=== PATIENT | female | born 1975 | race Caucasian/White ===

== ENCOUNTER 2020-10-04 15:06 | Emergency (ER) | payer OTHER, SELFPAY ==
[2020-10-04 15:16] VITALS: BP 237/106; PULSE 108; RESP 20; TEMP 37.2; O2SAT 95
--- NOTE | 2020-10-04 15:21 | ECG_ITS ---
Test Reason : HYPERTENSION Blood Pressure : / mmHG Vent. Rate : 089 BPM Atrial Rate : 089 BPM P-R Int : 162 ms QRS Dur : 086 ms QT Int : 354 ms P-R-T Axes : 050 065 137 degrees QTc Int : 430 ms Normal sinus rhythm Possible Left atrial enlargement ST & T wave abnormality, consider lateral ischemia Abnormal ECG No previous ECGs available Referred By: Katelynn Hernandez Electronically Signed By:THOR CHI
[2020-10-04 15:25] VITALS: BP 237/106; PULSE 98; RESP 18; TEMP 36.6; O2SAT 99; BMI 37.1
--- NOTE | 2020-10-04 15:28 | ED_ITS ---
HPI - General Adult General Chief complaint: General Medical Stated complaint: HYPERTENSION Time Seen by Provider: 10/04/20 15:21 Source: patient and EMS Mode of arrival: EMS Limitations: no limitations History of Present Illness HPI narrative: 45 yo female with asthma, HTN had been on 3 medications took herself off in 2017 due to cost - went to the dentist today has mild headache BP 250 MD complaint: HTN Onset (ago): unknown Severity: mild Pain Consistency: constant Relieving factors: none Exacerbating factors: none Associated symptoms: headaches Treatments prior to arrival: none Related Data Home Medications Medication Instructions Recorded Confirmed amoxicillin 500 mg tablet 500 mg PO TID 10/04/20 10/04/20 naproxen 500 mg tablet 500 mg PO BID 10/04/20 10/04/20 Allergies Allergy/AdvReac Type Severity Reaction Status Date / Time egg [EGG] Allergy Intermediate ITCHY AND Unverified 10/04/20 14:19 HIVES. Egg White (Diagnostic) Allergy Unknown hives Uncoded 10/04/20 14:19 Review of Systems Review of Systems: Constitutional : No Weight loss, No Fever, No Chills, No Fatigue, No Malaise ENT/Mouth : No sore throat, No Rhinorrhea Eyes: No Eye Pain, No Swelling, No Redness Cardiovascular : No Chest Pain, No SOB, No Dyspnea on Exertion, No Orthopnea, No Edema, No Palpitations Respiratory : No Cough, No Sputum, No Wheezing Gastrointestinal : No Nausea, No Vomiting, No Diarrhea, No Constipation, No abdominal Pain, No Hematochezia, No Melena Genitourinary : No Dysuria, No Urinary Frequency, No Hematuria, Musculoskeletal : No joint pain, No Myalgias, No Joint Swelling Skin : No Skin Lesions, No rash Neuro : No Weakness, No Numbness, No Dizziness, pos Headache Psych : No Anxiety/Panic, No Depression Heme/Lymph: No Bruising, No Bleeding,No Lymphadenopathy Endocrine : No Polyuria, No Polydipsia All other systems reviewed and are negative [facility] Past Medical History Medical History Asthma HTN (hypertension) Social History Social History (Updated 10/04/20 @ 15:35 by Katelynn Hernandez DO) Smoking Status: Never smoker Use of substances other than those prescribed or required for medical reasons: No Advance Directives: No Advance Directives Information Provided: Yes Patient : No Physical Exam Vital Signs: Vital Signs: Last Vital Signs Temp 98 F 10/04/20 15:25 Pulse 85 10/04/20 15:55 Resp 10 L 10/04/20 15:55 BP 221/94 H 10/04/20 15:55 Pulse Ox 99 10/04/20 15:25 Body Mass Index 37.1 Appearance: Alert. Oriented X3. No acute distress. Eyes: Pupils equal, round and reactive to light. ENT: Pharynx normal. Neck: Normal inspection. Neck supple. CVS: Normal heart rate and rhythm. Pulses normal. Respiratory: No respiratory distress. Breath sounds normal. Abdomen: Soft and nontender. Skin: Skin warm and dry. Normal skin color. Normal skin turgor. Extremities: No lower extremity edema. No calf ttp Neuro: Oriented X 3. No motor deficit. No sensory deficit. Course Course Course Narrative: signed out to Dr. Almeida pending further workup Medical Decision Making MDM Narrative Medical decision making narrative: 45 yo female with hx of HTN on 3 medications in the past has not been on them since 2017 comes in with c/o elevated BPs 250 at dentist sent to ED c/o mild headache at this time but no CP/SOB - labs and IV labetalol ordered at this time. Lab Data Result diagrams: 10/04/20 15:35 10/04/20 15:35 Labs: Lab Results 10/04/20 10/04/20 Range/Units 15:35 15:35 WBC 9.5 (4.8-10.8) X10*3/uL RBC 4.02 L (4.20-5.50) X10*6/uL Hgb 13.2 (12.0-16.0) g/dl Hct 38.7 (37-47) % MCV 96.3 (80-98) fL MCH 32.8 (27.0-33.0) pg MCHC 34.1 (31.0-35.0) g/dl RDW 13.2 (11.0-16.0) % Plt Count 259 (160-400) X10*3/uL MPV 11.0 (9.4-12.3) fL Immature Gran % (Auto) 0.6 H (0.0-0.4) % Neut % (Auto) 66.2 (45-73) % Lymph % (Auto) 23.2 (20-40) % [place] % (Auto) 6.9 (2-11) % Eos % (Auto) 2.7 (0-4) % Baso % (Auto) 0.4 (0-2) % Lymph # (Auto) 2.2 (1.2-4.9) X10*3/uL [place] # (Auto) 0.7 (0.1-1.2) X10*3/uL Eos # (Auto) 0.3 (0.0-0.4) X10*3/uL Baso # (Auto) 0.0 (0.0-0.2) X10*3/uL Abs Immat Gran (auto) 0.06 H (0.00-0.03) X10*3/uL Absolute Neuts (auto) 6.3 (2.0-8.3) X10*3/uL Absolute Nucleated RBC 0.000 (0.0-0.012) X10*3/uL Nucleated RBC % (auto) 0.0 (0.0-0.2) /100WBC Sodium 138 (135-145) mmol/L Potassium 4.1 (3.3-5.1) mmol/L Chloride 105 (96-108) mmol/L Carbon Dioxide 23 (22-29) mmol/L Anion Gap 14 (12-20) BUN 18 H (9-16) mg/dL Creatinine 0.81 (0.5-1.4) mg/dL Estim Creat Clear Calc 104.7 Estimated GFR > 60 Random Glucose 97 (60-115) mg/dL Calcium 9.3 (8.4-10.2) mg/dL Magnesium 1.9 (1.6-2.6) mg/dL Total Bilirubin 0.6 (0.0-1.0) mg/dL Direct Bilirubin 0.2 (0.0-0.5) mg/dL AST 35 H (5-31) U/L ALT 45 H (0-31) U/L Alkaline Phosphatase 135 H (39-117) U/L Total Protein 7.2 (6.5-8.0) g/dL Albumin 4.2 (3.5-5.0) g/dL ECG Data Attestation: I personally reviewed and interpreted this ECG as follows: Interpretation: Rate: 89 Rhythm: NSR [place]: normal, LVH Normal P waves. Normal EARNEST. Normal QRS complex. ST T wave : no ISAI inverted I and aVL, V4-V6 qTC: normal prior studies: no prior The study has been interpreted contemporaneously by me. . Discharge Plan Discharge Clinical Impression: HTN (hypertension) Qualifiers: Hypertension type: unspecified Qualified Code(s): I10 - Essential (primary) hypertension Prescriptions: No Action amoxicillin 500 mg tablet 500 mg PO TID RF: 0 naproxen 500 mg tablet 500 mg PO BID RF: 0
[2020-10-04 15:40] LABS: MANUAL DIFF FLAG NO
[2020-10-04 15:47] LABS: Basophils Percent Auto 0.4 % (0-2); Eosinophils Absolute Auto 0.3 X10*3/uL (0.0-0.4); Eosinophils Percent Auto 2.7 % (0-4); Hematocrit 38.7 % (37-47); Hemoglobin 13.2 g/dl (12.0-16.0); Imm Gran Abs Auto 0.06 X10*3/uL (0.00-0.03); Imm Gran Pct Auto 0.6 % (0.0-0.4); Lymphocytes Absolute Auto 2.2 X10*3/uL (1.2-4.9); Lymphocytes Percent Auto 23.2 % (20-40); Mean Corpuscular HGB Conc 34.1 g/dl (31.0-35.0); Mean Corpuscular Hemoglobin 32.8 pg (27.0-33.0); Mean Corpuscular Volume 96.3 fL (80-98); Monocytes Absolute Auto 0.7 X10*3/uL (0.1-1.2); Monocytes Percent Auto 6.9 % (2-11); Neutrophils Absolute Auto 6.3 X10*3/uL (2.0-8.3); Neutrophils Percent Auto 66.2 % (45-73); Platelet Count 259 X10*3/uL (160-400); Red Blood Count 4.02 X10*6/uL (4.20-5.50); Red Cell Distribution Width 13.2 % (11.0-16.0); White Blood Count 9.5 X10*3/uL (4.8-10.8)
[2020-10-04] MEDS: Labetalol HCL 100 MG/20 ML VIAL 10 MG IVPUSH (15:54)
[2020-10-04 15:55] VITALS: BP 221/94; PULSE 85; RESP 10
[2020-10-04 16:09] LABS: Alanine Aminotransferase 45 U/L (0-31); Albumin Level 4.2 g/dL (3.5-5.0); Alkaline Phosphatase 135 U/L (39-117); Anion Gap 14 (12-20); Aspartate Amino Transferase 35 U/L (5-31); Bilirubin Direct 0.2 mg/dL (0.0-0.5); Bilirubin Total 0.6 mg/dL (0.0-1.0); Blood Urea Nitrogen 18 mg/dL (9-16); Calcium 9.3 mg/dL (8.4-10.2); Carbon Dioxide 23 mmol/L (22-29); Chloride 105 mmol/L (96-108); Creatinine Clr Calc Pharmacy 104.7; Estimated Glomerular Filt Rate > 60; Glucose Random 97 mg/dL (60-115); Magnesium 1.9 mg/dL (1.6-2.6); Potassium 4.1 mmol/L (3.3-5.1); Sodium 138 mmol/L (135-145); Total Protein 7.2 g/dL (6.5-8.0)
[2020-10-04 16:50] VITALS: BP 186/92; PULSE 83
[2020-10-04] MEDS: amLODIPine Besylate 5 MG TABLET PO (16:50)
[2020-10-04 17:53] VITALS: BP 183/82; PULSE 72
[2020-10-04 18:47] VITALS: BP 207/100; PULSE 91
[2020-10-04] MEDS: lisinopriL 20 MG TABLET PO (18:47)
== END 2020-10-04 18:55 | disposition home or self-care (01) ==
PROVIDERS: Emergency Provider Emergency Medicine
DX: I10 Essential (primary) hypertension (principal); J45.909 Unspecified asthma, uncomplicated; R51.9 Headache, unspecified; Z79.899 Other long term (current) drug therapy
CPT/HCPCS: 36415; 80048; 80076; 83735; 85025; 93005; 96374; 99284

== ENCOUNTER 2020-10-15 09:02 | Inpatient (IN) | payer OTHER, SELFPAY ==
[2020-10-15] VITALS (13 sets, daily range): BP systolic 143–232; BP diastolic 60–130; PULSE 75–106; RESP 13–20; TEMP 36.1–37.2; O2SAT 97–100; BMI 43.9
--- NOTE | ~2020-10-15 | CT_ITS ---
EXAMINATION: CT HEAD WITHOUT CONTRAST CLINICAL INFORMATION: Headache. COMPARISON: None TECHNIQUE: Contiguous axial imaging was performed from the skull base to vertex without intravenous administration of contrast. This CT examination was performed using dose optimization techniques as appropriate, variously including the following: *Automated exposure control *Adjustment of mA and/or kV according to patient size (this includes techniques or standardized protocols for targeted exams where dose is matched to indication/reason for exam; i.e. extremities or head) *Use of iterative reconstruction technique DLP: 735 mGy-cm FINDINGS: There is no evidence of acute intracranial hemorrhage or territorial infarction. No abnormal mass effect or midline shift is seen. Gill to white matter differentiation is well preserved. No extra-axial fluid collections are identified. The ventricles are normal in size. There is no abnormal attenuation within the brain parenchyma. The osseous structures and soft tissues are normal. Bone windows reveal diffuse mucoperiosteal thickening in the bilateral ethmoid and maxillary sinuses. Rest of the paranasal sinuses and mastoid air cells are well-aerated. CT/CT head/brain wo con IMPRESSION: No acute intracranial process seen. Diffuse mucoperiosteal thickening bilateral ethmoid and maxillary sinuses.
--- NOTE | ~2020-10-15 | XR_ITS ---
EXAMINATION: XR CHEST CLINICAL INFORMATION: Shortness of breath and wheezing COMPARISON: None TECHNIQUE: Frontal view of the chest was obtained. FINDINGS: The cardiac and mediastinal contours are normal. There is increased attenuation of the right mid and lower lung. It is uncertain whether this is related to overlying soft tissues. The left lung is clear. There is no pleural effusion or pneumothorax. There is mild curvature of the lower thoracic spine to the left. Bony structures are otherwise unremarkable. XR/XR chest 1V IMPRESSION: Increased attenuation of the mid and lower right lung. It is uncertain whether this is related to overlying soft tissues. This could be further evaluated with PA and lateral chest x-ray if indicated.
--- NOTE | ~2020-10-15 | XR_ITS ---
EXAMINATION: XR CHEST CLINICAL INFORMATION: SOB/wheezing COMPARISON: None TECHNIQUE: 2 views of the chest were obtained. FINDINGS: The lungs are well-expanded and clear of acute process. The heart size and pulmonary vascularity is normal. No gross bony pneumonia seen. XR/XR chest 2V IMPRESSION: Unremarkable chest exam.
--- NOTE | 2020-10-15 09:50 | ECG_ITS ---
Test Reason : CHEST PAIN Blood Pressure : / mmHG Vent. Rate : 104 BPM Atrial Rate : 104 BPM P-R Int : 176 ms QRS Dur : 090 ms QT Int : 326 ms P-R-T Axes : 064 064 157 degrees QTc Int : [address] & T wave abnormality, consider inferolateral ischemia Abnormal ECG When compared with ECG of 04-OCT-2020 15:27, Inverted T waves have replaced nonspecific T wave abnormality in Inferior leads Referred By: Alycia Song Electronically Signed By:IGOR LEE MD
--- NOTE | 2020-10-15 09:59 | PC.NURSE ---
YONAS AGUIRRE IN TO ASSESS, PT TO BE TRANSFERED TO MAIN ED FOR FURTHER EVALUATION AND TREATMENT, ASTROBIOLOGIST AGGIE AWARE, PT AMBULATORY W/O APPARENT DISTRESS, REPORT TO ANNIE VILLAGOMEZ
--- NOTE | 2020-10-15 10:08 | ED_ITS ---
HPI - Allergic Reaction General Chief complaint: Allergic Reaction Stated complaint: allergic reaction Time Seen by Provider: 10/15/20 09:48 Source: patient Mode of arrival: ambulatory History of Present Illness HPI narrative: 45-year-old female with a past medical history of asthma, tubal ligation, HTN, presenting to the ED sent from urgent care for HTN and hives x3 days. Patient reports she was recently started on Amoxicillin for a dental infection on 10/03 and HCTZ/Lisinopril on 10/04/20 in our ED for hypertension. Has been taking Benadryl at home with symptomatic relief, stopped all medications on Thursday. Reports hives intermittent, admits to headache, dental pain, cough, wheezing, SOB. Denies other new or recent medications, recent travel, known insect bites, difficulty swallowing/handling secretions, oral swelling, chest pain, vision changes, weakness, fever. Denies taking anticoagulation MD complaint: allergic reaction and hives Related Data Home Medications Medication Instructions Recorded Confirmed amoxicillin 500 mg tablet 500 mg PO TID 10/04/20 10/04/20 naproxen 500 mg tablet 500 mg PO BID 10/04/20 10/04/20 Previous Rx's Medication Instructions Recorded lisinopril-hydrochlorothiazide 1 tab PO DAILY #90 tab 10/04/20 Allergies Allergy/AdvReac Type Severity Reaction Status Date / Time egg [EGG] Allergy Intermediate ITCHY AND Unverified 10/04/20 14:19 HIVES. Egg White (Diagnostic) Allergy Unknown hives Uncoded 10/04/20 14:19 Review of Systems Review of Systems: Constitutional: No Fever, No Chills, No Fatigue, No Malaise ENT/Mouth: No Ear Pain, No Nasal Congestion, No Sinus Pain, No Hoarseness, No sore throat, No Swallowing Difficulty Eyes: No Eye Pain, No Discharge, No Vision Changes Cardiovascular: No Chest Pain, + SOB, No Edema, No Palpitations Respiratory: + Cough, No Sputum, + Wheezing Gastrointestinal: No Nausea, No Vomiting, No Diarrhea, No Constipation, No Abdominal pain Genitourinary: No Dysuria, No Hematuria, No Flank Pain Musculoskeletal: No joint pain, No Myalgias, No Joint Swelling Skin: No Skin Lesions, No rash Neuro: No Weakness, No Numbness, No Dizziness, +Headache Yes all other systems are reviewed and are negative [facility] Past Medical History Attestation statement: The following information was validated with the patient. Medical History (Updated 10/05/20 @ 00:01 by Melina Marrufo) Asthma HTN (hypertension) Surgical History (Updated 10/15/20 @ 09:21 by Antonella Tipton) H/O tubal ligation Social History Social History (Updated 10/04/20 @ 15:35 by Katelynn Hernandez DO) Smoking Status: Never smoker Smoked in Last 30 Days: No Use of substances other than those prescribed or required for medical reasons: Yes Substance Use Type: Marijuana Substance Use Frequency: Occasionally Advance Directives: No Advance Directives Information Provided: No Patient : No Physical Exam Vital Signs: Vital Signs: Last Vital Signs Temp 99.0 F 10/15/20 10:06 Pulse 87 10/15/20 14:15 Resp 16 10/15/20 14:05 BP 215/117 H 10/15/20 14:15 Pulse Ox 100 10/15/20 14:05 Body Mass Index 43.9 Const: General: cooperative and healthy appearing Orientation/consciousnes s: patient oriented x3 Limitations: no limitations HENMT: Other: Left upper 3rd molar with tenderness to palpation. Mild gingival erythema. No fluctuance induration or cellulitis Head: Yes normal to inspection Ears: hearing grossly normal bilaterally General nose exam: Normal external nose present Face and sinus: Yes normal facial exam Mouth: Normal oral and palatal mucosa present Throat: Yes posterior oropharynx normal, Yes tonsils normal, Yes uvula midline, No abnormal tonsil, No peritonsillar mass, No uvula laterally displaced and No uvular edema Eyes: General: appearance normal, both eyes and all related structures EOM: EOMs intact bilaterally Neck: Neck: Yes normal visual inspection, Yes no lymphadenopathy and Yes no meningeal signs Chest: Chest palpation & inspection: normal inspection of the chest Resp: Effort & Inspection: normal respiratory effort Auscultation: wheezes expiratory wheezes Cardio: Rate: regular rate Heart sounds: S1 normal heart sound present and S2 normal heart sound present GI: Inspection: Yes normal to inspection Palpation (GI): Soft to palpation, nontender, no guarding and not rigid Skin: Other: No appreciable hives Rashes: no rashes Wounds: no wounds Neuro: General: patient oriented x3, tone normal, moves all extremities, no meningeal signs and CN's II-XI intact bilaterally Cognition (Neuro): normal cognition Gait exam (Neuro): Normal gait present Extrem: General: Yes normal to inspection Course Course Course Narrative: -CXR unremarkable, head CT unremarkable - initial troponin 6.7 > will obtain 3 hour repeat -1415--patient reported episode of heart fluttering/chest pain, obtained repeat EKG which shows some ischemic changes in leads V4 through V6, BP read elevated, IV Labetalol/Nitro paste ordered. Plan to admit for further management MDM - Allergic Reaction MDM Narrative Medical decision making narrative: 45-year-old female with a past medical history of asthma, tubal ligation, HTN, presenting to the ED sent from urgent care for HTN and hives x3 days. Patient reports she was recently started on Amoxicillin and HCTZ/Lisinopril. Reports hives intermittent, admits to headache, dental pain, cough, wheezing, SOB. On exam hypertensive 211/104, mild end expiratory wheeze, talking in complete sentences no evidence of respiratory distress, no intraoral swelling, uvula midline, no appreciable hives. Dental tenderness noted on exam. Concern for allergic reaction due to unknown medication/multiple recent new medications. Concern for hypertensive urgency vs emergency. No focal neuro deficits. Low concern for ACS. Plan: EKG, labs, head CT, CXR, Norvasc, Benadryl, Pepcid, albuterol, reassess Medical Records Attestation: I reviewed the patient's medical records. Lab Data Attestation: I reviewed the patient's lab results. Result diagrams: 10/15/20 10:20 10/15/20 10:19 Labs: Lab Results 10/15/20 10/15/20 10/15/20 Range/Units 10:19 10:19 10:19 WBC (4.8-10.8) X10*3/uL RBC (4.20-5.50) X10*6/uL Hgb (12.0-16.0) g/dl Hct (37-47) % MCV (80-98) fL MCH (27.0-33.0) pg MCHC (31.0-35.0) g/dl RDW (11.0-16.0) % Plt Count (160-400) X10*3/uL MPV (9.4-12.3) fL Immature Gran % (Auto) (0.0-0.4) % Neut % (Auto) (45-73) % Lymph % (Auto) (20-40) % [place] % (Auto) (2-11) % Eos % (Auto) (0-4) % Baso % (Auto) (0-2) % Lymph # (Auto) (1.2-4.9) X10*3/uL [place] # (Auto) (0.1-1.2) X10*3/uL Eos # (Auto) (0.0-0.4) X10*3/uL Baso # (Auto) (0.0-0.2) X10*3/uL Abs Immat Gran (auto) (0.00-0.03) X10*3/uL Absolute Neuts (auto) (2.0-8.3) X10*3/uL Absolute Nucleated RBC (0.0-0.012) X10*3/uL Nucleated RBC % (auto) (0.0-0.2) /100WBC Hold Blue Top SEE NOTE Sodium 138 (135-145) mmol/L Potassium 4.7 (3.3-5.1) mmol/L Chloride 103 (96-108) mmol/L Carbon Dioxide 25 (22-29) mmol/L Anion Gap 15 (12-20) BUN 16 (9-16) mg/dL Creatinine 0.73 (0.5-1.4) mg/dL Estim Creat Clear Calc 110.7 Estimated GFR > 60 Random Glucose 92 (60-115) mg/dL Calcium 9.2 (8.4-10.2) mg/dL Magnesium 2.1 (1.6-2.6) mg/dL Total Bilirubin 0.3 (0.0-1.0) mg/dL Direct Bilirubin < 0.2 (0.0-0.5) mg/dL AST 30 (5-31) U/L ALT 39 H (0-31) U/L Alkaline Phosphatase 133 H (39-117) U/L Troponin I High Sens 6.7 (<3.5-17.0) ng/L Total Protein 7.6 (6.5-8.0) g/dL Albumin 4.5 (3.5-5.0) g/dL 10/15/20 Range/Units 10:20 WBC 7.3 (4.8-10.8) X10*3/uL RBC 4.05 L (4.20-5.50) X10*6/uL Hgb 13.4 (12.0-16.0) g/dl Hct 38.9 (37-47) % MCV 96.0 (80-98) fL MCH 33.1 H (27.0-33.0) pg MCHC 34.4 (31.0-35.0) g/dl RDW 12.8 (11.0-16.0) % Plt Count 262 (160-400) X10*3/uL MPV 11.6 (9.4-12.3) fL Immature Gran % (Auto) 0.5 H (0.0-0.4) % Neut % (Auto) 63.2 (45-73) % Lymph % (Auto) 26.1 (20-40) % [place] % (Auto) 6.8 (2-11) % Eos % (Auto) 3.0 (0-4) % Baso % (Auto) 0.4 (0-2) % Lymph # (Auto) 1.9 (1.2-4.9) X10*3/uL [place] # (Auto) 0.5 (0.1-1.2) X10*3/uL Eos # (Auto) 0.2 (0.0-0.4) X10*3/uL Baso # (Auto) 0.0 (0.0-0.2) X10*3/uL Abs Immat Gran (auto) 0.04 H (0.00-0.03) X10*3/uL Absolute Neuts (auto) 4.6 (2.0-8.3) X10*3/uL Absolute Nucleated RBC 0.000 (0.0-0.012) X10*3/uL Nucleated RBC % (auto) 0.0 (0.0-0.2) /100WBC Hold Blue Top Sodium (135-145) mmol/L Potassium (3.3-5.1) mmol/L Chloride (96-108) mmol/L Carbon Dioxide (22-29) mmol/L Anion Gap (12-20) BUN (9-16) mg/dL Creatinine (0.5-1.4) mg/dL Estim Creat Clear Calc Estimated GFR Random Glucose (60-115) mg/dL Calcium (8.4-10.2) mg/dL Magnesium (1.6-2.6) mg/dL Total Bilirubin (0.0-1.0) mg/dL Direct Bilirubin (0.0-0.5) mg/dL AST (5-31) U/L ALT (0-31) U/L Alkaline Phosphatase (39-117) U/L Troponin I High Sens (<3.5-17.0) ng/L Total Protein (6.5-8.0) g/dL Albumin (3.5-5.0) g/dL ECG Data Attestation: I personally reviewed and interpreted this ECG as follows: ECG interpretation date: 10/15/20 ECG interpretation time: 13:52 Prior ECG tracings: available for review Interpretation: EKG sinus tachycardia rate of 104. Ischemic changes in V4 through V6 Discharge Plan Discharge Prescriptions: No Action lisinopril-hydrochlorothiazide 20-25 mg tablet 1 tab PO DAILY Qty: 90 RF: 3 amoxicillin 500 mg tablet 500 mg PO TID RF: 0 naproxen 500 mg tablet 500 mg PO BID RF: 0
[2020-10-15] MEDS: Albuterol Sulfate (0.083%) 2.5 MG/3 ML VIAL.NEB 5 MG INHALE (10:10)
[2020-10-15 10:24] LABS: MANUAL DIFF FLAG NO
[2020-10-15] MEDS: diphenhydrAMINE HCL 50 MG/ML VIAL 25 MG IVPUSH (10:25)
[2020-10-15] MEDS: Famotidine/PF 20 MG/2 ML VIAL IVPUSH (10:25)
[2020-10-15 10:28] LABS: Basophils Percent Auto 0.4 % (0-2); Eosinophils Absolute Auto 0.2 X10*3/uL (0.0-0.4); Hematocrit 38.9 % (37-47); Hemoglobin 13.4 g/dl (12.0-16.0); Imm Gran Abs Auto 0.04 X10*3/uL (0.00-0.03); Imm Gran Pct Auto 0.5 % (0.0-0.4); Lymphocytes Absolute Auto 1.9 X10*3/uL (1.2-4.9); Lymphocytes Percent Auto 26.1 % (20-40); Mean Corpuscular HGB Conc 34.4 g/dl (31.0-35.0); Mean Corpuscular Hemoglobin 33.1 pg (27.0-33.0); Mean Platelet Volume 11.6 fL (9.4-12.3); Monocytes Absolute Auto 0.5 X10*3/uL (0.1-1.2); Monocytes Percent Auto 6.8 % (2-11); Neutrophils Absolute Auto 4.6 X10*3/uL (2.0-8.3); Neutrophils Percent Auto 63.2 % (45-73); Platelet Count 262 X10*3/uL (160-400); Red Blood Count 4.05 X10*6/uL (4.20-5.50); Red Cell Distribution Width 12.8 % (11.0-16.0); White Blood Count 7.3 X10*3/uL (4.8-10.8)
[2020-10-15] MEDS: amLODIPine Besylate 5 MG TABLET PO (10:34)
[2020-10-15 11:00] LABS: Alanine Aminotransferase 39 U/L (0-31); Albumin Level 4.5 g/dL (3.5-5.0); Alkaline Phosphatase 133 U/L (39-117); Anion Gap 15 (12-20); Aspartate Amino Transferase 30 U/L (5-31); Bilirubin Direct < 0.2 mg/dL (0.0-0.5); Bilirubin Total 0.3 mg/dL (0.0-1.0); Blood Urea Nitrogen 16 mg/dL (9-16); Calcium 9.2 mg/dL (8.4-10.2); Carbon Dioxide 25 mmol/L (22-29); Chloride 103 mmol/L (96-108); Creatinine Clr Calc Pharmacy 110.7; Estimated Glomerular Filt Rate > 60; Glucose Random 92 mg/dL (60-115); Magnesium 2.1 mg/dL (1.6-2.6); Potassium 4.7 mmol/L (3.3-5.1); Sodium 138 mmol/L (135-145); Total Protein 7.6 g/dL (6.5-8.0); Troponin-I High Sensitivity 6.7 ng/L (<3.5-17.0)
[2020-10-15] MEDS: Nitroglycerin 2 % Oint 1 GM Packet 0.5 INCH TRANSDERMA (14:09)
[2020-10-15] MEDS: Labetalol HCL 100 MG/20 ML VIAL 10 MG IVPUSH (14:15)
[2020-10-15 14:29] LABS: Troponin-I High Sensitivity 7.4 ng/L (<3.5-17.0)
[2020-10-15] MEDS: Acetaminophen 325 MG TABLET 650 MG PO ×2 (15:04→20:33)
[2020-10-15] MEDS: Metoprolol Tartrate 50 MG TABLET PO (15:51)
[2020-10-15] MEDS: hydroCHLOROthiazide 25 MG TABLET PO (17:46)
[2020-10-15] MEDS: Enoxaparin Sodium 40 MG/0.4 ML SYRINGE SUBCUT (17:47)
[2020-10-15] MEDS: 0.9 % Sodium Chloride Flush 3 ML SYRINGE IVFLUSH (17:49)
--- NOTE | 2020-10-15 18:03 | HP_ITS ---
DATE OF SERVICE: 10/15/2020 CHIEF COMPLAINT: Fluttering of chest, associated with intermittent hives. HISTORY OF PRESENTING ILLNESS: This is a 45-year-old female patient, who was evaluated at [facility] on 10/04/2020 since she was sent to [facility] from her dental office due to elevated blood pressure and headache. The patient in the ER was noted to have significantly elevated blood pressure. Therefore, she was placed on lisinopril and hydrochlorothiazide. Her blood pressure improved. Then, the patient was discharged home. At the same time, the patient was also given amoxicillin by her dentist. As per patient, she started taking all the new medications and started noticing intermittent hives in last few days associated with shortness of breath, chest fluttering. She kept taking Benadryl, but since she had persistent hives, facial swelling, fluttering of chest, she decided to come to the emergency room. As per patient, she has taken amoxicillin in the past with no reaction. She has also taken hydrochlorothiazide with no allergic reaction. She does have history of hives in the past and was diagnosed to have allergies to egg. The patient in the emergency room was noted to have a blood pressure of 232/130. Her EKG showed T-wave inversions in leads V3 to V6 that were present on her previous EKG of October 04, but more pronounced. The patient was treated in the ER with nitroglycerin paste, IV Benadryl, Pepcid, IV labetalol, and Norvasc. Current blood pressure is improved to 163/82. The patient denies any recurrent hives, denies lip swelling, difficulty breathing. No further hives. She denies any chest pain. The patient is now being admitted for better blood pressure control and close monitoring and treatment for her acute allergic reaction. PAST MEDICAL HISTORY: Significant for, 1. Asthma. 2. History of hypertension. 3. Status post tubal ligation. 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 No history of smoking. She drinks vodka 2 to 3 times per week with soda. No history of prior alcohol withdrawal. The patient lives at home with boyfriend and her daughter and grandkids. FAMILY HISTORY: There is a history of premature coronary artery disease in her brother, who had an ID and required cardiac surgery. Mother also has heart disease. Father has peripheral vascular disease and diabetes. REVIEW OF SYSTEMS: CONSTITUTIONAL: She denies any headache, dizziness. CVS: Denies any chest pain or palpitation. GI: Denies any nausea, vomiting, diarrhea. : No urinary symptoms of urgency and frequency. SKIN: She denies any new rash since in the emergency room. No itching. Rest of all other system are reviewed and are negative. ALLERGIES: THE PATIENT IS ALLERGIC TO EGGS THAT CAUSING ITCHING AND HIVES. MEDICATIONS: On admission are, 1. Hydrochlorothiazide/lisinopril 1 tablet a day. 2. Naprosyn 500 mg b.i.d. 3. Amoxicillin 500 mg t.i.d. The patient has finished course of amoxicillin only 1 tablet was left. PHYSICAL EXAMINATION: GENERAL: The patient is resting comfortably, does not appear to be in acute distress. VITALS: BP 163/82 with a pulse of 92, respiratory rate 12, O2 saturation 98% on room air. HEENT: Pupils equal, round, and reactive to light and accommodation. Extraocular muscles intact. Anicteric sclerae. NECK: Supple. No JVD. LUNGS: Clear to auscultation. HEART: Regular rate and rhythm. No murmur, regurg, or gallop. ABDOMEN: Obese, soft, nontender. EXTREMITIES: Without clubbing, cyanosis, or edema. SKIN: Without any hives or rashes. FACE: Mild swelling in the periorbital area and cheeks. Lips normal appearing. Tongue not swollen. Oral mucosa moist. No open ulcers or sores. There are multiple cavities. NEURO: Nonfocal. IMAGING STUDIES: Chest x-ray showed no acute infiltrate. Head CT showed no acute abnormality. WBC 7.3, hematocrit of 38.9, and a platelet count of 262. Sodium 138, potassium 4.7, chloride 103, BUN 16, creatinine of 0.73, magnesium 2.1, blood sugar 92. ALT 39, alkaline phosphatase of 133. Troponin 6.7, repeat troponin 7.4. EKG showed ST and T-wave abnormality, mostly inverted T-waves in the lateral leads V3 to V6, and lead 1 and aVL. ASSESSMENT AND PLAN: This is a 45-year-old female patient with past medical history significant for hypertension; asthma; presented to [facility] due to symptoms of intermittent hives since started on lisinopril, hydrochlorothiazide, and amoxicillin. 1. Hypertensive urgency. The patient noted to have significantly elevated blood pressure. The patient stopped using her antihypertensive medications 3 years ago due to lack of insurance. The patient seen at [facility] on October 04 and started on lisinopril and hydrochlorothiazide due to significant hypertension. The patient does not recall the name of her prior medications. Since the patient developed hives, facial swelling, and fluttering; therefore, we will stop the lisinopril. The patient has taken hydrochlorothiazide in the past with no allergy symptoms. We will place the patient on Norvasc 5 mg by mouth daily. We will add metoprolol 50 mg b.i.d. If BP remains elevated, we will place her on hydrochlorothiazide 12.5 mg daily. We will follow blood pressure closely. 2. Abnormal EKG with T-wave inversions in anterior lateral leads, likely due to significant hypertension. We will repeat EKG. Troponins are unremarkable. The patient has no chest pain. We will obtain echocardiogram to check for left ventricular function and hypertrophy. 3. Allergic reaction with hives, itching, and chest fluttering. The patient at the present time has no difficulty swallowing, able to manage her secretions. No further hives. Most likely, symptoms were due to use of lisinopril since the patient has taken amoxicillin and hydrochlorothiazide in the past with no reaction. The patient will be treated with as-needed Benadryl and Pepcid. We will place Lisinopril in allergies. We will give her retrial of hydrochlorothiazide if blood pressure remains elevated. 4. History of asthma with no acute exacerbation. The patient is not on home inhalers and no history of recent asthma exacerbation. 5. Morbid obesity contributing to symptoms of hypertension, we will recommend weight reduction. 6. Deep vein thrombosis prophylaxis, we will place the patient on Lovenox. 7. Code status, the patient is a full code. MD YENI Valdez/SYED / [id number] MTDD
--- NOTE | 2020-10-15 18:40 | PC.NURSE ---
blood pressure 185/80, Dr Song was notified ,HCTZ 25 mg ordered and administered
[2020-10-16] VITALS (11 sets, daily range): BP systolic 142–206; BP diastolic 74–107; PULSE 77–90; RESP 16–20; TEMP 36.2–36.4; O2SAT 96–99
[2020-10-16 05:02] LABS: Cholesterol 192 mg/dL; HDL Cholesterol 54 mg/dL; LDL Cholesterol Calculated 104 mg/dl; Triglycerides 171 mg/dL
[2020-10-16] MEDS: Acetaminophen 325 MG TABLET 650 MG PO ×2 (05:25→19:40)
--- NOTE | 2020-10-16 07:00 | ECG_ITS ---
Test Reason : CP Blood Pressure : / mmHG Vent. Rate : 080 BPM Atrial Rate : 080 BPM P-R Int : 156 ms QRS Dur : 094 ms QT Int : 380 ms P-R-T Axes : 025 055 119 degrees QTc Int : 438 ms Normal sinus rhythm ST & T wave abnormality, consider lateral ischemia Abnormal ECG When compared with ECG of 15-OCT-2020 13:52, T wave inversion no longer evident in Inferior leads Referred By: Alycia Song Electronically Signed By:IGOR LEE MD
[2020-10-16] MEDS: Famotidine 20 MG TABLET PO (08:21)
[2020-10-16] MEDS: hydroCHLOROthiazide 25 MG TABLET PO (08:21)
[2020-10-16] MEDS: amLODIPine Besylate 5 MG TABLET PO (08:21)
[2020-10-16] MEDS: 0.9 % Sodium Chloride Flush 3 ML SYRINGE IVFLUSH ×3 (08:22→20:08)
[2020-10-16] MEDS: diphenhydrAMINE HCL 25 MG TABLET PO ×2 (10:40→19:38)
[2020-10-16] MEDS: carvediloL 6.25 MG TABLET PO (10:41)
--- NOTE | 2020-10-16 12:26 | MHC.AU.PHL ---
Hearing Instrument Fitting- Pediatric- Left Ear Date of Visit: Product Picker Used: Hearing Instrument(s) Dispensed: Left Ear: Metal Rivet Machine Operator: Model: Serial Number: Repair Warranty: Loss and Damage Warranty: Service Plan: Battery Size: Color: Service Consultant: Tubing: Type of Dome: Type of Mold: Type of Wax Guard: Accessories/Assistive Technology: Summary of Fitting: Recommendations: Recommendations: Recommendations: Diagnosis Code(s): Primary Diagnosis: Secondary Diagnosis: Services Performed: Hearing Aid Evaluation Type: Ear Impression (Quantity): Earmold (Quantity): Swim Mold (Quantity): Musician's Plug (Quantity): CARRILLO Dispensing Fees: CARRILLO Product Codes: Fitting Accessories: CARRILLO Accessories (Quantity): Accessory Description: Hearing Aid Fitting Services: Number of Individual Battery Cells: Package of Wax Guards: CARRILLO Purchased through [facility] or Outside Vendor: CARRILLO Maintenance, Minor Repair (Quantity): Service Consultant Replaced, Out of Warranty: Domes/Tubes: Out of Warranty Repair by Metal Rivet Machine Operator: Extended Warranty (1 or 2 Instruments): Cerumen Removal: Loss and Damage Replacement Fee: CARRILLO Non-Quantity Charges: Signature: Student/Clinical Fellow: I have reviewed/agreed with student/fellow documentation: Provider:
--- NOTE | 2020-10-16 12:26 | MHC.CM.PN ---
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 reviewed along with case discussed with staff nurse and on multiple disciplinary rounds.patient informed me that she had lost her job and had no insurance , then just started a job with waiting period for insurances so her medications prescription needed refills and no pcp, informed her that if this should ever happen aging to reach out to any [facility] financial department and apply for [employer] or the [employer] [facility] where you buy into and pay for ins at [facility], , she was seen at the [facility] on [address] and they sent her into the [facility] er her blood pressure on admission to er was 232/130 she was admitted with the diagnosis of hypertension urgency she is active , independent in all adls and mobility , she is employed and will require not to return back to work patients aware of her current plan of monitoring her blood pressure , bp medication changes, continue nitro paste iv benadryl pepcid, iv labetatol d/c lisinopril add norvasc and metoprolol prn., monitoring labs, repeat ekg cardia labs ans echo per documentaiton met with patient she reported she lives at home with her family boyfriend, daughter and two grand children , she admits to drinking socially vodka with soda 2-3x weekly patient has not ama vacinated, and uses the [facility] pharmacy on [address] discharge plan confuirm pcp home with family no services antivcipated, transportation family
--- NOTE | 2020-10-16 14:13 | P.PNIM_ITS ---
Subjective Subjective Date of Service: 10/16/20 Interval History: the patient was seen and evaluated this morning Laying in bed, feels comfortable overall but blood pressure readings still significantly elevated around 190 systolic No reported hives, edema or difficulty swallowing Denies any fever, chills or shortness of breath No reported other overnight events. Systemic review: No fever, chills or weakness No chest pain, palpitation No shortness of breath or coughing No abdominal pain, nausea or vomiting No urinary symptoms No any rash or wounds Physical Exam Vital Signs: Vital Signs: Last Vital Signs Temp 97.2 F 10/16/20 10:43 Pulse 83 10/16/20 10:43 Resp 18 10/16/20 10:43 BP 170/100 H 10/16/20 10:43 Pulse Ox 97 10/16/20 10:43 Body Mass Index 43.9 Const: Other: Constitutional : Alert, oriented, not in distress, morbidly obese Neck : Normal inspection, Supple Cardiovascular : RRR, S1 S2, no lower extremity edema Respiratory : Good bilateral air entry, no crackles, wheezes or rhonchi Gastrointestinal: soft, lax, Normal bowel sounds, Non tender Skin : Warm/Dry, No rash Neurological : Alert & oriented x3, No focal deficit Objective Data Current Medications Generic Name Dose Route Start Last Admin Trade Name Freq PRN Reason Stop Dose Admin Acetaminophen 650 mg 10/15/20 15:35 10/16/20 05:25 Acetaminophen 325 Mg Tablet PO 650 mg Q6H PRN Administration Pain, Mild (Pain Scale 1-3) Albuterol Sulfate 2 puff 10/15/20 17:19 Albuterol Sulfate 90 Mcg 8 Gm Inhaler INHALE Q4H PRN Respiratory Distress Amlodipine Besylate 10 mg 10/17/20 09:00 Amlodipine Besylate 5 Mg Tablet PO DAILY LACY Protocol Carvedilol 12.5 mg 10/16/20 21:00 Carvedilol 12.5 Mg Tablet PO BID LACY Protocol Diphenhydramine HCl 25 mg 10/15/20 15:35 10/16/20 10:40 Diphenhydramine Hcl 25 Mg Tablet PO 25 mg Q6H PRN Administration Allergic Reaction Enoxaparin Sodium 40 mg 10/15/20 18:00 10/15/20 17:47 Enoxaparin Sodium 40 Mg/0.4 Ml Syringe SUBCUT 40 mg Q24H LACY Administration Famotidine 20 mg 10/16/20 09:00 10/16/20 08:21 Famotidine 20 Mg Tablet PO 20 mg DAILY LACY Administration Hydrochlorothiazide 25 mg 10/15/20 18:00 10/16/20 08:21 Hydrochlorothiazide 25 Mg Tablet PO 25 mg DAILY LACY Administration Protocol Ondansetron HCl 4 mg 10/15/20 15:35 Ondansetron Hcl 4 Mg/2 Ml Vial IVPUSH Q8H PRN Nausea and Vomiting Oxycodone HCl 5 mg 10/15/20 15:35 Oxycodone Hcl Immed Release 5 Mg Tablet PO Q6H PRN Pain, Severe (Pain Scale 7-10) Sodium Chloride 3 ml 10/15/20 17:00 10/16/20 08:22 0.9 % Sodium Chloride Flush 3 Ml Syringe IVFLUSH 3 ml QSHIFT LACY Administration Labs CBC & Chem 7: 10/15/20 10:20 10/15/20 10:19 Assessment and Plan (1) Hypertensive urgency: Status: Acute (2) Hives: Status: Acute (3) Allergy to lisinopril: Status: Acute (4) Morbid obesity: Status: Acute Assessment and Plan: This is a 45-year-old female patient with past medical history significant for hypertension; asthma; presented to [facility] due to symptoms of intermittent hives since started on lisinopril, hydrochlorothiazide, and amoxicillin. Hypertensive urgency. Still have significantly elevated blood pressure readings The patient stopped using her antihypertensive medications 3 years ago due to lack of insurance. patient developed hives, facial swelling, and fluttering; therefore, we will stop the lisinopril. Continue hydrochlorothiazide Continue Norvasc 5 mg, consider increase to 10 by tomorrow if maintains high Carvedilol started b.i.d. next [place] continue to monitor blood pressure Abnormal EKG T-wave inversions in anterior lateral leads, likely due to significant hypertension repeat EKG. Troponins are unremarkable. The patient has no chest pain. obtain echocardiogram to check for left ventricular function and hypertrophy Allergic reaction with hives, itching, and chest fluttering symptoms were due to use of lisinopril , discontinued The patient will be treated with as-needed Benadryl and Pepcid. History of asthma no acute exacerbation. Morbid obesity contributing to symptoms of hypertension, discussed weight reduction Deep vein thrombosis prophylaxis on Lovenox.
[2020-10-16] MEDS: oxyCODONE HCl Immed Release 5 MG TABLET PO (14:38)
[2020-10-16] MEDS: Enoxaparin Sodium 40 MG/0.4 ML SYRINGE SUBCUT (17:53)
[2020-10-16] MEDS: carvediloL 12.5 MG TABLET PO (20:08)
[2020-10-16] MEDS: ondansetron HCL 4 MG/2 ML VIAL IVPUSH (23:55)
[2020-10-16] MEDS: hydrOXYzine HCL 25 MG TABLET PO (23:59)
[2020-10-17] MEDS: Morphine Sulfate 2 MG/ML CARTRIDGE IVPUSH
--- NOTE | 2020-10-17 01:15 | PC.NURSE ---
Pt reported 10/10 left lower abd pain at the sire of the lovenox injection. BP 177/100 HR 80. Pt concerned over her family hx of abd aneurysm. PT very restless. notified and ordered Atarax and morphine. An abd u/s was also ordered. Morphine, atarax, and zofran were administered with a therapeutic effect. Pt currently sleeping in bed.
[2020-10-17 03:34] VITALS: BP 184/100; PULSE 73; RESP 18; TEMP 36.9; O2SAT 99
[2020-10-17 06:49] LABS: Hemoglobin 12.9 g/dl (12.0-16.0); Mean Corpuscular HGB Conc 33.9 g/dl (31.0-35.0); Mean Corpuscular Hemoglobin 32.6 pg (27.0-33.0); Mean Platelet Volume 11.5 fL (9.4-12.3); Platelet Count 242 X10*3/uL (160-400); Red Blood Count 3.96 X10*6/uL (4.20-5.50); Red Cell Distribution Width 12.5 % (11.0-16.0); White Blood Count 7.2 X10*3/uL (4.8-10.8)
[2020-10-17 07:06] LABS: Blood Urea Nitrogen 13 mg/dL (9-16); Calcium 9.2 mg/dL (8.4-10.2); Estimated Glomerular Filt Rate > 60; Glucose Random 105 mg/dL (60-115)
[2020-10-17 07:47] LABS: Anion Gap 15 (12-20); Carbon Dioxide 26 mmol/L (22-29); Chloride 99 mmol/L (96-108); Potassium 3.7 mmol/L (3.3-5.1); Sodium 136 mmol/L (135-145)
[2020-10-17 07:59] VITALS: PULSE 91; RESP 20; TEMP 36.5; O2SAT 100
[2020-10-17 08:19] VITALS: BP 198/100; PULSE 91
[2020-10-17] MEDS: 0.9 % Sodium Chloride Flush 3 ML SYRINGE IVFLUSH (08:19)
[2020-10-17] MEDS: amLODIPine Besylate 5 MG TABLET 10 MG PO (08:19)
[2020-10-17] MEDS: carvediloL 12.5 MG TABLET PO (08:19)
[2020-10-17] MEDS: Famotidine 20 MG TABLET PO (08:20)
[2020-10-17] MEDS: hydroCHLOROthiazide 25 MG TABLET PO (08:20)
[2020-10-17 08:38] VITALS: BP 198/100; PULSE 91
[2020-10-17] MEDS: LORazepam 0.5 MG TABLET PO (08:38)
[2020-10-17] MEDS: carvediloL 25 MG TABLET PO (08:38)
[2020-10-17] MEDS: Acetaminophen 325 MG TABLET 650 MG PO (08:40)
[2020-10-17 10:40] VITALS: BP 150/86
--- NOTE | 2020-10-17 11:04 | PM.DS ---
DS: Providers Provider Date of Service: 10/17/20 Date of admission: 10/15/20 15:35 Primary care physician: None Physician DS: Diagnosis Discharge Diagnosis (1) Hypertensive urgency: Status: Acute (2) Hives: Status: Acute (3) Allergy to lisinopril: Status: Acute (4) Morbid obesity: Status: Acute DS: Medications Discharge Medications Home Medications: Home Medications Medication Instructions Recorded Confirmed naproxen 500 mg tablet 500 mg PO BID 10/04/20 10/15/20 albuterol sulfate [ProAir HFA] 2 puff INHALATION Q4H PRN 10/15/20 10/15/20 Previous Rx's Medication Instructions Recorded amlodipine 10 mg PO DAILY #30 tab 10/17/20 carvedilol 25 mg PO BID #60 tab 10/17/20 hydrochlorothiazide 25 mg PO DAILY #30 tab 10/17/20 DS: Summary Hospital Course Hospital Course: Admission note HPI This is a 45-year-old female patient, who was evaluated at [facility] on 10/04/2020 since she was sent to [facility] from her dental office due to elevated blood pressure and headache. The patient in the ER was noted to have significantly elevated blood pressure. Therefore, she was placed on lisinopril and hydrochlorothiazide. Her blood pressure improved. Then, the patient was discharged home. At the same time, the patient was also given amoxicillin by her dentist. As per patient, she started taking all the new medications and started noticing intermittent hives in last few days associated with shortness of breath, chest fluttering. She kept taking Benadryl, but since she had persistent hives, facial swelling, fluttering of chest, she decided to come to the emergency room. As per patient, she has taken amoxicillin in the past with no reaction. She has also taken hydrochlorothiazide with no allergic reaction. She does have history of hives in the past and was diagnosed to have allergies to egg. The patient in the emergency room was noted to have a blood pressure of 232/130. Her EKG showed T-wave inversions in leads V3 to V6 that were present on her previous EKG of October 04, but more pronounced. The patient was treated in the ER with nitroglycerin paste, IV Benadryl, Pepcid, IV labetalol, and Norvasc. Current blood pressure is improved to 163/82. The patient denies any recurrent hives, denies lip swelling, difficulty breathing. No further hives. She denies any chest pain. The patient is now being admitted for better blood pressure control and close monitoring and treatment for her acute allergic reaction. Hospital stay The patient was treated mainly for allergic reaction with discontinuing lisinopril and treatment with Benadryl Pepcid with good response as all the hives resolved. EKG was done at time of presentation repeated the next day with lateral changes of T-wave suggestive of strain as troponin remain negative and the patient denied any chest pain. Blood pressure was monitored and treated with addition of amlodipine, carvedilol and hydrochlorothiazide with good response over the course of hospital stay. Time Spent with Patient Time attestation: Total time spent providing and/or coordinating discharge services: Discharge coordination time: Greater than 30 minutes Quality: Stroke Does the patient have a stroke diagnosis?: No Physical Exam Vital Signs: Vital Signs: Last Vital Signs Temp 97.7 F 10/17/20 07:59 Pulse 91 10/17/20 08:38 Resp 20 10/17/20 07:59 BP 150/86 H 10/17/20 10:40 Pulse Ox 100 10/17/20 07:59 Body Mass Index 43.9 Const: Other: Constitutional : Alert, oriented, not in distress, morbidly obese Neck : Normal inspection, Supple Cardiovascular : RRR, S1 S2, no lower extremity edema Respiratory : Good bilateral air entry, no crackles, wheezes or rhonchi Gastrointestinal: soft, lax, Normal bowel sounds, Non tender Skin : Warm/Dry, No rash Neurological : Alert & oriented x3, No focal deficit DS: Data Data Completed and Pending Labs on day of discharge: Laboratory Results - last 24 hr 10/17/20 10/17/20 05:53 05:53 WBC 7.2 RBC 3.96 L Hgb 12.9 Hct 38.0 MCV 96.0 MCH 32.6 MCHC 33.9 RDW 12.5 Plt Count 242 MPV 11.5 Absolute Nucleated RBC 0.000 Nucleated RBC % (auto) 0.0 Sodium 136 Potassium 3.7 D Chloride 99 Carbon Dioxide 26 Anion Gap 15 BUN 13 Creatinine 0.80 Estim Creat Clear Calc 101.0 Estimated GFR > 60 Random Glucose 105 Calcium 9.2 Discharge Plan Discharge Patient Disposition: Home Health Service Discharge Diagnosis: Hypertension, uncontrolled Hives Medication allergy Referrals: Physician,None [Primary Care Provider] - 1 Week Discharge Medications: New carvedilol 25 mg Tablet 25 mg PO BID Qty: 60 RF: 2 amlodipine 5 mg Tablet 10 mg PO DAILY Qty: 30 RF: 2 hydrochlorothiazide 25 mg Tablet 25 mg PO DAILY Qty: 30 RF: 2 Continued albuterol sulfate [ProAir HFA] 90 mcg/actuation Hfa Aerosol Inhaler 2 puff INHALATION Q4H PRN (Reason: Respiratory Distress) RF: 0 naproxen 500 mg tablet 500 mg PO BID RF: 0 Discontinued lisinopril-hydrochlorothiazide 20-25 mg tablet 1 tab PO DAILY Qty: 90 RF: 3 amoxicillin 500 mg tablet 500 mg PO TID RF: 0 Discharge Orders: Discharge Order (Routine); Ordered 10/17/20 Ordered By: Soledad Phelan Diet: advance to usual diet and low salt diet Activity on Discharge: As tolerated Stand Alone Forms: Patient Portal Discharge page Care Plan Goals: Read below Health Concerns: Read below Plan of Treatment: You were admitted to the hospital for evaluation of hives. Believed to be secondary to lisinopril which you started taking for high blood pressure readings. Treated with good response with antihistamine and allergy medications. Your blood pressure was noticed to be significantly elevated and treated with total of 3 different medications of amlodipine, carvedilol and hydrochlorothiazide. Assessment: We advise you to lose weight To use amlodipine, carvedilol and hydrochlorothiazide as prescribed Monitor your blood pressure for the next week twice daily and report your readings to primary care physician
--- NOTE | 2020-10-17 11:10 | W.MHC.F2F ---
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 Certification: Based on the above findings, I certify that this patient is confined to the home and needs intermittent longterm care, physical therapy and/or speech therapy, or continues to need occupational therapy. The patient is under my care, and I have initiated the establishment of the plan of care. The patient will be followed by a physician who will periodically review the plan of care.
[2020-10-17 11:26] VITALS: BP 135/66; PULSE 74; RESP 17; TEMP 36.5; O2SAT 99
--- NOTE | 2020-10-17 13:55 | MHC.CM.PN ---
Addendum entered by Dolly Pickering 10/17/20 15:09: nurse acute care occupational therapist note, telephone call back to patient explaining that since she has not been seen in while i was trying to get her another doctor or remote inpatient coder,or pa in that practice and was not able to , thus the [facility] could not come out to see here until she has been seen by a pcp, i infomed her to keep tract of her blood pressure at home and she has the reading from the last two bp here in the hospitlal, and if her blood pressure to rise or having symptom of blurred vision or dizziiness she could come to the er ,(and have another person drive her, informed hospitlaist and nurse case managementmanager progressive care manager Original Note: 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 SHE IS HOPING TO GO HOME TODAY DISCHARGE P[HALEY PATIENT WAS ORDERED TO HAVE THE [facility] FOR BP/CARDIAC ASSESSMENT AND MANAGEMENT AND HOME PHYSICAL THEAPRY . I PATIENT HAD ALREADY BEEN DISCHARGED HOME, I SPOKE WITH HER AND REVIEWED NURSING AGENCY WITH THE [facility]. AND SHE CHOSE THE [facility] FOR NURSING, SHE IS WORKING FROM HOME SO SHE WILL BE HOME BOUND. REFERRAL INIATED TO THE [facility] I CALLED AND GAVE HER THE NUMBER OF THE [facility] AND INFORMED HER WE WERE TRYING TO GET A EARLIER APPOINTMENT CASE MANAGEMENT WILL CALL FOR POST HOSPITAL DISCHARGE I ALSO REached out to the community navigators to see if they be able to assist until she is seen by her pcp discharge plan [facility] for nursing/home pt pcp dr roe huang [facility].
== END 2020-10-17 12:54 | disposition home health service (06) | DRG 607 ==
LOC: HO.ED 14:41 → HO.EDOVER 15:47 → HO.S3 15:55
PROVIDERS: Physician Assistant; Admitting Provider Hospitalist; Emergency Provider Emergency Medicine; PCP Internal Medicine; Visit Provider Student in an Organized Health Care Education/Training Program
DX: L50.0 Allergic urticaria (principal); Z68.41 Body mass index [BMI] 40.0-44.9, adult; I16.0 Hypertensive urgency; I10 Essential (primary) hypertension; E66.01 Morbid (severe) obesity due to excess calories; J45.909 Unspecified asthma, uncomplicated; Z79.1 Long term (current) use of non-steroidal anti-inflammatories (NSAID); Z79.899 Other long term (current) drug therapy; T46.4X5A Adverse effect of angiotensin-converting-enzyme inhibitors, initial encounter; Y92.009 Unspecified place in unspecified non-institutional (private) residence as the place of occurrence of the external cause
CPT/HCPCS: 36415; 70450; 71045; 71046; 80048; 80061; 80076; 83735; 84484; 85025; 85027; 93005; 96374; 96375; 99218; 99285; J1200; J1650; J2270; J2405; Q0163

== ENCOUNTER 2020-12-11 10:56 | Outpatient (REF) | payer OTHER, SELFPAY ==
--- NOTE | ~2020-12-11 | MM_ITS ---
EXAMINATION: MM SCREENING DIGITAL BREAST TOMOSYNTHESIS, BILATERAL CLINICAL INFORMATION: Screening. Asymptomatic. No prior breast imaging. Age 45. Family history breast cancer, maternal aunt. The lifetime risk of breast cancer based on the Tyrer-Cuzick Model is 13%. COMPARISON: None (current study represents initial baseline exam). TECHNIQUE: Digital breast tomosynthesis is performed in both the craniocaudal and mediolateral oblique views along with computer-aided detection (CAD). Synthesized 2D images are generated from the tomosynthesis. Additional bilateral CC and additional bilateral MLO views are provided. FINDINGS: There are scattered areas of fibroglandular density (ACR BI-RADS breast composition Category b). Breast tissue composition borders on predominantly fatty. There is no mass or architectural abnormality. No abnormal calcifications. Skin contours are smooth. MM/MM tomosynthesis screening BI IMPRESSION: No mammographic evidence of malignancy. ASSESSMENT: BI-RADS 1: Negative RECOMMENDATION: Routine annual mammography screening. This patient's information was entered into a reminder system with a target due date for their next mammogram.
== END 2020-12-11 10:57 | disposition home or self-care (01) ==
LOC: HO.MAMMO 10:56
PROVIDERS: Visit Provider Internal Medicine
DX: Z12.31 Encounter for screening mammogram for malignant neoplasm of breast (principal)
CPT/HCPCS: 77063; 77067

== ENCOUNTER 2020-12-26 09:04 | Outpatient (REF) | payer OTHER, SELFPAY ==
[2020-12-26 16:09] LABS: CT PCR NOT DETECTED (Not Detect.); NG PCR NOT DETECTED (Not Detect.)
[2020-12-27 10:29] LABS: BV Int Neg Control Negative (Negative); BV Int Pos Control Positive (Positive)
[2020-12-31 16:37] LABS: HPV mRNA E6/E7 rflx Not Detected (Not Detected)
== END 2020-12-26 09:05 | disposition home or self-care (01) ==
LOC: HO.LAB 09:04
PROVIDERS: PCP Internal Medicine; Visit Provider Advanced Practice Midwife
DX: Z01.419 Encounter for gynecological examination (general) (routine) without abnormal findings (principal); N93.9 Abnormal uterine and vaginal bleeding, unspecified; Z20.2 Contact with and (suspected) exposure to infections with a predominantly sexual mode of transmission; Z87.891 Personal history of nicotine dependence
CPT/HCPCS: 87480; 87491; 87510; 87591; 87624; 87660; 88142

== ENCOUNTER 2021-01-16 11:01 | Outpatient (REF) | payer OTHER, SELFPAY ==
--- NOTE | ~2021-01-16 | US_ITS ---
EXAMINATION: US PELVIS CLINICAL INFORMATION: Abnormal uterine and vaginal bleeding. COMPARISON: None. TECHNIQUE: Ultrasound of the pelvis is performed using both transabdominal and transvaginal transducers along with Doppler. Transvaginal imaging is performed due to inadequate visualization transabdominally. FINDINGS: Uterus is 9 x 4.2 x 5 cm. Anteverted. Anteflexed. The endometrial thickness is measured by the parachute crown sewer at 9 mm and mildly heterogeneous in echogenicity. Ovaries are not visualized. No free fluid. The myometrium is mildly heterogeneous. US/US pelvic and transvaginal IMPRESSION: The endometrial thickness is 9 mm and mildly heterogeneous in echogenicity. While this may be normal for mid-to-late phase of the cycle, an element of hyperplasia or polyp formation cannot be excluded. Correlation recommended clinically. The ovaries not visualized. No free fluid or obvious adnexal mass.
[2021-01-16 12:10] LABS: Hematocrit 37.2 % (37-47); Hemoglobin 12.8 g/dl (12.0-16.0); Mean Corpuscular HGB Conc 34.4 g/dl (31.0-35.0); Mean Corpuscular Hemoglobin 32.7 pg (27.0-33.0); Mean Corpuscular Volume 94.9 fL (80-98); Mean Platelet Volume 11.1 fL (9.4-12.3); Platelet Count 311 X10*3/uL (160-400); Red Blood Count 3.92 X10*6/uL (4.20-5.50); Red Cell Distribution Width 12.6 % (11.0-16.0); White Blood Count 9.3 X10*3/uL (4.8-10.8)
[2021-01-16 12:52] LABS: HCG Quantitative 6 mIU/mL; Thyroid Stimulating Hormone 1.27 uIU/mL (0.32-4.0)
== END 2021-01-16 11:02 | disposition home or self-care (01) ==
LOC: HO.US 11:01
PROVIDERS: PCP Internal Medicine; Visit Provider Advanced Practice Midwife
DX: N93.9 Abnormal uterine and vaginal bleeding, unspecified (principal); N92.1 Excessive and frequent menstruation with irregular cycle
CPT/HCPCS: 36415; 76830; 76856; 84443; 84702; 85027

== ENCOUNTER → 2021-02-14 13:59 | Outpatient (BNVA) | payer OTHER, SELFPAY | PROVIDERS: Visit Provider Advanced Practice Midwife ==

== ENCOUNTER 2021-02-16 10:32 | Outpatient (REF) | payer OTHER, SELFPAY ==
[2021-02-16 11:51] LABS: HCG Quantitative 9 mIU/mL
[2021-02-17 10:52] LABS: Follicle Stimulating Hormone 76.2 mIU/mL
== END 2021-02-16 10:33 | disposition home or self-care (01) ==
LOC: HO.LAB 10:32
PROVIDERS: PCP Internal Medicine; Visit Provider Advanced Practice Midwife
DX: N93.9 Abnormal uterine and vaginal bleeding, unspecified (principal)
CPT/HCPCS: 36415; 83001; 84702

== ENCOUNTER → 2021-03-14 13:12 | Outpatient (BNVA) | payer OTHER, SELFPAY | PROVIDERS: PCP Internal Medicine; Visit Provider Obstetrics & Gynecology ==

== ENCOUNTER 2021-03-16 10:10 | Outpatient (REF) | payer OTHER, SELFPAY ==
[2021-03-16 11:00] LABS: HCG Quantitative 7 mIU/mL
[2021-03-18 18:27] LABS: Lutenizing Hormone 59.7 mIU/mL
== END 2021-03-16 10:11 | disposition home or self-care (01) ==
LOC: HO.LAB 10:10
PROVIDERS: Absent Provider Obstetrics & Gynecology; PCP Internal Medicine; Visit Provider Advanced Practice Midwife
DX: N93.9 Abnormal uterine and vaginal bleeding, unspecified (principal); N95.0 Postmenopausal bleeding
CPT/HCPCS: 36415; 83002; 84702

== ENCOUNTER 2021-03-19 13:55 | Outpatient (REF) | payer OTHER, SELFPAY | END 2021-03-19 13:56 | disposition home or self-care (01) | LOC: HO.LAB 13:55 | PROVIDERS: Visit Provider Advanced Practice Midwife | DX: E34.9 Endocrine disorder, unspecified (principal); N95.0 Postmenopausal bleeding; R87.615 Unsatisfactory cytologic smear of cervix | CPT/HCPCS: 88142 ==

== ENCOUNTER 2021-03-29 06:56 | Day surgery (SDC) | payer OTHER, SELFPAY ==
[2021-03-21 15:40] VITALS: BMI 49.0
--- NOTE | 2021-03-28 11:53 | P.CONAN_ITS ---
Documented by User: Lynette Romero NP 03/28/21 11:55 HPI - Anesthesia Eval Consult details Narrative: 45yo F for ?D&C Hysteroscopy possible myomectomy and polypectomy PMFSH Active Problems Active Problems: All Active Problems (Updated 03/21/21 @ 15:39 by Dolly Holt RN) Encounter to discuss test results (Acute) Postmenopausal bleeding (Acute) Unsatisfactory cervical Papanicolaou smear (Acute) Elevated serum hCG (Acute) Abnormal uterine bleeding (Acute) Essential hypertension (Acute) Mild intermittent asthma (Acute) Disturbance, sleep (Acute) Loud snoring (Acute) Past Medical History Medical History Abnormal uterine bleeding Disturbance, sleep Essential hypertension Loud snoring Mild intermittent asthma Morbid obesity Family History Family History Paternal Aunt Ovarian cancer Breast cancer Maternal Aunt Breast cancer Surgical History Surgical History H/O tubal ligation Social History Social History Household Members: Family Housing: House Do you presently have visiting nurse or other home services: No Alcohol intake: current Alcohol intake frequency: a few times a week Alcohol type: hard liquor Patient Tobacco Use Status: Former Tobacco user Quit Date: years ago Tobacco use type: Cigarette Years Smoked: 15 yrs Substance Use Type: Marijuana Have you been hit, kicked, punched, or otherwise hurt by someone within the past year? If so, by whom?: No Are you DNR?: No Advance Directives: No Advance Directives Information Provided: No Advance Directives on File: No Recently lost weight without trying: No Eating poorly because of decreased appetite: No Nutrition Risks: No Nutritional Risk Patient : No FDLMP: 11/2020 service: No Current occupational status: employed Meds Allergies Allergy/AdvReac Type Severity Reaction Status Date / Time egg [EGG] Allergy Intermediate ITCHY AND Verified 03/21/21 15:39 HIVES. amoxicillin AdvReac Diarrhea Verified 03/21/21 15:39 lisinopril AdvReac Hives Verified 03/21/21 15:39 Egg White (Diagnostic) Allergy Unknown hives Uncoded 03/21/21 15:39 Home Medications Medication Instructions Recorded Confirmed Last Taken Type acetaminophen 500 mg tablet 500 mg PO Q6H PRN 11/05/20 03/21/21 Unknown History (Tylenol Extra Strength) Exam Exam Date and Time: March 28, 2021 1153 Height,Weight and Vital Signs: Height 5 ft 2 in Weight 121.563 kg Pertinent Lab Results Pertinent Lab Results: Laboratory Tests 10/17/20 01/16/21 05:53 11:49 WBC 9.3 Hgb 12.8 Hct 37.2 Plt Count 311 D Sodium 136 Potassium 3.7 D Chloride 99 Carbon Dioxide 26 BUN 13 Creatinine 0.80 Narrative Narrative: EKG 09/2020 Vent. Rate : 080 BPM ? ? Atrial Rate : 080 BPM ?? P-R Int : 156 ms? QRS Dur : 094 ms ? ? QT Int : 380 ms ? ? ? P-R-T Axes : 025 055 119 degrees ?? QTc Int : 438 ms ? Normal sinus rhythm ST & T wave abnormality, consider lateral ischemia Abnormal ECG When compared with ECG of 15-OCT-2020 13:52, T wave inversion no longer evident in Inferior leads Assessment and Plan Assessment Anesthesia Assessment: Chart Reviewed Documented by User: Eri Leonard MD 03/29/21 08:50 [facility] Active Problems Active Problems: All Active Problems (Updated 03/21/21 @ 15:39 by Dolly Holt, ANNIE) Encounter to discuss test results (Acute) Postmenopausal bleeding (Acute) Unsatisfactory cervical Papanicolaou smear (Acute) Elevated serum hCG (Acute) Abnormal uterine bleeding (Acute) Essential hypertension (Acute) Mild intermittent asthma (Acute) Disturbance, sleep (Acute) Loud snoring (Acute). Never had sleep test but thinks snoring better since she got a new bed Asthma Morbid obesity. BMI 49 Past Medical History Medical History Abnormal uterine bleeding Disturbance, sleep Essential hypertension Loud snoring Mild intermittent asthma Morbid obesity Family History Family History Paternal Aunt Ovarian cancer Breast cancer Maternal Aunt Breast cancer Family history of problems with anesthesia: No Surgical History Surgical History H/O tubal ligation History of Problems with Anesthesia: No Social History Social History Household Members: Family Housing: House Do you presently have visiting nurse or other home services: No Alcohol intake: current Alcohol intake frequency: a few times a week Alcohol type: hard liquor Patient Tobacco Use Status: Former Tobacco user Quit Date: years ago Tobacco use type: Cigarette Years Smoked: 15 yrs Substance Use Type: Marijuana Have you been hit, kicked, punched, or otherwise hurt by someone within the past year? If so, by whom?: No Are you DNR?: No Advance Directives: No Advance Directives Information Provided: No Advance Directives on File: No Recently lost weight without trying: No Eating poorly because of decreased appetite: No Nutrition Risks: No Nutritional Risk Patient : No FDLMP: 11/2020 service: No Current occupational status: employed Meds Allergies Allergy/AdvReac Type Severity Reaction Status Date / Time egg [EGG] Allergy Intermediate ITCHY AND Verified 03/21/21 15:39 HIVES. amoxicillin AdvReac Diarrhea Verified 03/21/21 15:39 lisinopril AdvReac Hives Verified 03/21/21 15:39 Egg White (Diagnostic) Allergy Unknown hives Uncoded 03/21/21 15:39 Home Medications Medication Instructions Recorded Confirmed Last Taken Type acetaminophen 500 mg tablet 500 mg PO Q6H PRN 11/05/20 03/21/21 Unknown History (Tylenol Extra Strength) Exam Height,Weight and Vital Signs: Height 5 ft 2 in Weight 121.563 kg Vital Signs Temp Pulse Resp BP Pulse Ox 03/29/21 07:17 97.6 F 75 16 129/66 97 Pertinent Lab Results Pertinent Lab Results: Laboratory Tests 10/17/20 01/16/21 05:53 11:49 WBC 9.3 Hgb 12.8 Hct 37.2 Plt Count 311 D Sodium 136 Potassium 3.7 D Chloride 99 Carbon Dioxide 26 BUN 13 Creatinine 0.80 Lab Results 03/29/21 Range/Units 07:07 Urine Test NEGATIVE (NEGATIVE) Airway Mallampati Class: II TM Dist: >3cm Neck ROM: Full Loose/Missing/Broken Teeth: Yes (Broken top) Heart: RRR Lungs: Bilateral wheezes. Still with some wheezing post albuterol treatment. Patient feels her breating is ok. Not labored. Sats 97% room air. Will proceed Assessment and Plan Assessment Anesthesia Assessment: Anesthesia Plan Discussed Final Anesthetic Review Family History of Problems with Anesthesia: No History of Problems with Anesthesia: No NPO: Yes ASA Class: III Final Preanesthetic Review: No Changes in Pt Med Stat, Meds/Allgs Chart Reviewed, Consent Obtained/Reviewed and Anes Risks/Benef Reviewed Patient Risk: Intermediate Procedure Risk: Low Assessment/Block/Sedation in SS: Assess/Block/Sedation-SS Anesthetic Plan Anesthetic Plan: GA Disposition: Standard PACU
[2021-03-29] VITALS (8 sets, daily range): BP systolic 129–155; BP diastolic 58–88; PULSE 65–75; RESP 16–20; TEMP 36.4–36.9; O2SAT 97–100
[2021-03-29 07:22] LABS: UPreg QC Valid YES; Urine Pregnancy NEGATIVE (NEGATIVE)
[2021-03-29] MEDS: Lactated Ringers 1,000 ML 100 ML IVCONT (07:26)
--- NOTE | 2021-03-29 07:40 | MHC.SHP ---
Pre-Procedural Eval Section A Date of Service: 03/29/21 The patient is an INPATIENT: No Changes since office visit: No Cold of Flu in the past 2 weeks, No New Medical Problems, No Changes in Medication and No Patient answered all questions The History & Physical has been completed within 30 days and I have reviewed it.: Yes Section B Chief Complaint: post menopausal bleeding Allergies: Allergies Allergy/AdvReac Type Severity Reaction Status Date / Time egg [EGG] Allergy Intermediate ITCHY AND Verified 03/21/21 15:39 HIVES. amoxicillin AdvReac Diarrhea Verified 03/21/21 15:39 lisinopril AdvReac Hives Verified 03/21/21 15:39 Egg White (Diagnostic) Allergy Unknown hives Uncoded 03/21/21 15:39 Plan Diagnosis/Plan: Unchanged I have reviewed the history and physical and performed a pertinent physical examination on my patient. No changes have occurred unless specified.
[2021-03-29] MEDS: Albuterol Sulfate (0.083%) 2.5 MG/3 ML VIAL.NEB INHALE (08:22)
--- NOTE | 2021-03-29 08:27 | PC.NURSE ---
patient receiving resp treatment per anesthesia. no s/sx of resp distress. hob 90 degrees. anson well.
--- NOTE | 2021-03-29 09:01 | P.BOP_ITS ---
Brief Operative Note Date of Service: 03/29/21 Pre-op diagnosis: Abnormal uterine bleeding Post-op diagnosis: same (With no evidence of endometrial or endocervical pathology) Procedure: Hysteroscopy D&C, Polypectomy Surgeon: Steven Diaz MD Anesthesia: MAC Was an Electric Vehicle Electrician used for this Procedure?: No Estimated blood loss (mL): 0 Pathology: other (Endometrial Scrappings) Condition: stable Disposition: PACU
--- NOTE | 2021-03-29 09:02 | P.OP_ITS ---
Operative Note Operative Note Date of Service: 03/29/21 Narrative: Preop Diagnosis: Abnormal uterine bleeding Operation: Diagnostic Hysteroscopy, Dilataion & Curettage Post Op Diagnosis: normal endometrial and endocervical cavity no evidence of pathology QBL: Minimal Anesthesia: MAC Surgeon: Steven Diaz MD Gear Inspector: None Complication: None Pathology: Endometrial Scrapings Procedure: The patient was put in the dorsal lithotomy position, scrubbed, and draped in the usual manner. A sterile speculum was inserted in the patient's vagina. The anterior lip of the cervix was grasped with a single tooth tenaculum. The cervix was dilated up t o 5 mm, then the scope was inserted in the patient's uterus. Inspection revealed normal endocervical & endometrial cavity with no evidence of pathology. The scope was taken out of the uterine cavity , then sharp curetting was carried on with no complications. At the end of the procedure, all instruments were taken out of the patient uterine and vaginal cavity. The single tooth tenaculum was removed and homeostasis was assured using pressure. The patient tolerated the procedure well and was transferred to the PACU in a stable condition.
[2021-03-29] MEDS: Acetaminophen 325 MG TABLET 650 MG PO (09:15)
[2021-03-29] MEDS: oxyCODONE HCl Immed Release 5 MG TABLET PO (09:15)
[2021-03-29] MEDS: Ketorolac Tromethamine 15 MG/ML VIAL IVPUSH (09:17)
[2021-03-29] MEDS: fentaNYL citrate/PF 100 MCG/2 ML VIAL 25 MCG IVPUSH (09:19)
== END 2021-03-29 10:20 | disposition home or self-care (01) ==
PROVIDERS: Visit Provider Obstetrics & Gynecology
PROC: 0UDB8ZZ Extraction of Endometrium, Via Natural or Artificial Opening Endoscopic (ICD-10-PCS; CPT 58558; principal; 2021-03-29 08:30)
DX: N95.0 Postmenopausal bleeding (principal); R87.615 Unsatisfactory cytologic smear of cervix; I10 Essential (primary) hypertension; J45.20 Mild intermittent asthma, uncomplicated; E34.9 Endocrine disorder, unspecified; R06.83 Snoring; E66.01 Morbid (severe) obesity due to excess calories; Z68.42 Body mass index [BMI] 45.0-49.9, adult; Z88.0 Allergy status to penicillin; Z88.8 Allergy status to other drugs, medicaments and biological substances; Z98.51 Tubal ligation status; Z87.891 Personal history of nicotine dependence; F12.90 Cannabis use, unspecified, uncomplicated
CPT/HCPCS: 58558; 81025; 88305; J1100; J1885; J2250; J2405; J2765; J3010

== ENCOUNTER → 2021-04-11 12:55 | Outpatient (BNVA) | payer OTHER, SELFPAY | PROVIDERS: Visit Provider Obstetrics & Gynecology ==

== ENCOUNTER 2021-12-13 07:40 | Outpatient (REF) | payer OTHER, SELFPAY ==
--- NOTE | ~2021-12-13 | MM_ITS ---
EXAMINATION: MM SCREENING DIGITAL BREAST TOMOSYNTHESIS, BILATERAL CLINICAL INFORMATION: Screening. Asymptomatic. The lifetime risk of breast cancer based on the Tyrer-Cuzick Model is 9%. COMPARISON: Mammography: 12/11/2020 (baseline) TECHNIQUE: Digital breast tomosynthesis is performed in both the craniocaudal and mediolateral oblique views along with computer-aided detection (CAD). Synthesized 2D images are generated from the tomosynthesis. Additional exaggerated right CC and additional left views are provided. FINDINGS: There are scattered areas of fibroglandular density (ACR BI-RADS breast composition Category b). There are no significant masses, abnormal calcifications, or other abnormalities. Breast tissue composition borders on predominantly fatty. Background stromal markings are similar to baseline exam. No developing density or architectural abnormality. No significant change. MM/MM tomosynthesis screening BI IMPRESSION: No mammographic evidence of malignancy. ASSESSMENT: BI-RADS 1: Negative RECOMMENDATION: Routine annual mammography screening. This patient's information was entered into a reminder system with a target due date for their next mammogram.
== END 2021-12-13 07:41 | disposition home or self-care (01) ==
LOC: HO.MAMMO 07:40
PROVIDERS: Visit Provider Internal Medicine
DX: Z12.31 Encounter for screening mammogram for malignant neoplasm of breast (principal)
CPT/HCPCS: 77063; 77067

== ENCOUNTER 2021-12-24 10:48 | Emergency (ER) | payer OTHER, SELFPAY ==
--- NOTE | ~2021-12-24 | XR_ITS ---
EXAMINATION: XR CHEST CLINICAL INFORMATION: Chest pressure COMPARISON: 10/15/2020 TECHNIQUE: Frontal view of the chest was obtained. FINDINGS: No significant abnormality is noted involving the heart, lungs, mediastinum, bony thorax or soft tissues. XR/XR chest 1V IMPRESSION: Unremarkable examination.
[2021-12-24 11:21] VITALS: BP 151/69; PULSE 71; RESP 20; TEMP 36.2; O2SAT 99; BMI 47.8
--- NOTE | 2021-12-24 11:27 | ECG_ITS ---
Test Reason : chest tighness/dizziness Blood Pressure : / mmHG Vent. Rate : 068 BPM Atrial Rate : 068 BPM P-R Int : 166 ms QRS Dur : 098 ms QT Int : 396 ms P-R-T Axes : 016 058 072 degrees QTc Int : 421 ms Normal sinus rhythm Normal ECG When compared with ECG of 16-OCT-2020 14:50, T wave inversion no longer evident in Lateral leads Referred By: Generic ED Physician Electronically Signed By:THOR CHI
[2021-12-24 11:41] LABS: Basophils Percent Auto 0.5 % (0-2); Eosinophils Absolute Auto 0.2 X10*3/uL (0.0-0.4); Eosinophils Percent Auto 2.4 % (0-4); Hematocrit 39.2 % (37.0-47.0); Hemoglobin 13.7 g/dl (12.0-16.0); Imm Gran Abs Auto 0.04 X10*3/uL (0.00-0.03); Imm Gran Pct Auto 0.5 % (0.0-0.4); Lymphocytes Absolute Auto 1.5 X10*3/uL (1.2-4.9); Lymphocytes Percent Auto 17.2 % (20-40); MANUAL DIFF FLAG NO; Mean Corpuscular HGB Conc 34.9 g/dl (31.0-35.0); Mean Corpuscular Hemoglobin 32.9 pg (27.0-33.0); Mean Platelet Volume 11.1 fL (9.4-12.3); Monocytes Absolute Auto 0.7 X10*3/uL (0.1-1.2); Monocytes Percent Auto 8.1 % (2-11); Neutrophils Absolute Auto 6.1 x10*3/uL (2.0-8.3); Neutrophils Percent Auto 71.3 % (45-73); Platelet Count 263 X10*3/uL (160-400); Red Blood Count 4.17 X10*6/uL (4.20-5.50); Red Cell Distribution Width 12.4 % (11.0-16.0); White Blood Count 8.6 X10*3/uL (4.8-10.8)
[2021-12-24 12:01] LABS: Troponin-I High Sensitivity < 3.5 ng/L (<3.5-17.0)
[2021-12-24 12:04] LABS: Anion Gap 12 (12-20); Blood Urea Nitrogen 17 mg/dL (9-16); Calcium 9.7 mg/dL (8.4-10.2); Carbon Dioxide 26 mmol/L (22-29); Chloride 102 mmol/L (96-108); Creatinine Clr Calc Pharmacy 107.8; Estimated Glomerular Filt Rate > 60; Glucose Random 113 mg/dL (60-115); Potassium 4.2 mmol/L (3.3-5.1); Sodium 136 mmol/L (135-145)
--- NOTE | 2021-12-24 18:47 | ED.DIZZY ---
HPI - Dizziness General Chief Complaint: Dizziness Stated Complaint: Low blood pressure/Dizzy Time Seen by Provider: 12/24/21 18:47 Source: patient Mode of arrival: ambulatory Limitations: no limitations History of Present Illness HPI Narrative: one week of intermittent dizziness described as feeling like she is going to pass out. She has checked her blood pressure at home and has seen 100/50 at the time she feels lightheaded. There has been no change in her medication. MD elicited complaint: lightheadedness Onset (ago): week(s) Timing: sudden onset Severity: moderate Description: lightheadedness and off-balance Exacerbating factors: change in body position Associated symptoms: weakness Related Data Home Medications Medication Instructions Recorded Confirmed acetaminophen 500 mg tablet 500 mg PO Q6H PRN Pain 11/05/20 06/07/21 (Tylenol Extra Strength) Previous Rx's Medication Instructions Recorded amlodipine 10 mg tablet 10 mg PO DAILY #90 tabs 07/03/21 carvedilol 25 mg tablet 25 mg PO BID #180 tabs 11/01/21 albuterol sulfate 90 mcg/actuation 2 puff inhalation Q6H PRN 11/06/21 aerosol inhaler (ProAir HFA) shortness of breath or wheezing #8.5 grams losartan 50 mg-hydrochlorothiazide 1 tab PO DAILY #90 tabs 11/06/21 12.5 mg tablet meloxicam 15 mg tablet 15 mg PO DAILY #14 tabs 11/27/21 sulfamethoxazole 800 1 tab PO BID 10 days #20 tabs 11/27/21 mg-trimethoprim 160 mg tablet (Bactrim DS) Allergies Allergy/AdvReac Type Severity Reaction Status Date / Time egg [EGG] Allergy Intermediate ITCHY AND Verified 12/24/21 11:21 HIVES. amoxicillin AdvReac Diarrhea Verified 12/24/21 11:21 lisinopril AdvReac Hives Verified 12/24/21 11:21 Egg White (Diagnostic) Allergy Unknown hives Uncoded 11/27/21 11:16 Review of Systems Constitutional: Constitutional: Reports no additional constitutional complaints Eyes: Eyes: Reports no additional eye complaints ENT: Denies dizziness Cardiovascular: Cardiovascular: Reports no additional cardiovascular complaints Respiratory: Respiratory: Reports as per HPI Gastrointestinal: Gastrointestinal: Reports no additional gastrointestinal complaints Genitourinary: Genitourinary: Reports no additional female genitourinary complaints Musculoskeletal: Musculoskeletal: Reports no additional musculoskeletal complaints Integumentary/Breasts: Skin/Breast: Denies rash Neurologic: Reports system reviewed and no additional complaints, except as documented, Denies dizziness and Denies Sensory deficit (Neuro) Psychiatric: Psychiatric: Denies anxiety [facility] Past Medical History Medical History Abnormal uterine bleeding Disturbance, sleep Essential hypertension Loud snoring Mild intermittent asthma Morbid obesity Surgical History H/O tubal ligation Family History Family History Paternal Aunt Ovarian cancer Breast cancer Maternal Aunt Breast cancer Other Mental health disorder Substance use disorder Social History Social History Household Members: Family Housing: Apartment Do you presently have visiting nurse or other home services: No Alcohol intake: current Alcohol intake frequency: a few times a week Alcohol type: hard liquor Patient Tobacco Use Status: Former Tobacco user Quit Date: years ago Tobacco use type: Cigarette Years Smoked: 15 yrs e-Cigarette/Vaping Use: Never Used Substance Use Type: Marijuana Advance Directives: No Advance Directives Information Provided: No service: No Current occupational status: employed Cognitive needs: No Hearing needs: No Physical Exam Vital Signs: Vital Signs: Last Vital Signs Temp 98.7 F 12/24/21 19:28 Pulse 82 12/24/21 19:28 Resp 18 12/24/21 19:28 BP 156/72 H 12/24/21 19:28 Pulse Ox 99 12/24/21 19:28 O2 Del Method 12/24/21 19:28 BMI result Body Mass Index 47.8 Const: General: healthy appearing Nutritional Appearance: obese Orientation/consciousness: oriented to person and patient oriented x3 Limitations: no limitations HEENT: Head: Yes normal to inspection Ears: external ears normal General nose exam: Normal external nose present Mouth: Normal oral and palatal mucosa present and oropharynx normal Throat: Yes posterior oropharynx normal Eyes: General: appearance normal, both eyes and all related structures Neck: Other: supple Neck: Yes normal visual inspection Chest: Chest palpation & inspection: normal inspection of the chest Resp: Auscultation: clear to auscultation bilaterally Cardio: Jugular venous distension: no JVD Rate: regular rate Rhythm: regular rhythm Heart sounds: S1 normal heart sound present and S2 normal heart sound present GI: Inspection: Yes normal to inspection Palpation (GI): Soft to palpation, nontender and No hepatosplenomegaly present Auscultation: normal bowel sounds : General: Yes no CVA tenderness Back/Spine/Pelvis: Back: no CVA tenderness Skin: General skin exam: no rashes or lesions noted Neuro: General: oriented to person and patient oriented x3 Cranial nerves: Yes CN's II-XII intact bilaterally Motor exam (neuro): 5/5 motor strength present throughout Sensory Exam: No Sensory deficit (Neuro) Extrem: General: Yes normal to inspection Psych: Appearance: grossly normal Course Reevaluation(s) Reevaluation #1: patient not orthostatic, negative [place], urine shows slight dehydration will encourage increased fluid intake Time: 20:33 MDM - Dizziness Lab Data Result diagrams: 12/24/21 11:35 12/24/21 11:35 Labs: Lab Results 12/24/21 12/24/21 12/24/21 Range/Units 11:35 11:35 11:35 WBC 8.6 (4.8-10.8) X10*3/uL RBC 4.17 L (4.20-5.50) X10*6/uL Hgb 13.7 (12.0-16.0) g/dl Hct 39.2 (37.0-47.0) % MCV 94.0 (80.0-98.0) fL MCH 32.9 (27.0-33.0) pg MCHC 34.9 (31.0-35.0) g/dl RDW 12.4 (11.0-16.0) % Plt Count 263 (160-400) X10*3/uL MPV 11.1 (9.4-12.3) fL Immature Gran % (Auto) 0.5 H (0.0-0.4) % Neut % (Auto) 71.3 (45-73) % Lymph % (Auto) 17.2 L (20-40) % [place] % (Auto) 8.1 (2-11) % Eos % (Auto) 2.4 (0-4) % Baso % (Auto) 0.5 (0-2) % Lymph # (Auto) 1.5 (1.2-4.9) X10*3/uL [place] # (Auto) 0.7 (0.1-1.2) X10*3/uL Eos # (Auto) 0.2 (0.0-0.4) X10*3/uL Baso # (Auto) 0.0 (0.0-0.2) X10*3/uL Abs Immat Gran (auto) 0.04 H (0.00-0.03) X10*3/uL Absolute Neuts (auto) 6.1 (2.0-8.3) x10*3/uL Absolute Nucleated RBC 0.000 (0.0-0.012) X10*3/uL Nucleated RBC % (auto) 0.0 (0.0-0.2) /100WBC Sodium 136 (135-145) mmol/L Potassium 4.2 (3.3-5.1) mmol/L Chloride 102 (96-108) mmol/L Carbon Dioxide 26 (22-29) mmol/L Anion Gap 12 (12-20) BUN 17 H (9-16) mg/dL Creatinine 0.81 (0.5-1.4) mg/dL Estim Creat Clear Calc 107.8 Estimated GFR > 60 Random Glucose 113 (60-115) mg/dL Calcium 9.7 (8.4-10.2) mg/dL Troponin I High Sens < 3.5 (<3.5-17.0) ng/L Urine Color Urine Appearance Urine pH (5.0-8.0) Ur Specific [place] (1.005-1.025) Urine Protein (NEG-TRACE) MG/DL Urine Glucose (UA) (NEG) MG/DL Urine Ketones (NEG) MG/DL Urine Blood (NEG) Urine Nitrite (NEG) Ur Leukocyte Esterase (NEG) Urine RBC (0) /HPF Urine WBC (0-4) /HPF Ur Squamous Epith Cells /LPF Urine Bacteria /LPF 12/24/21 Range/Units 19:34 WBC (4.8-10.8) X10*3/uL RBC (4.20-5.50) X10*6/uL Hgb (12.0-16.0) g/dl Hct (37.0-47.0) % MCV (80.0-98.0) fL MCH (27.0-33.0) pg MCHC (31.0-35.0) g/dl RDW (11.0-16.0) % Plt Count (160-400) X10*3/uL MPV (9.4-12.3) fL Immature Gran % (Auto) (0.0-0.4) % Neut % (Auto) (45-73) % Lymph % (Auto) (20-40) % [place] % (Auto) (2-11) % Eos % (Auto) (0-4) % Baso % (Auto) (0-2) % Lymph # (Auto) (1.2-4.9) X10*3/uL [place] # (Auto) (0.1-1.2) X10*3/uL Eos # (Auto) (0.0-0.4) X10*3/uL Baso # (Auto) (0.0-0.2) X10*3/uL Abs Immat Gran (auto) (0.00-0.03) X10*3/uL Absolute Neuts (auto) (2.0-8.3) x10*3/uL Absolute Nucleated RBC (0.0-0.012) X10*3/uL Nucleated RBC % (auto) (0.0-0.2) /100WBC Sodium (135-145) mmol/L Potassium (3.3-5.1) mmol/L Chloride (96-108) mmol/L Carbon Dioxide (22-29) mmol/L Anion Gap (12-20) BUN (9-16) mg/dL Creatinine (0.5-1.4) mg/dL Estim Creat Clear Calc Estimated GFR Random Glucose (60-115) mg/dL Calcium (8.4-10.2) mg/dL Troponin I High Sens (<3.5-17.0) ng/L Urine Color YELLOW Urine Appearance CLEAR Urine pH 5.5 (5.0-8.0) Ur Specific [place] 1.025 (1.005-1.025) Urine Protein NEG (NEG-TRACE) MG/DL Urine Glucose (UA) NEG (NEG) MG/DL Urine Ketones NEG (NEG) MG/DL Urine Blood 1+ H (NEG) Urine Nitrite NEG (NEG) Ur Leukocyte Esterase NEG (NEG) Urine RBC 1-4 (0) /HPF Urine WBC 0 (0-4) /HPF Ur Squamous Epith Cells 1+ /LPF Urine Bacteria TRACE /LPF Imaging Data Chest x-ray: Radiologist's impression: FINDINGS: No significant abnormality is noted involving the heart, lungs, mediastinum, bony thorax or soft tissues. XR/XR chest 1V IMPRESSION: Unremarkable examination. ECG Data Attestation: I personally reviewed and interpreted this ECG as follows: Interpretation: sinus [address] or twave changes Discharge Plan Discharge Clinical Impression: Dizziness, Dehydration Patient Disposition: Home, Self-Care Instructions: Lightheadedness (ED), Dizziness (ED), Dehydration (ED) Prescriptions: No Action amlodipine 10 mg tablet 10 mg PO DAILY Qty: 90 3RF carvedilol 25 mg tablet 25 mg PO BID Qty: 180 1RF acetaminophen [Tylenol Extra Strength] 500 mg tablet 500 mg PO Q6H PRN (Reason: Pain) losartan-hydrochlorothiazide 50-12.5 mg tablet 1 tab PO DAILY Qty: 90 3RF albuterol sulfate [ProAir HFA] 90 mcg/actuation HFA aerosol inhaler 2 puff INHALATION Q6H PRN (Reason: shortness of breath or wheezing) Qty: 8.5 0RF sulfamethoxazole-trimethoprim [Bactrim DS] 800-160 mg tablet 1 tab PO BID 10 Days Qty: 20 0RF meloxicam 15 mg tablet 15 mg PO DAILY Qty: 14 0RF Referrals: Windy Mcelroy MD [Primary Care Provider] - 1 week
[2021-12-24 19:21] VITALS: BP 156/72; PULSE 78
[2021-12-24 19:22] VITALS: BP 166/72; PULSE 91
[2021-12-24 19:24] VITALS: BP 145/83; PULSE 88
[2021-12-24 19:28] VITALS: BP 156/72; PULSE 82; RESP 18; TEMP 37.1; O2SAT 99
[2021-12-24 19:41] LABS: Appearance Urine CLEAR; Color Urine YELLOW; Glucose Urine UA NEG (NEG); Leukocyte Esterase Urine NEG (NEG); Nitrite Urine NEG (NEG); PH 5.5 (5.0-8.0); Specific Gravity - Urine 1.025 (1.005-1.025); UACC Culture Trigger NO; Urine Blood 1+ (NEG); Urine Ketones NEG (NEG); Urine Protein NEG (NEG-TRACE)
[2021-12-24 19:46] LABS: Bacteria Urine TRACE /LPF; Squamous Epithelial Cell Urine 1+ /LPF; WBC Urine 0 /HPF (0-4)
[2021-12-24 21:48] VITALS: BP 139/67; PULSE 89; RESP 20; TEMP 36.6; O2SAT 96
== END 2021-12-24 21:56 | disposition home or self-care (01) ==
PROVIDERS: Emergency Provider Emergency Medicine; PCP Internal Medicine
DX: R42 Dizziness and giddiness (principal); E86.0 Dehydration; I10 Essential (primary) hypertension; E66.01 Morbid (severe) obesity due to excess calories; Z68.42 Body mass index [BMI] 45.0-49.9, adult; F12.90 Cannabis use, unspecified, uncomplicated; Z87.891 Personal history of nicotine dependence
CPT/HCPCS: 36415; 71045; 80048; 81001; 84484; 85025; 93005; 99283; 99284

== ENCOUNTER 2022-06-13 08:06 | Day surgery (SDC) | payer OTHER, SELFPAY ==
[2022-06-10 13:40] VITALS: BMI 51.2
--- NOTE | 2022-06-12 12:45 | HO.ANESPROP2 ---
Documented by User: Lynette Romero NP 06/12/22 12:52 HPI - Anesthesia Eval Consult details Narrative: 47yo F for Colonoscopy PMFSH Active Problems Active Problems: All Active Problems (Updated 12/25/21 @ 00:02 by Melina Marrufo) Postmenopausal bleeding (Acute) Unsatisfactory cervical Papanicolaou smear (Acute) Elevated serum hCG (Acute) Cellulitis of face (Acute) Morbid obesity (Acute) Abnormal uterine bleeding (Acute) Essential hypertension (Acute) Mild intermittent asthma (Acute) Disturbance, sleep (Acute) Loud snoring (Acute) Past Medical History Medical History Abnormal uterine bleeding Disturbance, sleep Essential hypertension Loud snoring Mild intermittent asthma Morbid obesity Family History Family History Paternal Aunt Ovarian cancer Breast cancer Maternal Aunt Breast cancer Other Mental health disorder Substance use disorder Family history of problems with anesthesia: No Surgical History Surgical History (Updated 06/10/22 @ 13:37 by Mindy Friend RN) H/O tubal ligation Hx of dilation and curettage History of Problems with Anesthesia: No Social History Social History Household Members: Family Housing: Apartment Do you presently have visiting nurse or other home services: No Alcohol intake: current Alcohol intake frequency: holidays/special occasions only Alcohol type: hard liquor Patient Tobacco Use Status: Former Tobacco user Quit Date: years ago Tobacco use type: Cigarette Years Smoked: 15 yrs e-Cigarette/Vaping Use: Never Used Use of substances other than those prescribed or required for medical reasons: Yes Substance Use Type: Marijuana Substance Use Type Other:: smoking Are you DNR?: No Advance Directives: No Advance Directives Information Provided: Yes service: No Current occupational status: employed Cognitive needs: No Hearing needs: No Meds Allergies Allergy/AdvReac Type Severity Reaction Status Date / Time egg [EGG] Allergy Intermediate ITCHY AND Verified 01/01/22 16:03 HIVES. lisinopril Allergy Intermediate Hives Verified 06/10/22 13:39 amoxicillin AdvReac Intermediate Diarrhea Verified 06/10/22 13:39 Egg White (Diagnostic) Allergy Intermediate hives Uncoded 06/10/22 13:39 Home Medications Medication Instructions Recorded Confirmed Last Taken Type acetaminophen 500 mg tablet 500 mg PO Q6H PRN Pain 11/05/20 06/07/21 Unknown History (Tylenol Extra Strength) Exam Exam Date and Time: June 12, 2022 1245 Height,Weight and Vital Signs: Height 5 ft 2 in Weight 127.006 kg Pertinent Lab Results Pertinent Lab Results: Laboratory Tests 12/24/21 12/24/21 11:35 11:35 WBC 8.6 Hgb 13.7 Hct 39.2 Plt Count 263 Sodium 136 Potassium 4.2 Chloride 102 Carbon Dioxide 26 BUN 17 H Creatinine 0.81 Assessment and Plan Assessment Anesthesia Assessment: Chart Reviewed Final Anesthetic Review Family History of Problems with Anesthesia: No History of Problems with Anesthesia: No Documented by User: Radhames Hall MD 06/13/22 08:53 [facility] Past Medical History Medical History Abnormal uterine bleeding Disturbance, sleep Essential hypertension Loud snoring Mild intermittent asthma Morbid obesity Family History Family History Paternal Aunt Ovarian cancer Breast cancer Maternal Aunt Breast cancer Other Mental health disorder Substance use disorder Surgical History Surgical History (Updated 06/10/22 @ 13:37 by Mindy Friend RN) H/O tubal ligation Hx of dilation and curettage Social History Social History Household Members: Family Housing: Apartment Do you presently have visiting nurse or other home services: No Alcohol intake: current Alcohol intake frequency: holidays/special occasions only Alcohol type: hard liquor Patient Tobacco Use Status: Former Tobacco user Quit Date: years ago Tobacco use type: Cigarette Years Smoked: 15 yrs e-Cigarette/Vaping Use: Never Used Use of substances other than those prescribed or required for medical reasons: Yes Substance Use Type: Marijuana Substance Use Type Other:: smoking Are you DNR?: No Advance Directives: No Advance Directives Information Provided: Yes service: No Current occupational status: employed Cognitive needs: No Hearing needs: No Meds Allergies Allergy/AdvReac Type Severity Reaction Status Date / Time egg [EGG] Allergy Intermediate ITCHY AND Verified 01/01/22 16:03 HIVES. lisinopril Allergy Intermediate Hives Verified 06/10/22 13:39 amoxicillin AdvReac Intermediate Diarrhea Verified 06/10/22 13:39 Egg White (Diagnostic) Allergy Intermediate hives Uncoded 06/10/22 13:39 Home Medications Medication Instructions Recorded Confirmed Last Taken Type acetaminophen 500 mg tablet 500 mg PO Q6H PRN Pain 11/05/20 06/07/21 Unknown History (Tylenol Extra Strength) Exam Airway Mallampati Class: II Neck ROM: Limited Loose/Missing/Broken Teeth: No Heart: rrr Lungs: cta Assessment and Plan Final Anesthetic Review NPO: Yes ASA Class: II Final Preanesthetic Review: No Changes in Pt Med Stat, Meds/Allgs Chart Reviewed, Consent Obtained/Reviewed and Anes Risks/Benef Reviewed Patient Risk: Intermediate Procedure Risk: Low Anesthetic Plan Anesthetic Plan: MAC: and Agree w/ Assess. and Plan Disposition: Standard PACU
[2022-06-13 08:45] VITALS: BP 152/82; PULSE 88; RESP 20; TEMP 36.7; O2SAT 96
[2022-06-13] MEDS: Lactated Ringers 1,000 ML 100 ML IVCONT (08:45)
--- NOTE | 2022-06-13 08:52 | MHC.SHP ---
Pre-Procedural Eval Section A Date of Service: 06/13/22 The patient is an INPATIENT: No The History & Physical has been completed within 30 days and I have reviewed it.: No Section B Chief Complaint: screening Relevant Family History (Specify if Yes): No Relevant Social History: Tobacco Use (Former smoker) Present Medications: see Short Stay Collaborative assessment Medical History: Significant History (Abnormal uterine bleeding Disturbance, sleep Essential hypertension Loud snoring Mild intermittent asthma Morbid obesity) History of Previous Operations: Relevant previous surgery/procedure and date(s) (H/O tubal ligation) Allergies: Allergies Allergy/AdvReac Type Severity Reaction Status Date / Time egg [EGG] Allergy Intermediate ITCHY AND Verified 01/01/22 16:03 HIVES. lisinopril Allergy Intermediate Hives Verified 06/10/22 13:39 amoxicillin AdvReac Intermediate Diarrhea Verified 06/10/22 13:39 Egg White (Diagnostic) Allergy Intermediate hives Uncoded 06/10/22 13:39 Review of Systems Sugical H&P ROS: Negative: Constitution, Cardiovascular, Respiratory and Gastrointestinal Exam Surgical H&P Exam: Normal: Heart, Normal: Lungs, Normal: Extremities and Normal: Abdomen Plan Diagnosis/Plan: Unchanged I have reviewed the history and physical and performed a pertinent physical examination on my patient. No changes have occurred unless specified. Time Spent With Patient Time: Total time managing care of this patient today ____ minutes.
--- NOTE | 2022-06-13 08:59 | PM.OP ---
Brief Operative Note Date of Service: 06/13/22 Pre-op diagnosis: Colon cancer screening (1st colonoscopy) Post-op diagnosis: other (Colon polyps, diverticulosis, hemorrhoids) Procedure: COLONOSCOPY TO CECUM WITH BIOPSIES AND SNARE POLYPECTOMY Surgeon: Amanda Chen MD Anesthesia: MAC Was an Boom Master used for this Procedure?: Yes Boom Master: Eduard Cano Estimated blood loss (mL): 0 Pathology: other (A) Polyp Cecum B) Polyp Ascending Colon 90cm) Condition: stable Disposition: PACU
--- NOTE | 2022-06-13 09:00 | P.OP_ITS ---
Operative Note Operative Note Date of Service: 06/13/22 Narrative: Pre-op diagnosis: Colon cancer screening (1st colonoscopy) Post-op diagnosis:?other (Colon polyps, diverticulosis, hemorrhoids) Surgeon: Amanda Chen MD Anesthesia:?MAC COLONOSCOPY TILL CECUM WITH BIOPSIES AND SNARE POLYPECTOMY Consent: Indications for the procedure and potential complications of bleeding, perforation, reaction to medications and missed diagnosis were discussed with the patient and informed consent was obtained. Instrument: Olympus CF H 190 L variable stiffness adult colonoscope Monitoring: Vital signs and clinical assessment, intermittent blood pressure monitoring, continuous EKG monitoring, Pulse oximetry and Carbon Dioxide monitoring were done throughout the procedure. Colon withdrawl time was 15 minutes. Procedure: The patient was placed in the left lateral decubitis position and pre-procedure medications were administered. After a digital rectal examination of the ano-rectum, the video colonoscope was inserted into the rectum and advanced through the colon to the cecum. The colonoscope was slowly withdrawn in a retrograde panoramic fashion and the colon mucosa was carefully examined including a retroflexed view of the rectum. Findings and interventions are described below. Procedure Difficulty: Without difficulty Findings: Terminal Ileum: Not evaluated Cecum: A 3-4 mm sessile polyp removed with a cold bx Ascending Colon: A 2 cms sessile polyp in distal AC at 90 cms - removed with a hot snare Transverse Colon: Normal Descending Colon: Moderate diverticulosis Sigmoid Colon: Moderate diverticulosis Rectum: Normal Ano-rectum: Moderate internal hemorrhoids Colon preparation: Good Impression and Post Procedure Diagnosis: Colonoscopy Findings: One small and one medium sized polyps removed Moderate diverticulosis seen in the left colon Moderate hemorrhoids on retroflexed exam. Plan: Await pathology results Patient has an appointment on 06/25/22 in the [facility] with Lor Brothers FNP- [facility]. Repeat Colonoscopy interval based on path results - in 3 years if polyps are adenomatous and 10 years if polyps are hyperplastic. Colon polyps and diverticulosis handouts were given in the discharge area
[2022-06-13 09:35] VITALS: BP 144/94; PULSE 82; RESP 16; TEMP 36.9; O2SAT 94
[2022-06-13] MEDS: ondansetron HCL 4 MG/2 ML VIAL IVPUSH (09:35)
[2022-06-13 09:48] VITALS: BP 135/69; PULSE 70; RESP 16; O2SAT 100
[2022-06-13 10:05] VITALS: BP 160/89; PULSE 68; RESP 16; TEMP 36.1; O2SAT 100
== END 2022-06-13 10:30 | disposition home or self-care (01) ==
PROVIDERS: PCP Internal Medicine; Visit Provider Internal Medicine Gastroenterology
PROC: 0DJD8ZZ Inspection of Lower Intestinal Tract, Via Natural or Artificial Opening Endoscopic (ICD-10-PCS; CPT 45378; principal; 2022-06-13 09:10)
DX: Z12.11 Encounter for screening for malignant neoplasm of colon (principal); D12.0 Benign neoplasm of cecum; D12.2 Benign neoplasm of ascending colon; K57.30 Diverticulosis of large intestine without perforation or abscess without bleeding; K64.8 Other hemorrhoids; J45.20 Mild intermittent asthma, uncomplicated; N93.9 Abnormal uterine and vaginal bleeding, unspecified; G47.9 Sleep disorder, unspecified; I10 Essential (primary) hypertension; E66.01 Morbid (severe) obesity due to excess calories; Z68.43 Body mass index [BMI] 50.0-59.9, adult; R06.83 Snoring; Z79.899 Other long term (current) drug therapy; Z88.0 Allergy status to penicillin; Z88.8 Allergy status to other drugs, medicaments and biological substances; Z87.891 Personal history of nicotine dependence; F12.90 Cannabis use, unspecified, uncomplicated
CPT/HCPCS: 45385; 45380; 88305; J2405

== ENCOUNTER 2022-08-15 13:03 | Outpatient (REF) | payer OTHER, SELFPAY | END 2022-08-15 13:04 | disposition home or self-care (01) | LOC: HO.LNP 13:03 | PROVIDERS: PCP Internal Medicine; Visit Provider Advanced Practice Midwife | DX: N95.0 Postmenopausal bleeding (principal) | CPT/HCPCS: 58100; 81025; 88305 ==

== ENCOUNTER 2022-08-19 13:51 | Outpatient (REF) | payer OTHER, SELFPAY ==
--- NOTE | ~2022-08-19 | US_ITS ---
EXAM: Pelvic Ultrasound CLINICAL INDICATION: Postmenopausal bleeding COMPARISON: Pelvic ultrasound 01/16/2021 TECHNIQUE: The pelvis was evaluated using transabdominal and transvaginal imaging. Today's imaging is limited secondary to patient body habitus. FINDINGS: The uterus measures 7.6 x 4.2 x 4.5 cm in longitudinal by AP by transverse dimension. The endometrial stripe measures 0.6 cm. 7 mm hypoechoic focus within the anterior uterine fundus is nonspecific but suspected to represent a small fibroid. Nabothian cyst identified within the cervix. The left ovary measures approximately 1.9 x 1.6 x 2.6 cm and is normal. The right ovary was not clearly visualized. There are no abnormal adnexal masses. There is no free fluid in the pelvis. US/US pelvic and transvaginal IMPRESSION: 1. Endometrial stripe measures 6 mm in thickness. Correlation with menstrual cycle recommended. 2. Suspected 7 mm anterior fundal fibroid.
== END 2022-08-19 13:52 | disposition home or self-care (01) ==
LOC: HO.HMGCX 13:51
PROVIDERS: PCP Internal Medicine; Visit Provider Advanced Practice Midwife
DX: N95.0 Postmenopausal bleeding (principal)
CPT/HCPCS: 76830; 76856

== ENCOUNTER → 2022-09-10 09:52 | Outpatient (BNVA) | payer OTHER, SELFPAY | PROVIDERS: PCP Internal Medicine; Visit Provider Advanced Practice Midwife | DX: Z13.89 Encounter for screening for other disorder (principal) ==

== ENCOUNTER 2022-12-23 11:37 | Outpatient (AMB) | payer OTHER, SELFPAY ==
--- NOTE | 2022-12-23 12:39 | A.OFFPC_ITS ---
Vital Signs 12/23/22 12:44 Height 5 ft 2 in Weight 282 lb BMI 51.6 BP 118/90 H Blood Pressure Location Rt brachial Position Sitting Pulse 57 Pulse Source Pulse Oximeter Pulse Oximetry (%) 97 Oxygen Delivery Method Room Air Intake Visit Reasons: Med review Intake Note: Pt is here today for HTN and she c/o SOB lately Allergies egg [EGG] Allergy (Intermediate, Verified 12/23/22 13:00) ITCHY AND HIVES. lisinopril Allergy (Intermediate, Verified 12/23/22 13:00) Hives amoxicillin Adverse Reaction (Intermediate, Verified 12/23/22 13:00) Diarrhea Egg White (Diagnostic) Allergy (Intermediate, Uncoded 12/23/22 13:00) hives Medication List - Last Reconciled 12/23/22 by Windy Mcelroy MD acetaminophen (Tylenol Extra Strength) 500 mg PO Q6H PRN albuterol sulfate 90 mcg/actuation (ProAir HFA) 2 puffs inhalation Q6H PRN amlodipine 10 mg PO DAILY carvedilol 25 mg PO BID losartan-hydrochlorothiazide 50-12.5 mg 1 tab PO DAILY Tobacco use date assessed: 12/23/22 Dental Screening Dental Screen Date: 12/23/22 Did you have a dental visit in the last 12 months?: Yes Did you have a dental problem in the last 6 months where you did not have access to dental care?: No Was dental information given to patient?: Patient has dentist HPI Med review HPI Details 47-year-old lady here today for follow-up on her hypertension, currently taking losartan-HCTZ 50-12.5 mg daily, carvedilol 25 mg 1 tablet twice a day and amlodipine 10 mg daily. Blood pressure has been running within normal limits. Has mild intermittent asthma, only using Ventolin inhaler as needed. She however has been helping her daughter move and has been exposed to lot of dust at home. This has been triggering her asthma, and has been getting more frequent episodes of cough and shortness of breath especially worse at night accompanied by wheezing. Has only been using her nebulizer, which affords only temporary relief as her Ventolin inhaler has not been helping relieve her bronchospasm. She states also that she has been using her albuterol nebulrs [facility] Medical History Abnormal uterine bleeding Disturbance, sleep Essential hypertension Loud snoring Mild intermittent asthma Morbid obesity Surgical History H/O tubal ligation Hx of colonoscopy Hx of dilation and curettage Family History Paternal Aunt Ovarian cancer Breast cancer Maternal Aunt Breast cancer Other Mental health disorder Substance use disorder Social History Household Members: Family Housing: Apartment Do you presently have visiting nurse or other home services: No Alcohol intake: current Alcohol intake frequency: holidays/special occasions only Alcohol type: hard liquor Patient Tobacco Use Status: Former Tobacco user Quit Date: years ago Tobacco use type: Cigarette Years Smoked: 15 yrs e-Cigarette/Vaping Use: Never Used Substance Use Type: Marijuana service: No Current occupational status: employed Cognitive needs: No Hearing needs: No Female Reproductive History Menstrual Age of Menarche: 10 Questionnaire PHQ-9 Over the last 2 weeks, how often have you been bothered by any of the following problems? 1. Little interest or pleasure in doing things: several days 2. Feeling down, depressed, or hopeless: not at all 3. Trouble falling or staying asleep, or sleeping too much: more than half the days 4. Feeling tired or having little energy: several days 5. Poor appetite or overeating: not at all 6. Feeling bad about yourself - or that you are a failure or have let yourself or your family down: not at all 7. Trouble concentrating on things, such as reading the newspaper or watching television: not at all 8. Moving or speaking so slowly that other people could have noticed. Or the opposite - being so fidgety or restless that you have been moving around a lot more than usual: not at all 9. Thoughts that you would be better off or of hurting yourself in some way: not at all Total score: 4 Source: Developed by Drs. Rip Lafleur, Frances Nuno, Lopez Mcclure and colleagues, with an educational teresa from [employer]. Thrive Questionnaire Date Thrive assessed: 12/23/22 I am a: Patient What is your living situation today?: I have a steady place to live Within the past 12 months, did the food you bought not last and you didn't have the money to get more?: Never true Within the past 12 months, did you worry whether your food would run out before you got money to buy more?: Never true Do you have trouble paying for medicines?: No Do you have trouble getting transportation to medical appointments?: No Do you have trouble paying your heating and electricity bill?: No Do you have trouble taking care of your child, family member or friend?: Yes Do you have trouble with day-to-day activities such as bathing, preparing meals, shopping, managing finances, etc.?: Yes Are you currently unemployed and looking for a job?: No Are you interested in more education?: No AUDIT C Alcohol Use Questionnaire (AUDIT-C) 1. How often do you have a drink containing alcohol?: Monthly or less 2. How many drinks containing alcohol do you have on a typical day when you are drinking?: 1 or 2 3. How often do you have six or more drinks on one occasion?: Never Total Score: 1 ELLY-7 AMB Questionnaire ELLY-7 Date ELLY - 7 assessed: 12/23/22 Feeling nervous, anxious, or on edge: 1 = Several days Not being able to stop or control worryin = Not at all Worrying too much about different things: 1 = Several days Trouble relaxin = Several days Being so restless that it is hard to sit still: 1 = Several days Becoming easily annoyed or irritable: 1 = Several days Feeling afraid as if something awful might happen: 1 = Several days Total ELLY-7 score (0-4 normal; 5-9 mild; 10-14 moderate; 15-21 severe): 6 Source: Developed by Drs. Rip Lafleur, Frances Nuno, Lopez Mcclure and colleagues, with an educational teresa from [employer]. ACT Questionnaire In the past 4 weeks, how much of the time did your asthma keep you from getting as much done at work, school or at home?: Some of the time During the past 4 weeks, how often have you had shortness of breath?: More than once a day During the past 4 weeks, how often did your asthma symptoms wake you up at night or earlier than usual in the morning?: 4 or more nights a week During the past 4 weeks, how often have you had to use your rescue inhaler or nebulizer medication?: More than 3 times per day How would you rate your asthma control during the past 4 weeks?: Poorly controlled Score: 8 Review of Systems Const All systems reviewed & are unremarkable except as noted in HPI and below Physical exam (Primary Care) Vital Signs: Last Vital Signs Pulse 57 12/23/22 12:44 BP 118/90 H 12/23/22 12:44 Pulse Ox 97 12/23/22 12:44 Oxygen Delivery Method Room Air 12/23/22 12:44 BMI result Body Mass Index 51.6 Tobacco/Smoking Status: Tobacco use Status Tobacco use date assessed 12/23/22 12/23/22 12:45 Patient Tobacco Use Status Former Tobacco user 12/23/22 12:39 Tobacco use type Cigarette 12/23/22 12:39 e-Cigarette/Vaping Use Never Used 12/23/22 12:39 PHQ-9: PHQ-9 Score PHQ-9: Total score 4 12/23/22 13:05 Thrive Assessment: Date of Thrive Assessment Date Thrive assessed 12/23/22 12/23/22 13:05 Const Other: Alert oriented x3, in no acute distress noted, able to talk in complete sentences Orientation/consciousness: patient oriented x3 HENMT Ears: hearing grossly normal bilaterally and external ears normal General nose exam: Normal external nose present and No nasal discharge present Face and sinus: Yes face symmetric Mouth: Normal oral and palatal mucosa present, oropharynx normal and moist mucous membranes Neck Neck: Yes full ROM, Yes no lymphadenopathy and Yes supple Resp Other: Tight breath sounds bilaterally Effort & Inspection: normal respiratory effort and able to speak in complete sentences Auscultation: wheezes Cardio Other: S1-S2 present regular rate and rhythm GI Other: Obese, soft, nontender with Normal bowel sounds Neuro General: patient oriented x3, gait normal, tone normal, moves all extremities and no focal motor deficits Assessment and Plan Assessment & Plan (1) Mild intermittent asthma: Code(s): J45.20 - Mild intermittent asthma, uncomplicated Plan: Prescription sent for albuterol nebulizers, to use as needed for episodes of bronchospasm every 6 hours , prescription also sent for Symbicort 160-4.5, to start the with 1 inhalation twice a day, with wincing mouth after use , and may increase dosing to 2 inhalations twice a day as needed (2) Essential hypertension: Code(s): I10 - Essential (primary) hypertension Plan: Blood pressure at goal of less than 130/80. Continue with current medication. Reinforced importance of following a low sodium diet, getting regular exercise, and lowering stress levels. (3) Morbid obesity: Code(s): E66.01 - Morbid (severe) obesity due to excess calories Plan: Your BMI is above the ideal range. I deal BMI is between 18.5- 24. BMI is calculated from you height and weight. Weight gain happens when you taken more calories than you burn off. Discussed need to increase activity and weight reduction. Recommended focusing on improving health instead of dieting. Mediterranean diet is a healthy diet that helps, limit food high in fat, sugar, and calories. Eat slowly, pay attention to portion sizes, plan your meals ahead of time, start regular physical activity, at least 150 minutes of moderate intensity exercise, or 90 minutes per week of vigorous exercise. Keeping a food diary, tracking what you eat and your physical activity can help assess what improvements you can make. There are many health problems associated with being overweight/obese, so it is important to improve your diet and exercise. There are medications and surgical options available, but Lifestyle changes are the 1st step. Orders: Orders Basic Metabolic Panel Fasting 12/23/22 E66.01 - Morbid (severe) obesity due to excess calories, I10 - Essential (primary) hypertension Complete Blood Count Auto Diff 12/23/22 E66. - Morbid (severe) obesity due to excess calories, I10 - Essential (primary) hypertension Alanine Aminotransferase 12/23/22 E66.01 - Morbid (severe) obesity due to excess calories, I10 - Essential (primary) hypertension Aspartate Amino Transferase 12/23/22 E66. - Morbid (severe) obesity due to excess calories, I10 - Essential (primary) hypertension Lipid Panel 12/23/22 E66. - Morbid (severe) obesity due to excess calories, I10 - Essential (primary) hypertension Medications: New albuterol sulfate 2.5 mg (3 mL) inhalation Q6H PRN 75 mL 1RF shortness of breath or wheezing Symbicort 160-4.5 mcg/actuation (budesonide-formoterol) 2 puffs inhalation Q12H 10.2 grams 1RF NS J45.20 - Mild intermittent asthma, uncomplicated Coding Level of Care Code Est Pt Level 3 (73444) Diagnoses Mild intermittent asthma J45.20 Essential hypertension I10 Morbid obesity E66.01
[2022-12-23 12:44] VITALS: BP 118/90; PULSE 57; O2SAT 97; BMI 51.6
== END 2022-12-23 13:41 | disposition home or self-care (01) ==
PROVIDERS: PCP Internal Medicine; Visit Provider Internal Medicine
DX: J45.20 Mild intermittent asthma, uncomplicated (principal); I10 Essential (primary) hypertension; E66.01 Morbid (severe) obesity due to excess calories; Z68.43 Body mass index [BMI] 50.0-59.9, adult
CPT/HCPCS: 99213

== ENCOUNTER 2023-02-05 09:34 | Emergency (ER) | payer OTHER, SELFPAY ==
--- NOTE | ~2023-02-05 | XR_ITS ---
EXAMINATION: XR KNEE, LEFT CLINICAL INFORMATION: Left posterior knee pain COMPARISON: None available. TECHNIQUE: Four views of the left knee. FINDINGS: There is moderate narrowing in the medial joint space compartment with medial femoral condylar and medial tibial plateau spurring. No osteochondral lesions seen. No acute fracture or dislocation observed. No significant joint effusion seen. XR/XR knee LT 4V IMPRESSION: Degenerative changes as described. No acute fracture or dislocation.
--- NOTE | ~2023-02-05 | XR_ITS ---
EXAMINATION: XR LUMBOSACRAL SPINE CLINICAL INFORMATION: Low back pain COMPARISON: None available. TECHNIQUE: Three views of the lumbosacral spine. FINDINGS: No acute lumbar compression fracture. Slight narrowing of the disc space observed at L5-S1. Small endplate spondylitic changes seen. There is multilevel facet arthrosis. Sacrum grossly intact. There are degenerative changes bilaterally at the SI joints. Gallstones noted in the right upper quadrant. XR/XR lumbar spine 2-3V IMPRESSION: 1. No acute compression fracture. Slight narrowing of the disc space at L5-S1. 2. Facet arthrosis. 3. Other incidental findings as noted above.
--- NOTE | ~2023-02-05 | XR_ITS ---
EXAMINATION: XR KNEE, RIGHT CLINICAL INFORMATION: Right knee pain COMPARISON: None available. TECHNIQUE: Four views of the right knee. FINDINGS: There is mild to moderate narrowing in the medial joint space compartment with evidence of subchondral sclerosis and medial femoral condylar and medial tibial plateau spurring. No osteochondral lesions. Minimal spurring of the lateral femoral condyle. Fibular head is intact. No significant joint effusion. XR/XR knee RT 4V IMPRESSION: Degenerative changes as described. No fracture or dislocation observed.
[2023-02-05 10:15] VITALS: BP 193/116; PULSE 88; RESP 29; TEMP 36.6; O2SAT 99; BMI 51.8
[2023-02-05 10:30] LABS: MANUAL DIFF FLAG NO
[2023-02-05 10:46] LABS: Basophils Absolute Auto 0.1 X10*3/uL (0.0-0.2); Basophils Percent Auto 0.5 % (0-2); Eosinophils Absolute Auto 0.3 X10*3/uL (0.0-0.4); Eosinophils Percent Auto 2.8 % (0-4); Hematocrit 44.1 % (37.0-47.0); Hemoglobin 15.1 g/dl (12.0-16.0); Imm Gran Abs Auto 0.09 X10*3/uL (0.00-0.03); Lymphocytes Absolute Auto 2.4 X10*3/uL (1.2-4.9); Lymphocytes Percent Auto 25.9 % (20-40); Mean Corpuscular HGB Conc 34.2 g/dl (31.0-35.0); Mean Corpuscular Volume 96.3 fL (80.0-98.0); Mean Platelet Volume 11.2 fL (9.4-12.3); Monocytes Absolute Auto 0.6 X10*3/uL (0.1-1.2); Monocytes Percent Auto 6.6 % (2-11); Neutrophils Absolute Auto 5.8 x10*3/uL (2.0-8.3); Neutrophils Percent Auto 63.2 % (45-73); Platelet Count 270 X10*3/uL (160-400); Red Blood Count 4.58 X10*6/uL (4.20-5.50); Red Cell Distribution Width 12.7 % (11.0-16.0); White Blood Count 9.2 X10*3/uL (4.8-10.8)
[2023-02-05 10:59] LABS: Alanine Aminotransferase 48 U/L (0-31); Albumin Level 4.2 g/dL (3.5-5.0); Alkaline Phosphatase 122 U/L (39-117); Anion Gap 13 (12-20); Aspartate Amino Transferase 36 U/L (5-31); Bilirubin Total 0.3 mg/dL (0.0-1.0); Blood Urea Nitrogen 10 mg/dL (9-16); Calcium 9.8 mg/dL (8.4-10.2); Carbon Dioxide 29 mmol/L (22-29); Chloride 103 mmol/L (96-108); Creatinine Clr Calc Pharmacy 121.6; Estimated Glomerular Filt Rate > 60; Glucose Random 112 mg/dL (60-115); Potassium 4.5 mmol/L (3.3-5.1); Sodium 140 mmol/L (135-145); Total Protein 7.9 g/dL (6.5-8.0)
[2023-02-05 14:21] LABS: Appearance Urine Clear; Color Urine Yellow; Glucose Urine UA Negative (Negative); Leukocyte Esterase Urine Negative (Negative); Nitrite Urine Negative (Negative); PH 6.5 (5.0-9.0); Specific Gravity - Urine 1.015 (1.005-1.025); Urine Blood Negative (Negative); Urine Ketones Negative (Negative); Urine Protein Negative (Neg-Trace)
[2023-02-05 14:24] LABS: UPreg QC Valid YES; Urine Pregnancy NEGATIVE (NEGATIVE)
--- NOTE | 2023-02-05 14:39 | ED_ITS ---
HPI - General Adult General Chief complaint: General Medical Stated complaint: r leg pain quest dvt Time Seen by Provider: 02/05/23 14:28 Source: patient Mode of arrival: ambulatory Limitations: no limitations History of Present Illness HPI narrative: Patient comes to the emergency room complaining of 10 days of bilateral knee pain, lower back pain radiating into the thighs. Patient states that sometimes she has bilateral leg cramping, intermittent throbbing and burning sensation with dual relief from [id number] medication. Patient denies any loss of muscle strength, denies urinary/fecal incontinence/retention Related Data Home Medications Medication Instructions Recorded Confirmed acetaminophen 500 mg tablet 500 mg PO Q6H PRN Pain 11/05/20 12/23/22 (Tylenol Extra Strength) Previous Rx's Medication Instructions Recorded amlodipine 10 mg tablet 10 mg PO DAILY #90 tabs 12/04/22 Symbicort 160 mcg-4.5 2 puff inhalation Q12H #10.2 grams 12/23/22 mcg/actuation HFA aerosol inhaler (budesonide-formoterol) albuterol sulfate 2.5 mg/3 mL 2.5 mg (3 mL) inhalation Q6H PRN 12/23/22 (0.083 %) solution for nebulization shortness of breath or wheezing #75 mL albuterol sulfate 90 mcg/actuation 2 puff inhalation Q6H PRN 01/06/23 aerosol inhaler (ProAir HFA) shortness of breath or wheezing #8.5 grams carvedilol 25 mg tablet 25 mg PO BID #180 tabs 02/03/23 losartan 50 mg-hydrochlorothiazide 1 tab PO DAILY #90 tabs 02/03/23 12.5 mg tablet baclofen 10 mg tablet 10 mg PO BID #14 tabs 02/05/23 oxycodone 5 mg tablet 5 mg PO BID PRN pain #7 tabs 02/05/23 Allergies Allergy/AdvReac Type Severity Reaction Status Date / Time egg [EGG] Allergy Intermediate ITCHY AND Verified 02/05/23 10:00 HIVES. lisinopril Allergy Intermediate Hives Verified 02/05/23 10:00 amoxicillin AdvReac Intermediate Diarrhea Verified 02/05/23 10:00 Egg White (Diagnostic) Allergy Intermediate hives Uncoded 02/05/23 10:00 Review of Systems 2 Review of Systems: Constitutional : No Weight loss, No Fever, No Chills, No Night Sweats, No Fatigue, No Malaise ENT/Mouth : No Hearing loss, No Ear Pain, No Nasal Congestion, No Sinus Pain, No Hoarseness, No sore throat, No Rhinorrhea, No Swallowing Difficulty Eyes: No Eye Pain, No Swelling, No Redness, No Foreign Body, No Discharge, No Vision Changes Cardiovascular : No Chest Pain, No SOB, No Dyspnea on Exertion, No Orthopnea, No Edema, No Palpitations Respiratory : No Cough, No Sputum, No Wheezing, No Smoke Exposure, No Dyspnea Gastrointestinal : No Nausea, No Vomiting, No Diarrhea, No Constipation, No abdominal Pain, No Hematochezia, No Melena Genitourinary : no irregular bleeding, No Dysuria, No Urinary Frequency, No Hematuria, No Urinary Incontinence, No Urgency, No Flank Pain, No Urinary Flow Changes, No Hesitancy Musculoskeletal : Complaining of lower back pain, bilateral leg cramping, pain Skin : No Skin Lesions, No rash Neuro : No Weakness, No Numbness, No Paresthesias, No Loss of Consciousness, No Dizziness, No Headache Psych : No Anxiety/Panic, No Depression, No SI/HI/AH/VH, No Social Issues, Heme/Lymph: No Bruising, No Bleeding,No Lymphadenopathy Endocrine : No Polyuria, No Polydipsia, No Temperature Intolerance [facility] Past Medical History Medical History Abnormal uterine bleeding Essential hypertension Mild intermittent asthma Disturbance, sleep Loud snoring Morbid obesity Surgical History Hx of colonoscopy Hx of dilation and curettage H/O tubal ligation Family History Family History Paternal Aunt Ovarian cancer Breast cancer Maternal Aunt Breast cancer Other Mental health disorder Substance use disorder Social History Social History Household Members: Family Housing: Apartment Do you presently have visiting nurse or other home services: No Alcohol intake: current Alcohol intake frequency: holidays/special occasions only Alcohol type: hard liquor Patient Tobacco Use Status: Former Tobacco user Quit Date: years ago Tobacco use type: Cigarette Years Smoked: 15 yrs e-Cigarette/Vaping Use: Never Used Substance Use Type: Marijuana Advance Directives: No service: No Current occupational status: employed Cognitive needs: No Hearing needs: No Physical Exam ED Vital Signs: Vital Signs - 24 hr 02/05/23 10:15 Temperature 97.8 F Pulse Rate 88 Respiratory Rate 29 H Blood Pressure 193/116 H Pulse Oximetry 99 Oxygen Delivery Method Room Air BMI result Body Mass Index 51.8 Const Other: Appearance: Alert. Oriented X3. No acute distress. Eyes: Pupils equal, round and reactive to light. ENT: Pharynx normal. Neck: Normal inspection. Neck supple. No lymph nodes noted. No crepitus CVS: Normal heart rate and rhythm. Pulses normal. Normal S1 and S2 Respiratory: No respiratory distress. Breath sounds normal. No Wheezing. No rales Abdomen: Soft and nontender. No rigidity. No distention. Skin: Skin warm and dry. Normal skin color. Normal skin turgor. Extremities: No lower extremity edema. No Lacerations. No Rash, patient ambulatory, no lower extremity edema, no calf pain Neuro: Oriented X 3. No motor deficit. No sensory deficit. Moving all extremities. No slurred speech. CN 2 through 12 grossly intact Psych: calm, cooperative, normal affect Course Course Course Narrative: -in triage, x-rays were ordered. Medical Decision Making Medical Decision Making [facility] Narrative: -my interpretation of bilateral knees: No fracture, no dislocation -patient ambulatory, I discussed with the patient that it is possible that she may have sciatica versus herniated discs. Patient will be getting pain medication and muscle relaxants., however, I discussed with the patient that the main treatment will be physical therapy and if that fails, the patient's primary care physician may recommend more advanced imaging such as MRI -patient given in the ED pain medication and muscle relaxants -wells score for DVT is 0 -pain has no signs or symptoms of cauda equina -patient instructed to follow-up with her primary care physician Differential Diagnosis Differential Diagnoses: The differential diagnosis associated with the presentation includes (Sciatica, herniated discs, discussed skeletal pain) Lab Data [facility] Lab Attestation statement: I reviewed the patient's lab results. 02/05/23 10:26 02/05/23 10:26 Labs: Lab Results 02/05/23 02/05/23 Range/Units 10:26 13:42 WBC 9.2 (4.8-10.8) X10*3/uL RBC 4.58 (4.20-5.50) X10*6/uL Hgb 15.1 (12.0-16.0) g/dl Hct 44.1 (37.0-47.0) % MCV 96.3 (80.0-98.0) fL MCH 33.0 (27.0-33.0) pg MCHC 34.2 (31.0-35.0) g/dl RDW 12.7 (11.0-16.0) % Plt Count 270 (160-400) X10*3/uL MPV 11.2 (9.4-12.3) fL Immature Gran % (Auto) 1.0 H (0.0-0.4) % Neut % (Auto) 63.2 (45-73) % Lymph % (Auto) 25.9 (20-40) % [place] % (Auto) 6.6 (2-11) % Eos % (Auto) 2.8 (0-4) % Baso % (Auto) 0.5 (0-2) % Lymph # (Auto) 2.4 (1.2-4.9) X10*3/uL [place] # (Auto) 0.6 (0.1-1.2) X10*3/uL Eos # (Auto) 0.3 (0.0-0.4) X10*3/uL Baso # (Auto) 0.1 (0.0-0.2) X10*3/uL Abs Immat Gran (auto) 0.09 H (0.00-0.03) X10*3/uL Absolute Neuts (auto) 5.8 (2.0-8.3) x10*3/uL Absolute Nucleated RBC 0.000 (0.0-0.012) X10*3/uL Nucleated RBC % (auto) 0.0 (0.0-0.2) /100WBC Sodium 140 (135-145) mmol/L Potassium 4.5 (3.3-5.1) mmol/L Chloride 103 (96-108) mmol/L Carbon Dioxide 29 (22-29) mmol/L Anion Gap 13 (12-20) BUN 10 (9-16) mg/dL Creatinine 0.72 (0.5-1.4) mg/dL Estim Creat Clear Calc 121.6 Estimated GFR > 60 Random Glucose 112 (60-115) mg/dL Calcium 9.8 (8.4-10.2) mg/dL Total Bilirubin 0.3 (0.0-1.0) mg/dL AST 36 H (5-31) U/L ALT 48 H (0-31) U/L Alkaline Phosphatase 122 H (39-117) U/L Total Protein 7.9 (6.5-8.0) g/dL Albumin 4.2 (3.5-5.0) g/dL Urine Color Yellow Urine Appearance Clear Urine pH 6.5 (5.0-9.0) Ur Specific [place] 1.015 (1.005-1.025) Urine Protein Negative (Neg-Trace) mg/dL Urine Glucose (UA) Negative (Negative) mg/dL Urine Ketones Negative (Negative) mg/dL Urine Blood Negative (Negative) Urine Nitrite Negative (Negative) Ur Leukocyte Esterase Negative (Negative) Urine Test NEGATIVE (NEGATIVE) Discharge Plan Discharge Clinical Impression: Sciatica Patient Disposition: Home, Self-Care Instructions: Lumbar Radiculopathy (ED) Additional Instructions: Please follow-up with your primary care physician tomorrow. If you have any worsening or new symptoms, please return to the emergency room or call 911 Prescriptions: New oxycodone 5 mg tablet 5 mg PO BID PRN (Reason: pain) Qty: 7 0RF Rx Instructions: Partial Fill upon patient request. baclofen 10 mg tablet 10 mg PO BID Qty: 14 0RF No Action amlodipine 10 mg tablet 10 mg PO DAILY Qty: 90 1RF albuterol sulfate [ProAir HFA] 90 mcg/actuation HFA aerosol inhaler 2 puff INHALATION Q6H PRN (Reason: shortness of breath or wheezing) Qty: 8.5 2RF losartan-hydrochlorothiazide 50-12.5 mg tablet 1 tab PO DAILY Qty: 90 1RF carvedilol 25 mg tablet 25 mg PO BID Qty: 180 1RF acetaminophen [Tylenol Extra Strength] 500 mg tablet 500 mg PO Q6H PRN (Reason: Pain) albuterol sulfate 2.5 mg /3 mL (0.083 %) solution for nebulization 2.5 mg inhalation Q6H PRN (Reason: shortness of breath or wheezing) Qty: 75 1RF budesonide-formoterol [Symbicort] 160-4.5 mcg/actuation HFA aerosol inhaler 2 puff inhalation Q12H Qty: 10.2 1RF
[2023-02-05] MEDS: oxyCODONE HCl Immed Release 5 MG TABLET PO (15:01)
[2023-02-05] MEDS: Baclofen 10 MG TABLET PO (15:01)
== END 2023-02-05 15:04 | disposition home or self-care (01) ==
PROVIDERS: Emergency Provider Emergency Medicine; PCP Internal Medicine
DX: M54.41 Lumbago with sciatica, right side (principal); M54.42 Lumbago with sciatica, left side; M25.562 Pain in left knee; M25.561 Pain in right knee; Z79.899 Other long term (current) drug therapy
CPT/HCPCS: 36415; 72100; 73564; 80053; 81003; 81025; 85025; 99283

== ENCOUNTER 2023-02-18 10:59 | Outpatient (AMB) | payer OTHER, SELFPAY ==
--- NOTE | 2023-02-18 11:11 | A.OFFPC_ITS ---
Vital Signs 02/18/23 11:13 Height 5 ft 2 in Weight 282 lb BMI 51.6 BP 132/80 Blood Pressure Location Rt brachial Position Sitting Pulse 66 Pulse Source Pulse Oximeter Pulse Oximetry (%) 98 Oxygen Delivery Method Room Air Intake Visit Reasons: Back pain and leg and arm pain and numbness Intake Note: Pt is here today c/o back pain, Rt leg and bilateral arm numbness Allergies egg [EGG] Allergy (Intermediate, Verified 06/22/23 18:36) ITCHY AND HIVES. lisinopril Allergy (Intermediate, Verified 06/22/23 18:36) Hives amoxicillin Adverse Reaction (Intermediate, Verified 06/22/23 18:36) Diarrhea Egg White (Diagnostic) Allergy (Intermediate, Uncoded 06/22/23 18:36) hives Medication List - Last Reconciled 02/18/23 by Windy Mcelroy MD acetaminophen (Tylenol Extra Strength) 500 mg PO Q6H PRN albuterol sulfate 90 mcg/actuation (ProAir HFA) 2 puffs inhalation Q6H PRN albuterol sulfate 2.5 mg (3 mL) inhalation Q6H PRN amlodipine 10 mg PO DAILY baclofen 10 mg PO BID carvedilol 25 mg PO BID ibuprofen (Advil) 200 mg PO Q6H PRN losartan-hydrochlorothiazide 50-12.5 mg 1 tab PO DAILY oxycodone mg PO Symbicort 160-4.5 mcg/actuation (budesonide-formoterol) 2 puffs inhalation Q12H NS Tobacco use date assessed: 02/18/23 Dental Screening Dental Screen Date: 02/18/23 Did you have a dental visit in the last 12 months?: Yes Did you have a dental problem in the last 6 months where you did not have access to dental care?: Yes Was dental information given to patient?: Patient has dentist HPI Back pain and leg and arm pain and numbness HPI Details 48-year-old lady here today for follow-u p after recent ER visit complaining of back pain. She initially presented with 10 day history of bilateral knee pain, lower back pain radiating into the thighs, accompanied by occasional bilateral leg cramping, intermittent throbbing and burning sensation with no relief from [id number] medication. Patient denies any loss of muscle strength, denies urinary/fecal incontinence/retention. No history of strenuous exertion or trauma. Patient still complaining lower back pain radiating down legs accompanied by numbness. X-ray of knees did not show any fracture or dislocation. Urinalysis came back unremarkable. She was prescribed oxycodone and a muscle relaxant and advised to follow-up with PCP if no improvement of symptoms noted. [facility] Medical History Right lower lobe pulmonary nodule Heartburn Epigastric pain Right upper quadrant pain Elevated transaminase level Excessive daytime sleepiness Lumbago with sciatica, right side Abnormal uterine bleeding Essential hypertension Mild intermittent asthma Disturbance, sleep Loud snoring Morbid obesity Surgical History Hx of colonoscopy Hx of dilation and curettage H/O tubal ligation Family History Paternal Aunt Ovarian cancer Breast cancer Maternal Aunt Breast cancer Other Mental health disorder Substance use disorder Social History Household Members: Family Housing: Apartment Do you presently have visiting nurse or other home services: No Alcohol intake: current Alcohol intake frequency: holidays/special occasions only Alcohol type: hard liquor Comment: counts correct Patient Tobacco Use Status: Former Tobacco user Quit Date: 11 years Tobacco use type: Cigarette Years Smoked: 15 yrs e-Cigarette/Vaping Use: Never Used Substance Use Type: Marijuana service: No Current occupational status: employed Cognitive needs: No Hearing needs: No Female Reproductive History Menstrual Age of Menarche: 10 Questionnaire Thrive Questionnaire Date Thrive assessed: 12/23/22 ELLY-7 AMB Questionnaire ELLY-7 Date ELLY - 7 assessed: 12/23/22 Source: Developed by Drs. Rip Lafleur, Frances Nuno, Lopez Mcclure and colleagues, with an educational teresa from [employer]. Review of Systems Const Reports as per HPI ENT Reports no additional complaints Card Denies chest pain, Denies rapid heart rate, Denies irregular heart rhythm and Denies lightheadedness Resp Reports no additional complaints GI Reports no additional complaints Reports no additional complaints Musc Reports as per HPI Skin/Breast Denies rash Neuro Reports as per HPI Endo Reports no additional complaints Yemi/Lymph Reports no additional complaints Physical exam (Primary Care) Vital Signs: Last Vital Signs Pulse 66 02/18/23 11:13 BP 132/80 02/18/23 11:13 Pulse Ox 98 02/18/23 11:13 Oxygen Delivery Method Room Air 02/18/23 11:13 BMI result Body Mass Index 51.6 Tobacco/Smoking Status: Tobacco use Status Tobacco use date assessed 02/18/23 02/18/23 11:18 Patient Tobacco Use Status Former Tobacco user 02/18/23 11:18 Tobacco use type Cigarette 02/18/23 11:18 e-Cigarette/Vaping Use Never Used 02/18/23 11:18 Thrive Assessment: Date of Thrive Assessment Date Thrive assessed 12/23/22 02/18/23 11:18 Const General: alert Orientation/consciousness: patient oriented x3 HENMT Mouth: Normal oral and palatal mucosa present, oropharynx normal and moist mucous membranes Eyes General: appearance normal, both eyes and all related structures Neck Neck: Yes full ROM, Yes no lymphadenopathy and Yes supple Resp Effort & Inspection: normal respiratory effort and able to speak in complete sentences Auscultation: clear to auscultation bilaterally Cardio Rate: regular rate Rhythm: regular rhythm Heart sounds: S1 normal heart sound present and S2 normal heart sound present GI Palpation (GI): Soft to palpation, no guarding and no masses Auscultation: normal bowel sounds Back/Spine/Pelvis Other: Equivocal straight leg raising sign on the right Thoracic/Lumbar Spine: paraspinal muscle tenderness on the right in the lower lumbar, thoraco-lumbar ROM limited and thoraco-lumbar spasm on the right in the lower lumbar Skin General skin exam: no rashes or lesions noted Neuro Other: Decreased sensation to touch on lateral aspect of right thigh General: patient oriented x3, gait normal, tone normal and moves all extremities Cognition (Neuro): normal cognition Extrem General: Yes full ROM, Yes no joint enlargement, Yes no clubbing, cyanosis or edema and Yes no calf tenderness Assessment and Plan Assessment & Plan (1) Lumbago with sciatica, right side: Code(s): M54.41 - Lumbago with sciatica, right side (2) Right leg weakness: Code(s): R29.898 - Other symptoms and signs involving the musculoskeletal system Plan Stat MRI of lumbar spine without contrast ordered, referred to pain management for further evaluation . Refill prescription sent for oxycodone 5 mg to take 1 tablet once a day only reserved for severe pain. May take baclofen 10 mg twice a day as needed for painful muscle spasm, take alternating Tylenol 650 mg with [id number] ibuprofen 400 mg every 6-8 hours as needed for pain. Orders: Orders MR lumbar spine wo con 02/18/23 M54.41 - Lumbago with sciatica, right side, R29.898 - Other symptoms and signs involving the musculoskeletal system Referrals Pain Management Referral M54.41 - Lumbago with sciatica, right side Medications: New oxycodone 5 mg PO DAILY PRN 10 tabs 0RF pain, severe baclofen 10 mg PO BID 20 tabs 0RF Painful muscle spasm Coding Level of Care Code Est Pt Level 3 (08634) Diagnoses Lumbago with sciatica, right side M54.41 Right leg weakness R29.898
[2023-02-18 11:13] VITALS: BP 132/80; PULSE 66; O2SAT 98; BMI 51.6
== END 2023-02-18 11:36 | disposition home or self-care (01) ==
PROVIDERS: PCP Internal Medicine; Visit Provider Internal Medicine
DX: M54.41 Lumbago with sciatica, right side (principal); R29.898 Other symptoms and signs involving the musculoskeletal system
CPT/HCPCS: 99213

== ENCOUNTER 2023-02-27 13:04 | Outpatient (AMB) | payer OTHER, SELFPAY ==
--- NOTE | 2023-02-27 13:06 | A.OFFVIS_ITS ---
Intake Vital Signs 02/27/23 13:20 Height 5 ft 2 in Weight 283 lb 2 oz BMI 51.8 BP 152/80 H Blood Pressure Location Lt radial Position Sitting Respiration 18 Pulse 78 Pulse Source Pulse Oximeter Pulse Oximetry (%) 98 Oxygen Delivery Method Room Air Intake Visit Reasons: lumbago w/sciatica Allergies egg [EGG] Allergy (Intermediate, Verified 02/27/23 13:09) ITCHY AND HIVES. lisinopril Allergy (Intermediate, Verified 02/27/23 13:09) Hives amoxicillin Adverse Reaction (Intermediate, Verified 02/27/23 13:09) Diarrhea Egg White (Diagnostic) Allergy (Intermediate, Uncoded 02/18/23 11:14) hives HPI HPI Comments History of Present Illness Details Marianne is a very pleasant 47 year old female who presents to the office today for evaluation and management of her acute lower back pain. Patient reports that she has been suffering with this pain since 02/02/2023. She went to the emergency room and has since followed up with her primary care doctor. Pain across the lower back with into the right thigh and down past the right knee. She endorses right leg weakness and states that she feels like her leg is going to give out. She has fallen twice since her initial ER visit and currently utilizes a Rollator walker for ambulation. She has not been to physical therapy. She is currently taking ibuprofen and Tylenol with minimal relief. She has muscle relaxers and oxycodone that ?take the edge off ?. Her primary care doctor ordered an MRI, she has it to be called to schedule this appointment. She states the pain is constant, currently rated as a 6/10. Pain is worse in the morning and at night and exacerbated with weather changes and movements. Pain improves with heat and with her oral medications. Patient denies red flag symptoms including new loss of bowel, bladder or saddle anesthesia. In terms of muscle damage condition is described as pulsing, throbbing, pounding, pinching, cramping, crushing, sharp, cutting, lacerating, tiring, exhausting, dull, sore, hurting, aching, heavy, tight, squeezing and tearing. Pain is negatively impacting patient's normal sleep, ability to perform activities of daily living, normal functioning and working. [facility] Medical History (Updated 02/27/23 @ 13:41 by Chaya Schwartz APRN, [employer]) Lumbago with sciatica, right side Abnormal uterine bleeding Essential hypertension Mild intermittent asthma Disturbance, sleep Loud snoring Morbid obesity Surgical History Hx of colonoscopy Hx of dilation and curettage H/O tubal ligation Family History Paternal Aunt Ovarian cancer Breast cancer Maternal Aunt Breast cancer Other Mental health disorder Substance use disorder Social History Household Members: Family Housing: Apartment Do you presently have visiting nurse or other home services: No Alcohol intake: current Alcohol intake frequency: holidays/special occasions o nly Alcohol type: hard liquor Patient Tobacco Use Status: Former Tobacco user Quit Date: years ago Tobacco use type: Cigarette Years Smoked: 15 yrs e-Cigarette/Vaping Use: Never Used Substance Use Type: Marijuana service: No Current occupational status: employed Cognitive needs: No Hearing needs: No Female Reproductive History Menstrual Age of Menarche: 10 Review of Systems Const All systems reviewed & are unremarkable except as noted in HPI and below Physical Exam Vital Signs: Last Vital Signs Pulse 78 02/27/23 13:20 Resp 18 02/27/23 13:20 BP 152/80 H 02/27/23 13:20 Pulse Ox 98 02/27/23 13:20 Oxygen Delivery Method Room Air 02/27/23 13:20 BMI result Body Mass Index 51.8 General: awake, alert, oriented. Answers questions appropriately. Fully engaged in examination. Skin: warm, dry, intact HEENT: Normocephalic. Hearing intact. Cardiac: External chest normal in appearance. Respiratory: No cough, audible wheezing or stridor. Abdomen: without gross distension. MS: No obvious swelling or deformities. Unable to stand on bilateral tiptoes and bilateral heels.? Able to transition from sit to stand unassisted. Ambulates with antalgic gait utilizing rollator walker for assistance. Neurological: Oriented to person, place, time and situation. Thought process intact. Psychiatric: Appropriate mood and affect. Good judgment and insight. Results Reviewed Results Reviewed: 02/05/23 Three views of the lumbosacral spine. FINDINGS: No acute lumbar compression fracture. Slight narrowing of the disc space observed at L5-S1. Small endplate spondylitic changes seen. There is multilevel facet arthrosis. Sacrum grossly intact. There are degenerative changes bilaterally at the SI joints. Gallstones noted in the right upper quadrant. IMPRESSION: 1. No acute compression fracture. Slight narrowing of the disc space at L5-S1. 2. Facet arthrosis. 3. Other incidental findings as noted above. Assessment & Plan Assessment & Plan (1) Lumbar spondylosis: Code(s): M47.816 - Spondylosis without myelopathy or radiculopathy, lumbar region (2) Lumbar radiculopathy: Code(s): M54.16 - Radiculopathy, lumbar region Plan Marianne is a very pleasant 47-year-old female who presented to the office today for evaluation and management of her acute lower back pain. Advised patient that we provide interventional pain management for chronic pain that has failed conservative treatment. Order placed for PT eval and treat. Lidocaine patches, apply to most painful area, on for 12 hours off for 12 hours. Prednisone 50 mg 1 tablet daily for 5 days. Patient advised to contact her primary care office to follow-up on the status of the MRI. Patient will contact our office for follow-up if her pain persists despite 8-12 weeks of conservative therapy. Patient educated on red flag symptoms and when to seek treatment in the emergency room. Orders: Orders PT Evaluation and Treatment Today M47.816 - Spondylosis without myelopathy or radiculopathy, lumbar region, M54.16 - Radiculopathy, lumbar region Medications: New lidocaine 5% leave on most painful area for up to 12 hrs 1 patch topical DAILY 30 ea 1RF prednisone 50 mg PO DAILY 5 days 5 tabs 0RF back pain Coding Level of Care Code New Pt Level 4 (39853) Diagnoses Lumbar spondylosis M47.816 Lumbar radiculopathy M54.16
[2023-02-27 13:20] VITALS: BP 152/80; PULSE 78; RESP 18; O2SAT 98; BMI 51.8
== END 2023-02-27 13:55 | disposition home or self-care (01) ==
PROVIDERS: PCP Internal Medicine; Visit Provider Registered Nurse Emergency
DX: M47.816 Spondylosis without myelopathy or radiculopathy, lumbar region (principal); M54.16 Radiculopathy, lumbar region
CPT/HCPCS: 99204

== ENCOUNTER → 2023-02-27 13:04 | Outpatient (BNVA) | payer OTHER, SELFPAY | PROVIDERS: PCP Internal Medicine; Visit Provider Registered Nurse Emergency ==

== ENCOUNTER 2023-04-16 14:59 | Outpatient (AMB) | payer OTHER, SELFPAY ==
--- NOTE | 2023-04-16 15:10 | A.OFFPC_ITS ---
<Statement entered by Windy Mcelroy MD - 10/05/24 15:26> This note has been administratively?closed. Vital Signs 04/16/23 15:11 Height 5 ft 2 in Weight 286 lb 2 oz BMI 52.3 BP 124/76 Blood Pressure Location Rt brachial Position Sitting Pulse 69 Pulse Source Pulse Oximeter Pulse Oximetry (%) 97 Oxygen Delivery Method Room Air Intake Visit Reasons: PE Is last menstrual period known: Yes Last menstrual period: 09/09/22 Patient : No Allergies egg [EGG] Allergy (Intermediate, Verified 11/27/23 13:36) ITCHY AND HIVES. lisinopril Allergy (Intermediate, Verified 11/27/23 13:36) Hives amoxicillin Adverse Reaction (Intermediate, Verified 11/27/23 13:36) Diarrhea Egg White (Diagnostic) Allergy (Intermediate, Uncoded 06/29/23 13:20) hives Medication List - Last Reconciled 04/16/23 by Windy Mcelroy MD acetaminophen (Tylenol Extra Strength) 500 mg PO Q6H PRN albuterol sulfate 90 mcg/actuation (ProAir HFA) 2 puffs inhalation Q6H PRN albuterol sulfate 2.5 mg (3 mL) inhalation Q6H PRN amlodipine 10 mg PO DAILY carvedilol 25 mg PO BID ibuprofen (Advil) 200 mg PO Q6H PRN losartan-hydrochlorothiazide 50-12.5 mg 1 tab PO DAILY Symbicort 160-4.5 mcg/actuation (budesonide-formoterol) 2 puffs inhalation Q12H NS Tobacco use date assessed: 04/16/23 Dental Screening Dental Screen Date: 04/16/23 Did you have a dental visit in the last 12 months?: Yes Did you have a dental problem in the last 6 months where you did not have access to dental care?: No Was dental information given to patient?: Patient has dentist HPI PE HPI Details 48-year-old lady with history of morbid obesity, mild intermittent asthma and hypertension, here today for physical exam. Up-to-date with her screening colonoscopy done earlier this year by Dr. Chen with removal of adenomatous polyps, repeat due again in 2025. Goes to [facility] for her Pap and pelvic exam which is up-to-date. She is due for screening mammogram this. Last done in 2021 with benign findings. Complains of excessive daytime sleepiness, with disturbed sleep, has been told that she snores a lot, HPI Comments History of Present Illness Details 48-year-old lady here today for physical exam. She has hypertension, mild intermittent asthma, morbid obese and has chronic low back pain with lumbar radiculopathy peer [facility] Medical History Heartburn Epigastric pain Right upper quadrant pain Elevated transaminase level Excessive daytime sleepiness Lumbago with sciatica, right side Abnormal uterine bleeding Essential hypertension Mild intermittent asthma Disturbance, sleep Loud snoring Morbid obesity Surgical History (Updated 02/16/24 @ 22:48 by Windy Mcelroy MD) Hx laparoscopic cholecystectomy (06/19/23) Hx of colonoscopy Hx of dilation and curettage H/O tubal ligation Family History Paternal Aunt Ovarian cancer Breast cancer Maternal Aunt Breast cancer Father Heart failure Diabetes Vascular abnormality Mother Memory loss Coronary artery abnormality History of prediabetes Brother No problems noted. Sister Fibromyalgia Daughter Overdose Daughter Borderline high blood pressure Other Mental health disorder Substance use disorder Social History Household Members: Family Housing: Apartment Do you presently have visiting nurse or other home services: No Alcohol intake: former Comment: counts correct Patient Tobacco Use Status: Former Tobacco user Tobacco use type: Cigarette Years Smoked: 15 yrs e-Cigarette/Vaping Use: Never Used Substance Use Type: Marijuana service: No Current occupational status: employed Cognitive needs: No Hearing needs: No Female Reproductive History Menstrual Age of Menarche: 10 Date of last menstrual period: 09/09/22 Questionnaire Thrive Questionnaire Date Thrive assessed: 12/23/22 AUDIT C Alcohol Use Questionnaire (AUDIT-C) 1. How often do you have a drink containing alcohol?: Never Total Score: 0 ELLY-7 AMB Questionnaire ELLY-7 Date ELLY - 7 assessed: 12/23/22 Source: Developed by Drs. Rip Lafleur, Frances Nuno, Lopez Mcclure and colleagues, with an educational teresa from [employer]. Review of Systems Const Reports as per HPI and Denies headache(s) Eyes Denies change in vision ENT Denies dizziness, Denies headache(s), Denies nasal congestion, Denies nasal discharge and Denies sore throat Card Denies chest pain, Denies lightheadedness and Denies dyspnea Resp Denies chest congestion, Denies cough, Denies dyspnea and Denies wheezing GI Reports as per HPI and Denies change in bowel habits Reports no additional complaints Musc Reports no additional complaints Skin/Breast Denies breast pain, Denies breast mass and Denies rash Neuro Denies dizziness and Denies headache(s) Psych Reports no additional complaints Endo Reports no additional complaints Yemi/Lymph Reports no additional complaints Aller/Immun Denies seasonal rhinorrhea and Denies wheezing Physical exam (Primary Care) Vital Signs: Last Vital Signs Pulse 69 04/16/23 15:11 BP 124/76 04/16/23 15:11 Pulse Ox 97 04/16/23 15:11 Oxygen Delivery Method Room Air 04/16/23 15:11 BMI result Body Mass Index 52.3 Tobacco/Smoking Status: Tobacco use Status Tobacco use date assessed 04/16/23 04/16/23 15:20 Patient Tobacco Use Status Former Tobacco user 04/16/23 15:10 Tobacco use type Cigarette 04/16/23 15:10 e-Cigarette/Vaping Use Never Used 04/16/23 15:10 Thrive Assessment: Date of Thrive Assessment Date Thrive assessed 12/23/22 04/16/23 15:10 Const General: no acute distress and alert Nutritional Appearance: obese morbidly obese Orientation/consciousness: patient oriented x3 HENMT Mouth: Normal oral and palatal mucosa present, oropharynx normal and moist mucous membranes Eyes General: appearance normal, both eyes and all related structures Neck Neck: Yes full ROM, Yes no lymphadenopathy and Yes supple Chest Breast/axilla palpation: normal palpation of the breasts Resp Effort & Inspection: normal respiratory effort and able to speak in complete sentences Auscultation: clear to auscultation bilaterally Cardio Rate: regular rate Rhythm: regular rhythm Heart sounds: S1 normal heart sound present and S2 normal heart sound present GI Palpation (GI): Soft to palpation, Tenderness to palpation present (GI) in the epigastrum and in the RUQ, no guarding and no masses Auscultation: normal bowel sounds General: Yes no CVA tenderness Back/Spine/Pelvis Back: no CVA tenderness and No back tenderness Skin General skin exam: no rashes or lesions noted Neuro General: patient oriented x3, gait normal, tone normal, moves all extremities and no focal motor deficits Cognition (Neuro): normal cognition Extrem General: Yes full ROM, Yes no joint enlargement, Yes no clubbing, cyanosis or edema and Yes no calf tenderness Psych Appearance: grossly normal and well kempt Mental Status: mental status grossly normal Speech and movement: Normal speech and movement present Affect: normal affect Attitude: cooperative Thought process: Normal thought process present Thought content: Normal thought content present Assessment and Plan Assessment & Plan (1) Annual visit for general adult medical examination with abnormal findings: Code(s): Z00.01 - Encounter for general adult medical examination with abnormal findings Plan: Will check appropriate labs. Recommended dental visit every 6 months and regular eye exams, at least every 2 years. Take adequate calcium in diet and vitamin-D 3 at 2000 IU per cap once a day, in addition to weight-bearing exercises to help maintain good muscle tone and weight control. Instructed to do self-breast exam, and recommended to get yearly mammogram, patient states will call and schedule. Up-to-date with her cervical cancer screening, goes to [facility], and is up-to-date with her screening colonoscopy done earlier this year by Dr. Chen, to repeat again in 2025. Reminded to get her yearly flu shot and COVID booster (2) Disturbance, sleep: Code(s): G47.9 - Sleep disorder, unspecified Plan: Sleep medicine referral ordered (3) Loud snoring: Code(s): R06.83 - Snoring Plan: Sleep medicine referral ordered (4) Morbid obesity: Code(s): E66.01 - Morbid (severe) obesity due to excess calories Plan: Discussed need to increase activity and weight reduction. Recommended focusing on improving health instead of dieting. Mediterranean diet is a healthy diet that helps, limit food high in fat, sugar, and calories. Eat slowly, pay attention to portion sizes, plan your meals ahead of time, start regular physical activity, at least 150 minutes of moderate intensity exercise, or 90 minutes per week of vigorous exercise. Keeping a food diary, tracking what you eat and your physical activity can help assess what improvements you can make. There are many health problems associated with being overweight/o bese, so it is important to improve your diet and exercise. (5) Excessive daytime sleepiness: Code(s): G47.19 - Other hypersomnia Plan: Referred to sleep medicine (6) Mild intermittent asthma: Code(s): J45.20 - Mild intermittent asthma, uncomplicated Plan: Continue albuterol inhaler as needed for episodes of bronchospasm and wheezing, continue Symbicort Orders: Orders Lipid Panel 04/16/23 E66.01 - Morbid (severe) obesity due to excess calories, Z00.01 - Encounter for general adult medical examination with abnormal findings Vitamin D 25-OH Total 04/16/23 E66.01 - Morbid (severe) obesity due to excess calories, Z00.01 - Encounter for general adult medical examination with abnormal findings Referrals Sleep Medicine Referral G47.9 - Sleep disorder, unspecified, R06.83 - Snoring, E66.01 - Morbid (severe) obesity due to excess calories, G47.19 - Other hypersomnia Coding Level of Care Code Est Pt Prev Care 40-64y(97028) Diagnoses Annual visit for general adult medical examination with abnormal findings Z00.01 Disturbance, sleep G47.9 Loud snoring R06.83 Morbid obesity E66.01 Excessive daytime sleepiness G47.19 Mild intermittent asthma J45.20
[2023-04-16 15:11] VITALS: BP 124/76; PULSE 69; O2SAT 97; BMI 52.3
== END 2023-04-16 16:41 | disposition home or self-care (01) ==
PROVIDERS: PCP Internal Medicine; Visit Provider Internal Medicine
DX: Z00.01 Encounter for general adult medical examination with abnormal findings (principal); G47.9 Sleep disorder, unspecified; R06.83 Snoring; E66.01 Morbid (severe) obesity due to excess calories; G47.19 Other hypersomnia; J45.20 Mild intermittent asthma, uncomplicated
CPT/HCPCS: 99499

== ENCOUNTER 2023-06-05 12:50 | Outpatient (REF) | payer OTHER, SELFPAY ==
--- NOTE | ~2023-06-05 | US_ITS ---
EXAMINATION: US PELVIS CLINICAL INFORMATION: Fibroid six-month recheck, postmenopausal, last menstrual period one year ago. COMPARISON: Pelvic ultrasound of 08/19/2022. TECHNIQUE: Ultrasound of the pelvis is performed using both transabdominal and transvaginal transducers along with Doppler. Transvaginal imaging is performed due to inadequate visualization transabdominally. FINDINGS: The uterus measures 7.8 x 3.9 x 4.8 cm. Endometrial thickness is 0.5 cm. Severely limited visualization due to bowel gas and body habitus. A 0.7 x 0.5 x 0.5 cm anterior uterine hypoechoic lesion, previously 0.7 x 0.6 cm, best appreciated on limited transabdominal ultrasound images, possibly representing a fibroid. Right ovary not visualized. Left ovary seen only on limited transabdominal ultrasound images and measures 1.7 x 1.0 x 1.7 cm, volume 1.5 mL. US/US pelvic and transvaginal IMPRESSION: 1. A 0.7 cm anterior uterine hypoechoic lesion, previously 0.7 cm, best appreciated on limited transabdominal ultrasound images, possibly representing a fibroid. 2. Endometrial thickness is 0.5 cm. 3. Right ovary not visualized. 4. Left ovary seen only on limited transabdominal ultrasound images and is grossly unremarkable. 5. Severely limited visualization due to bowel gas and body habitus. Pelvic MRI should be considered for better visualization if clinically indicated.
== END 2023-06-05 12:51 | disposition home or self-care (01) ==
LOC: HO.HMGCX 12:50
PROVIDERS: PCP Internal Medicine; Visit Provider Advanced Practice Midwife
DX: D21.9 Benign neoplasm of connective and other soft tissue, unspecified (principal)
CPT/HCPCS: 76830; 76856

== ENCOUNTER 2023-06-10 08:58 | Outpatient (AMB) | payer OTHER, SELFPAY ==
--- NOTE | 2023-06-10 09:11 | MHC.PC.OV ---
Vital Signs 06/10/23 09:14 Height 5 ft 2 in Weight 284 lb 2 oz BMI 52.0 BP 120/76 Blood Pressure Location Rt brachial Position Sitting Pulse 81 Pulse Source Pulse Oximeter Pulse Oximetry (%) 97 Oxygen Delivery Method Room Air Intake Visit Reasons: ER [facility] nodule in lung Intake Note: Pt is here to follow up from [facility] ER for a lung nodule Allergies egg [EGG] Allergy (Intermediate, Verified 06/22/23 18:36) ITCHY AND HIVES. lisinopril Allergy (Intermediate, Verified 06/22/23 18:36) Hives amoxicillin Adverse Reaction (Intermediate, Verified 06/22/23 18:36) Diarrhea Egg White (Diagnostic) Allergy (Intermediate, Uncoded 06/22/23 18:36) hives Medication List - Last Reconciled 06/22/23 by Windy Mcelroy MD acetaminophen (Tylenol Extra Strength) 500 mg PO Q6H PRN albuterol sulfate 90 mcg/actuation (ProAir HFA) 2 puffs inhalation Q6H PRN albuterol sulfate 2.5 mg (3 mL) inhalation Q6H PRN amlodipine 10 mg PO DAILY carvedilol 25 mg PO BID famotidine 20 mg PO BID hydrocodone-acetaminophen 5-325 mg 1 tab PO Q4-6H PRN ibuprofen (Advil) 200 mg PO Q6H PRN losartan-hydrochlorothiazide 50-12.5 mg 1 tab PO DAILY omeprazole 20 mg PO DAILY simethicone (Gas Relief (simethicone)) 80 mg PO TID PRN Symbicort 160-4.5 mcg/actuation (budesonide-formoterol) 2 puffs inhalation Q12H NS Tobacco use date assessed: 06/10/23 Dental Screening Dental Screen Date: 06/10/23 Did you have a dental visit in the last 12 months?: Yes Did you have a dental problem in the last 6 months where you did not have access to dental care?: No Was dental information given to patient?: Patient has dentist HPI ER [facility] nodule in lung HPI Details 48-year-old lady here today for follow-up after a recent ER visit [facility] May 25, presenting with 2 day history of abdominal pain radiating to back, accompanied by nausea, and difficulty with urination. Denies any accompanying fever, headache, chest pain, dysuria, weakness. Workup done at the emergency room included labs showing no leukocytosis, negative lipase, mildly elevated liver enzymes with AST of 44 an ALT of 65, urine showed trace protein, moderate bilirubin and too many epithelial cells with 10 urine wbc's, negative for bacteria. CT abdomen pelvis showed severe fatty infiltration the liver with cholelithiasis incidental finding of a 5 mm pulmonary nodule seen in the right lung. Ultrasound of abdomen also showed presence of fatty infiltration liver and cholelithiasis . She was given a GI cocktail at the ER, and prescribed Zofran and Pepcid as well as simethicone, and advised to follow-up with PCP, thus this visit. Urinary symptoms have resolved however she still experiencing in pain and tightness in her right upper quadrant and epigastric area, aggravated after food intake. [facility] Medical History Right lower lobe pulmonary nodule Heartburn Epigastric pain Right upper quadrant pain Elevated transaminase level Excessive daytime sleepiness Lumbago with sciatica, right side Abnormal uterine bleeding Essential hypertension Mild intermittent asthma Disturbance, sleep Loud snoring Morbid obesity Surgical History Hx of colonoscopy Hx of dilation and curettage H/O tubal ligation Family History Paternal Aunt Ovarian cancer Breast cancer Maternal Aunt Breast cancer Other Mental health disorder Substance use disorder Social History Household Members: Family Housing: Apartment Do you presently have visiting nurse or other home services: No Alcohol intake: current Alcohol intake frequency: holidays/special occasions only Alcohol type: hard liquor Comment: counts correct Patient Tobacco Use Status: Former Tobacco user Quit Date: 11 years Tobacco use type: Cigarette Years Smoked: 15 yrs e-Cigarette/Vaping Use: Never Used Substance Use Type: Marijuana service: No Current occupational status: employed Cognitive needs: No Hearing needs: No Female Reproductive History Menstrual Age of Menarche: 10 Questionnaire Thrive Questionnaire Date Thrive assessed: 12/23/22 ELLY-7 AMB Questionnaire ELLY-7 Date ELLY - 7 assessed: 12/23/22 Source: Developed by Drs. Rip Lafleur, Frances Nuno, Lopez Mcclure and colleagues, with an educational teresa from [employer]. Review of Systems Const Denies fever(s), Denies headache(s) and Denies weakness Eyes Denies change in vision ENT Denies dizziness, Denies headache(s), Denies nasal congestion, Denies nasal discharge and Denies sore throat Card Denies chest pain, Denies lightheadedness and Denies dyspnea Resp Denies chest congestion, Denies cough, Denies dyspnea and Denies wheezing GI Reports as per HPI and Denies change in bowel habits Reports no additional complaints Musc Reports no additional complaints Neuro Denies dizziness, Denies headache(s) and Denies weakness Endo Reports no additional complaints Yemi/Lymph Reports no additional complaints Aller/Immun Denies seasonal rhinorrhea and Denies wheezing Physical exam (Primary Care) Vital Signs: Last Vital Signs Pulse 81 06/10/23 09:14 BP 120/76 06/10/23 09:14 Pulse Ox 97 06/10/23 09:14 Oxygen Delivery Method Room Air 06/10/23 09:14 BMI result Body Mass Index 52.0 Tobacco/Smoking Status: Tobacco use Status Tobacco use date assessed 06/10/23 06/10/23 09:21 Patient Tobacco Use Status Former Tobacco user 06/10/23 09:13 Tobacco use type Cigarette 06/10/23 09:13 e-Cigarette/Vaping Use Never Used 06/10/23 09:13 Thrive Assessment: Date of Thrive Assessment Date Thrive assessed 12/23/22 06/10/23 09:13 Const General: no acute distress and alert Orientation/consciousness: patient oriented x3 HENMT Mouth: Normal oral and palatal mucosa present, oropharynx normal and moist mucous membranes Eyes General: appearance normal, both eyes and all related structures Neck Neck: Yes full ROM, Yes no lymphadenopathy and Yes supple Resp Effort & Inspection: normal respiratory effort and able to speak in complete sentences Auscultation: clear to auscultation bilaterally Cardio Rate: regular rate Rhythm: regular rhythm Heart sounds: S1 normal heart sound present and S2 normal heart sound present GI Palpation (GI): Soft to palpation, Tenderness to palpation present (GI) in the epigastrum and in the RUQ, no guarding and no masses Auscultation: normal bowel sounds Back/Spine/Pelvis Back: No back tenderness Skin General skin exam: no rashes or lesions noted Neuro General: patient oriented x3, gait normal, tone normal, moves all extremities and no focal motor deficits Cognition (Neuro): normal cognition Extrem General: Yes full ROM, Yes no joint enlargement, Yes no clubbing, cyanosis or edema and Yes no calf tenderness Assessment and Plan Assessment & Plan (1) Cholelithiasis: Code(s): K80.20 - Calculus of gallbladder without cholecystitis without obstruction Qualifiers: Biliary obstruction: without biliary obstruction Cholecystitis presence: without cholecystitis Cholelithiasis location: gallbladder Qualified Code(s): K80.20 - Calculus of gallbladder without cholecystitis without obstruction Plan: Referred to general surgery for further management. Patient advised to going to low-fat/bland diet (2) Right upper quadrant pain: Code(s): R10.11 - Right upper quadrant pain Plan: Referred back to Dr. Chen for further evaluation, may need an upper endoscopy. Pepcid AC discontinued and switched to omeprazole 20 mg per capsule to take once a day an hour before eating or before bedtime. Avoid lying down immediately after each (3) Elevated transaminase level: Code(s): R74.01 - Elevation of levels of liver transaminase levels Plan: Advised to stop alcohol intake, has already stop smoking. (4) Heartburn: Code(s): R12 - Heartburn Plan: Prescription sent for omeprazole 20 mg per capsule to take once a day 1 hour before eating or at bedtime, and discontinue Pepcid. May still continue taking Gas-X as needed for abdominal gassiness, avoid acidic foods, do not lie down immediately after each (5) Right lower lobe pulmonary nodule: Comment: A 5 mm pulmonary nodule right lung base seen on CT scan done at [facility] 05/28/2023, needs a repeat CT scan for follow-up in 6 months to check for stability Code(s): R91.1 - Solitary pulmonary nodule Plan: Will check another CT scan in 6 months document stability of nodule Orders: Referrals Gastroenterology Referral R74.01 - Elevation of levels of liver transaminase levels, R10.13 - Epigastric pain, R12 - Heartburn General Surgery Referral K80.20 - Calculus of gallbladder without cholecystitis without obstruction, R74.01 - Elevation of levels of liver transaminase levels, R10.11 - Right upper quadrant pain Medications: New omeprazole 20 mg PO DAILY 30 caps 1RF Coding Level of Care Code Est Pt Level 4 (96082) Diagnoses Calculus of gallbladder without cholecystitis without obstruction K80.20 Biliary obstruction: without biliary obstruction Cholecystitis presence: without cholecystitis Cholelithiasis location: gallbladder Right upper quadrant pain R10.11 Elevated transaminase level R74.01 Heartburn R12 Right lower lobe pulmonary nodule R91.1
[2023-06-10 09:14] VITALS: BP 120/76; PULSE 81; O2SAT 97; BMI 52.0
== END 2023-06-10 11:31 | disposition home or self-care (01) ==
PROVIDERS: PCP Internal Medicine; Visit Provider Internal Medicine
DX: K80.20 Calculus of gallbladder without cholecystitis without obstruction (principal); R10.11 Right upper quadrant pain; R74.01 Elevation of levels of liver transaminase levels; R12 Heartburn; R91.1 Solitary pulmonary nodule
CPT/HCPCS: 99214

== ENCOUNTER 2023-06-15 09:16 | Outpatient (AMB) | payer OTHER, SELFPAY ==
--- NOTE | 2023-06-15 09:25 | MHC.OFFVIS ---
Intake Vital Signs 06/15/23 09:36 Height 5 ft 2 in Weight 284 lb BMI 51.9 BP 123/60 Blood Pressure Location Rt radial Position Sitting Pulse 70 Intake Visit Reasons: Calculus of gallbladder Intake Note: Patient referred by pcp Dr. Mcelroy for calculus of gallbladder. [facility] of gallbladder dated 05-28-23. Patient c/o: abd pain, feels bloated. Denies nausea, diarrhea. 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 lisinopril Allergy (Intermediate, Verified 06/15/23 09:26) Hives amoxicillin Adverse Reaction (Intermediate, Verified 06/15/23 09:26) Diarrhea Egg White (Diagnostic) Allergy (Intermediate, Uncoded 06/15/23 09:26) hives HPI HPI Comments History of Present Illness Details Patient presents with recurrent bouts of biliary colic. She had a recent episode several weeks ago where she was seen emergency department. Workup at that time demonstrated cholelithiasis. Patient has fatty food intolerance. She has never been jaundiced before. She otherwise has regular bowel habits. No other GI issues or complaints. Chart was reviewed patient evaluated [facility] Medical History Right lower lobe pulmonary nodule Heartburn Epigastric pain Right upper quadrant pain Elevated transaminase level Cholelithiasis Excessive daytime sleepiness Lumbago with sciatica, right side Abnormal uterine bleeding Essential hypertension Mild intermittent asthma Disturbance, sleep Loud snoring Morbid obesity Surgical History Hx of colonoscopy Hx of dilation and curettage H/O tubal ligation Family History Paternal Aunt Ovarian cancer Breast cancer Maternal Aunt Breast cancer Other Mental health disorder Substance use disorder Social History Household Members: Family Housing: Apartment Do you presently have visiting nurse or other home services: No Alcohol intake: current Alcohol intake frequency: holidays/special occasions only Alcohol type: hard liquor Patient Tobacco Use Status: Former Tobacco user Quit Date: years ago Tobacco use type: Cigarette Years Smoked: 15 yrs e-Cigarette/Vaping Use: Never Used Substance Use Type: Marijuana service: No Current occupational status: employed Cognitive needs: No Hearing needs: No Female Reproductive History Menstrual Age of Menarche: 10 Physical Exam Vital Signs: Last Vital Signs Pulse 70 06/15/23 09:36 BP 123/60 06/15/23 09:36 BMI result Body Mass Index 51.9 Eyes Other: Anicteric Chest Other: Chest breath sounds bilaterally, HS 1 in 2 GI Other: Corpulent abdomen. Soft, benign. Assessment & Plan Assessment & Plan (1) Cholelithiasis: Code(s): K80.20 - Calculus of gallbladder without cholecystitis without obstruction Qualifiers: Cholelithiasis location: gallbladder Cholecystitis presence: without cholecystitis Biliary obstruction: without biliary obstruction Qualified Code(s): K80.20 - Calculus of gallbladder without cholecystitis without obstruction (2) Biliary colic: Code(s): K80.50 - Calculus of bile duct without cholangitis or cholecystitis without obstruction Plan Risks, benefits, alternatives of laparoscopic possible open cholecystectomy reviewed the patient and included but not limited to bleeding, infection, recurrence of symptoms, numbness, pain, scarring, bowel or bile duct injury or leak and the patient wished to proceed. All questions answered. Arrangements will be made for this. Coding Level of Care Code New Pt Level 5 (82021) Diagnoses Calculus of gallbladder without cholecystitis without obstruction K80.20 Cholelithiasis location: gallbladder Cholecystitis presence: without cholecystitis Biliary obstruction: without biliary obstruction Biliary colic K80.50
[2023-06-15 09:36] VITALS: BP 123/60; PULSE 70; BMI 51.9
== END 2023-06-15 09:50 | disposition home or self-care (01) ==
PROVIDERS: PCP Internal Medicine; Referring Provider Internal Medicine; Visit Provider Surgery
DX: K80.20 Calculus of gallbladder without cholecystitis without obstruction (principal); K80.50 Calculus of bile duct without cholangitis or cholecystitis without obstruction
CPT/HCPCS: 99204

== ENCOUNTER → 2023-06-15 09:16 | Outpatient (BNVA) | payer OTHER, SELFPAY | PROVIDERS: PCP Internal Medicine; Referring Provider Internal Medicine; Visit Provider Surgery ==

== ENCOUNTER 2023-06-19 10:02 | Day surgery (SDC) | payer OTHER, SELFPAY ==
--- NOTE | 2023-06-17 13:22 | HO.ANESPROP2 ---
Documented by User: Lynette Romero NP 06/17/23 13:24 HPI - Anesthesia Eval Consult details Narrative: 48yo F for Cholecystectomy Laparoscopic, possible open Recent incidental finding of 5mm RLL nodule. Plan for f/u image in 6 months. [facility] Active Problems Active Problems: All Active Problems (Updated 06/15/23 @ 09:59 by Bill Kendall MD) Biliary colic (Acute) Right lower lobe pulmonary nodule (Acute) Heartburn (Acute) Epigastric pain (Acute) Right upper quadrant pain (Acute) Elevated transaminase level (Acute) Cholelithiasis (Acute) Excessive daytime sleepiness (Acute) Postmenopausal bleeding (Acute) Morbid obesity (Acute) Abnormal uterine bleeding (Acute) Essential hypertension (Acute) Mild intermittent asthma (Acute) Disturbance, sleep (Acute) Loud snoring (Acute) Past Medical History Medical History Right lower lobe pulmonary nodule Heartburn Epigastric pain Right upper quadrant pain Elevated transaminase level Excessive daytime sleepiness Lumbago with sciatica, right side Abnormal uterine bleeding Essential hypertension Mild intermittent asthma Disturbance, sleep Loud snoring Morbid obesity Family History Family History Paternal Aunt Ovarian cancer Breast cancer Maternal Aunt Breast cancer Other Mental health disorder Substance use disorder Family history of problems with anesthesia: No Surgical History Surgical History Hx of colonoscopy Hx of dilation and curettage H/O tubal ligation History of Problems with Anesthesia: No Social History Social History Household Members: Family Housing: Apartment Do you presently have visiting nurse or other home services: No Alcohol intake: current Alcohol intake frequency: holidays/special occasions only Alcohol type: hard liquor Patient Tobacco Use Status: Former Tobacco user Quit Date: 11 years Tobacco use type: Cigarette Years Smoked: 15 yrs e-Cigarette/Vaping Use: Never Used Use of substances other than those prescribed or required for medical reasons: Yes Substance Use Type: Marijuana Substance Use Frequency: Occasionally Are you DNR?: No Advance Directives: No Advance Directives Information Provided: Yes service: No Current occupational status: employed Cognitive needs: No Hearing needs: No Meds Allergies Allergy/AdvReac Type Severity Reaction Status Date / Time egg [EGG] Allergy Intermediate ITCHY AND Verified 06/19/23 10:32 HIVES. lisinopril Allergy Intermediate Hives Verified 06/19/23 10:32 amoxicillin AdvReac Intermediate Diarrhea Verified 06/19/23 10:32 Egg White (Diagnostic) Allergy Intermediate hives Uncoded 06/19/23 10:32 Home Medications Medication Instructions Recorded Confirmed Last Taken Type acetaminophen 500 mg tablet 500 mg PO Q6H PRN Pain 11/05/20 06/17/23 Unknown History (Tylenol Extra Strength) famotidine 20 mg tablet 20 mg PO BID 06/10/23 06/17/23 Unknown History simethicone 80 mg chewable tablet 80 mg PO TID PRN Gastrointestinal 06/10/23 06/17/23 Unknown History (Gas Relief (simethicone)) Spasms Or Cramping ibuprofen 200 mg tablet (Advil) 200 mg PO Q6H PRN Pain 06/15/23 06/17/23 Unknown History Exam Pertinent Lab Results Pertinent Lab Results: Laboratory Tests 02/05/23 10:26 WBC 9.2 Hgb 15.1 Hct 44.1 Plt Count 270 Sodium 140 Potassium 4.5 Chloride 103 Carbon Dioxide 29 BUN 10 Creatinine 0.72 Assessment and Plan Assessment Anesthesia Assessment: Chart Reviewed Final Anesthetic Review Family History of Problems with Anesthesia: No History of Problems with Anesthesia: No Documented by User: Lisa Haney MD 06/19/23 10:39 PMFSH Past Medical History Medical History Right lower lobe pulmonary nodule Heartburn Epigastric pain Right upper quadrant pain Elevated transaminase level Excessive daytime sleepiness Lumbago with sciatica, right side Abnormal uterine bleeding Essential hypertension Mild intermittent asthma Disturbance, sleep Loud snoring Morbid obesity Family History Family History Paternal Aunt Ovarian cancer Breast cancer Maternal Aunt Breast cancer Other Mental health disorder Substance use disorder Surgical History Surgical History Hx of colonoscopy Hx of dilation and curettage H/O tubal ligation Social History Social History Household Members: Family Housing: Apartment Do you presently have visiting nurse or other home services: No Alcohol intake: current Alcohol intake frequency: holidays/special occasions only Alcohol type: hard liquor Patient Tobacco Use Status: Former Tobacco user Quit Date: 11 years Tobacco use type: Cigarette Years Smoked: 15 yrs e-Cigarette/Vaping Use: Never Used Use of substances other than those prescribed or required for medical reasons: Yes Substance Use Type: Marijuana Substance Use Frequency: Occasionally Are you DNR?: No Advance Directives: No Advance Directives Information Provided: Yes service: No Current occupational status: employed Cognitive needs: No Hearing needs: No Meds Allergies Allergy/AdvReac Type Severity Reaction Status Date / Time egg [EGG] Allergy Intermediate ITCHY AND Verified 06/19/23 10:32 HIVES. lisinopril Allergy Intermediate Hives Verified 06/19/23 10:32 amoxicillin AdvReac Intermediate Diarrhea Verified 06/19/23 10:32 Egg White (Diagnostic) Allergy Intermediate hives Uncoded 06/19/23 10:32 Home Medications Medication Instructions Recorded Confirmed Last Taken Type acetaminophen 500 mg tablet 500 mg PO Q6H PRN Pain 11/05/20 06/17/23 Unknown History (Tylenol Extra Strength) famotidine 20 mg tablet 20 mg PO BID 06/10/23 06/17/23 Unknown History simethicone 80 mg chewable tablet 80 mg PO TID PRN Gastrointestinal 06/10/23 06/17/23 Unknown History (Gas Relief (simethicone)) Spasms Or Cramping ibuprofen 200 mg tablet (Advil) 200 mg PO Q6H PRN Pain 06/15/23 06/17/23 Unknown History Exam Airway Mallampati Class: III TM Dist: >3cm Neck ROM: Full (but lot of redundant neck tissue ) Heart: rrr Lungs: cta Assessment and Plan Assessment Anesthesia Assessment: Anesthesia Plan Discussed Final Anesthetic Review NPO: Yes ASA Class: III Final Preanesthetic Review: No Changes in Pt Med Stat, Meds/Allgs Chart Reviewed, Consent Obtained/Reviewed and Anes Risks/Benef Reviewed Patient Risk: Intermediate Procedure Risk: Intermediate Anesthetic Plan Anesthetic Plan: GA Disposition: Standard PACU
[2023-06-17 13:56] VITALS: BMI 51.9
--- NOTE | 2023-06-18 13:01 | MHC.SHP ---
Pre-Procedural Eval Section A Date of Service: 06/18/23 The patient is an INPATIENT: No Changes since office visit: No Cold of Flu in the past 2 weeks, No New Medical Problems, No Changes in Medication and No Patient answered all questions The History & Physical has been completed within 30 days and I have reviewed it.: Yes Section B Chief Complaint: Calculus of bile duct without cholangitis or xavier Allergies: Allergies Allergy/AdvReac Type Severity Reaction Status Date / Time egg [EGG] Allergy Intermediate ITCHY AND Verified 06/15/23 09:26 HIVES. lisinopril Allergy Intermediate Hives Verified 06/15/23 09:26 amoxicillin AdvReac Intermediate Diarrhea Verified 06/15/23 09:26 Egg White (Diagnostic) Allergy Intermediate hives Uncoded 06/15/23 09:26 Plan I have reviewed the history and physical and performed a pertinent physical examination on my patient. No changes have occurred unless specified. Time Spent With Patient Time: Total time managing care of this patient today ____ minutes.
[2023-06-19] VITALS (13 sets, daily range): BP systolic 124–152; BP diastolic 56–87; PULSE 56–73; RESP 14–17; TEMP 35.7–36.8; O2SAT 95–99; BMI 51.2
[2023-06-19] MEDS: Lactated Ringers 1,000 ML 100 ML IVCONT (10:56)
[2023-06-19] MEDS: Albuterol Sulfate (0.083%) 2.5 MG/3 ML VIAL.NEB INHALE (10:57)
--- NOTE | 2023-06-19 14:07 | P.OP_ITS ---
Operative Note Operative Note Date of Service: 06/19/23 Narrative: Preoperative diagnosis: [] Recurrent biliary colic Postop diagnosis: [] The same Procedure [] laparoscopic cholecystectomy Surgeon: [] Enoch Product Applications Scientist: [] Martin Type of Anesthesia: [] General Indication for surgery: [] Very very corpulent abdomen. Gallbladder with gallstones. Intrahepatic gallbladder. Marked omental adhesions to the gallbladder. Findings: [] Patient brought to the operating room, placed on operative table supine position, after adequate level of general anesthesia was induced, the extremely corpulent abdomen was prepped and draped in usual sterile fashion. Using a supraumbilical curvilinear incision, Gamboa technique was used to insufflate the abdominal cavity to 15 mm of CO2. Upper midline and right subcostal ports were placed under direct laparoscopic view, and the patient placed in reverse Trendelenburg position, and tilted to the left. Findings were as noted above. Gallbladder was grasped using laparoscopic graspers, and retracted superiorly and laterally. Dense omental adhesions were swept off the gallbladder. Hilum was approached where the common bile duct, cystic artery and cystic duct were all identified. Latter 2 were skeletonized, traced directly into the gallbladder, and critical view obtained. Each was clipped proximally x2, distally x1, and transected. Gallbladder which was markedly intrahepatic was cauterized from the gallbladder fossa using Bovie. Specimen was placed in an Endo-Catch bag, a retrieved through the umbilical port. The abdominal cavity was copiously irrigated, and secured hemostasis. All ports were removed under direct laparoscopic view. Wounds were closed in the following manner; umbilical wound had its fascia reapproximated using interrupted 0 Vicryl sutures. Skin wounds were closed using subcuticular 4-0 Vicryl sutures followed by Steri- Strips and sterile dressings. Wounds were infiltrated 0.5% Marcaine at completion. Sponge, needle, and instrument counts reported correct. Patient tolerated the procedure well and emerged from anesthesia in stable condition. EBL minimal Breast [place] Node Biopsy Substrate(s) used for sentinel node biopsy in the non-neoadjuvant setting: Dye, Radiotracer, Clips, Dye and Radiotracer, Dye and Clips, Radiotracer and Clips, Dye, Radiotracer, & Clips, None and N/A General Surg. - Synoptic Notes Breast [place] Node Biopsy Substrate(s) used for sentinel node biopsy in the non-neoadjuvant setting: Dye, Radiotracer, Clips, Dye and Radiotracer, Dye and Clips, Radiotracer and Clips, Dye, Radiotracer, & Clips, None and N/A
[2023-06-19] MEDS: fentaNYL citrate/PF 100 MCG/2 ML VIAL 25 MCG IVPUSH ×4 (14:35→14:50)
[2023-06-19] MEDS: oxyCODONE HCl Immed Release 5 MG TABLET PO (14:36)
[2023-06-19] MEDS: Ketorolac Tromethamine 30 MG/ML VIAL IVPUSH (15:00)
--- NOTE | 2023-06-19 17:00 | PC.NURSE ---
[place] cheetah print cloth mask found in patient's bed linens p discharge. Mask put into outgoing mail.
== END 2023-06-19 16:06 | disposition home or self-care (01) ==
PROVIDERS: PCP Internal Medicine; Visit Provider Surgery
PROC: 0FT44ZZ Resection of Gallbladder, Percutaneous Endoscopic Approach (ICD-10-PCS; CPT 47562; principal; 2023-06-19 11:40)
DX: K80.10 Calculus of gallbladder with chronic cholecystitis without obstruction (principal); K66.0 Peritoneal adhesions (postprocedural) (postinfection); K82.8 Other specified diseases of gallbladder; E65 Localized adiposity; Z88.1 Allergy status to other antibiotic agents; I10 Essential (primary) hypertension; J45.20 Mild intermittent asthma, uncomplicated; E66.01 Morbid (severe) obesity due to excess calories; Z68.43 Body mass index [BMI] 50.0-59.9, adult; Z88.8 Allergy status to other drugs, medicaments and biological substances; Z91.012 Allergy to eggs; Z87.891 Personal history of nicotine dependence
CPT/HCPCS: 47562; 88304; 94640; J0131; J0330; J0736; J1885; J2405; J2704; J2795; J3010

== ENCOUNTER → 2023-06-19 10:02 | Outpatient (BNV) | payer OTHER, SELFPAY | PROVIDERS: PCP Internal Medicine; Visit Provider Surgery | DX: K80.20 Calculus of gallbladder without cholecystitis without obstruction (principal) | CPT/HCPCS: 47562 ==

== ENCOUNTER 2023-06-29 13:08 | Outpatient (AMB) | payer OTHER, SELFPAY ==
--- NOTE | 2023-06-29 13:12 | A.OFFVIS_ITS ---
Intake Intake Visit Reasons: S/P lap xavier Intake Note: Patient here for s/p lap xavier on 06-19-23. Patient c/o: sore along incisions at times. Reports incisions healing well. Denies oozing, itch. Still taking rx pain meds as needed. Admission Liaison Required: No Accompanied by: Self / Same As Patient Allergies egg [EGG] Allergy (Intermediate, Verified 06/29/23 13:20) ITCHY AND HIVES. lisinopril Allergy (Intermediate, Verified 06/29/23 13:20) Hives amoxicillin Adverse Reaction (Intermediate, Verified 06/29/23 13:20) Diarrhea Egg White (Diagnostic) Allergy (Intermediate, Uncoded 06/29/23 13:20) hives HPI HPI Comments History of Present Illness Details Patient is status post laparoscopic cholecystectomy. She is mild incisional discomfort but is otherwise doing well. She has tolerating a diet. Having regular bowel habits. She has no other issues or complaints. Minimal incisional discomfort. PENDING SALE TO [facility] Medical History Right lower lobe pulmonary nodule Heartburn Epigastric pain Right upper quadrant pain Elevated transaminase level Excessive daytime sleepiness Lumbago with sciatica, right side Abnormal uterine bleeding Essential hypertension Mild intermittent asthma Disturbance, sleep Loud snoring Morbid obesity Surgical History Hx laparoscopic cholecystectomy (06/19/23) Hx of colonoscopy Hx of dilation and curettage H/O tubal ligation Family History Paternal Aunt Ovarian cancer Breast cancer Maternal Aunt Breast cancer Other Mental health disorder Substance use disorder Social History Household Members: Family Housing: Apartment Do you presently have visiting nurse or other home services: No Alcohol intake: current Alcohol intake frequency: holidays/special occasions only Alcohol type: hard liquor Comment: counts correct Patient Tobacco Use Status: Former Tobacco user Quit Date: 11 years Tobacco use type: Cigarette Years Smoked: 15 yrs e-Cigarette/Vaping Use: Never Used Substance Use Type: Marijuana service: No Current occupational status: employed Cognitive needs: No Hearing needs: No Female Reproductive History Menstrual Age of Menarche: 10 Physical Exam Eyes Other: Anicteric GI Other: Abdomen soft. All wounds clean dry and intact. Assessment & Plan Assessment & Plan (1) Status post laparoscopic cholecystectomy: Code(s): Z90.49 - Acquired absence of other specified parts of digestive tract Plan Patient has been given local instructions, and will follow-up p.r.n.. All questions answered. Coding Level of Care Code Global (32759) Diagnoses Status post laparoscopic cholecystectomy Z90.49
== END 2023-06-29 13:27 | disposition home or self-care (01) ==
PROVIDERS: PCP Internal Medicine; Visit Provider Surgery
DX: Z90.49 Acquired absence of other specified parts of digestive tract (principal)
CPT/HCPCS: 99024

== ENCOUNTER → 2023-06-29 13:08 | Outpatient (BNVA) | payer OTHER, SELFPAY | PROVIDERS: PCP Internal Medicine; Visit Provider Surgery ==

== ENCOUNTER 2023-08-03 15:26 | Outpatient (AMB) | payer OTHER, SELFPAY ==
--- NOTE | 2023-08-03 15:35 | A.OFFVIS_ITS ---
Intake Vital Signs 08/03/23 15:58 Height 5 ft 2 in Weight 287 lb 2 oz BMI 52.5 BP 140/80 H Blood Pressure Location Lt brachial Position Sitting Pulse 75 Pulse Source Pulse Oximeter Pulse Oximetry (%) 96 Oxygen Delivery Method Room Air Intake Visit Reasons: [employer]/hypersomnia,snoring - CONF w/address Intake Note: Patient presents for [employer]/hypersomnia, snoring. Having trouble sleeping at nigh and wakes up a lot. Short of breath at night. Allergies egg [EGG] Allergy (Intermediate, Verified 08/03/23 15:43) ITCHY AND HIVES. lisinopril Allergy (Intermediate, Verified 08/03/23 15:43) Hives amoxicillin Adverse Reaction (Intermediate, Verified 08/03/23 15:43) Diarrhea Egg White (Diagnostic) Allergy (Intermediate, Uncoded 06/29/23 13:20) hives HPI HPI Comments History of Present Illness Details 48 y/o female patient presents for new i n-person visit for sleep consultation. Pt reports difficulty staying sleep, wakes up multiple times at night. She wakes up gasping, feels difficulty breathing. She has non refreshing sleep and daytime sleepiness. Around 1-2 pm, she gets really tired and can fall asleep. Sleep questionnaire: Have you ever been diagnosed with a sleep disorder? No. Have you ever had a sleep study in the past? No. Have you ever been treated for a sleep disorder? No. Do you take medications for a sleep disorder? No. Do you snore? Yes. Do you wake up gasping at night? Yes. Do you have episodes of apneas? Yes. If yes, are they witnessed? Yes. Do you have episodes of nocturnal chest pain or dyspnea? Yes. Do you have difficulty initiating sleep? Yes. Do you have difficulty maintaining sleep? Yes. Do you wake up tired? Yes. Do you have headaches upon awakening? Yes. Do you wake up with dry mouth or throat? Yes. Do you have GERD? Yes. Do you have nocturia? Yes. Do you have nocturnal leg cramps? No. Do you have symptoms of restless legs? Not every night. Do you act out your dreams? No. Sleep hygiene questionnaire: What is your usual sleep routine? Usual bedtime is at 9:30- 10 am; Usual wake up time is at 8 am. Do you take naps? No. Is your sleep environment cool, dark, and quiet? Yes. Do you exercise? Walking daily. Do you take caffeine or other stimulants? Coffee in the morning. Do you use electronics in bed? Yes, occasionally. What is your work schedule? 8 am-5 pm. Hypersomnolence questionnaire: Do you have daytime tiredness or fatigue? Yes. Do you easily fall asleep when inactive? Yes. Have you ever had episodes of sudden weakness? No. Have you ever had episodes of sudden weakness associated with strong emotions? No. PFSH Medical History Right lower lobe pulmonary nodule Heartburn Epigastric pain Right upper quadrant pain Elevated transaminase level Excessive daytime sleepiness Lumbago with sciatica, right side Abnormal uterine bleeding Essential hypertension Mild intermittent asthma Disturbance, sleep Loud snoring Morbid obesity Surgical History Hx laparoscopic cholecystectomy (06/19/23) Hx of colonoscopy Hx of dilation and curettage H/O tubal ligation Family History Paternal Aunt Ovarian cancer Breast cancer Maternal Aunt Breast cancer Father Heart failure Diabetes Vascular abnormality Mother Memory loss Coronary artery abnormality History of prediabetes Brother No problems noted. Sister Fibromyalgia Daughter Overdose Daughter Borderline high blood pressure Other Mental health disorder Substance use disorder Social History Household Members: Family Housing: Apartment Do you presently have visiting nurse or other home services: No Alcohol intake: former Comment: counts correct Patient Tobacco Use Status: Former Tobacco user Quit Date: 11 years Tobacco use type: Cigarette Years Smoked: 15 yrs e-Cigarette/Vaping Use: Never Used Substance Use Type: Marijuana service: No Current occupational status: employed Cognitive needs: No Hearing needs: No Female Reproductive History Menstrual Age of Menarche: 10 Review of Systems Const All systems reviewed & are unremarkable except as noted in HPI and below Physical Exam Vital Signs: Last Vital Signs Pulse 75 08/03/23 15:58 BP 140/80 H 08/03/23 15:58 Pulse Ox 96 08/03/23 15:58 Oxygen Delivery Method Room Air 03/04/24 15:58 BMI result Body Mass Index 52.5 Const General: cooperative Nutritional Appearance: obese Orientation/consciousness: patient oriented x3 Neck Neck: Yes full ROM and Yes supple Resp Effort & Inspection: normal respiratory effort and able to speak in complete sentences Neuro General: patient oriented x3, gait normal and moves all extremities Cranial nerves: Yes CN's II-XII intact bilaterally Cognition (Neuro): normal cognition Gait exam (Neuro): Normal gait present Motor exam (neuro): 5/5 motor strength present throughout Psych Appearance: grossly normal Mental Status: mental status grossly normal Speech and movement: Normal speech and movement present Affect: normal affect Attitude: cooperative Assessment & Plan Assessment & Plan (1) Snoring: Code(s): R06.83 - Snoring (2) Excessive daytime sleepiness: Code(s): G47.19 - Other hypersomnia (3) Morbid obesity with BMI of 50.0-59.9, adult: Code(s): E66.01 - Morbid (severe) obesity due to excess calories; Z68.43 - Body mass index [BMI] 50.0-59.9, adult Plan Pt is advised to undergo in lab sleep study to assess for sleep apnea. Will f/u with pt after study to discuss results and appropriate treatment options. Sleep hygiene education provided. Wt reduction advised. Pt to call with any worsening concerns or questions. Orders: Orders RT PSG in-lab sleep study Today E66.01 - Morbid (severe) obesity due to excess calories, G47.19 - Other hypersomnia, R06.83 - Snoring, Z68.43 - Body mass index [BMI] 50.0-59.9, adult Coding Level of Care Code New Pt Level 3 (56020) Diagnoses Snoring R06.83 Excessive daytime sleepiness G47.19 Morbid obesity with BMI of 50.0-59.9, adult E66.01; Z68.43
[2023-08-03 15:58] VITALS: BP 140/80; PULSE 75; O2SAT 96; BMI 52.5
== END 2023-08-03 16:17 | disposition home or self-care (01) ==
PROVIDERS: PCP Internal Medicine; Visit Provider Nurse Practitioner Family
DX: R06.83 Snoring (principal); G47.19 Other hypersomnia; E66.01 Morbid (severe) obesity due to excess calories; Z68.43 Body mass index [BMI] 50.0-59.9, adult
CPT/HCPCS: 99203

== ENCOUNTER → 2023-08-03 15:26 | Outpatient (BNVA) | payer OTHER, SELFPAY | PROVIDERS: PCP Internal Medicine; Visit Provider Nurse Practitioner Family ==

== ENCOUNTER 2023-08-20 16:21 | Outpatient (REF) | payer OTHER, SELFPAY | END 2023-08-20 16:22 | disposition home or self-care (01) | LOC: HO.MAMMO 16:21 | PROVIDERS: PCP Internal Medicine; Visit Provider Internal Medicine | DX: Z12.31 Encounter for screening mammogram for malignant neoplasm of breast (principal) | CPT/HCPCS: 77063; 77067 ==

== ENCOUNTER → 2023-08-20 16:30 | Outpatient (BNV) | payer OTHER, SELFPAY | PROVIDERS: PCP Internal Medicine; Visit Provider Radiology Diagnostic Radiology | DX: Z12.31 Encounter for screening mammogram for malignant neoplasm of breast (principal) | CPT/HCPCS: 77063; 77067 ==

== ENCOUNTER → 2023-08-21 19:30 | Outpatient (REF) | payer OTHER, SELFPAY | LOC: HO.SL 19:30 | PROVIDERS: PCP Internal Medicine; Visit Provider Nurse Practitioner Family | DX: G47.33 Obstructive sleep apnea (adult) (pediatric) (principal); G47.61 Periodic limb movement disorder; R06.83 Snoring; E66.01 Morbid (severe) obesity due to excess calories; Z68.43 Body mass index [BMI] 50.0-59.9, adult | CPT/HCPCS: 95810 ==

== ENCOUNTER → 2023-08-22 04:51 | Outpatient (BNV) | payer OTHER, SELFPAY | PROVIDERS: PCP Internal Medicine; Visit Provider Psychiatry & Neurology Neurology | DX: G47.33 Obstructive sleep apnea (adult) (pediatric) (principal); G47.61 Periodic limb movement disorder | CPT/HCPCS: 95810 ==

== ENCOUNTER 2023-11-03 12:49 | Outpatient (REF) | payer OTHER, SELFPAY ==
--- NOTE | ~2023-11-03 | US_ITS ---
EXAMINATION: US PELVIS CLINICAL INFORMATION: Fibroid, recheck, last menstrual period last year, question perimenopausal. COMPARISON: 06/05/2023, 08/19/2022. TECHNIQUE: Ultrasound of the pelvis is performed using both transabdominal and transvaginal transducers along with Doppler. Transvaginal imaging is performed due to inadequate visualization transabdominally. Limited visualization due to bowel gas and body habitus. FINDINGS: Uterus: The uterus is anteverted and measures 9.1 x 3.5 x 3.1 cm. No significant free fluid. Double wall endometrial thickness is 5 mm. Previously identified 0.7 x 0.5 x 0.5 cm uterine mass characteristic of a fibroid is not clearly visualized today; however, visualization is substantially limited. Bilateral ovaries not visualized. Limited visualization due to bowel gas and body habitus. US/US pelvic and transvaginal IMPRESSION: 1. Previously identified 0.7 cm uterine mass characteristic of a fibroid is not clearly visualized today; however, visualization is substantially limited. 2. Bilateral ovaries not visualized. 3. Limited visualization due to bowel gas and body habitus. MRI could be considered for better visualization.
== END 2023-11-03 12:50 | disposition home or self-care (01) ==
LOC: HO.US 12:49
PROVIDERS: PCP Internal Medicine; Visit Provider Advanced Practice Midwife
DX: D21.9 Benign neoplasm of connective and other soft tissue, unspecified (principal)
CPT/HCPCS: 76830; 76856

== ENCOUNTER 2023-11-27 13:27 | Outpatient (AMB) | payer OTHER, SELFPAY ==
--- NOTE | 2023-11-27 13:32 | A.OFFVIS_ITS ---
Vital Signs 11/27/23 13:36 Height 5 ft 2 in Weight 286 lb 8 oz BMI 52.4 BP 140/72 H Blood Pressure Location Rt brachial Position Sitting Pulse 59 Pulse Source Pulse Oximeter Pulse Oximetry (%) 97 Oxygen Delivery Method Room Air Intake Visit Reasons: 4 mo f/u-CONF Intake Note: Patient presents for 4 months f/u. Would like sleep study results. Allergies egg [EGG] Allergy (Intermediate, Verified 11/27/23 13:36) ITCHY AND HIVES. lisinopril Allergy (Intermediate, Verified 11/27/23 13:36) Hives amoxicillin Adverse Reaction (Intermediate, Verified 11/27/23 13:36) Diarrhea Egg White (Diagnostic) Allergy (Intermediate, Uncoded 06/29/23 13:20) hives Medication List - Last Reconciled 11/27/23 by HANDY Fitch acetaminophen (Tylenol Extra Strength) 500 mg PO Q6H PRN albuterol sulfate 90 mcg/actuation (ProAir HFA) 2 puffs inhalation Q6H PRN albuterol sulfate 2.5 mg (3 mL) inhalation Q6H PRN amlodipine 10 mg PO DAILY carvedilol 25 mg PO BID famotidine 20 mg PO BID hydrocodone-acetaminophen 5-325 mg 1 tab PO Q4-6H PRN ibuprofen (Advil) 200 mg PO Q6H PRN losartan-hydrochlorothiazide 50-12.5 mg 1 tab PO DAILY omeprazole 20 mg PO DAILY simethicone (Gas Relief (simethicone)) 80 mg PO TID PRN Symbicort 160-4.5 mcg/actuation (budesonide-formoterol) 2 puffs inhalation Q12H NS HPI Comments Details: 48-yr-old female presents for follow-up visit for sleep d/o. Pt was last seen by Tati Chandler NP. Since the last visit, pt underwent in-lab PSG, which showed severe obstructive sleep apnea and frequent limb movements a/w arousals. In-lab PSG, 08/21/23, revealed: AHI: 43/hr; REM AHI: n/ar; O2 pat 86%; Periodic limb movement of sleep (PLMS) index: 113/hr; PLMS arousal index: 20/hr. Pt endorses fatigue, sleep difficulties, fragmented sleep, restless sleep, some restless leg symptoms, and h/o anemia. [facility] Medical History Right lower lobe pulmonary nodule Heartburn Epigastric pain Right upper quadrant pain Elevated transaminase level Excessive daytime sleepiness Lumbago with sciatica, right side Abnormal uterine bleeding Essential hypertension Mild intermittent asthma Disturbance, sleep Loud snoring Morbid obesity Surgical History Hx laparoscopic cholecystectomy (06/19/23) Hx of colonoscopy Hx of dilation and curettage H/O tubal ligation Family History Paternal Aunt Ovarian cancer Breast cancer Maternal Aunt Breast cancer Father Heart failure Diabetes Vascular abnormality Mother Memory loss Coronary artery abnormality History of prediabetes Brother No problems noted. Sister Fibromyalgia Daughter Overdose Daughter Borderline high blood pressure Other Mental health disorder Substance use disorder Social History Household Members: Family Housing: Apartment Do you presently have visiting nurse or other home services: No Alcohol intake: former Comment: counts correct Patient Tobacco Use Status: Former Tobacco user Tobacco use type: Cigarette Years Smoked: 15 yrs e-Cigarette/Vaping Use: Never Used Substance Use Type: Marijuana service: No Current occupational status: employed Cognitive needs: No Hearing needs: No Female Reproductive History Menstrual Age of Menarche: 10 Review of Systems Const All systems reviewed & are unremarkable except as noted in HPI and below Physical Exam Vital Signs: Last Vital Signs Pulse 59 11/27/23 13:36 BP 140/72 H 11/27/23 13:36 Pulse Ox 97 11/27/23 13:36 Oxygen Delivery Method Room Air 11/27/23 13:36 BMI result Body Mass Index 52.4 Const General: no acute distress Orientation/consciousness: patient oriented x3 Resp Effort & Inspection: able to speak in complete sentences Neuro General: patient oriented x3 Psych Mental Status: mental status grossly normal Speech and movement: Clear speech present Attitude: cooperative Results Reviewed Results Reviewed: In-lab PSG report- see HPI. Assessment & Plan Assessment & Plan (1) Severe obstructive sleep apnea: Code(s): G47.33 - Obstructive sleep apnea (adult) (pediatric) Category: Medical (2) Periodic limb movements of sleep: Code(s): G47.61 - Periodic limb movement disorder Category: Medical (3) Fatigue: Code(s): R53.83 - Other fatigue Category: Medical Plan Reviewed in-lab sleep study results- severe VENTURA w/ PLMS. Pt advised to undergo in-lab PAP titration study to identify optimal PAP tx setting- on sleep apnea, hypoxemia, and limb movmenets. Will check labs for common etiologies of fatigue and PLMS. Orders: Orders Vitamin D 25-OH (D2 and D3) 11/27/23 D64.9 - Anemia, unspecified, I10 - Essential (primary) hypertension, R53.83 - Other fatigue, G47.61 - Periodic limb movement disorder Vitamin B12 and Folate 11/27/23 D64.9 - Anemia, unspecified, I10 - Essential (primary) hypertension, R53.83 - Other fatigue, G47.61 - Periodic limb movement disorder IRON PROFILE 11/27/23 D64.9 - Anemia, unspecified, I10 - Essential (primary) hypertension, R53.83 - Other fatigue, G47.61 - Periodic limb movement disorder Ferritin 11/27/23 D64.9 - Anemia, unspecified, I10 - Essential (primary) hypertension, R53.83 - Other fatigue, G47.61 - Periodic limb movement disorder Comprehensive Met. Panel 11/27/23 D64.9 - Anemia, unspecified, I10 - Essential (primary) hypertension, R53.83 - Other fatigue, G47.61 - Periodic limb movement disorder Complete Blood Count Auto Diff 11/27/23 D64.9 - Anemia, unspecified, I10 - Essential (primary) hypertension, R53.83 - Other fatigue, G47.61 - Periodic limb movement disorder TSH reflex Free T4 11/27/23 D64.9 - Anemia, unspecified, I10 - Essential (primary) hypertension, R53.83 - Other fatigue, G47.61 - Periodic limb movement disorder RT PSG in-lab sleep titration 11/27/23 G47.61 - Periodic limb movement disorder, G47.33 - Obstructive sleep apnea (adult) (pediatric), E66.01 - Morbid (severe) obesity due to excess calories, Z68.43 - Body mass index [BMI] 50.0- 59.9, adult Hemoglobin A1c 11/27/23 R53.83 - Other fatigue, E66.01 - Morbid (severe) obesity due to excess calories, Z68.43 - Body mass index [BMI] 50.0-59.9, adult, G47.61 - Periodic limb movement disorder Coding Level of Care Code Est Pt Level 4 (29758) Diagnoses Severe obstructive sleep apnea G47.33 Periodic limb movements of sleep G47.61 Fatigue R53.83
[2023-11-27 13:36] VITALS: BP 140/72; PULSE 59; O2SAT 97; BMI 52.4
== END 2023-11-27 14:14 | disposition home or self-care (01) ==
PROVIDERS: PCP Internal Medicine; Visit Provider Nurse Practitioner Family
DX: G47.33 Obstructive sleep apnea (adult) (pediatric) (principal); G47.61 Periodic limb movement disorder; R53.83 Other fatigue
CPT/HCPCS: 99214

== ENCOUNTER → 2023-11-27 13:27 | Outpatient (BNVA) | payer OTHER, SELFPAY | PROVIDERS: PCP Internal Medicine; Visit Provider Nurse Practitioner Family ==

== ENCOUNTER 2024-02-24 09:14 | Outpatient (AMB) | payer OTHER, SELFPAY ==
--- NOTE | 2024-02-24 09:31 | A.OFFPC_ITS ---
Vital Signs 02/24/24 09:32 Height 5 ft 2 in Weight 278 lb BMI 50.8 BP 112/76 Blood Pressure Location Rt brachial Position Sitting Pulse 69 Pulse Source Pulse Oximeter Pulse Oximetry (%) 100 Oxygen Delivery Method Room Air Intake Visit Reasons: Pain left elbow Intake Note: Pt is here today c/o Lt elbow pain, it generates up into her Lt shoulder x5days No injury noted Allergies egg [EGG] Allergy (Intermediate, Verified 02/24/24 10:09) ITCHY AND HIVES. lisinopril Allergy (Intermediate, Verified 02/24/24 10:09) Hives amoxicillin Adverse Reaction (Intermediate, Verified 02/24/24 10:09) Diarrhea Egg White (Diagnostic) Allergy (Intermediate, Uncoded 02/24/24 10:09) hives Medication List - Last Reconciled 02/24/24 by Windy Mcelroy MD acetaminophen (Tylenol Extra Strength) 500 mg PO Q6H PRN albuterol sulfate 90 mcg/actuation 2 puffs inhalation Q6H PRN albuterol sulfate 2.5 mg (3 mL) inhalation Q6H PRN amlodipine 10 mg PO DAILY carvedilol 25 mg PO BID ibuprofen (Advil) 200 mg PO Q6H PRN losartan-hydrochlorothiazide 50-12.5 mg 1 tab PO DAILY nabumetone 500 mg PO BID Tobacco use date assessed: 02/24/24 Dental Screening Dental Screen Date: 02/24/24 Did you have a dental visit in the last 12 months?: Yes Did you have a dental problem in the last 6 months where you did not have access to dental care?: No Was dental information given to patient?: Patient has dentist HPI Pain left elbow HPI Details 48-year-old lady here today complaining of sudden onset of pain in lateral aspect of left elbow, present now for the last 5 days. Denies any history of repetitive movements of her left arm. Has been taking ibuprofen alternating with Tylenol, applying ice packs and moist heat to affected area which affords only temporary relief. Patient states that the pain is now radiating up to her left shoulder and upper chest. Denies any accompanying shortness of breath, no lightheadedness. Blood pressure today is will normal limits. [facility] Medical History (Updated 02/24/24 @ 10:11 by Windy Mcelroy MD) History of cholelithiasis Heartburn Excessive daytime sleepiness Lumbago with sciatica, right side Abnormal uterine bleeding Essential hypertension Mild intermittent asthma Disturbance, sleep Loud snoring Morbid obesity Surgical History (Updated 02/24/24 @ 10:11 by Windy Mcelroy MD) Hx laparoscopic cholecystectomy (06/19/23) Hx of colonoscopy Hx of dilation and curettage H/O tubal ligation Family History Paternal Aunt Ovarian cancer Breast cancer Maternal Aunt Breast cancer Father Heart failure Diabetes Vascular abnormality Mother Memory loss Coronary artery abnormality History of prediabetes Brother No problems noted. Sister Fibromyalgia Daughter Overdose Daughter Borderline high blood pressure Other Mental health disorder Substance use disorder Social History Household Members: Family Housing: Apartment Do you presently have visiting nurse or other home services: No Alcohol intake: former Comment: counts correct Patient Tobacco Use Status: Former Tobacco user Tobacco use type: Cigarette Years Smoked: 15 yrs e-Cigarette/Vaping Use: Never Used Substance Use Type: Marijuana service: No Current occupational status: employed Cognitive needs: No Hearing needs: No Vision needs: Yes Female Reproductive History Menstrual Age of Menarche: 10 Questionnaire PHQ-9 Over the last 2 weeks, how often have you been bothered by any of the following problems? 1. Little interest or pleasure in doing things: not at all 2. Feeling down, depressed, or hopeless: not at all 4. Feeling tired or having little energy: more than half the days 5. Poor appetite or overeating: not at all 6. Feeling bad about yourself - or that you are a failure or have let yourself or your family down: not at all 7. Trouble concentrating on things, such as reading the newspaper or watching television: not at all 8. Moving or speaking so slowly that other people could have noticed. Or the opposite - being so fidgety or restless that you have been moving around a lot more than usual: not at all 9. Thoughts that you would be better off or of hurting yourself in some way: not at all Depression Screening Interpretation: Negative Depression Screening Done: Yes 27473 - PHQ-9 Billing: Yes Source: Developed by Drs. Rip Lafleur, Lopez Rocha and colleagues, with an educational teresa from [employer]. Thrive Questionnaire Date Thrive assessed: 02/24/24 I am a: Patient What is your living situation today?: I have a steady place to live Within the past 12 months, did the food you bought not last and you didn't have the money to get more?: Never true Within the past 12 months, did you worry whether your food would run out before you got money to buy more?: Never true Do you have trouble paying for medicines?: No Do you have trouble getting transportation to medical appointments?: No Do you have trouble paying your heating and electricity bill?: No Do you have trouble taking care of your child, family member or friend?: No Do you have trouble with day-to-day activities such as bathing, preparing meals, shopping, managing finances, etc.?: No Are you interested in more education?: No Please select the resources that you would like help with: None Currently or been in a relationship where the following occur: No concerns reported THRIVE Score: 0 AUDIT C Alcohol Use Questionnaire (AUDIT-C) 1. How often do you have a drink containing alcohol?: Never Total Score: 0 ELLY-7 AMB Questionnaire ELLY-7 Date ELLY - 7 assessed: 02/24/24 Feeling nervous, anxious, or on edge: 0 = Not at all Not being able to stop or control worryin = Not at all Worrying too much about different things: 0 = Not at all Trouble relaxin = Not at all Being so restless that it is hard to sit still: 0 = Not at all Becoming easily annoyed or irritable: 1 = Several days Feeling afraid as if something awful might happen: 0 = Not at all Total ELLY-7 score (0-4 normal; 5-9 mild; 10-14 moderate; 15-21 severe): 1 Source: Developed by Drs. Rip Lafleur, Lopez Rocha and colleagues, with an educational teresa from [employer]. ELLY-7 Assessment Billing ELLY-7 Assessment Tool: ELLY-7 Assessment 53218 Review of Systems Const All systems reviewed & are unremarkable except as noted in HPI and below Physical exam (Primary Care) Vital Signs: Last Vital Signs Pulse 69 02/24/24 09:32 BP 112/76 02/24/24 09:32 Pulse Ox 100 02/24/24 09:32 Oxygen Delivery Method Room Air 02/24/24 09:32 BMI result Body Mass Index 50.8 Tobacco/Smoking Status: Tobacco use Status Tobacco use date assessed 02/24/24 02/24/24 09:39 Patient Tobacco Use Status Former Tobacco user 02/24/24 09:39 Tobacco use type Cigarette 02/24/24 09:39 e-Cigarette/Vaping Use Never Used 02/24/24 09:39 Depression Screening Interpretation: Negative Thrive Assessment: Date of Thrive Assessment Date Thrive assessed 02/24/24 02/24/24 09:39 Currently or been in a relationship where the following occur: No concerns re ported Const Other: Alert oriented x3, no acute distress noted ambulatory normal gait, morbidly obese Neck Neck: Yes full ROM, Yes no lymphadenopathy and Yes supple Chest Chest palpation & inspection: normal inspection of the chest Resp Auscultation: clear to auscultation bilaterally Cardio Other: S1-S2 present regular rate and rhythm Skin General skin exam: no rashes or lesions noted Extrem Other: Tenderness on palpation over lateral epicondylar area, with slight swelling, but no increased warmth noted. Full range of motion of left elbow and left shoulder Assessment and Plan Assessment & Plan (1) Left lateral epicondylitis: Code(s): M77.12 - Lateral epicondylitis, left elbow Plan: Prescription sent for nabumetone 500 mg to take 1 tablet twice a day with food, discontinue ibuprofen, try applying Salonpas patch with lidocaine to affected area every 8 hours as needed, referred for physical therapy Orders: Orders PT Evaluation and Treatment Today M77.12 - Lateral epicondylitis, left elbow Medications: New nabumetone 500 mg PO BID 30 tabs 0RF M77.12 - Lateral epicondylitis, left elbow Coding Level of Care Code Est Pt Level 3 (62639) Diagnoses Left lateral epicondylitis M77.12 Additional Codes ELLY-7 Assessment Billing - ELLY-7 Assessment Tool: ELLY-7 Assessment 57031 ([id number])
[2024-02-24 09:32] VITALS: BP 112/76; PULSE 69; O2SAT 100; BMI 50.8
== END 2024-02-24 10:09 | disposition home or self-care (01) ==
PROVIDERS: PCP Internal Medicine; Visit Provider Internal Medicine
DX: M77.12 Lateral epicondylitis, left elbow (principal)

== ENCOUNTER → 2024-02-24 09:14 | Outpatient (BNVA) | payer OTHER, SELFPAY | PROVIDERS: PCP Internal Medicine; Visit Provider Internal Medicine | DX: M77.12 Lateral epicondylitis, left elbow (principal) | CPT/HCPCS: 96127 ==

== ENCOUNTER 2024-04-18 10:50 | Outpatient (AMB) | payer OTHER, SELFPAY ==
--- NOTE | 2024-04-18 12:04 | MHC.PC.OV ---
Vital Signs 04/18/24 12:07 Height 5 ft 2 in Weight 284 lb 8 oz BMI 52.0 BP 124/78 Blood Pressure Location Lt brachial Position Sitting Pulse 76 Pulse Source Pulse Oximeter Pulse Oximetry (%) 99 Oxygen Delivery Method Room Air Intake Visit Reasons: Annual PE Intake Note: Pt is here today for her Annual Physical. Last mammogram 08/20/23 Last pap smear 03/20/21 Last colon 06/13/22 Allergies egg [EGG] Allergy (Intermediate, Verified 04/25/24 00:20) ITCHY AND HIVES. lisinopril Allergy (Intermediate, Verified 04/25/24 00:20) Hives amoxicillin Adverse Reaction (Intermediate, Verified 04/25/24 00:20) Diarrhea Egg White (Diagnostic) Allergy (Intermediate, Uncoded 04/25/24 00:20) hives Medication List - Last Reconciled 04/25/24 by Windy Mcelroy MD acetaminophen (Tylenol Extra Strength) 500 mg PO Q6H PRN albuterol sulfate 90 mcg/actuation 2 puffs inhalation Q6H PRN albuterol sulfate 2.5 mg (3 mL) inhalation Q6H PRN amlodipine 10 mg PO DAILY azithromycin For 250 mg dose pack: take 500 mg today (day 1), then 250 mg for 4 days (days 2-5) PO carvedilol 25 mg PO BID ibuprofen (Advil) 200 mg PO Q6H PRN levocetirizine 5 mg PO QPM PRN losartan-hydrochlorothiazide 50-12.5 mg 1 tab PO DAILY prednisone 20 mg PO DAILY Tobacco use date assessed: 04/18/24 Dental Screening Dental Screen Date: 04/18/24 Did you have a dental visit in the last 12 months?: No Did you have a dental problem in the last 6 months where you did not have access to dental care?: No Was dental information given to patient?: Patient has dentist HPI Annual PE HPI Details 49-year-old lady here today for physical exam. She is up-to-date with her breast cancer screening, with last mammogram done 08/20/23 showing benign findings. She had her last cervical cancer screening done 03/20/[address] Diaz which came back with negative findings. She is also up-to-date with her colon cancer screening, which was last done last year with removal of serrated and tubular adenoma polyp by Dr. Chen, repeat due again in 2025. She is here als complaining of a persistent cough present now for the last several days accompanied by intermittent episodes of wheezing and chest congestion. Patient has mild intermittent asthma and is currently on albuterol inhaler and an albuterol that she administers via nebulizer, which has not been helping much in relieving her symptoms. She has been a febrile with no shortness of breath reported. [facility] Medical History (Updated 04/25/24 @ 00:35 by Windy Mcelroy MD) History of cholelithiasis Heartburn Excessive daytime sleepiness Lumbago with sciatica, right side Abnormal uterine bleeding Essential hypertension Mild intermittent asthma Disturbance, sleep Loud snoring Morbid obesity Surgical History Hx laparoscopic cholecystectomy (06/19/23) Hx of colonoscopy Hx of dilation and curettage H/O tubal ligation Family History Paternal Aunt Ovarian cancer Breast cancer Maternal Aunt Breast cancer Father Heart failure Diabetes Vascular abnormality Mother Memory loss Coronary artery abnormality History of prediabetes Brother No problems noted. Sister Fibromyalgia Daughter Overdose Daughter Borderline high blood pressure Other Mental health disorder Substance use disorder Social History Household Members: Family Housing: Apartment Do you presently have visiting nurse or other home services: No Alcohol intake: former Comment: counts correct Patient Tobacco Use Status: Former Tobacco user Tobacco use type: Cigarette Years Smoked: 15 yrs e-Cigarette/Vaping Use: Never Used Substance Use Type: Marijuana service: No Current occupational status: employed Cognitive needs: No Hearing needs: No Vision needs: Yes Female Reproductive History Menstrual Age of Menarche: 10 Questionnaire PHQ-9 Over the last 2 weeks, how often have you been bothered by any of the following problems? 3. Trouble falling or staying asleep, or sleeping too much: several days Source: Developed by Drs. Rip Lafleur, Frances Nuno, Lopez Mcclure and colleagues, with an educational teresa from [employer]. Thrive Questionnaire Date Thrive assessed: 09/25/24 I am a: Patient What is your living situation today?: I have a steady place to live Within the past 12 months, did the food you bought not last and you didn't have the money to get more?: Never true Within the past 12 months, did you worry whether your food would run out before you got money to buy more?: Never true Do you have trouble paying for medicines?: No Do you have trouble getting transportation to medical appointments?: No Do you have trouble paying your heating and electricity bill?: No Do you have trouble taking care of your child, family member or friend?: No Do you have trouble with day-to-day activities such as bathing, preparing meals, shopping, managing finances, etc.?: No Are you currently unemployed and looking for a job?: No Are you interested in more education?: No Please select the resources that you would like help with: None Currently or been in a relationship where the following occur: No concerns reported THRIVE Score: 0 ELLY-7 AMB Questionnaire ELLY-7 Date ELLY - 7 assessed: 02/24/24 Source: Developed by Drs. Rip Lafleur, Frances Nuno, Lopez Mcclure and colleagues, with an educational teresa from [employer]. ACT Questionnaire In the past 4 weeks, how much of the time did your asthma keep you from getting as much done at work, school or at home?: Some of the time During the past 4 weeks, how often have you had shortness of breath?: 1-2 times a week During the past 4 weeks, how often did your asthma symptoms wake you up at night or earlier than usual in the morning?: Not at all During the past 4 weeks, how often have you had to use your rescue inhaler or nebulizer medication?: 2-3 times a week How would you rate your asthma control during the past 4 weeks?: Somewhat controlled ACT Interpretation: Positive Score: 18 Review of Systems Const Denies fever(s), Denies headache(s) and Denies weakness Eyes Denies change in vision ENT Denies dizziness, Denies headache(s), Denies nasal congestion, Denies nasal discharge and Denies sore throat Card Denies chest pain and Denies lightheadedness Resp Reports as per HPI GI Reports no additional complaints Reports no additional complaints and Denies nipple discharge Musc Reports no additional complaints Skin/Breast Denies breast pain, Denies breast mass, Denies change in breast shape, Denies lesions and Denies nipple discharge Neuro Denies dizziness, Denies headache(s) and Denies weakness Psych Reports no additional complaints Endo Reports no additional complaints Yemi/Lymph Reports no additional complaints Aller/Immun Denies seasonal rhinorrhea Physical exam (Primary Care) Vital Signs: Last Vital Signs Pulse 76 04/18/24 12:07 BP 124/78 04/18/24 12:07 Pulse Ox 99 04/18/24 12:07 Oxygen Delivery Method Room Air 04/18/24 12:07 BMI result Body Mass Index 52.0 Tobacco/Smoking Status: Tobacco use Status Tobacco use date assessed 04/18/24 04/18/24 12:10 Patient Tobacco Use Status Former Tobacco user 04/18/24 12:10 Tobacco use type Cigarette 04/18/24 12:10 e-Cigarette/Vaping Use Never Used 04/18/24 12:10 Thrive Assessment: Date of Thrive Assessment Date Thrive assessed 02/24/24 04/18/24 12:10 Currently or been in a relationship where the following occur: No concerns reported Const Other: Alert oriented x3, no acute distress noted ambulatory normal gait, morbidly obese Orientation/consciousness: patient oriented x3 HENMT Head: Yes normocephalic Ears: external ears normal, TM's normal bilaterally and EAC's normal General nose exam: Normal external nose present Face and sinus: Yes sinuses nontender and Yes face symmetric Mouth: Normal oral and palatal mucosa present, oropharynx normal and moist mucous membranes Eyes General: appearance normal, both eyes and all related structures Neck Neck: Yes full ROM, Yes no lymphadenopathy and Yes supple Resp Other: Tight breath sounds with occasional and expiratory wheezing noted in both lung bryant Cardio Other: S1-S2 present regular rate and rhythm GI Palpation (GI): Soft to palpation, nontender, no guarding and no masses General: Yes no CVA tenderness and Yes deferred Back/Spine/Pelvis Back: no CVA tenderness and No back tenderness Skin General skin exam: no rashes or lesions noted Neuro General: patient oriented x3, gait normal, tone normal, moves all extremities, Normal light touch and pain sensation and no focal motor deficits Extrem General: Yes full ROM, Yes no joint enlargement, Yes no clubbing, cyanosis or edema and Yes normal gait Psych Appearance: grossly normal and well kempt Mental Status: mental status grossly normal Speech and movement: Normal speech and movement present Affect: normal affect Coding Level of Care Code Est Pt Prev Care 40-64y(75283) Diagnoses Annual visit for general adult medical examination with abnormal findings Z00.01 Acute bronchitis, unspecified organism J20.9 Bronchitis organism: unspecified organism Mild intermittent asthma without complication J45.20 Asthma complication type: uncomplicated Essential hypertension I10 Morbid obesity with BMI of 50.0-59.9, adult E66.01; Z68.43 Additional Codes Asthma Control Questionnaire - ACT Interpretation: Positive ([id number]) Assessment & Plan Assessment & Plan (1) Annual visit for general adult medical examination with abnormal findings: Code(s): Z00.01 - Encounter for general adult medical examination with abnormal findings Plan: Will check appropriate labs. Recommended dental visit every 6 months and regular eye exams, at least every 2 years. Take adequate calcium in diet and vitamin-D 3 at 2000 IU per cap once a day, in addition to weight-bearing exercises to help maintain good muscle tone and weight control. Instructed to do self-breast exam, and r continue with yearly mammogram, . Up-to-date with her cervical cancer screening and pelvic exam, goes to [facility]. Up-to-date with her screening colonoscopy due again in [address] Chen. Declined getting vaccinated against the flu or COVID, she however has had a pneumonia vaccine in the past and a TD booster (2) Acute bronchitis: Code(s): J20.9 - Acute bronchitis, unspecified Qualifiers: Bronchitis organism: unspecified organism Qualified Code(s): J20.9 - Acute bronchitis, unspecified Plan: Prescription sent for azithromycin Dosepak and prednisone to take as directed. Return to clinic if no improvement of symptoms after 3 days. (3) Mild intermittent asthma: Code(s): J45.20 - Mild intermittent asthma, uncomplicated Category: Medical Qualifiers: Asthma complication type: uncomplicated Qualified Code(s): J45.20 - Mild intermittent asthma, uncomplicated Plan: Continue with albuterol inhaler to take 2 inhalations every 6 hours as needed for episodes of wheezing and bronchospasm. (4) Essential hypertension: Code(s): I10 - Essential (primary) hypertension Category: Medical Plan: Blood pressure at goal of less than 130/80. Continue with current medication. Reinforced importance of following a low sodium diet, getting regular exercise, and lowering stress levels. (5) Morbid obesity with BMI of 50.0-59.9, adult: Code(s): E66.01 - Morbid (severe) obesity due to excess calories; Z68.43 - Body mass index [BMI] 50.0-59.9, adult Category: Medical Plan: Discussed need to increase activity and weight reduction. Recommended focusing on improving health instead of dieting. Mediterranean diet is a healthy diet that helps, limit food high in fat, sugar, and calories. Eat slowly, pay attention to portion sizes, plan your meals ahead of time, start regular physical activity, at least 150 minutes of moderate intensity exercise, or 90 minutes per week of vigorous exercise. Keeping a food diary, tracking what you eat and your physical activity can help assess what improvements you can make. There are many health problems associated with being overweight/obese, so it is important to improve your diet and exercise. There are medications and surgical options available, but Lifestyle changes are the 1st step. Orders: Orders Lipid Panel 04/18/24 E66.01 - Morbid (severe) obesity due to excess calories, I10 - Essential (primary) hypertension, Z13.1 - Encounter for screening for diabetes mellitus, Z68.43 - Body mass index [BMI] 50.0-59.9, adult Basic Metabolic Panel Fasting 04/18/24 E66.01 - Morbid (severe) obesity due to excess calories, I10 - Essential (primary) hypertension, Z13.1 - Encounter for screening for diabetes mellitus, Z68.43 - Body mass index [BMI] 50.0-59.9, adult Aspartate Amino Transferase 04/18/24 E66.01 - Morbid (severe) obesity due to excess calories, I10 - Essential (primary) hypertension, Z13.1 - Encounter for screening for diabetes mellitus, Z68.43 - Body mass index [BMI] 50.0-59.9, adult Alanine Aminotransferase 04/18/24 E66.01 - Morbid (severe) obesity due to excess calories, I10 - Essential (primary) hypertension, Z13.1 - Encounter for screening for diabetes mellitus, Z68.43 - Body mass index [BMI] 50.0-59.9, adult Medications: New prednisone 20 mg PO DAILY 5 tabs 0RF J20.9 - Acute bronchitis, unspecified azithromycin For 250 mg dose pack: take 500 mg today (day 1), then 250 mg for 4 days (days 2-5) PO 6 tabs 0RF levocetirizine 5 mg PO QPM PRN 30 tabs 0RF allergy symptoms
[2024-04-18 12:07] VITALS: BP 124/78; PULSE 76; O2SAT 99; BMI 52.0
== END 2024-04-18 13:42 | disposition home or self-care (01) ==
PROVIDERS: PCP Internal Medicine; Visit Provider Internal Medicine
DX: Z00.00 Encounter for general adult medical examination without abnormal findings (principal); J20.9 Acute bronchitis, unspecified; J45.20 Mild intermittent asthma, uncomplicated; E66.01 Morbid (severe) obesity due to excess calories; Z68.43 Body mass index [BMI] 50.0-59.9, adult; I10 Essential (primary) hypertension

== ENCOUNTER → 2024-04-18 10:50 | Outpatient (BNVA) | payer OTHER, SELFPAY | PROVIDERS: PCP Internal Medicine; Visit Provider Internal Medicine | DX: Z00.01 Encounter for general adult medical examination with abnormal findings (principal); J20.9 Acute bronchitis, unspecified; J45.20 Mild intermittent asthma, uncomplicated; I10 Essential (primary) hypertension; E66.01 Morbid (severe) obesity due to excess calories; Z68.43 Body mass index [BMI] 50.0-59.9, adult | CPT/HCPCS: 96160 ==

== ENCOUNTER 2024-07-05 15:15 | Outpatient (AMB) | payer OTHER, SELFPAY ==
--- OUTSIDE RECORDS SUMMARY | 2024-07-05 15:17 | XMS_ITS | Continuity of Care Document ---
Author Organization [facility] Address [address] [place] [address] Insurance Providers Payer Plan Claims Address Claims Phone Policy Number Group Number Relation Employer Guarantor Name Guarantor Guarantor Address Guarantor Phone [employer] [id number] 20 [id number] Self Marianne Quaker 1975 [address] [place] [id number] [facility] [facility] [place] [id number] [address] Marianne Quaker [address] [id number] [facility] [facility] [id number] Self Marianne Quaker 1975 [address] [place] [id number] Problems Unknown Problems Results No Results Allergies, adverse reactions, alerts No known allergies and adverse reactions Medications No administered medications reported Vital Signs Date Vital Result Comment 01/24/2023 Body Height [id number] m Body Weight 127.02524561010 kg Body Mass Index 51.21 kg/m2 Social History No smoking Hx information available
--- OUTSIDE RECORDS SUMMARY | 2024-07-05 15:17 | XMS_ITS | Clinical Summary ---
Author Organization [facility] ity Address [address] [place] [address] Care Team Providers Care Hand Blocker Name Role Phone Julia Castro MD Primary Care Provider Unavaila ble Social History Tobacco Use Types Packs/Day Years Used Date Smoking Tobacco: Never Assessed Sex and Gender Information Value Date Recorded Sex Assigned at Not on file Gender Identity Not on file Sexual Orientation Not on file Plan of Treatment Health Maintenance Due Date Last Done Comments Breast Cancer Screening 1973 DTaP,Tdap,and Td Vaccines (1 - Tdap) 1992 Hepatitis B Vaccines (1 of 3 - 19+ 3-dose series) 1992 Cervical Cancer Screening: P ap Smear 1994 Zoster Vaccines (1 of 2) 2023 Colorectal Cancer Screening: Colonoscopy 06/30/2023 Depression Screening 06/30/2023 HIV Screening 06/30/2023 Hepatitis C Screening 06/30/2023 Social Influencers of Health Screening 06/30/2023 COVID-19 Vaccine (1 - 2023-2 5 season) 2024 Influenza Vaccine (#1) 2024 HIB Vaccines Aged Out No longer eligi ble based on patient's age to complete this topic HPV Vaccines Aged Out No longer eligi ble based on patient's age to complete this topic Hepatitis A Vaccines Aged Out No long er eligible based on patient's age to complete this topic IPV Vaccines Aged Out No longer eligi ble based on patient's age to complete this topic MMR Vaccines Aged Out No longer eligi ble based on patient's age to complete this topic Meningococcal ACWY Vaccine Aged Out N o longer eligible based on patient's age to complete this topic Pneumococcal Vaccine: Pediat rics (0 to 5 Years) and At-Risk Patients (6 to 64 Years) Aged Out No longer eligible b ased on patient's age to complete this topic RSV Immunization Patients Un rita 20 months Aged Out No longer eligible b ased on patient's age to complete this topic Varicella Vaccines Aged Out No longer eligible based on patient's age to complete this topic Care Teams Hand Blocker Relationship Specialty Start Date End Date Julia Castro MD PCP - General 08/11/13
--- NOTE | 2024-07-05 15:19 | MHC.OFFVIS ---
Intake Visit Reasons: Ultrasound results Coordinating Producer: Coordinating Producer Present Allergies egg [EGG] Allergy (Intermediate, Verified 07/05/24 15:20) ITCHY AND HIVES. lisinopril Allergy (Intermediate, Verified 07/05/24 15:20) Hives amoxicillin Adverse Reaction (Intermediate, Verified 07/05/24 15:20) Diarrhea Egg White (Diagnostic) Allergy (Intermediate, Uncoded 04/25/24 00:20) hives Is last menstrual period known: Yes HPI Comments Details: Patient is here today for a follow up on a pelvic ultrasound obtained 11/19/2023. 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 She denies any pelvic pain no postmenopausal bleeding, last time she bled was in 2022. Admits to abdominal cramping since her gallbladder was removed with frequent diarrhea. [facility] Medical History (Updated 07/05/24 @ 15:39 by Ny Reddy CNM) Fibroid History of cholelithiasis Heartburn Excessive daytime sleepiness Lumbago with sciatica, right side Abnormal uterine bleeding Essential hypertension Mild intermittent asthma Disturbance, sleep Loud snoring Morbid obesity Surgical History Hx laparoscopic cholecystectomy (06/19/23) Hx of colonoscopy Hx of dilation and curettage H/O tubal ligation Family History Paternal Aunt Ovarian cancer Breast cancer Maternal Aunt Breast cancer Father Heart failure Diabetes Vascular abnormality Mother Memory loss Coronary artery abnormality History of prediabetes Brother No problems noted. Sister Fibromyalgia Daughter Overdose Daughter Borderline high blood pressure Other Mental health disorder Substance use disorder Social History Household Members: Family Housing: Apartment Do you presently have visiting nurse or other home services: No Alcohol intake: former Comment: counts correct Patient Tobacco Use Status: Former Tobacco user Tobacco use type: Cigarette Years Smoked: 15 yrs e-Cigarette/Vaping Use: Never Used Substance Use Type: Marijuana service: No Current occupational status: employed Cognitive needs: No Hearing needs: No Vision needs: Yes Female Reproductive History Menstrual Age of Menarche: 10 Review of Systems Const All systems reviewed & are unremarkable except as noted in HPI and below Endo Reports no additional complaints Physical Exam Const General: cooperative, healthy appearing and no acute distress Psych Appearance: well kempt Attitude: cooperative Thought process: Normal thought process present Results Reviewed Results Reviewed: [address] [address] Ultrasound Report Signed Patient: Marianne Romero MR#: [id number] : 1975 Acct:[id number] Age/Sex: 48 / F ADM Date: 11/03/23 Loc: HO.US Attending Dr: Ny Reddy CNM Ordering Physician: Ny Reddy CNM Date of Service: 11/03/23 Procedure(s): US pelvic and transvaginal Accession Number(s): [id number] cc: Windy Mcelroy MD; Ny Reddy CNM~ EXAMINATION: US PELVIS CLINICAL INFORMATION: Fibroid, recheck, last menstrual period last year, question perimenopausal. COMPARISON: 06/05/2023, 08/19/2022. TECHNIQUE: Ultrasound of the pelvis is performed using both transabdominal and transvaginal transducers along with Doppler. Transvaginal imaging is performed due to inadequate visualization transabdominally. Limited visualization due to bowel gas and body habitus. FINDINGS: Uterus: The uterus is anteverted and measures 9.1 x 3.5 x 3.1 cm. No significant free fluid. Double wall endometrial thickness is 5 mm. Previously identified 0.7 x 0.5 x 0.5 cm uterine mass characteristic of a fibroid is not clearly visualized today; however, visualization is substantially limited. Bilateral ovaries not visualized. Limited visualization due to bowel gas and body habitus. US/US pelvic and transvaginal IMPRESSION: 1. Previously identified 0.7 cm uterine mass characteristic of a fibroid is not clearly visualized today; however, visualization is substantially limited. 2. Bilateral ovaries not visualized. 3. Limited visualization due to bowel gas and body habitus. MRI could be considered for better visualization. Dictated By: Yessy Jones MD Signed By: <Electronically signed by Yessy Jones MD in OV> 11/25/23 0956 DD/ 1313 TD/TT: Strategic Accounts Manager: Assessment & Plan Assessment & Plan (1) Fibroid: Code(s): D21.9 - Benign neoplasm of connective and other soft tissue, unspecified Category: Medical Plan Discussed: Ultrasound findings, IMPRESSION: 1. Previously identified 0.7 cm uterine mass characteristic of a fibroid is not clearly visualized today; however, visualization is substantially limited. 2. Bilateral ovaries not visualized. 3. Limited visualization due to bowel gas and body habitus. MRI could be considered for better visualization. Recommended repeating the pelvic ultrasound due the limitations of exam. Advised to call if there is any postmenopausal bleeding, pelvic pain, or other concerns. Schedule annual exam. The patient expressed understanding and agreement with the plan of care. All of her questions and concerns were addressed to the best of my ability. This note is constructed using voice recognition software. While every effort has been made to ensure accuracy, hop farmer errors may have been included. Orders: Orders US pelvic and transvaginal Today D21.9 - Benign neoplasm of connective and other soft tissue, unspecified Coding Level of Care Code Est Pt Level 3 (95538) Diagnoses Fibroid D21.9
== END 2024-07-05 15:44 | disposition home or self-care (01) ==
LOC: HO.HWS 15:15
PROVIDERS: PCP Internal Medicine; Visit Provider Advanced Practice Midwife
DX: D21.9 Benign neoplasm of connective and other soft tissue, unspecified (principal)
CPT/HCPCS: 99213

== ENCOUNTER 2024-07-29 15:21 | Outpatient (REF) | payer OTHER, SELFPAY ==
--- NOTE | ~2024-07-29 | US_ITS ---
EXAMINATION: US PELVIS CLINICAL INFORMATION: Benign neoplasm of connective and other soft tissues. COMPARISON: Ultrasound pelvis 11/03/2023 and 06/05/2023 TECHNIQUE: Ultrasound of the pelvis is performed using both transabdominal and transvaginal transducers along with Doppler. Transvaginal imaging is performed due to inadequate visualization transabdominally. FINDINGS: Uterus: The uterus is anteverted and measures 7.4 x 3.6 x 4.0 cm. The double wall endometrial thickness is 0.39 cm. The uterus is smooth in contour and has normal myometrial echogenicity. Previously question small fibroids on ultrasound pelvis 06/05/2023 is not seen. Adnexa: Both ovaries are visualized. There is normal color flow to the adnexa. There is no ovarian torsion. There is no pelvic ascites or fluid collection. Right ovary is not visualized. Left ovary is not visualized. There is no free fluid in the cul-de-sac US/US pelvic and transvaginal IMPRESSION: Unremarkable uterus. Small nabothian cysts in the cervix. Both ovaries are not visualized. Electronically signed by: Aneudy Pena MD 08/01/2024 07:50 AM EST
--- OUTSIDE RECORDS SUMMARY | 2024-07-29 17:26 | XMS_ITS | Clinical Summary ---
Author Organization [facility] ity Address [address] [place] [address] Care Team Providers Care Hr Recruiter Name Role Phone Julia Castro MD Primary Care Provider Unavaila ble Social History Tobacco Use Types Packs/Day Years Used Date Smoking Tobacco: Never Assessed Comments Unknown Sex and Gender Information Value Date Recorded Sex Assigned at Not on file Legal Sex Female 1:30 PM EST Gender Identity Not on file Sexual Orientation Not on file Plan of Treatment Health Maintenance Due Date Last Done Comments Breast Cancer Screening 1973 DTaP,Tdap,and Td Vaccines (1 - Tdap) 1992 Hepatitis B Vaccines (1 of 3 - 19+ 3-dose series) 1992 Cervical Cancer Screening: P ap Smear 1994 Pneumococcal Vaccine: 50+ Ye ars (1 of 1 - PCV) 2023 Zoster Vaccines (1 of 2) 2023 Colorectal Cancer Screening: Colonoscopy 06/30/2023 Depression Screening 06/30/2023 HIV Screening 06/30/2023 Hepatitis C Screening 06/30/2023 Social Influencers of Health Screening 06/30/2023 COVID-19 Vaccine ( - 2023-2 5 season) 2024 Influenza Vaccine [...] patient's age to complete this topic Meningococcal B Vacine Aged Out No lo nger eligible based on patient's age to complete [...] age to complete this topic Care Teams Hr Recruiter Relationship Specialty Start Date End Date Julia aCstro MD PCP - General 08/11/13
== END 2024-07-29 15:22 | disposition home or self-care (01) ==
LOC: HO.HMGCX 15:21
PROVIDERS: PCP Internal Medicine; Visit Provider Advanced Practice Midwife
DX: D21.9 Benign neoplasm of connective and other soft tissue, unspecified (principal)
CPT/HCPCS: 76830; 76856

== ENCOUNTER → 2024-07-29 15:23 | Outpatient (BNV) | payer OTHER, SELFPAY | PROVIDERS: PCP Internal Medicine; Visit Provider Radiology Diagnostic Radiology | DX: D21.9 Benign neoplasm of connective and other soft tissue, unspecified (principal) | CPT/HCPCS: 76830; 76856 ==

== ENCOUNTER 2024-08-09 12:39 | Outpatient (AMB) | payer OTHER, SELFPAY ==
--- NOTE | 2024-08-09 12:39 | A.OFFVIS_ITS ---
Intake Visit Reasons: TV Ultrasound results Intake Note: cell #[phone] Technical Sales Associate: Technical Sales Associate Present Allergies egg [EGG] Allergy (Intermediate, Verified 08/09/24 12:39) ITCHY AND HIVES. lisinopril Allergy (Intermediate, Verified 08/09/24 12:39) Hives amoxicillin Adverse Reaction (Intermediate, Verified 08/09/24 12:39) Diarrhea Egg White (Diagnostic) Allergy (Intermediate, Uncoded 04/25/24 00:20) hives Is last menstrual period known: Yes HPI Comments Details: Tele Health Visit Total time I personally spent on visit and management today: 13 minutes. Time spent included review of pertinent office notes in the electronic health record; review of laboratory and imaging results; review of personal family medical history; performing physical exam; discussing diagnosis and plan of care with the patient; documenting the encounter in the EMR. Patient presents to discuss: Ultrasound findings, history of fibroids, last scan was limited visualization. She denies any pelvic pain or unusual bleeding patterns. [facility] Medical History (Updated 07/05/24 @ 15:39 by Ny Reddy CNM) Fibroid History of cholelithiasis Heartburn Excessive daytime sleepiness Lumbago with sciatica, right side Abnormal uterine bleeding Essential hypertension Mild intermittent asthma Disturbance, sleep Loud snoring Morbid obesity Surgical History Hx laparoscopic cholecystectomy (06/19/23) Hx of colonoscopy Hx of dilation and curettage H/O tubal ligation Family History Paternal Aunt Ovarian cancer Breast cancer Maternal Aunt Breast cancer Father Heart failure Diabetes Vascular abnormality Mother Memory loss Coronary artery abnormality History of prediabetes Brother No problems noted. Sister Fibromyalgia Daughter Overdose Daughter Borderline high blood pressure Other Mental health disorder Substance use disorder Social History Household Members: Family Housing: Apartment Do you presently have visiting nurse or other home services: No Alcohol intake: former Comment: counts correct Patient Tobacco Use Status: Former Tobacco user Tobacco use type: Cigarette Years Smoked: 15 yrs e-Cigarette/Vaping Use: Never Used Substance Use Type: Marijuana service: No Current occupational status: employed Cognitive needs: No Hearing needs: No Vision needs: Yes Female Reproductive History Menstrual Age of Menarche: 10 Review of Systems Const All systems reviewed & are unremarkable except as noted in HPI and below Endo Reports no additional complaints Physical Exam Const General: cooperative, healthy appearing and no acute distress Psych Appearance: well kempt Attitude: cooperative Thought process: Normal thought process present Telehealth Telehealth Telehealth Platform: [employer] Location of provider rendering services: practice address Location of patient: address on file Patient Identification confirmed using: Name, : Yes Telehealth method: video Patient verbally consented to treatment: Yes Patient verbally consented to billing insurance company: Yes Patient informed of any privacy concerns related to visit: Yes Results Reviewed Results Reviewed: [facility] [address] 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 COMPARISON: Ultrasound pelvis 11/03/2023 and 06/05/2023 TECHNIQUE: Ultrasound of the pelvis is performed using both transabdominal and transvaginal transducers along with Doppler. Transvaginal imaging is performed due to inadequate visualization transabdominally. FINDINGS: Uterus: The uterus is anteverted and measures 7.4 x 3.6 x 4.0 cm. The double wall endometrial thickness is 0.39 cm. The uterus is smooth in contour and has normal myometrial echogenicity. Previously question small fibroids on ultrasound pelvis 06/05/2023 is not seen. Adnexa: Both ovaries are visualized. There is normal color flow to the adnexa. There is no ovarian torsion. There is no pelvic ascites or fluid collection. Right ovary is not visualized. Left ovary is not visualized. There is no free fluid in the cul-de-sac US/US pelvic and transvaginal IMPRESSION: Unremarkable uterus. Small nabothian cysts in the cervix. Both ovaries are not visualized. Electronically signed by: Aneudy Pena MD 08/01/2024 07:50 AM EST RP Dictated By: Aneudy Pena MD Signed By: <Electronically signed by Aneudy Pena MD in OV> 08/01/24 0750 DD/ 1534 TD/TT: 07/29/24 1545 Rake Operator: JASMINE Assessment & Plan Assessment & Plan (1) Encounter to discuss test results: Code(s): Z71.2 - Person consulting for explanation of examination or test findings Plan Discussed: Ultrasound findings fibroid is no longer seen. Limited visualization-ovary is not viewed. Advised to call if there is any follow up concerns, pelvic pain, bleeding. Keep appointment for November of 2024 for annual exam. The patient expressed understanding and agreement with the plan of care. All of her questions and concerns were addressed to the best of my ability. This note is constructed using voice recognition software. While every effort has been made to ensure accuracy, nurse errors may have been included. Coding Level of Care Code Tele Est Pt Level 2 (45417) Diagnoses Encounter to discuss test results Z71.2
--- OUTSIDE RECORDS SUMMARY | 2024-08-09 15:11 | XMS_ITS | Clinical Summary ---
Author Organization [facility] ity Address [address] [place] [address] Care Team Providers Care Research Development Director Name Role Phone Julia Castro MD Primary [...] age to complete this topic Care Teams Research Development Director Relationship Specialty Start Date End Date Julia Castro MD PCP - General 08/11/13
== END 2024-08-09 13:14 | disposition home or self-care (01) ==
LOC: HO.HWS 12:39
PROVIDERS: PCP Internal Medicine; Visit Provider Advanced Practice Midwife
DX: Z71.2 Person consulting for explanation of examination or test findings (principal)
CPT/HCPCS: 99212

== ENCOUNTER → 2024-08-09 12:39 | Outpatient (BNVA) | payer OTHER, SELFPAY | PROVIDERS: PCP Internal Medicine; Visit Provider Advanced Practice Midwife ==

== ENCOUNTER 2025-04-10 07:03 | Emergency (ER) | payer OTHER, SELFPAY ==
--- NOTE | ~2025-04-10 | XR_ITS ---
Examination: Left humerus, left knee and left shoulder. CLINICAL INDICATION: Pain. COMPARISON: Left knee 02/05/2023. TECHNIQUE: Left humerus 2 views. Left shoulder 3 views and left knee 2 views. FINDINGS: LEFT KNEE: There is mild loss of medial and patellofemoral compartment joint space with periarticular spurring. No loose bodies, joint effusion or soft tissue swelling seen. LEFT HUMERUS: There is a impacted fracture left proximal humerus/neck with mild inferior subluxation. Rest the visualized left humerus is unremarkable. LEFT SHOULDER: There is a impacted left surgical neck humeral comminuted fracture. There is inferior shoulder subluxation. The AC joint is normal. The soft tissues are normal. 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 No acute fracture or dislocation Comminuted impacted fracture left proximal humerus/neck with mild inferior subluxation of the glenohumeral joint. The AC joint and rest of the shoulder is unremarkable This is a left proximal humeral neck fracture. Rest of the left humerus is normal. Electronically signed by: Aneudy Pena MD 04/10/2025 08:36 AM EST
--- NOTE | ~2025-04-10 | XR_ITS ---
Examination: Left humerus, left knee and left shoulder. CLINICAL INDICATION: Pain. COMPARISON: Left knee 02/05/2023. TECHNIQUE: Left humerus 2 views. Left shoulder 3 views and left knee 2 views. FINDINGS: LEFT KNEE: There is mild loss of medial and patellofemoral compartment joint space with periarticular spurring. No loose bodies, joint effusion or soft tissue swelling seen. LEFT HUMERUS: There is a impacted fracture left proximal humerus/neck with mild inferior subluxation. Rest the visualized left humerus is unremarkable. LEFT SHOULDER: There is a impacted left surgical neck humeral comminuted fracture. There is inferior shoulder subluxation. The AC joint is normal. The soft tissues are normal. 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 No acute fracture or dislocation Comminuted impacted fracture left proximal humerus/neck with mild inferior subluxation of the glenohumeral joint. The AC joint and rest of the shoulder is unremarkable This is a left proximal humeral neck fracture. Rest of the left humerus is normal. Electronically signed by: Aneudy Pena MD 04/10/2025 08:36 AM [facility]
--- NOTE | ~2025-04-10 | XR_ITS ---
Examination: Left humerus, left knee and left shoulder. CLINICAL INDICATION: Pain. COMPARISON: Left knee 02/05/2023. TECHNIQUE: Left humerus 2 views. Left shoulder 3 views and left knee 2 views. FINDINGS: LEFT KNEE: There is mild loss of medial and patellofemoral compartment joint space with periarticular spurring. No loose bodies, joint effusion or soft tissue swelling seen. LEFT HUMERUS: There is a impacted fracture left proximal humerus/neck with mild inferior subluxation. Rest the visualized left humerus is unremarkable. LEFT SHOULDER: There is a impacted left surgical neck humeral comminuted fracture. There is inferior shoulder subluxation. The AC joint is normal. The soft tissues are normal. 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 No acute fracture or dislocation Comminuted impacted fracture left proximal humerus/neck with mild inferior subluxation of the glenohumeral joint. The AC joint and rest of the shoulder is unremarkable This is a left proximal humeral neck fracture. Rest of the left humerus is normal. Electronically signed by: Aneudy Pena MD 04/10/2025 08:36 AM EST
[2025-04-10 07:12] VITALS: BP 150/100; PULSE 78; RESP 16; TEMP 37.1; O2SAT 98; BMI 46.6
--- OUTSIDE RECORDS SUMMARY | 2025-04-10 07:46 | XMS_ITS | Clinical Summary ---
Author Organization [facility] ity Address [address] [place] [address] Care Team Providers Care Ice Cream Chef Name Role Phone Julia Castro MD Primary [...] Last Done Comments Breast Cancer Screening 1975 Colorectal Cancer Screening: Colonoscopy 1973 DTaP,Tdap,and Td Vaccines (1 - Tdap) 1992 Hepatitis B Vaccines (1 of 3 - 19+ 3-dose series) 1992 Cervical Cancer Screening: P ap Smear 1994 Pneumococcal Vaccine: 50+ Ye ars (1 of 1 - PCV) 2023 Zoster Vaccines (1 of 2) 2023 HIV Screening 06/30/2023 Hepatitis C Screening 06/30/2023 Social Influencers of Health Screening 06/30/2023 Depression Screening 06/01/2024 COVID-19 Vaccine (1 - 2023-2 5 season) 2025 Influenza Vaccine (#1) 2025 RSV Immunization Adult Patie nts (1 - 1-dose 75+ series) 2048 HIB Vaccines Aged Out No longer eligi [...] age to complete this topic Meningococcal B Vaccine Aged Out No l onger eligible based on patient's age to complete this topic RSV Immunization Patients Un rita 20 months Aged Out No longer eligible b ased on patient's age to complete this topic Varicella Vaccines Aged Out No longer eligible based on patient's age to complete this topic Care Teams Ice Cream Chef Relationship Specialty Start Date End Date Julia Castro MD PCP - General 08/11/13
--- NOTE | 2025-04-10 08:04 | ED_ITS ---
HPI - Extremity Problem General Chief complaint: Extremity Injury, Upper Stated complaint: FAL, L SHOULDER/KNEE PAIN PER EMS Time Seen by Provider: 04/10/25 07:16 Source: patient and EMS Mode of arrival: EMS Limitations: no limitations History of Present Illness ED Provider: CARO SAXENA PA-C HPI Narrative: 50 year old female with pmhx of obesity, HTN presents to the ED for evaluation via EMS following a mechanical fall that occurred around 0600 this morning. Patient states that she tripped over a [place] litter box in the dark and proceeded to land on her L shoulder and L knee. Reports immediate pain to the left shoulder with small abrasion to left knee. Unable to move her left shoulder. Denies pain to left forearm, hand, wrist. Denies head strike or LOC. Not on AC. No preceding symptoms. She has not taken anything for the pain, rates pain 02/08. Denies numbness/tingling/weakness of the left upper extremity. Denies headache, dizziness, vision changes, neck pain, back pain. Related Data Home Medications ?Medication ?Instructions ?Recorded ?Confirmed acetaminophen 500 mg tablet 500 mg PO Q6H PRN Pain 12/1911/27/23 (Tylenol Extra Strength) ibuprofen 200 mg tablet (Advil) 200 mg PO Q6H PRN Pain 06/15/23 11/27/23 Previous Rx's ?Medication ?Instructions ?Recorded albuterol sulfate 2.5 mg/3 mL 2.5 mg (3 mL) inhalation Q6H PRN 02/16/24 (0.083 %) solution for nebulization shortness of breat h or wheezing #75 mL albuterol sulfate 90 mcg/actuation 2 puff inhalation Q 6H PRN 02/16/24 aerosol inhaler shortness of breath or wheez ing #8.5 grams losartan 50 mg-hydrochlorothiazide 1 tab PO DAILY #90 tabs 08/05/24 12.5 mg tablet amlodipine 10 mg tablet 10 mg PO DAILY #90 tabs 09/29 08/23 levocetirizine 5 mg tablet 5 mg PO QPM PRN allergy sym ptoms 02/07/25 #30 tabs carvedilol 25 mg tablet 25 mg PO BID #180 tabs 03/16 oxycodone 5 mg tablet 5 mg PO Q8H PRN pain (scale score 04/10/25 7-10) 3 days #9 tabs Allergies Allergy/AdvReac Type Severity Reaction Status Date / Time egg (EGG) Allergy Intermediate ITCHY AND Verified 04/10/25 07:15 HIVES. lisinopril Allergy Intermediate Hives Verified 04/10/25 07:15 amoxicillin AdvReac Intermediate Diarrhea Verified 04/10/25 07:15 Egg White (Diagnostic) Allergy Intermediate hives Uncoded 04/10/25 07:15 Review of Systems Review of Systems: Yes all other systems are reviewed and are negative [facility] Past Medical History Attestation statement: The following information was validated with the patient. Source: old records reviewed and nursing notes reviewed Medical History Fibroid History of cholelithiasis Heartburn Excessive daytime sleepiness Lumbago with sciatica, right side Abnormal uterine bleeding Essential hypertension Mild intermittent asthma Disturbance, sleep Loud snoring Morbid obesity Surgical History Hx laparoscopic cholecystectomy (06/19/23) Hx of colonoscopy Hx of dilation and curettage H/O tubal ligation Family History Family History Paternal Aunt Ovarian cancer Breast cancer Maternal Aunt Breast cancer Father Heart failure Diabetes Vascular abnormality Mother Memory loss Coronary artery abnormality History of prediabetes Brother No problems noted. Sister Fibromyalgia Daughter Overdose Daughter Borderline high blood pressure Other Mental health disorder Substance use disorder Social History Social History Household Members: Family Housing: Apartment Do you presently have visiting nurse or other home services: No Alcohol intake: former Comment: counts correct Patient Tobacco Use Status: Former Tobacco user Tobacco use type: Cigarette Years Smoked: 15 yrs e-Cigarette/Vaping Use: Never Used Substance Use Type: Marijuana service: No Current occupational status: employed Cognitive needs: No Hearing needs: No Vision needs: Yes Physical Exam Vital Signs: Vital Signs: Last Vital Signs Temp 98.2 F 04/10/25 10:37 Pulse 52 04/10/25 10:37 Resp 13 04/10/25 10:37 BP 115/49 L 04/10/25 10:37 Pulse Ox 100 04/10/25 10:37 O2 Del Method Room Air 04/10/25 10:37 BMI result Body Mass Index 46.6 hypertensive, vitals are otherwise wnl General: Well appearing, in no acute distress. Skin: Warm, dry, intact. No rashes or lesions. Head: Normocephalic, atraumatic. EENT: Hearing is intact b/l. Conjunctiva clear. PERRLA. EOM intact. Moist mucous membranes.? Neck: no midline c spine tenderness, no step off. FROM intact. Cardiac: Chest wall symmetric. RRR Lungs: Normal respiratory effort without accessory muscle use. CTA bilaterally Abdomen: Soft, non-tender, non-distended. No rebound tenderness or guarding Back: No midline spinous or paraspinal tenderness. No step off deformity. Ext: +no noted deformity or swelling to L shoulder however exam is limited due to patient's body habitus. unable to perform ROM of L shoulder d/t pain. no pain w/ palpation over L elbow, forearm, wrist, digits. holding LUE in adduction/internal rotation. able to move all digits/ wrist. strong radial pulse intact. +small abrasion over L knee w/o active b leeding, FROM intact, no swelling/deformity, 2+dp pulse. Neuro: AOx3. Normal speech. Ambulating with steady gait. Course Course Course Narrative: XRs reveal a left humeral head/neck fracture. I reached out to ortho - YONAS guaman recommending sling + outpatient follow up. Discussed w/ patient. CMS intact. placed in sling. medicated w/ IV morphine and po oxycodone. Will send po oxycodone rx for break through pain. ortho referral provided. Patient has remained stable throughout ED visit today. Discussed worrisome signs and symptoms and when to return to the ED. All questions answered at this time. Patient is agreeable with disposition and stable for discharge. will be driving patient home. Medications Administered Discontinued Medications Generic Name Dose Route Start Last Admin Trade Name Freq PRN Reason Stop Dose Admin Morphine Sulfate 4 mg 04/10/25 08:15 04/10/25 08:47 Morphine Sulfate 4 Mg/Ml Cartridge IVPUSH 04/10/25 08:16 4 mg ONCE ONE Administration Protocol Oxycodone HCl 5 mg 04/10/25 09:18 04/10/25 09:48 Oxycodone Hcl Immed Release 5 Mg Tablet PO 04/10/25 09:19 5 mg ONCE ONE Administration Medical Decision Making Medical Decision Making MDM Narrative: 50 year old female with pmhx of obesity, HTN presents to the ED for evaluation via EMS following a mechanical fall that occurred around 0600 this morning. hypertensive - did not take her morning BP meds. asymptomatic. on exam, no noted deformity or swelling to L shoulder however exam is limited due to patient's body habitus. unable to perform ROM of L shoulder d/t pain. no pain w/ palp ation. small abrasion over L knee w/o active bleeding, FROM intact, no swelling/deformity, 2+dp pulse. Differential diagnosis includes msk sprain/strain, contusion, fracture, dislocation Plan for imaging, pain control, re-eval. Differential Diagnosis Differential Diagnoses: The differential diagnosis associated with the presentation includes As above Admission/Observation Consideration of admission/observation: Escalation of care including admission/observation considered I considered admission to ortho - recommending discharge home with outpatient f/u Consult Healthcare Provider Management of the patient was discussed with: Engine Head Repairer (uzair guaman) Independent Interpretation I performed an independent interpretation of an: Plain X-Ray Interpretation: xr left shoulder showing humeral head fx xr left humerous without fracture xr left knee without fracture Radiology Impression Discussion of test interpretation with radiology: I have reviewed the radiologist's reading. Radiologist Impression: Procedure(s): XR shoulder LT min 2V Accession Number(s): [id number] cc: Amanda Hernandez DO; Windy Mcelroy MD~ Reason for Exam: pain Examination: Left humerus, left knee and left shoulder. CLINICAL INDICATION: Pain. COMPARISON: Left knee 02/05/2023. TECHNIQUE: Left humerus 2 views. Left shoulder 3 views and left knee 2 views. FINDINGS: LEFT KNEE: There is mild loss of medial and patellofemoral compartment joint space with periarticular spurring. No loose bodies, joint effusion or soft tissue swelling seen. LEFT HUMERUS: There is a impacted fracture left proximal humerus/neck with mild inferior subluxation. Rest the visualized left humerus is unremarkable. LEFT SHOULDER: There is a impacted left surgical neck humeral comminuted fracture. There is inferior shoulder subluxation. The AC joint is normal. The soft tissues are normal. 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 No acute fracture or dislocation Comminuted impacted fracture left proximal humerus/neck with mild inferior subluxation of the glenohumeral joint. The AC joint and rest of the shoulder is unremarkable This is a left proximal humeral neck fracture. Rest of the left humerus is normal. Electronically signed by: Aneudy Pena MD 04/10/2025 08:36 AM [facility] [place] Independent Historian Clinical information obtained from an independent historian. History obtained from or confirmed by: EMS External Record Review External record reviewed: Inpatient record Prescription Management I considered prescription management with: Pain Medication Social Determinants Patient?s care significantly limited by Social Determinants of Health including: Other Social Determinant of Health Procedures Orthopedic Splinting/Casting Injury #1: Side: left Upper Extremity Injury Location: shoulder Upper Extremity Immobilizer: sling/shoulder immobilizer Critical Care Time Critical Care Time Critical Care Time: Yes Total Critical Care Time: 35 Attestation: Critical care time in the amount of 35 minutes has been provided to the patient in terms of direct patient care, frequent reevaluation on IV morphine, consultation with ortho, review and interpretation of medical data and results, and management of potentially life-threatening conditions. This is all outside of any medical procedures. Discharge Plan Discharge Clinical Impression: Closed fracture of neck of left humerus, Fall, Abrasion of knee, left Patient Disposition: Home, Self-Care Instructions: Arm Fracture in Adults (ED) Additional Instructions: You were evaluated in the ED today following a fall this morning. You have a fracture of your left shoulder. The orthopedic doctor recommending a sling with outpatient follow up. Please keep sling on until you are able to follow up. I have provided you with a referral. Call them to establish care. They will not call you. I recommend Tylenol and Motrin at home as needed. I am sending oxycodone, a controlled pain medication, to your pharmacy for you to take for breakthrough pain control. Please use this with caution as opioid pain medications have addictive properties. I have also provided you with Narcan as accidental overdoses on oxycodone can occur. Opioid pain medications can often cause constipation. I recommend taking this with an over the counter laxative and/or stool softener to help move your bowels. Return with any new or worsening symptoms. In the case of an emergency call 911. Prescriptions: New oxycodone 5 mg tablet 5 mg PO Q8H PRN (Reason: pain (scale score 7-10)) 3 Days Qty: 9 0RF Rx Instructions: Partial Fill upon patient request. No Action albuterol sulfate 90 mcg/actuation HFA aerosol inhaler 2 puff INHALATION Q6H PRN (Reason: shortness of breath or wheezing) Qty: 8.5 2RF albuterol sulfate 2.5 mg /3 mL (0.083 %) solution for nebulization 2.5 mg inhalation Q6H PRN (Reason: shortness of breath or wheezing) Qty: 75 1RF losartan-hydrochlorothiazide 50-12.5 mg tablet 1 tab PO DAILY Qty: 90 5RF amlodipine 10 mg tablet 10 mg PO DAILY Qty: 90 2RF levocetirizine 5 mg tablet 5 mg PO QPM PRN (Reason: allergy symptoms) Qty: 30 3RF carvedilol 25 mg tablet 25 mg PO BID Qty: 180 5RF acetaminophen [Tylenol Extra Strength] 500 mg tablet 500 mg PO Q6H PRN (Reason: Pain) ibuprofen [Advil] 200 mg tablet 200 mg PO Q6H PRN (Reason: Pain) Referrals: [facility] [place] [facility] [Provider Group] Referral Note: Comminuted impacted fracture left proximal humerus/neck with mild inferior subluxation of the glenohumeral joint Windy Mcelroy MD [Primary Care Provider, Internal Medicine] Interventions: ED Discharge Assessment Last Done: 04/10/25 10:37 Discharge Date/Time: 04/10/25 10:38 Print Language: Serbian
--- NOTE | 2025-04-10 08:54 | PC.NURSE ---
call out to ortho. pt has arm supinated at side which is position of comfort. medicated for pain. call bellin reach fall precautions initiated.
[2025-04-10] MEDS: oxyCODONE HCl Immed Release 5 MG TABLET PO (09:48)
[2025-04-10 10:34] VITALS: BP 115/49; PULSE 52; RESP 13; TEMP 36.8; O2SAT 100
[2025-04-10 10:37] VITALS: BP 115/49; PULSE 52; RESP 13; TEMP 36.8; O2SAT 100
== END 2025-04-10 10:38 | disposition home or self-care (01) ==
PROVIDERS: Emergency Provider Emergency Medicine; PCP Internal Medicine
DX: S80.212A Abrasion, left knee, initial encounter (principal); S49.92XA Unspecified injury of left shoulder and upper arm, initial encounter; M25.512 Pain in left shoulder; M25.562 Pain in left knee; X58.XXXA Exposure to other specified factors, initial encounter; W01.0XXA Fall on same level from slipping, tripping and stumbling without subsequent striking against object, initial encounter; Y93.9 Activity, unspecified; Y92.009 Unspecified place in unspecified non-institutional (private) residence as the place of occurrence of the external cause; Y99.8 Other external cause status; Z79.899 Other long term (current) drug therapy; Z87.891 Personal history of nicotine dependence
CPT/HCPCS: 29105; 73030; 73060; 73560; 96374; 99284; J2270

== ENCOUNTER → 2025-04-10 08:16 | Outpatient (BNV) | payer OTHER, SELFPAY | PROVIDERS: Emergency Provider Emergency Medicine; PCP Internal Medicine; Visit Provider Radiology Diagnostic Radiology | DX: S42.352A Displaced comminuted fracture of shaft of humerus, left arm, initial encounter for closed fracture (principal); S43.032A Inferior subluxation of left humerus, initial encounter; M17.12 Unilateral primary osteoarthritis, left knee; Z04.3 Encounter for examination and observation following other accident | CPT/HCPCS: 73030; 73060; 73560 ==

== ENCOUNTER → 2025-04-14 09:55 | Outpatient (REF) | payer OTHER, SELFPAY ==
--- NOTE | 2025-04-14 10:04 | ECG_ITS ---
Test Reason : PREOP Blood Pressure : */* mmHG Vent. Rate : 162 BPM Atrial Rate : * BPM P-R Int : * ms QRS Dur : 84 ms QT Int : 240 ms P-R-T Axes : * 71 236 degrees QTcB Int : 394 ms Atrial fibrillation with rapid ventricular response ST & T wave abnormality, consider inferolateral ischemia Abnormal ECG When compared with ECG of 24-Dec-2021 11:30, Atrial fibrillation has replaced Sinus rhythm Vent. rate has increased by 94 bpm Non-specific change in ST segment in Inferior leads ST now depressed in Anterolateral leads T wave inversion now evident in Inferior leads T wave inversion now evident in Anterolateral leads Referred By: Windy Mcelroy Electronically Signed By: IGOR LEE MD
[2025-04-14 10:12] LABS: MANUAL DIFF FLAG NO
[2025-04-14 11:01] LABS: Hematocrit 36.8 % (37.0-47.0); Hemoglobin 13.0 g/dl (12.0-16.0); Imm Gran Abs Auto 0.17 X10*3/uL (0.00-0.03); Imm Gran Pct Auto 1.0 % (0.0-0.4); Lymphocytes Absolute Auto 4.2 X10*3/uL (1.2-4.9); Mean Corpuscular HGB Conc 35.3 g/dl (31.0-35.0); Mean Corpuscular Hemoglobin 31.7 pg (27.0-33.0); Mean Corpuscular Volume 89.8 fL (80.0-98.0); NRBC Abs Auto 0.020 X10*3/uL (0.0-0.012); NRBC Pct Auto 0.1 /100WBC (0.0-0.2); Platelet Count 426 X10*3/uL (160-400); Red Blood Count 4.10 X10*6/uL (4.20-5.50); White Blood Count 17.1 X10*3/uL (4.8-10.8)
[2025-04-14 11:13] LABS: Alanine Aminotransferase 63 U/L (0-31); Albumin Level 4.0 g/dL (3.5-5.0); Alkaline Phosphatase 118 U/L (39-117); Aspartate Amino Transferase 29 U/L (5-31); Blood Urea Nitrogen 20 mg/dL (9-16); Calcium 9.7 mg/dL (8.4-10.2); Cholesterol 168 mg/dL (<200); Estimated Glomerular Filt Rate > 60; HDL Cholesterol 36 mg/dL (>40); Total Protein 7.2 g/dL (6.5-8.0); Triglycerides 144 mg/dL (<150)
--- OUTSIDE RECORDS SUMMARY | 2025-04-14 11:28 | XMS_ITS | Clinical Summary ---
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 Applicator Name Role Phone Unavailable Primary Care Provider Unavailabl e Social History Tobacco Use Types Packs/Day Years Used Date Smoking Tobacco: Never Assessed Comments Unknown Sex and Gender Information Value Date Recorded Sex Assigned at Not on file Legal Sex Female 1:30 PM EST Gender Identity Not on file Sexual Orientation Not on file Plan of Treatment Upcoming Encounters Date Type Department Care Team (Late st Contact Info) Description 04/20/2025 11:15 AM EST Hospital Encounter [facility] [place] [address] [place] [phone] Dav Rutherford MD [address] [place] [address] 04/20/2025 11:15 AM EST - 04/20/2025 1:15 PM EST Surgery [facility] [place] [address] [place] [phone] Dav Rutherford MD [address] [place] [address] ARTHROPLASTY SHOULDER TOTAL REVERSE APPROACH [68349 (CPT )] Scheduled Procedures Name Priority Associated Diagnoses Date/Ti me ARTHROPLASTY SHOULDER TOTAL REVERSE APPROACH Other displaced fracture of upper end of left humerus, initial encounter for closed fracture 04/20/2025 11:15 AM EST ORIF HUMERUS PROXIMAL Other displaced fracture of upper end of left humerus, initial encounter for closed fracture 04/20/2025 11:15 AM EST REPAIR TENDON SHOULDER Other displaced fracture of upper end of left humerus, initial encounter for closed fracture 04/20/2025 11:15 AM EST Health Maintenance Due Date Last Done Comments [...] Depression Screening 06/01/2024 COVID-19 Vaccine (1 - 2024-2 6 season) 2025 Influenza Vaccine (#1) 2025 RSV [...] on patient's age to complete this topic Goals Goal Patient Goal Type Associated Problems Recent Progress Patient-Stated? Author Autogenerat ed Goal Care Plan Autogenerated Problem No Annette Tracy Additional Health Concerns Active Problems Noted Date Diagnosed Date Autogenerated Problem 04/13/2025 Insurance MEDICAID - [place]
--- OUTSIDE RECORDS SUMMARY | 2025-04-14 11:28 | XMS_ITS | Data Portability ---
Author Organization [facility] [place] Address [address] [place] [phone] Care Team Providers Care Spot Welder Line Name Role Phone PORFIRIO VELAZCO Primary Care Provider PORFIRIO VELAZCO Referring Provider Assessment Encounter Date Assessment Date Assessment LastModified by Organization Details LastModified Time 04/13/2025 04/13/2025 IMPRESSION: 50-year-old woman with a left proximal humerus fracture three-part, date of injury 04/10/25 PLAN: I had a long discussion with the patient about the impression/diagnos is, imaging findings, natural history of the condition, and treatment options in detail today. The patient's clinical presentation is consistent with left proximal humerus fracture. I discussed the treatment options with the patient includin. Living with the symptoms. 2. Continued non-operative management in the form of sling treatment followed by physiotherapy. 3. Surgical intervention in the form of open reduction internal fixation versus reverse total shoulder arthroplasty. Operative intervention would be in the form left shoulder open reduction internal fixation versus reverse shoulder arthroplasty fracture with tuberosity repair and bicep tenodesis. Reviewed the risks of surgery which include but not limited to the following: risk of anesthesia, including ; infection; nerve/tendon/vesse l injury; deep venous thrombosis (DVT), pulmonary embolism (PE); shoulder stiffness, allograft-related complications including but not limited to failure, disease transmission; hardware-related problems; failure of the graft to heal; failure of the partial rotator cuff repair to heal if performed; hardware-related problems, potential of the procedure to not alleviate the condition, pain, stiffness, scarring, arthritis, reaction, unexpected findings, naren biceps muscle appearance, and the potential need for further surgery in the future. In addition, we discussed the possible need to perform a reverse total shoulder replacement (ball on the socket side and socket on ball side) if there is a concern about rotator cuff tears/integrity or function of the subscapularis or posterosuperior cuff or if there is any concern about glenoid bone integrity and that this decision would be made intra operatively. If a reverse total shoulder replacement is performed, we also discussed that physical therapy will not begin for 4 weeks and that there will be life-long weight lifting limitations overhead. After going over these risks, benefits, and alternatives the patient would like to proceed with surgery. All of their questions were answered satisfactorily and the patient gave me verbal surgical consent to proceed and signed the consent form. All appropriate paperwork was completed and the patient will work with our surgical scheduling department to coordinate the surgery. We will provide the post-operative pain management prescription and I discussed with limiting opioid use if possible. I discussed with the patient that the expected recovery time may be 3 to 9 months at minimum. I discussed with the patient that I preferred they limit post-operative opioid use and use the multimodal pain medicine strategy if possible. I had a clear conversation with the patient about post-op pain management and use of opioids specifically. We will be providing a multi-modal combination of medications designed to limit the use of opioids. The opioid will be used for short term post-op pain management only and should be used cautiously. I discussed the risks associated with the highly addictive nature of opioids (physical or psychological dependence), even when taken as prescribed, as well as over dosage. I also reviewed the dangers of opioids when taken alone or in combination with alcohol, benzodiazepines, sleep medications (prescription or over the counter), or other central nervous system depressants. Risks including but not limited to fatal respiratory depression and impaired judgement were discussed. I gave specific instructions not to drive while taking narcotic pain medication. At the conclusion of the visit, the patient verbally acknowledged that all questions were answered satisfactorily. Thank you for this consultation Not available 04/13/2025 09:01:28 Plan of Treatment Reminders Order Date Submit Date Provider Last Modified By Organization Details Last Modified Time Details Appointments [id number] TIMETBD by Facility 2024 10:00A Araceli Rutherford MD Not available Not available Not available POST-OP 2024 09:45A M Tray Rutherford MD Not available Not available Not available Lab None recorded. Referral None recorded. Procedures None recorded. Surgeries reverse total shoulder arthropla sty (SURG) 2024 025 [email or web address] Not available 04/13/2025 11:05:[address], shoulder, w/o contrast - Left proximal humerus fracture preoperat familia planning blueprint protocol* *Please call patient to schedule and hand carry CD 2024 025 [facility] Radiology (Centralized) , [address], [address], [place], [address], 04/13/2025 11:40:28 Medication Orders None recorded. Patient TargetsNo targets recorded. Patient Instructions Encounter Date Encounter Id Patient Instructions Last Modified By Organization Details Last Modified Time 04/13/2025 [id number] views of the left shoulder were reviewed these demonstrate a proximal humerus fracture involving the surgical neck reverse obliquity fashion greater tuberosity with proximal migration 2 views of the left humerus were reviewed again demonstrating a proximal humerus fracture involving the surgical neck and greater tuberosity Not available 04/13/2025 09:11:06 Reason for Referral None Reported. Problems Name Problem SNOMED Code Status Onset Date Resolution Date Notes Provider Name and Address Organization Details Recorded Time Pain of left shoulder joint 07087393801264 109 Active 2024 Jose Morris MD [address], [place], [address] , [facility] [place] 06:41:19 Closed fracture of upper end of humerus 01571552 Active [address], [place], [address] , [place] [facility] [place] 08:56:58 Problem Notes None recorded. Medical Equipment None Reported. Medications Name Sig Start Date Stop Date Status Note LastModified by Organization Details LastModified Time carvedilol 25 mg tablet TAKE 1 TABLET (25 MG) ORALLY 2 TIMES A DAY active Not Available Not Available No t Available azithromyci n 250 mg tablet TAKE 2 TABLETS BY MOUTH TODAY, THEN TAKE 1 TABLET DAILY FOR 4 DAYS DIRECTED 04/11 completed Not Available Not Available Not Available benzonatate 200 mg capsule TAKE 1 CAPSULE BY MOUTH THREE TIMES A DAY NEEDED FOR COUGH FOR 10 DAYS active Not Available Not Available No t Available prednisone 20 mg tablet TAKE 1 TABLET BY MOUTH EVERY DAY active Not Available Not Available No t Available amlodipine 10 mg tablet TAKE 1 TABLET BY MOUTH EVERY DAY active Not Available Not Available No t Available losartan 50 mg-hydrochl orothiazide 12.5 mg tablet TAKE 1 TABLET BY MOUTH EVERY DAY active Not Available Not Available No t Available cefdinir 300 mg capsule TAKE 1 CAPSULE BY MOUTH EVERY 12 HOURS FOR 7 DAYS 04/11 completed Not Available Not Available Not Available levocetiriz ine 5 mg tablet TAKE 1 TABLET BY MOUTH EVERY EVENING NEEDED FOR ALLERGY SYMPTOMS active Not Available Not Available No t Available Vitals Date Recorded Body height Body mass index (BMI) Body weight Provider Name and Address Organization Details Last Updated DateTime 04/11/2025 160.02 cm 49.6 kg/m2 585654.86 g Jose Morris MD [address], [place], [address], [place] [facility] [place], 04/11/2025 13:56:09 Social History None recorded. Functional Status None recorded. Mental Status None recorded. Family History Nothing Reported. Medical History No medical history recorded. Gynecological HistoryNo gynecological history recorded. Obstetrics History GPAL:G 0 P 0 0 0 0 Past Encounters Encounter ID Performer Location Encounter Start Date Encounter Closed Date Diagnosis/Indication Diagnosis SNOMED-CT Code Diagnosis ICD10 Code Diagnosis IMO Codes Diagnosis Note [id number] Jose Morris MD [address] [address] 04/11/2025 13:05:10 04/11/2025 13:40:17 Pain of left shoulder joint 8000802886 [id number] M25.512 [id number] Dav Rutherford MD [address] [address] 04/13/2025 08:52:45 04/13/2025 09:44:52 Closed fracture of upper end of humerus 97395188 S42.292A [id number] Health Concerns Section Related Observation LastModified by Organization Detai ls LastModified Time None Recorded Concern Status LastModified by Organization Details LastModified Time None Recorded Advance Directives Directive None Recorded Payers Insurance Date Sequence Insurance Name Policy Number Policy Iglesias Covered Member ID Iglesias Member ID Guarantor Name 04/11/[address] [place] [address] [id number] Marianne Romero [id number] Marianne Romero Notes Date Note Type Note Provider Name and Address Organization Details Recorded Time 04/13/2025 text/html ROS as noted in the HPI 50-year-old hyzvo-xthn-xesavbj t woman presenting with left shoulder injury sustained on 04/10/2025. She fell a few days ago initially went to [facility] where she was given a sling ibuprofen and Tylenol. She was referred to see Dr. Morris who then subsequently referred her to me she rates her pain 8 out of 10 she endorses night symptoms. 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 She was diagnosed with a left proximal humerus fracture. She presents today with her . Past medical history consistent with hypertension asthma Past surgical history consistent with colonoscopy tubal ligation D&CDenies smoking Dav Rutherford MD [address], [place], [address], [place] [facility] 04/13/2025 09:54:34 OBGyn Episode No OBEpisode recorded.
--- OUTSIDE RECORDS SUMMARY | 2025-04-14 11:28 | XMS_ITS | Continuity of Care Document ---
Author Organization [facility] [place] Address [address] [facility] [address] [place] [phone] Care Team Providers Care Director Of Cloud Services Name Role Phone PORFIRIO VELAZCO Primary Care [...] answered satisfactorily. Thank you for this consultation [email or web address] Not available 04/13/2025 09:01:28 Plan of Treatment Reminders Order Date Submit Date Provider Last Modified By Organization Details Last Modified Time Details Appointments [id number] TIMETBD by Facility 2024 10:00A Araceli [...] schedule and hand carry CD 2024 025 [facility] Radiology (Centralized) , [address], [place], [address], 04/13/2025 11:40:28 Medication Orders None recorded. Patient TargetsNo targets recorded. Patient Instructions Encounter Date Encounter Id Patient Instructions Last Modified By Organization Details Last Modified Time 04/13/2025 [id number] views of the left shoulder were [...] Recorded Time Pain of left shoulder joint [id number] 109 Active 2024 Jose Morris MD [address], [place], [address] , [place] [facility] [place], 5 06:41:19 Closed fracture of upper end of humerus 98821298 Active [address], [place], [address] , [facility] [place] 5 08:56:58 Problem Notes None recorded. Medical Equipment [...] Available Not Available No t Available Vitals None Recorded Social History None recorded. Functional Status None recorded. Mental Status None recorded. Family History Nothing Reported. Medical History No medical history recorded. Gynecological HistoryNo gynecological history recorded. Obstetrics History GPAL:G 0 P 0 0 0 0 Past Encounters Encounter ID Performer Location Encounter Start Date Encounter Closed Date Diagnosis/Indication Diagnosis SNOMED-CT Code Diagnosis ICD10 Code Diagnosis IMO Codes Diagnosis Note [id number] Jose Morris MD [address] [address] 04/11/2025 13:05:10 04/11/2025 13:40:17 Pain of left shoulder joint [id number] M25.512 [id number] Dav Rutherford MD [address] [address] 04/13/2025 08:52:45 04/13/2025 09:44:52 Closed fracture of upper end of humerus 65011071 S42.292A [id number] Health Concerns Section Related Observation LastModified by Organization Detai ls LastModified Time None Recorded Concern Status LastModified by Organization Details LastModified Time None Recorded Payers Encounter Date Sequence Insurance Name Policy Number Policy Iglesias Covered Member ID Iglesias Member ID Guarantor Name 04/13/[address] [place] [address] [id number] Marianne Romero [id number] Marianne Romero Notes Date Note Type Note Provider Name and Address Organization Details Recorded Time 04/13/2025 text/html ROS as noted in the HPI 50-year-old yesny-orul-eresxcv t woman presenting with left shoulder injury sustained on 04/10/2025. She fell a few days ago initially went to [facility] where she was given a sling ibuprofen [...] Dav Rutherford MD [address], [place], [address], [place] [facility] [place] 04/13/2025 09:54:34 OBGyn Episode No OBEpisode recorded.
[2025-04-14 11:29] LABS: Anion Gap 18 (12-20); Carbon Dioxide 23 mmol/L (22-29); Chloride 100 mmol/L (96-108); Potassium 2.9 mmol/L (3.3-5.1); Sodium 138 mmol/L (135-145)
== END ==
LOC: HO.CARD 09:55
PROVIDERS: PCP Internal Medicine; Visit Provider Internal Medicine
DX: Z01.810 Encounter for preprocedural cardiovascular examination (principal); Z01.818 Encounter for other preprocedural examination; Z13.1 Encounter for screening for diabetes mellitus; N95.0 Postmenopausal bleeding; D21.9 Benign neoplasm of connective and other soft tissue, unspecified; R12 Heartburn; R73.01 Impaired fasting glucose; E66.01 Morbid (severe) obesity due to excess calories; Z68.43 Body mass index [BMI] 50.0-59.9, adult; I10 Essential (primary) hypertension
CPT/HCPCS: 36415; 80053; 80061; 83036; 85025; 93005

== ENCOUNTER → 2025-04-14 10:04 | Outpatient (BNV) | payer OTHER, SELFPAY | PROVIDERS: PCP Internal Medicine; Visit Provider Internal Medicine Cardiovascular Disease | DX: I48.91 Unspecified atrial fibrillation (principal) | CPT/HCPCS: 93010 ==

== ENCOUNTER 2025-04-14 10:29 | Inpatient (IN) | payer OTHER, SELFPAY ==
[2025-04-14] VITALS (25 sets, daily range): BP systolic 93–150; BP diastolic 38–89; PULSE 70–176; RESP 14–24; TEMP 36.7–37.3; O2SAT 96–98; BMI 46.6
--- NOTE | 2025-04-14 | ECG_ITS ---
Test Reason : AFIB Blood Pressure : */* mmHG Vent. Rate : 168 BPM Atrial Rate : * BPM P-R Int : * ms QRS Dur : 88 ms QT Int : 270 ms P-R-T Axes : * 78 251 degrees QTcB Int : 451 ms Atrial fibrillation with rapid ventricular response ST & T wave abnormality, consider inferolateral ischemia Abnormal ECG When compared with ECG of 14-Apr-2025 10:14, No significant change was found Referred By: Slick Hull Electronically Signed By: IGOR LEE MD
--- NOTE | ~2025-04-14 | XR_ITS ---
CLINICAL HISTORY: sob chf 1 view chest x-ray. Comparison: None provided Findings: Heart size is normal. No consolidation or effusion. No acute fracture. The visualized upper abdomen is unremarkable. Impression: No acute cardiopulmonary process. This document has been electronically signed by: Sunitha Loaiza MD on 04/14/2025 21:01:59
[2025-04-14 10:42] LABS: MANUAL DIFF FLAG NO
--- NOTE | 2025-04-14 10:44 | ED.ARRPALP ---
HPI - Arrhythmia/Palpitations General Chief Complaint: Arrhythmia/Palpitations Stated Complaint: New Onset AFib Time Seen by Provider: 04/14/25 10:31 Source: patient Mode of arrival: ambulatory Limitations: no limitations History of Present Illness HPI narrative: This is a 50 years old the patient presented to the emergency department from EKG department because in rapid AFib, the patient came for routine preop eval she got an EKG she was found to be in rapid AFib. She stated that she has no history of AFib MD complaint: rapid heart beat Onset (ago): hour(s) (3) Duration: constant Severity: moderate Context: occurred during rest Associated symptoms: denies other symptoms Related Data Home Medications ?Medication ?Instructions ?Recorded ?Confirmed acetaminophen 500 mg tablet 500 mg PO Q6H PRN Pain 11/05/20 04/14/25 (Tylenol Extra Strength) ibuprofen 200 mg tablet (Advil) 200 mg PO Q6H PRN Pain 06/15/23 04/14/25 Previous Rx's ?Medication ?Instructions ?Recorded albuterol sulfate 2.5 mg/3 mL 2.5 mg (3 mL) inhalation Q6H PRN 02/16/24 (0.083 %) solution for nebulization shortness of breath or wheezing #75 mL albuterol sulfate 90 mcg/actuation 2 puff inhalation Q6H PRN 02/16/24 aerosol inhaler shortness of breath or wheezing #8.5 grams losartan 50 mg-hydrochlorothiazide 1 tab PO DAILY #90 tabs 08/05/24 12.5 mg tablet amlodipine 10 mg tablet 10 mg PO DAILY #90 tabs 10/11/24 levocetirizine 5 mg tablet 5 mg PO QPM PRN allergy symptoms 02/07/25 #30 tabs carvedilol 25 mg tablet 25 mg PO BID #180 tabs 03/16/25 Allergies Allergy/AdvReac Type Severity Reaction Status Date / Time egg (EGG) Allergy Intermediate ITCHY AND Verified 04/14/25 10:33 HIVES. lisinopril Allergy Intermediate Hives Verified 04/14/25 10:33 amoxicillin AdvReac Intermediate Diarrhea Verified 04/14/25 10:33 Egg White (Diagnostic) Allergy Intermediate hives Uncoded 04/14/25 10:33 [facility] Past Medical History Attestation statement: The following information was validated with the patient. Medical History Fibroid History of cholelithiasis Heartburn Excessive daytime sleepiness Lumbago with sciatica, right side Abnormal uterine bleeding Essential hypertension Mild intermittent asthma Disturbance, sleep Loud snoring Morbid obesity Surgical History Hx laparoscopic cholecystectomy (06/19/23) Hx of colonoscopy Hx of dilation and curettage H/O tubal ligation Family History Family History Paternal Aunt Ovarian cancer Breast cancer Maternal Aunt Breast cancer Father Heart failure Diabetes Vascular abnormality Mother Memory loss Coronary artery abnormality History of prediabetes Brother No problems noted. Sister Fibromyalgia Daughter Overdose Daughter Borderline high blood pressure Other Mental health disorder Substance use disorder Social History Social History Household Members: Family Housing: Apartment Do you presently have visiting nurse or other home services: No Alcohol intake: former Comment: counts correct Patient Tobacco Use Status: Former Tobacco user Tobacco use type: Cigarette Years Smoked: 15 yrs Smoked in Last 30 Days: No e-Cigarette/Vaping Use: Never Used Use of substances other than those prescribed or required for medical reasons: Yes Substance Use Type: Marijuana Substance Use Frequency: Monthly Advance Directives: No Advance Directives Information Provided: No Do you have a plan to hurt others: No Plan Patient : No service: No Current occupational status: employed Cognitive needs: No Hearing needs: No Vision needs: Yes Physical Exam Exam: Exam: Mild distress Vital Signs: Vital Signs: Last Vital Signs Temp 98.2 F 04/14/25 15:52 Pulse 130 H 04/14/25 15:52 Resp 20 04/14/25 15:52 BP 110/62 04/14/25 15:52 Pulse Ox 98 04/14/25 15:52 O2 Del Method Room Air 04/14/25 15:52 BMI result Body Mass Index 46.6 Const: General: cooperative Nutritional Appearance: well nourished HEENT: Head: Yes normal to inspection General nose exam: Normal external nose present Mouth: Normal oral and palatal mucosa present Neck: Neck: Yes normal visual inspection Chest: Chest palpation & inspection: normal inspection of the chest Resp: Effort & Inspection: normal respiratory effort Auscultation: clear to auscultation bilaterally Cardio: Rate: tachycardic Rhythm: abnormal rhythm GI: Inspection: Yes normal to inspection Palpation (GI): Soft to palpation and not firm Auscultation: normal bowel sounds Skin: General skin exam: no rashes or lesions noted, elasticity normal and turgor normal Lesions: no lesions Rashes: no rashes Medications Administered Generic Name Dose Route Start Last Admin Trade Name Freq PRN Reason Stop Dose Admin Diltiazem HCl 125 mg/ Sodium 125 mls @ 0 mls/hr 04/14/25 10:45 04/14/25 11:13 Chloride IVCONT 15 mg/hr .Q0M LACY 15 mls/hr Protocol Titration Per Protocol Sodium Chloride 3 ml 04/14/25 16:00 04/14/25 15:53 0.9 % Sodium Chloride Flush 3 Ml Syringe IVFLUSH Not Given QSHIFT LACY Discontinued Medications Generic Name Dose Route Start Last Admin Trade Name Freq PRN Reason Stop Dose Admin Acetaminophen 975 mg 04/14/25 12:05 04/14/25 12:08 Acetaminophen 325 Mg Tablet PO 04/14/25 12:06 975 mg ONCE ONE Administration Digoxin 0.25 mg 04/14/25 12:43 04/14/25 12:55 Digoxin 0.5 Mg/2 Ml Ampul IVPUSH 04/14/25 12:44 0.25 mg ONCE ONE Administration Protocol Digoxin 0.25 mg 04/14/25 13:06 04/14/25 13:12 Digoxin 0.5 Mg/2 Ml Ampul IVPUSH 04/14/25 13:07 0.25 mg ONCE ONE Administration Protocol Diltiazem HCl 20 mg 04/14/25 10:35 04/14/25 10:41 Diltiazem Hcl 50 Mg/10 Ml Vial IVPUSH 04/14/25 10:36 20 mg ONCE ONE Administration Sodium Chloride 1,000 mls @ 999 mls/hr 04/14/25 12:30 04/14/25 13:51 Ns IVCONT 04/14/25 13:30 Infused .Q1H1M LACY Infusion Sodium Chloride 1,000 mls @ 999 mls/hr 04/14/25 14:30 04/14/25 15:53 Ns IVCONT 04/14/25 15:30 Infused .Q1H1M LACY Infusion Loperamide HCl 2 mg 04/14/25 14:29 04/14/25 14:36 Loperamide Hcl 2 Mg Capsule PO 04/14/25 14:30 2 mg ONCE ONE Administration Metoprolol Succinate 50 mg 04/14/25 13:22 04/14/25 13:31 Metoprolol Succinate Er 50 Mg Tab.Er.24h PO 04/14/25 13:23 50 mg ONCE ONE Administration Protocol Metoprolol Tartrate 5 mg 04/14/25 11:44 04/14/25 11:59 Metoprolol Tartrate 5 Mg/5 Ml Vial IVPUSH 04/14/25 11:45 5 mg ONCE ONE Administration Protocol Potassium Chloride 40 meq 04/14/25 11:11 04/14/25 11:44 Potassium Chloride Packet 20 Meq Packet PO 04/14/25 11:12 40 meq ONCE ONE Administration Medical Decision Making Medical Decision Making MDM Narrative: Patient is here with a rapid atrial fibrillation we will administer diltiazem anticipate admission Differential Diagnosis Differential Diagnoses: The differential diagnosis associated with the presentation includes Rapid AFib/SVT/rapid flutter Lab Data 04/14/25 10:38 04/14/25 10:38 Labs: Lab Results 04/14/25 Range/Units 10:38 WBC 16.6 H (4.8-10.8) X10*3/uL RBC 4.16 L (4.20-5.50) X10*6/uL Hgb 13.4 (12.0-16.0) g/dl Hct 37.0 (37.0-47.0) % MCV 88.9 (80.0-98.0) fL MCH 32.2 (27.0-33.0) pg MCHC 36.2 H (31.0-35.0) g/dl RDW 13.0 (11.0-16.0) % Plt Count 400 (160-400) X10*3/uL MPV 11.5 (9.4-12.3) fL Immature Gran % (Auto) 1.3 H (0.0-0.4) % Neut % (Auto) 71.5 (45-73) % Lymph % (Auto) 22.0 (20-40) % Eddy % (Auto) 4.6 (2-11) % Eos % (Auto) 0.2 (0-4) % Baso % (Auto) 0.4 (0-2) % Lymph # (Auto) 3.7 (1.2-4.9) X10*3/uL Eddy # (Auto) 0.8 (0.1-1.2) X10*3/uL Eos # (Auto) 0.0 (0.0-0.4) X10*3/uL Baso # (Auto) 0.1 (0.0-0.2) X10*3/uL Abs Immat Gran (auto) 0.22 H (0.00-0.03) X10*3/uL Absolute Neuts (auto) 11.8 H (2.0-8.3) x10*3/uL Absolute Nucleated RBC 0.030 H (0.0-0.012) X10*3/uL Nucleated RBC % (auto) 0.2 (0.0-0.2) /100WBC Sodium 137 (135-145) mmol/L Potassium 3.0 L (3.3-5.1) mmol/L Chloride 100 (96-108) mmol/L Carbon Dioxide 23 (22-29) mmol/L Anion Gap 17 (12-20) BUN 20 H (9-16) mg/dL Creatinine 0.94 (0.5-1.4) mg/dL Estim Creat Clear Calc 97.2 Estimated GFR > 60 Random Glucose 156 H (60-115) mg/dL Calcium 9.3 (8.4-10.2) mg/dL Magnesium 1.8 (1.6-2.6) mg/dL Total Bilirubin 0.7 (0.0-1.0) mg/dL AST 29 (5-31) U/L ALT 62 H (0-31) U/L Alkaline Phosphatase 123 H (39-117) U/L Troponin I High Sens 8.9 (<3.5-17.0) ng/L Total Protein 7.3 (6.5-8.0) g/dL Albumin 4.0 (3.5-5.0) g/dL TSH 1.84 (0.32-4.0) uIU/mL Critical Care Time Critical Care Time Critical Care Time: Yes Total Critical Care Time: 60 Attestation: IV Cardizem and titration Discharge Plan Discharge Clinical Impression: Atrial fibrillation with RVR, Hypokalemia Patient Disposition: Admitted As Inpatient Interventions: Admission Worksheet (ED) Last Done: 04/14/25 14:26
[2025-04-14 10:51] LABS: Hematocrit 37.0 % (37.0-47.0); Hemoglobin 13.4 g/dl (12.0-16.0); Imm Gran Abs Auto 0.22 X10*3/uL (0.00-0.03); Imm Gran Pct Auto 1.3 % (0.0-0.4); Lymphocytes Absolute Auto 3.7 X10*3/uL (1.2-4.9); Mean Corpuscular HGB Conc 36.2 g/dl (31.0-35.0); Mean Corpuscular Hemoglobin 32.2 pg (27.0-33.0); Mean Corpuscular Volume 88.9 fL (80.0-98.0); NRBC Abs Auto 0.030 X10*3/uL (0.0-0.012); NRBC Pct Auto 0.2 /100WBC (0.0-0.2); Platelet Count 400 X10*3/uL (160-400); Red Blood Count 4.16 X10*6/uL (4.20-5.50); White Blood Count 16.6 X10*3/uL (4.8-10.8)
[2025-04-14 10:57] LABS: Alanine Aminotransferase 62 U/L (0-31); Albumin Level 4.0 g/dL (3.5-5.0); Alkaline Phosphatase 123 U/L (39-117); Anion Gap 17 (12-20); Aspartate Amino Transferase 29 U/L (5-31); Blood Urea Nitrogen 20 mg/dL (9-16); Calcium 9.3 mg/dL (8.4-10.2); Carbon Dioxide 23 mmol/L (22-29); Chloride 100 mmol/L (96-108); Creatinine Clr Calc Pharmacy 97.2; Estimated Glomerular Filt Rate > 60; Potassium 3.0 mmol/L (3.3-5.1); Sodium 137 mmol/L (135-145); Total Protein 7.3 g/dL (6.5-8.0)
[2025-04-14 11:04] LABS: Troponin-I High Sensitivity 8.9 ng/L (<3.5-17.0)
[2025-04-14] MEDS: Potassium Chloride Packet 20 MEQ PACKET 40 MEQ PO (11:44)
--- NOTE | 2025-04-14 12:32 | PC.NURSE ---
A&O x 3 patient was going for surgery workup for left shoulder when found to be in afib RVR Patient presented to ED HR 167, pain only in left shoulder IV 20G in right AC Cardizam bolus given no effect, pt started on cardizam drip HR still 147. titrated to max of 15Mg Provider notified order for metoprolol given Hr still 140s Patient asymptomatic at this time BPs became soft, provider notified. Order for 1L NS given BP 116/76 IV 22G placed in right forearm Patient to be admitted
[2025-04-14 13:03] LABS: Magnesium 1.8 mg/dL (1.6-2.6)
--- NOTE | 2025-04-14 13:09 | PHA.MEDREC ---
Addendum entered by Sherri Charles RPh 04/14/25 14:05: MED REC REVIEWED BY Arash Original Note: Pharmacy Consult ? Medication Reconciliation Pharmacy has completed the medication reconciliation. Patient was able to confirm all of her medications. patient states she is not take Oxycodone 5 mg and doesn't want to take because it makes her sick. Patient had all her morning medications today.
[2025-04-14] MEDS: Metoprolol Succinate ER 50 MG TAB.ER.24H PO (13:31)
--- NOTE | 2025-04-14 15:37 | P.HPHOSP_ITS ---
History of Present Illness Date of Service: 04/14/25 Attending physician on admission: Branden [facility] Chief Complaint: abnormal HR This is a 50-year-old female who presented for postop evaluation for planned surgical procedure for recent humerus fracture . When she had preoperative EKG she was noted to be in new onset atrial fibrillation with rapid ventricular response and she was sent to the emergency department for evaluation. In the emergency department her heart rate was elevated in the 160s. She received a dose of IV Cardizem with no improvement and was started on Cardizem drip. She quickly maxed out on Cardizem drip and received IV Lopressor followed by 2 doses of IV digoxin as well as a dose of po metoprolol. She initially reported some dizziness and some dyspnea on exertion. But at rest she is not dizzy. She denies SOB at this time. She does report left shoulder pain as she recently fell and has a left side humerus fracture. lab work significant for leukocytosis of 16.6, k of 3.0. She did received potassium replacement in the ED. She is persistently tachycardic and will be admitted for further management. Review of Systems 2 Review of Systems: Yes all other systems are reviewed and are negative Constitutional: Constitutional: Denies chills and Denies fever(s) Cardiovascular: Cardiovascular: Denies chest pain, Denies palpitations and Denies dyspnea Respiratory: Respiratory: Denies cough and Denies dyspnea Gastrointestinal: Gastrointestinal: Denies abdominal pain and Denies vomiting Endocrine: Endocrine: Denies palpitations [facility] Medical History Fibroid History of cholelithiasis Heartburn Excessive daytime sleepiness Lumbago with sciatica, right side Abnormal uterine bleeding Essential hypertension Mild intermittent asthma Disturbance, sleep Loud snoring Morbid obesity Family History Paternal Aunt Ovarian cancer Breast cancer Maternal Aunt Breast cancer Father Heart failure Diabetes Vascular abnormality Mother Memory loss Coronary artery abnormality History of prediabetes Brother No problems noted. Sister Fibromyalgia Daughter Overdose Daughter Borderline high blood pressure Other Mental health disorder Substance use disorder Surgical History Hx laparoscopic cholecystectomy (06/19/23) Hx of colonoscopy Hx of dilation and curettage H/O tubal ligation Social History Household Members: Spouse and Family Housing: House Do you presently have visiting nurse or other home services: No Alcohol intake: former Comment: counts correct Patient Tobacco Use Status: Former Tobacco user Tobacco use type: Cigarette Years Smoked: 15 yrs e-Cigarette/Vaping Use: Never Used Substance Use Type: Marijuana service: No Current occupational status: employed Cognitive needs: No Hearing needs: No Vision needs: Yes Meds Allergies Allergy/AdvReac Type Severity Reaction Status Date / Time egg (EGG) Allergy Intermediate ITCHY AND Verified 04/14/25 10:33 HIVES. lisinopril Allergy Intermediate Hives Verified 04/14/25 10:33 amoxicillin AdvReac Intermediate Diarrhea Verified 04/14/25 10:33 Egg White (Diagnostic) Allergy Intermediate hives Uncoded 04/14/25 10:33 Active Medications: Current Medications Acetaminophen (Acetaminophen 325 Mg Tablet) 650 mg PO Q6H PRN PRN Reason: Pain, Mild 1-3,fever,headache Calcium Carbonate (Calcium Carbonate 750 Mg Tab.Chew) 750 mg PO Q4H PRN PRN Reason: Heartburn Diltiazem HCl 125 mg/ Sodium (Chloride) 125 mls @ 0 mls/hr IVCONT .Q0M LACY; Protocol Last Titration: 04/14/25 11:13 Dose: 15 mg/hr, 15 mls/hr Lactated Ringer's (Lr) 1,000 mls @ 100 mls/hr IVCONT .Q10H LACY Acetaminophen (Ofirmev) 1,000 mg in 100 mls @ 400 mls/hr IV ONCE ONE Stop: 04/14/25 15:44 Magnesium Hydroxide (Milk Of Magnesia 30 Ml Oral.Susp) 30 ml PO DAILY PRN PRN Reason: Constipation Melatonin (Melatonin 3 Mg Tablet) 6 mg PO BEDTIME PRN PRN Reason: Insomnia Ondansetron HCl (Ondansetron Hcl 4 Mg/2 Ml Vial) 4 mg IVPUSH Q8H PRN PRN Reason: Nausea and Vomiting Sodium Chloride (0.9 % Sodium Chloride Flush 3 Ml Syringe) 3 ml IVFLUSH QSHIFT [facility] Home Medications ?Medication ?Instructions ?Recorded ?Confirmed ?Last Taken ?Type acetaminophen 500 mg tablet 500 mg PO Q6H PRN Pain 12/1904/14/25 06/19/23 History (Tylenol Extra Strength) ibuprofen 200 mg tablet (Advil) 200 mg PO Q6H PRN Pain 06/15/23 04/14/25 06/18/23 History Physical Exam 2 Vital Signs and Narrative: Vital Signs: Last Vital Signs Temp 98.2 F 04/14/25 10:45 Pulse 139 H 04/14/25 13:31 Resp 20 04/14/25 12:57 BP 110/41 L 04/14/25 13:31 Pulse Ox 96 04/14/25 12:14 O2 Del Method Room Air 04/14/25 12:14 BMI result Body Mass Index 46.6 Const: General: cooperative, alert and awake Nutritional Appearance: obese Orientation/consciousness: patient oriented x3 Resp: Other: no wheezes rhonchi or rales Effort & Inspection: no cough, no respiratory distress and no use of accessory muscles Auscultation: clear to auscultation bilaterally Cardio: Other: irregular, tachycardic GI: Inspection: No distended and Yes obesity Palpation (GI): Soft to palpation and nontender Neuro: General: patient oriented x3, moves all extremities and CN's II-XI intact bilaterally Extrem: General: No pedal edema Results Labs 04/15/25 06:45 04/15/25 06:45 Labs: Laboratory Results - last 24 hr 04/14/25 10:38 MCV 88.9 MCH 32.2 MCHC 36.2 H RDW 13.0 Plt Count 400 MPV 11.5 Immature Gran % (Auto) 1.3 H Neut % (Auto) 71.5 Lymph % (Auto) 22.0 [place] % (Auto) 4.6 Eos % (Auto) 0.2 Baso % (Auto) 0.4 Lymph # (Auto) 3.7 [place] # (Auto) 0.8 Eos # (Auto) 0.0 Baso # (Auto) 0.1 Abs Immat Gran (auto) 0.22 H Absolute Neuts (auto) 11.8 H Absolute Nucleated RBC 0.030 H Nucleated RBC % (auto) 0.2 Anion Gap 17 Estim Creat Clear Calc 97.2 Estimated GFR > 60 Random Glucose 156 H Calcium 9.3 Magnesium 1.8 Total Bilirubin 0.7 AST 29 ALT 62 H Alkaline Phosphatase 123 H Troponin I High Sens 8.9 Total Protein 7.3 Albumin 4.0 TSH 1.84 Assessment and Plan (1) Atrial fibrillation with RVR: Status: Acute (2) Hypokalemia: Status: Acute Plan This is a 50-year-old female with a history of morbid obesity, VENTURA on CPAP, HTN,, recent mechanical fall with left humeral fracture who presented for preop appointment was found to be in new onset atrial fibrillation New onset atrial fibrillation with RVR resistant to multiple medications continue cardizem drip d/w cardiology, avoid po meds and use prn IV lopressor if needed; may need to tolerate higher HR if BP stable and pt asymptomatic tentative plan for CV in am, NPO at midnight start AC with Eliquis echo ordered formal cardiology consultation IVF hypokalemia given 40 po replacement, will give additional 20 mEq follow BMP in am recent left humerus fx pain control with IV tylenol HTN hold carvedilol, losartan/HCTZ, norvasc to avoid hypotension VENTURA CPAP asthma no acute exacerbation avoid albuterol for now due to tachycardia morbid obesity BMI 46.6 weight loss encouraged DVT ppx - Eliquis Patient will likely require 2 midnight stay in the hospital for management of atrial fibrillation with rapid ventricular response with difficult to control heart rate requiring multiple doses of IV rate control medications, specialist evaluation close cardiac monitoring and possible cardioversion Quality Stroke Does the patient have a stroke diagnosis?: No VTE Prior VTE?: No VTE Risk Level:: Medical - moderate - high VTE Device Contraindication: Treatment Not Indicated VTE Drug Contraindication: N/A - Med Ordered
[2025-04-14] MEDS: Lactated Ringers 1,000 ML 100 ML IVCONT (16:34)
[2025-04-14] MEDS: Potassium Chloride ER 20 MEQ TAB.ER.PRT PO (16:36)
--- NOTE | 2025-04-14 17:38 | P.CONCA_ITS ---
History of Present Illness History of Present Illness Date of Service: 04/14/25 Requesting physician: Jillian Barajas Consult reason: atrial fibrillation Chief complaint: New Onset AFib Narrative: I was consulted to see debbie in cardiology consultation today for atrial fibrillation. He is a 50-year-old female with prior history of obesity, hypertension, obstructive sleep apnea, hyperlipidemia, asthma. Patient says about 3 days ago she was at home and she fell down in his dog and hurt her left arm. She has diagnose with a complex fracture of her left humerus. She came in today for preop evaluation as she had seen orthopedic surgery in [facility] and plan for surgery next week in [place]. However when she came in she was noted to have rapid heart rate and was referred to the emergency room where she is noted to be in rapid atrial fibrillation. Patient denies any symptoms of palpitations. However she says she usually short of breath and uses asthma with last night while she was sleeping she felt short of breath and had to use her inhalers multiple times. She is in pain related to a fracture in his also little anxious. She has been emergency room and heart rate has been difficult to control despite high dose Cardizem drip and multiple boluses. Unknown duration of atrial fibrillation although she says she has never been told that she is in atrial fibrillation but she is completely asymptomatic. She did get lightheaded when she got a bed today and a blood pressure is on the lower side limiting overall rate control medications with Lopressor. She is received couple of doses of IV digoxin. She has received not received any oral anticoagulation as yet. Patient denies any prior cardiac history. Denies any exertional cardiac symptoms. She says she tries to wear CPAP as much as possible but she gets claustrophobic can sometimes removes it. Review of Systems 2 Constitutional: Constitutional: Reports no additional constitutional complaints Eyes: Eyes: Reports no additional eye complaints ENT: Reports system reviewed and no additional complaints, except as documented Cardiovascular: Cardiovascular: Denies chest pain, Denies rapid heart rate, Reports lightheadedness, Denies Loss of Consciousness, Denies palpitations, Reports dyspnea on exertion and Reports orthopnea Respiratory: Respiratory: Reports no additional respiratory complaints and Reports dyspnea on exertion Gastrointestinal: Gastrointestinal: Reports no additional gastrointestinal complaints Genitourinary: Genitourinary: Reports no additional female genitourinary complaints Musculoskeletal: Musculoskeletal: Reports no additional musculoskeletal complaints Integumentary/Breasts: Skin/Breast: Reports system reviewed and no additional complaints, except as docu Neurologic: Reports system reviewed and no additional complaints, except as documented Psychiatric: Psychiatric: Reports no additional psychiatric complaints Endocrine: Endocrine: Denies palpitations PMFSH Past Medical History Medical History Fibroid History of cholelithiasis Heartburn Excessive daytime sleepiness Lumbago with sciatica, right side Abnormal uterine bleeding Essential hypertension Mild intermittent asthma Disturbance, sleep Loud snoring Morbid obesity Family History Family History Paternal Aunt Ovarian cancer Breast cancer Maternal Aunt Breast cancer Father Heart failure Diabetes Vascular abnormality Mother Memory loss Coronary artery abnormality History of prediabetes Brother No problems noted. Sister Fibromyalgia Daughter Overdose Daughter Borderline high blood pressure Other Mental health disorder Substance use disorder Surgical History Surgical History Hx laparoscopic cholecystectomy (06/19/23) Hx of colonoscopy Hx of dilation and curettage H/O tubal ligation Social History Social History Household Members: Family Housing: Apartment Do you presently have visiting nurse or other home services: No Alcohol intake: former Comment: counts correct Patient Tobacco Use Status: Former Tobacco user Tobacco use type: Cigarette Years Smoked: 15 yrs Smoked in Last 30 Days: No e-Cigarette/Vaping Use: Never Used Use of substances other than those prescribed or required for medical reasons: Yes Substance Use Type: Marijuana Substance Use Frequency: Monthly Advance Directives: No Advance Directives Information Provided: No Do you have a plan to hurt others: No Plan Patient : No service: No Current occupational status: employed Cognitive needs: No Hearing needs: No Vision needs: Yes Meds Allergies Allergy/AdvReac Type Severity Reaction Status Date / Time egg (EGG) Allergy Intermediate ITCHY AND Verified 04/14/25 10:33 HIVES. lisinopril Allergy Intermediate Hives Verified 04/14/25 10:33 amoxicillin AdvReac Intermediate Diarrhea Verified 04/14/25 10:33 Egg White (Diagnostic) Allergy Intermediate hives Uncoded 04/14/25 10:33 Active Medications: Current Medications Apixaban (Apixaban 5 Mg Tablet) 5 mg PO BID REPLACED BY [facility] Calcium Carbonate (Calcium Carbonate 750 Mg Tab.Chew) 750 mg PO Q4H PRN PRN Reason: Heartburn Digoxin (Digoxin 0.5 Mg/2 Ml Ampul) 0.25 mg IVPUSH Q6H REPLACED BY [facility]; Protocol Stop: 04/15/25 01:01 Diltiazem HCl 125 mg/ Sodium (Chloride) 125 mls @ 0 mls/hr IVCONT .Q0M REPLACED BY [facility]; Protocol Last Titration: 04/14/25 11:13 Dose: 15 mg/hr, 15 mls/hr Lactated Ringer's (Lr) 1,000 mls @ 100 mls/hr IVCONT .Q10H REPLACED BY [facility] Last Admin: 04/14/25 16:34 Dose: 100 mls/hr Acetaminophen (Ofirmev) 1,000 mg in 100 mls @ 400 mls/hr IV Q6H PRN PRN Reason: Pain, Severe (Pain Scale 7-10) Stop: 04/15/25 10:29 Magnesium Hydroxide (Milk Of Magnesia 30 Ml Oral.Susp) 30 ml PO DAILY PRN PRN Reason: Constipation Melatonin (Melatonin 3 Mg Tablet) 6 mg PO BEDTIME PRN PRN Reason: Insomnia Ondansetron HCl (Ondansetron Hcl 4 Mg/2 Ml Vial) 4 mg IVPUSH Q8H PRN PRN Reason: Nausea and Vomiting Oxycodone HCl (Oxycodone Hcl Immed Release 5 Mg Tablet) 5 mg PO Q6H PRN PRN Reason: Pain, Moderate(Pain Scale 4-6) Sodium Chloride (0.9 % Sodium Chloride Flush 3 Ml Syringe) 3 ml IVFLUSH QSHIFT REPLACED BY [facility] Last Admin: 04/14/25 15:53 Dose: Not Given Home Medications ?Medication ?Instructions ?Recorded ?Confirmed ?Last Taken ?Type acetaminophen 500 mg tablet 500 mg PO Q6H PRN Pain 12/1904/14/25 06/19/23 History (Tylenol Extra Strength) ibuprofen 200 mg tablet (Advil) 200 mg PO Q6H PRN Pain 06/15/23 04/14/25 06/18/23 History Physical Exam 2 Vital Signs: Vital Signs: Last Vital Signs Temp 98.3 F 04/14/25 17:33 Pulse 86 04/14/25 17:33 Resp 19 04/14/25 17:33 BP 143/79 H 04/14/25 17:33 Pulse Ox 94 04/14/25 17:33 O2 Del Method Room Air 04/14/25 17:33 BMI result Body Mass Index 46.6 Const: General: cooperative, alert, awake, acute distress mild and respiratory and anxious Nutritional Appearance: obese morbidly obese O rientation/consciousness: patient oriented x3 HEENT: Head: Yes normocephalic and Yes atraumatic Neck: Neck: Yes trachea midline, Yes supple and Yes no JVD Resp: Effort & Inspection: normal respiratory effort Auscultation: clear to auscultation bilaterally and diminished lung sounds Cardio: Jugular venous distension: no JVD Rate: tachycardic Rhythm: a bnormal rhythm irregularly irregular Heart sounds: S1 normal heart sound present, S2 normal heart sound present, no click, no gallops, no murmurs and no rubs GI: Auscultation: normal bowel sounds Skin: General skin exam: no rashes or lesions noted Neuro: General: patient oriented x3 and no focal motor deficits Extrem: General: Yes no clubbing, cyanosis or edema Objective Labs and Meds 04/14/25 10:38 04/14/25 10:38 Lab results: Laboratory Results - last 24 hr 04/14/25 10:38 WBC 16.6 H RBC 4.16 L Hgb 13.4 Hct 37.0 MCV 88.9 MCH 32.2 MCHC 36.2 H RDW 13.0 Plt Count 400 MPV 11.5 Immature Gran % (Auto) 1.3 H Neut % (Auto) 71.5 Lymph % (Auto) 22.0 [place] % (Auto) 4.6 Eos % (Auto) 0.2 Baso % (Auto) 0.4 Lymph # (Auto) 3.7 [place] # (Auto) 0.8 Eos # (Auto) 0.0 Baso # (Auto) 0.1 Abs Immat Gran (auto) 0.22 H Absolute Neuts (auto) 11.8 H Absolute Nucleated RBC 0.030 H Nucleated RBC % (auto) 0.2 Sodium 137 Potassium 3.0 L Chloride 100 Carbon Dioxide 23 Anion Gap 17 BUN 20 H Creatinine 0.94 Estim Creat Clear Calc 97.2 Estimated GFR > 60 Random Glucose 156 H Calcium 9.3 Magnesium 1.8 Total Bilirubin 0.7 AST 29 ALT 62 H Alkaline Phosphatase 123 H Troponin I High Sens 8.9 Total Protein 7.3 Albumin 4.0 TSH 1.84 Assessment and Plan (1) Atrial fibrillation with RVR: Status: Acute Atrial fibrillation with rapid ventricular response, patient unaware of her rapid heart rate unsure as to how long this has been going on. Said prior to her on fraction Patsy's find and she had did not have any symptoms and possible that this is been present in the last 3-4 days. She does complain of some shortness of breath at nighttime yesterday when she is laying down. Question this is contributing to the same including possible early heart failure. Will check NT pro BNP. Heart rate has been very difficult control and she has lightheadedness as well as difficulty to give her rate controlling medication because of the low blood pressure. However this is complicated by a recent fall and arm fracture which may require surgery in the near future. If however her rate remains difficult control and she remains symptomatic, will need to pursue MARK ANTHONY guided cardioversion which is scheduled tentatively for tomorrow. I am hoping that with additional 2 doses of digoxin she would either self convert and/or be rate controlled that we can potentially get her through her noncardiac surgery without pursuing cardioversion as that will require uninterrupted oral anticoagulation for at least 4 weeks. This was discussed with her. She was disappointed but she understands. Will follow with you Procedures Date of Service Date of Service: 04/14/25
--- NOTE | 2025-04-14 20:27 | P.CONCC_ITS ---
History of Present Illness Data of Consult Service Date: 04/14/25 Requesting physician: Masoud Marquez Primary Care Provider: Windy Mcelroy MD [facility] Reason for consult: AFIB RVR The patient is 50-year-old female with underlying history of morbid obesity, obstructive sleep apnea on BiPAP who is not compliant with the treatment, asthma, GERD, hypertension, hyperlipidemia, leg edema.? The patient experienced a mechanical fall this past Thursday after tripping on a box and landing on her left shoulder, sustaining a left proximal humeral neck fracture, placed on a sling and discharged home. The patient states that she started feeling palpitations yesterday night but they really became worse this morning, the patient had gone to the preop area and during a routine EKG she was noted to be on rapid AFib, sent to the emergency room.? The patient admits having some shortness of breath but this is not unusual for her because she has asthma.? Denies any chest pain, arm or jaw pain, nausea or vomiting. Admits cough, sputum production, pneumonia, bronchitis history as she is an asthmatic. ?In addition admits to bilateral leg edema intermittently for which she takes a diuretic, no history of CHF. In the emergency room her workup reveal white count 16.6, H and H of 13 and 37 respectively, platelets 400, sodium 137, potassium 3.0, chloride 100, carbon dioxide 23, BUN 20, creatinine 0.94, random glucose 156. ?Her EKG shows atrial fibrillation with RVR and some ST and T-wave abnormalities in the inferior lateral leads (age indeterminate) rate is 160 beats per minute.? QTC 240 MS.? No comparison. ?The patient had been treated with Cardizem drip, digoxin and Lopressor, potassium was replaced and she was placed on a continuous Cardizem drip. ?The patient's heart rate Ringer's between 120-140, she is hemodynamically stable, reportedly a consultation was made with Cardiology who requested to place the patient on full-dose anticoagulation therefore Eliquis was started and the patient will eventually be cardioverted. During my evaluation, the patient does not have any further complaints as above noted, she remains hemodynamically stable and her heart rate is 120 irregularly. Review of Systems 2 Review of Systems: As above, otherwise the patient denies any prior history of strokes, cold intolerance, migraine headaches, head trauma, no eyes, ears or nose problems, no problems swallowing or with phonation, no thyroid disease, denies any history of coronary disease, abdominal pain, nausea, vomiting, diarrhea, abdominal surgeries, melena, hematochezia, hematemesis, hematuria, kidney stones, liver problems, immunocompromise state of any kind, no history of DVT or PE, fractures or extremity surgeries all other review of systems were reviewed and they were all negative. Yes all other systems are reviewed and are negative [facility], [facility] Past Medical History Medical History Fibroid History of cholelithiasis Heartburn Excessive daytime sleepiness Lumbago with sciatica, right side Abnormal uterine bleeding Essential hypertension Mild intermittent asthma Disturbance, sleep Loud snoring Morbid obesity Family History Family History Paternal Aunt Ovarian cancer Breast cancer Maternal Aunt Breast cancer Father Heart failure Diabetes Vascular abnormality Mother Memory loss Coronary artery abnormality History of prediabetes Brother No problems noted. Sister Fibromyalgia Daughter Overdose Daughter Borderline high blood pressure Other Mental health disorder Substance use disorder Surgical History Surgical History Hx laparoscopic cholecystectomy (06/19/23) Hx of colonoscopy Hx of dilation and curettage H/O tubal ligation Social History Social History Household Members: Spouse and Family Housing: House Do you presently have visiting nurse or other home services: No Alcohol intake: former Comment: counts correct Patient Tobacco Use Status: Former Tobacco user Tobacco use type: Cigarette Years Smoked: 15 yrs e-Cigarette/Vaping Use: Never Used Substance Use Type: Marijuana service: No Current occupational status: employed Cognitive needs: No Hearing needs: No Vision needs: Yes Meds Allergies Allergy/AdvReac Type Severity Reaction Status Date / Time egg (EGG) Allergy Intermediate ITCHY AND Verified 04/14/25 10:33 HIVES. lisinopril Allergy Intermediate Hives Verified 04/14/25 10:33 amoxicillin AdvReac Intermediate Diarrhea Verified 04/14/25 10:33 Egg White (Diagnostic) Allergy Intermediate hives Uncoded 04/14/25 10:33 Active Medications: Current Medications Apixaban (Apixaban 5 Mg Tablet) 5 mg PO BID [facility] Calcium Carbonate (Calcium Carbonate 750 Mg Tab.Chew) 750 mg PO Q4H PRN PRN Reason: Heartburn Last Admin: 04/14/25 19:54 Dose: 750 mg Digoxin (Digoxin 0.5 Mg/2 Ml Ampul) 0.25 mg IVPUSH Q6H [facility]; Protocol Stop: 04/15/25 01:01 Last Admin: 04/14/25 18:52 Dose: 0.25 mg Diltiazem HCl 125 mg/ Sodium (Chloride) 125 mls @ 0 mls/hr IVCONT .Q0M [facility]; Protocol Last Admin: 04/14/25 19:44 Dose: 15 mg/hr, 15 mls/hr Acetaminophen (Ofirmev) 1,000 mg in 100 mls @ 400 mls/hr IV Q6H PRN PRN Reason: Pain, Severe (Pain Scale 7-10) Stop: 04/15/25 10:29 Magnesium Hydroxide (Milk Of Magnesia 30 Ml Oral.Susp) 30 ml PO DAILY PRN PRN Reason: Constipation Melatonin (Melatonin 3 Mg Tablet) 6 mg PO BEDTIME PRN PRN Reason: Insomnia Metoprolol Tartrate (Metoprolol Tartrate 5 Mg/5 Ml Vial) 5 mg IVPUSH Q6H PRN; Protocol PRN Reason: HR > 140 Ondansetron HCl (Ondansetron Hcl 4 Mg/2 Ml Vial) 4 mg IVPUSH Q8H PRN PRN Reason: Nausea and Vomiting Oxycodone HCl (Oxycodone Hcl Immed Release 5 Mg Tablet) 5 mg PO Q6H PRN PRN Reason: Pain, Moderate(Pain Scale 4-6) Sodium Chloride (0.9 % Sodium Chloride Flush 3 Ml Syringe) [facility] Last Admin: 04/14/25 15:53 Dose: Not Given Home Medications ?Medication ?Instructions ?Recorded ?Confirmed ?Last Taken ?Type acetaminophen 500 mg tablet 500 mg PO Q6H PRN Pain 12/1904/14/25 06/19/23 History (Tylenol Extra Strength) ibuprofen 200 mg tablet (Advil) 200 mg PO Q6H PRN Pain 06/15/23 04/14/25 06/18/23 History Physical Exam 2 Vital Signs: Vital Signs: Last Vital Signs Temp 98.3 F 04/14/25 18:12 Pulse 140 H 04/14/25 19:44 Resp 19 04/14/25 18:12 BP 117/69 04/14/25 19:44 Pulse Ox 97 04/14/25 18:12 O2 Del Method Room Air 04/14/25 18:12 BMI result Body Mass Index 46.6 General:? Alert oriented x3 no acute distress. No accessory muscle usage.? Following all commands. Skin:? Thin, Intact, no lesions, edema, erythema, clubbing or cyanosis.? No ulcers. HEENT:? Head is normocephalic, atraumatic, pupils equal. Buccal mucosa is dry.? No cervical lymphadenopathy, bruits or masses. Cardiac:? Irregularly irregular 120 beats per minute, no murmurs, rubs, gallops. no JVD Pulmonary:? Diminished lung sounds bilaterally fine expiratory wheezing bilaterally .? No crackles, rales or rhonchi. Abdomen:? Protuberant, positive bowel sounds in all 4 quadrants.? Soft, nontender, no rebound or guarding.? Musculoskeletal:? The patient is able to move the right upper extremity in the bilateral lower extremities at the major joints upon request without crepitus or pain.? Left upper extremity is on a shoulder sling.? Full range of motion of the left hand fingers.? 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 Neurologic:? As above.? No focal deficits noted. Vascular:? 2+ pulses upper and lower extremities distally.? Less than 2nd capillary refill of fingers and toes bilaterally upper and lower extremities Results Labs 04/14/25 10:38 04/14/25 20:46 Labs: Short CBC 04/14/25 Range/Units 10:38 WBC 16.6 H (4.8-10.8) X10*3/uL Hgb 13.4 (12.0-16.0) g/dl Hct 37.0 (37.0-47.0) % Plt Count 400 (160-400) X10*3/uL BMP 04/14/25 10:38 Sodium 137 Potassium 3.0 L Chloride 100 Carbon Dioxide 23 BUN 20 H Creatinine 0.94 Calcium 9.3 Liver Function 04/14/25 Range/Units 10:38 Total Bilirubin 0.7 (0.0-1.0) mg/dL AST 29 (5-31) U/L ALT 62 H (0-31) U/L Alkaline Phosphatase 123 H (39-117) U/L Albumin 4.0 (3.5-5.0) g/dL Assessment and Plan (1) Atrial fibrillation with RVR: Status: Acute Plan ASSESSMENT : 1. New onset atrial fibrillation with rapid ventricular response 2. Elevated BNP without current clinical evidence of CHF 3. Morbid obesity 4. History of essential hypertension 5. Asthma with mild intermittent wheezing but no acute exacerbation. 6. Reactive leukocytosis without evidence of infection 7. Acute hypokalemia post replacement 8. Clinical dehydration with early acute kidney injury due to BUN to creatinine ratio of 22 9. Obstructive sleep apnea we will need CPAP PLAN OF CARE: The patient has been admitted to the medical floor, at this point the patient remains hemodynamically stable with systolic blood pressure between 120-150, her heart rate is between 120 and 140.? She is on a Cardizem drip at 15 mg per hour, given that Cardiology did not agree with administration of amiodarone.? We suggest Lopressor IV push q.6 hours p.r.n. heart rate greater than 140. I will repeat laboratories now, obtain a chest x-ray.? The patient will have a transesophageal echo for possible cardioversion tomorrow, she has been started on anticoagulation. ?Replace electrolytes accordingly. If the patient becomes hemodynamically stable or heart rate is not well controlled with the above-mentioned medications, please do not hesitate to contact us again. The patient is in full-dose Eliquis therefore even if her BNP is elevated due to heart strain in the setting of PE, unless she becomes hypoxic I do not think it is necessary to do a CT angiogram at this point, however adding a troponin would be of value to rule out the possibility of a saddle embolism; if trop is elevated will do a bedside echo otherwise will continue to monitor. Case discussed with Dr Nixon. We thank you for involving us in the care of this patient. This patient counter and care had a high probability of a clinically significant, sudden, or life threatening deterioration of this patient's condition which required my full and direct attention, intervention and personal management. Critical care time used for critical evaluation of this patient, diagnosis, treatment and coordination of care, review her records and documentation TOTAL CRITICAL CARE TIME 60?MIN. discussion and coordination with consultants, completely separate from any procedures performed. Patient's care was discussed in detail with Dr. Dudley who is aware of all the above as well as the plan of care for this patient. Total time managing care of this patient today: 60 minutes.
[2025-04-14 21:10] LABS: Alanine Aminotransferase 51 U/L (0-31); Albumin Level 3.8 g/dL (3.5-5.0); Alkaline Phosphatase 105 U/L (39-117); Anion Gap 13 (12-20); Aspartate Amino Transferase 25 U/L (5-31); Blood Urea Nitrogen 22 mg/dL (9-16); Calcium 9.0 mg/dL (8.4-10.2); Carbon Dioxide 22 mmol/L (22-29); Chloride 106 mmol/L (96-108); Creatinine Clr Calc Pharmacy 76.8; Estimated Glomerular Filt Rate 48; Potassium 3.1 mmol/L (3.3-5.1); Sodium 138 mmol/L (135-145); Total Protein 6.9 g/dL (6.5-8.0)
[2025-04-14 21:24] LABS: Troponin-I High Sensitivity 7.1 ng/L (<3.5-17.0)
[2025-04-14] MEDS: 0.9 % Sodium Chloride Flush 3 ML SYRINGE IVFLUSH (23:01)
[2025-04-15] VITALS (10 sets, daily range): BP systolic 123–144; BP diastolic 60–70; PULSE 76–83; RESP 15–18; TEMP 36.6–36.9; O2SAT 96–99
--- NOTE | 2025-04-15 07:00 | CA_ITS ---
Transthoracic Echocardiogram Patient (Last, First, Middle): Marianne Romero, Gender: F Date of : 1975 Age: 50 Procedure Date: 04/15/2025 Procedure Type: Transthoracic [place] [facility] [place]: 160.02 cm Weight: 130.64 kg BSA: 2.26 m2 Heart Rate: bpm BP: 93 / 58 mmHg Dump Grounds Checker: MARY Referring MD: Jillian BRANHAM Photographer Aerial: Ric Ahumada MD Symptoms: new afib Study Quality: Fair ECG Rhythm: Sinus Conclusions: - 1. Normal LV ejection fraction of 65-70% with impaired relaxation filling pattern 2. Cardiac valvular Dopplers within normal limits 3. Normal measured RV systolic pressure 4. No gross pericardial effusion Findings Left Ventricle Normal left ventricular size and systolic function. There is mildly increased left ventricular wall thickness. The visually estimated ejection fraction is between 65-70%. Spectral Doppler is indicative of an impaired relaxation filling pattern. E/E prime ratio is between 8 and 15 consistent with indeterminate filling pressures. Right Ventricle Normal right ventricular cavity size and systolic function. Atria The left atrium is normal in size. There is lipomatous hypertrophy of the interatrial septum. Interatrial shunt cannot be excluded. The right atrium was not well visualized. Aortic Valve The aortic valve was not well visualized. There is no aortic valve stenosis. There is no aortic valve regurgitation. Mitral Valve Normal mitral valve structure and function. There is trace mitral valve regurgitation. There is no mitral valve stenosis. Pulmonic Valve The pulmonic valve was not well visualized. Tricuspid Valve Likely normal tricuspid valve structure and function. There is trace tricuspid valve regurgitation. The right ventricular systolic pressure is normal. The right ventricular systolic pressure is 14 mmHg. Normal right atrial pressure. There is no evidence of pulmonary hypertension. Great Vessels The aorta was not well visualized. The pulmonary artery was not well visualized. Venous The inferior vena cava is normal in size and collapses greater than 50% with inspiration. Pericardium/Pleural There is no evidence of pericardial effusion. Prior Study Comparison No prior study available for comparison. Measurements 2D Linear Measurements IVSd: 1.30 0.6-0.9/0.6-1.0 cm LVIDd: 3.89 3.9-5.3/4.2-5.9 cm LVIDd Index: 1.72 2.4-3.2/2.2-3.1 cm/m2 LVIDs: 2.67 2.0-3.6 cm LVPWd: 1.26 0.7-1.1 cm Ao Root: 3.40 2.1-3.5 cm LA Diam: 3.50 2.7-3.8/3.0-4.0 cm LAIDs Index: 1.55 1.5-2.3 cm/m2 LV Mass: 217.85 67-162/88-224 g LV Mass Index: 96.39 43-95/49-115 g/m2 LVOT Diam: 2.30 3.0+(-)1.3 cm 2D Systolic Function EF 4C: 69.90 >55% EF 2C: 61.80 >55% EF BiP: 66.50 >55% Mitral Valve MV Pk E: 0.82 MV PK A: 0.93 MV Decel Time: 160.00 E/A: 0.90 E'Lateral: 9.03 E'Medial: 8.27 E/E' Med: 9.90 E/E' Lat: 9.10 PHT: 47.00 MVA PHT: 4.68 Decel Boyle: 5.14 Aortic Valve AoV Pk Zhang: 2.13 AoV Mn Zhang: 1.36 AoV VTI: 0.40 AoV Pk Grad: 18.00 Aov Mn Grad: 9.00 DESI Cont.VTI: 3.21 LVOT LVOT Pk Zhang: 1.59 LVOT Mn Zhang: 1.01 LVOT VTI: 0.31 LVOT Pk Grad: 10.00 LVOT Mn Grad: 5.00 LVOT Diam: 2.30 LVOT Area: 4.15 Diastolic Function MV Pk E: 0.82 MV Pk A: 0.93 E/A: 0.90 E'Medial: 8.27 E/E' Med: 9.90 E' Laterial: 9.03 E/E' Lat: 9.10 Tricuspid Valve TR Pk Zhang: 1.67 TR Pk Grad: 11.00 RA Press: 3.00 RVSP: 14.00 Great Vessels Aorta Ao Root-2D: 3.40 2.0-3.7 cm Pulmonary Valve PV Pk Zhang: 1.29 Peak PV Grad: 7.00 Updated in Other Vendor System with Status of Final Ric Ahumada MD electronically signed on 04/15/2025 12:39:14 PM with status of Final
[2025-04-15 07:42] LABS: Hematocrit 31.6 % (37.0-47.0); Hemoglobin 11.3 g/dl (12.0-16.0); Mean Corpuscular HGB Conc 35.8 g/dl (31.0-35.0); Mean Corpuscular Hemoglobin 32.2 pg (27.0-33.0); Mean Corpuscular Volume 90.0 fL (80.0-98.0); NRBC Abs Auto 0.020 X10*3/uL (0.0-0.012); NRBC Pct Auto 0.1 /100WBC (0.0-0.2); Platelet Count 296 X10*3/uL (160-400); Red Blood Count 3.51 X10*6/uL (4.20-5.50); White Blood Count 13.4 X10*3/uL (4.8-10.8)
[2025-04-15 08:19] LABS: Anion Gap 14 (12-20); Blood Urea Nitrogen 14 mg/dL (9-16); Calcium 8.9 mg/dL (8.4-10.2); Carbon Dioxide 21 mmol/L (22-29); Chloride 105 mmol/L (96-108); Creatinine Clr Calc Pharmacy 125.2; Estimated Glomerular Filt Rate > 60; Magnesium 1.8 mg/dL (1.6-2.6); Potassium 2.9 mmol/L (3.3-5.1); Sodium 137 mmol/L (135-145)
[2025-04-15] MEDS: Potassium Chloride ER 20 MEQ TAB.ER.PRT 40 MEQ PO (09:01)
[2025-04-15] MEDS: 0.9 % Sodium Chloride Flush 3 ML SYRINGE IVFLUSH (09:01)
--- NOTE | 2025-04-15 10:22 | HO.PM.IMPN ---
Subjective Subjective Date of Service: 04/15/25 Interval History: Overnight converted to sinus rythm and has maintained, a bit sob likely from chf Physical Exam Vital Signs: Vital Signs: Last Vital Signs Temp 98.5 F 04/15/25 07:28 Pulse 81 04/15/25 07:28 Resp 16 04/15/25 07:28 BP 131/61 04/15/25 07:28 Pulse Ox 99 04/15/25 07:28 O2 Del Method Room Air 04/15/25 07:28 BMI result Body Mass Index 46.6 Const: Other: General: AO X 3, no acute distress Resp: CTA bilateral CVS: S1,S2,RRR GI: +BS, NT, no distention Skin: No rash Neuro: motor grossly intact Psych: appropriate affect Objective Data Active Medications Apixaban (Apixaban 5 Mg Tablet) 5 mg PO BID [facility] Last Admin: 04/15/25 08:57 Dose: 5 mg Documented By: HARRY Calcium Carbonate (Calcium Carbonate 750 Mg Tab.Chew) 750 mg PO Q4H PRN PRN Reason: Heartburn Last Admin: 04/14/25 19:54 Dose: 750 mg Documented By: MACO Carvedilol (Carvedilol 25 Mg Tablet) 25 mg PO BID [facility]; Protocol Last Admin: 04/15/25 08:56 Dose: 25 mg Documented By: HARRY Digoxin (Digoxin 0.125 Mg Tablet) 0.125 mg PO DAILY [facility]; Protocol Last Admin: 04/15/25 08:57 Dose: 0.125 mg Documented By: HARRY Diltiazem HCl (Diltiazem Hcl 30 Mg Tablet) 30 mg PO Q6H [facility]; Protocol Last Admin: 04/15/25 08:56 Dose: 30 mg Documented By: HARRY Furosemide (Furosemide 40 Mg/4 Ml Vial) 40 mg IVPUSH DAILY [facility]; Protocol Diltiazem HCl 125 mg/ Sodium (Chloride) 125 mls @ 0 mls/hr IVCONT .Q0M [facility]; Protocol On Hold: 04/14/25 22:27 Last Titration: 04/14/25 22:29 Dose: 0 mg/hr, 0 mls/hr Documented By: MAURICIO Acetaminophen (Ofirmev) 1,000 mg in 100 mls @ 400 mls/hr IV Q6H PRN PRN Reason: Pain, Severe (Pain Scale 7-10) Stop: 04/15/25 10:29 Last Infusion: 04/15/25 06:15 Dose: Infused Documented By: MAURICIO Amiodarone HCl (Nexterone) 150 mg in 100 mls @ 600 mls/hr IV ONCE ONE Stop: 04/15/25 10:27 Amiodarone HCl 900 mg/ Sodium (Chloride) 518 mls @ 0 mls/hr IVCONT .Q0M [facility]; Protocol Magnesium Hydroxide (Milk Of Magnesia 30 Ml Oral.Susp) 30 ml PO DAILY PRN PRN Reason: Constipation Melatonin (Melatonin 3 Mg Tablet) 6 mg PO BEDTIME PRN PRN Reason: Insomnia Metoprolol Tartrate (Metoprolol Tartrate 5 Mg/5 Ml Vial) 5 mg IVPUSH Q6H PRN; Protocol PRN Reason: HR > 140 Ondansetron HCl (Ondansetron Hcl 4 Mg/2 Ml Vial) 4 mg IVPUSH Q8H PRN PRN Reason: Nausea and Vomiting Oxycodone HCl (Oxycodone Hcl Immed Release 5 Mg Tablet) 5 mg PO Q6H PRN PRN Reason: Pain, Moderate(Pain Scale 4-6) Sodium Chloride (0.9 % Sodium Chloride Flush 3 Ml Syringe) [facility] Last Admin: 04/15/25 09:01 Dose: 3 ml Documented By: HARRY Labs 04/15/25 06:45 04/15/25 06:45 Labs: Laboratory Results - last 24 hr 04/14/25 04/14/25 04/14/25 10:38 18:15 20:46 MCV 88.9 MCH 32.2 MCHC 36.2 H RDW 13.0 Plt Count 400 MPV 11.5 Immature Gran % (Auto) 1.3 H Neut % (Auto) 71.5 Lymph % (Auto) 22.0 Bartholomew % (Auto) 4.6 Eos % (Auto) 0.2 Baso % (Auto) 0.4 Lymph # (Auto) 3.7 Bartholomew # (Auto) 0.8 Eos # (Auto) 0.0 Baso # (Auto) 0.1 Abs Immat Gran (auto) 0.22 H Absolute Neuts (auto) 11.8 H Absolute Nucleated RBC 0.030 H Nucleated RBC % (auto) 0.2 Anion Gap 17 13 Estim Creat Clear Calc 97.2 76.8 Estimated GFR > 60 48 Random Glucose 156 H 114 Calcium 9.3 9.0 Magnesium 1.8 Total Bilirubin 0.7 0.6 AST 29 25 ALT 62 H 51 H Alkaline Phosphatase 123 H 105 Troponin I High Sens 8.9 NT-Pro-B Natriuret Pep 4277.8 H Total Protein 7.3 6.9 Albumin 4.0 3.8 TSH 1.84 04/14/25 04/15/25 20:59 06:45 MCV 90.0 MCH 32.2 MCHC 35.8 H RDW 13.1 Plt Count 296 D MPV 11.8 Immature Gran % (Auto) Neut % (Auto) Lymph % (Auto) Bartholomew % (Auto) Eos % (Auto) Baso % (Auto) Lymph # (Auto) Bartholomew # (Auto) Eos # (Auto) Baso # (Auto) Abs Immat Gran (auto) Absolute Neuts (auto) Absolute Nucleated RBC 0.020 H Nucleated RBC % (auto) 0.1 Anion Gap 14 Estim Creat Clear Calc 125.2 Estimated GFR > 60 Random Glucose 115 Calcium 8.9 Magnesium 1.8 Total Bilirubin AST ALT Alkaline Phosphatase Troponin I High Sens 7.1 NT-Pro-B Natriuret Pep Total Protein Albumin TSH Assessment and Plan (1) Atrial fibrillation with RVR: Status: Acute (2) Hypokalemia: Status: Acute Plan This is a 50-year-old female with a history of morbid obesity, VENTURA on CPAP, HTN,, recent mechanical fall with left humeral fracture who presented for preop appointment was found to be in new onset atrial fibrillation New onset atrial fibrillation with RVR resistant to multiple medications was on cardizem drip, lopressor, dig and finally converted to sinus rythm starting amio drip today, started eliquis now on coreg, cardizem, stop dig Fluid overload d/t IVF, IV Lasix hypOkalemia d/t diarrhea replace with PO K recent left humerus fx pain control with IV tylenol Outpatient surgery diarrhea, no pain, stool stuy pending but it doesn't seem she is having it anymore HTN coreg, diltiazem and VENTURA CPAP asthma no acute exacerbation avoid albuterol PRN morbid obesity BMI 46.6 weight loss encouraged DVT ppx - Eliquis Quality Stroke Does the patient have a stroke diagnosis?: No VTE Prior VTE?: No VTE Risk Level:: Medical - moderate - high VTE Device Contraindication: Treatment Not Indicated VTE Drug Contraindication: N/A - Med Ordered
--- NOTE | 2025-04-15 10:28 | P.PNCA_ITS ---
Subjective Subjective Date of Service: 04/15/25 Principal diagnosis: New onset atrial fibrillation, elevated BNP. Interval history: Patient converted to sinus rhythm overnight at midnight. Has remained in sinus rhythm. Feeling better although complains of shortness of breath. BNP in the 4700 range. Overall feeling better. Kwesi cardioversion was therefore counseled. Review of Systems Constitutional: Reports no additional constitutional complaints Cardiovascular: Denies chest pain, Denies rapid heart rate, Denies leg edema, Denies lightheadedness and Reports dyspnea Respiratory: Reports no additional respiratory complaints and Reports dyspnea Gastrointestinal: Reports no additional gastrointestinal complaints Musculoskeletal: Reports no additional musculoskeletal complaints Skin/Breast: Reports system reviewed and no additional complaints, except as docu Psychiatric: Reports no additional psychiatric complaints Endocrine: Reports no additional endocrine complaints Physical Exam Vital Signs: Last Vital Signs Temp 98.5 F 04/15/25 07:28 Pulse 81 04/15/25 07:28 Resp 16 04/15/25 07:28 BP 131/61 04/15/25 07:28 Pulse Ox 99 04/15/25 07:28 O2 Del Method Room Air 04/15/25 07:28 BMI result Body Mass Index 46.6 Const General: cooperative, alert, awake, acute distress mild and respiratory and anxious Nutritional Appearance: obese morbidly obese Orientation/consciousness: patient oriented x3 HEENT Head: Yes normocephalic and Yes atraumatic Neck Neck: Yes trachea midline, Yes supple and Yes no JVD Resp Effort & Inspection: normal respiratory effort Auscultation: clear to auscultation bilaterally and diminished lung sounds Cardio Jugular venous distension: no JVD Rate: regular rate Rhythm: regular rhythm Heart sounds: S1 normal heart sound present, S2 normal heart sound present, no click, no gallops, no murmurs and no rubs GI Auscultation: normal bowel sounds Skin General skin exam: no rashes or lesions noted Neuro General: patient oriented x3 and no focal motor deficits Extrem General: Yes no clubbing, cyanosis or edema Objective Labs and Meds 04/15/25 06:45 04/15/25 06:45 Lab results: Laboratory Results - last 24 hr 04/14/25 04/14/25 04/14/25 10:38 18:15 20:46 WBC 16.6 H RBC 4.16 L Hgb 13.4 Hct 37.0 MCV 88.9 MCH 32.2 MCHC 36.2 H RDW 13.0 Plt Count 400 MPV 11.5 Immature Gran % (Auto) 1.3 H Neut % (Auto) 71.5 Lymph % (Auto) 22.0 [place] % (Auto) 4.6 Eos % (Auto) 0.2 Baso % (Auto) 0.4 Lymph # (Auto) 3.7 [place] # (Auto) 0.8 Eos # (Auto) 0.0 Baso # (Auto) 0.1 Abs Immat Gran (auto) 0.22 H Absolute Neuts (auto) 11.8 H Absolute Nucleated RBC 0.030 H Nucleated RBC % (auto) 0.2 Sodium 137 138 Potassium 3.0 L 3.1 L Chloride 100 106 Carbon Dioxide 23 22 Anion Gap 17 13 BUN 20 H 22 H Creatinine 0.94 1.19 Estim Creat Clear Calc 97.2 76.8 Estimated GFR > 60 48 Random Glucose 156 H 114 Calcium 9.3 9.0 Magnesium 1.8 Total Bilirubin 0.7 0.6 AST 29 25 ALT 62 H 51 H Alkaline Phosphatase 123 H 105 Troponin I High Sens 8.9 NT-Pro-B Natriuret Pep 4277.8 H Total Protein 7.3 6.9 Albumin 4.0 3.8 TSH 1.84 04/14/25 04/15/25 20:59 06:45 WBC 13.4 H RBC 3.51 L Hgb 11.3 L Hct 31.6 L MCV 90.0 MCH 32.2 MCHC 35.8 H RDW 13.1 Plt Count 296 D MPV 11.8 Immature Gran % (Auto) Neut % (Auto) Lymph % (Auto) [place] % (Auto) Eos % (Auto) Baso % (Auto) Lymph # (Auto) [place] # (Auto) Eos # (Auto) Baso # (Auto) Abs Immat Gran (auto) Absolute Neuts (auto) Absolute Nucleated RBC 0.020 H Nucleated RBC % (auto) 0.1 Sodium 137 Potassium 2.9 L* Chloride 105 Carbon Dioxide 21 L Anion Gap 14 BUN 14 Creatinine 0.73 Estim Creat Clear Calc 125.2 Estimated GFR > 60 Random Glucose 115 Calcium 8.9 Magnesium 1.8 Total Bilirubin AST ALT Alkaline Phosphatase Troponin I High Sens 7.1 NT-Pro-B Natriuret Pep Total Protein Albumin TSH Progress Note: A&P Assessment and plan (1) Paroxysmal atrial fibrillation: Status: Acute Assessment and Plan: Paroxysmal atrial fibrillation this middle-aged woman most likely triggered by her underlying structural heart disease and risk factors including obesity, partially treated sleep apnea as well as hypertension. She will need an echocardiogram. She has converted to sinus rhythm on her own and therefore does not require longterm anticoagulation for 4-6 weeks. She can be anticoagulated for up to 3 days prior to her noncardiac surgery and then resume it after the surgery is completed. I would treat her with amiodarone loading 400 mg b.i.d. for 2 weeks to prevent recurrent atrial fibrillation for now and in the long run will need further management decisions. Once his surgical therapies completed will follow up in the clinic and will need further workup as outpatient. This was discussed with her. She understands and agrees. (2) Congestive heart failure: Status: Acute Assessment and Plan: Congestive heart failure exacerbation related to atrial fibrillation. She is still short of breath. Will give him Lasix 40 mg IV x1. Check antiplatelet BNP tomorrow. Replace electrolytes and potassium. Manage rhythm. Most likely atrial fibrillation related to underlying risk factors with new onset atrial fibrillation. Echocardiogram as above. Strict intake and output chart needs to maintain for 1 day. Importance of CPAP therapy was discussed with her. Continue management of hypertension aggressively and can resume her carvedilol but add spironolactone instead of amlodipine for her blood pressure control. Hold off on adding Jardiance as she is planned to undergo surgery in near future. Will follow up with you tomorrow. Time Spent With Patient Time: Total time managing care of this patient today ____ minutes. Progress Note: Quality Stroke Does the patient have a stroke diagnosis?: No Procedures Date of Service Date of Service: 04/15/25
[2025-04-15] MEDS: Amiodarone/Dextrose 150 MG/100 ML PLAST..BAG 600 MG IV (12:00)
[2025-04-15] MEDS: Furosemide 40 MG/4 ML VIAL IVPUSH (12:09)
[2025-04-15 12:28] LABS: CDiff Gene PCR NEGATIVE (Negative)
[2025-04-15 12:57] LABS: E. coli EAEC Not Detected (Not Detect.); E. coli EPEC Not Detected (Not Detect.); E. coli ETEC Not Detected (Not Detect.); E. coli STEC Not Detected (Not Detect.); Shigella sp./EIEC Not Detected (Not Detect.)
[2025-04-16 03:46] VITALS: RESP 18
[2025-04-16 04:50] VITALS: BP 137/65; PULSE 72; RESP 16; TEMP 36.6; O2SAT 96
[2025-04-16 08:00] VITALS: BP 149/70; PULSE 73; RESP 20; TEMP 36.2; O2SAT 98
[2025-04-16 08:02] LABS: Anion Gap 12 (12-20); Blood Urea Nitrogen 12 mg/dL (9-16); Calcium 8.7 mg/dL (8.4-10.2); Carbon Dioxide 24 mmol/L (22-29); Chloride 104 mmol/L (96-108); Creatinine Clr Calc Pharmacy 145.0; Estimated Glomerular Filt Rate > 60; Potassium 3.0 mmol/L (3.3-5.1); Sodium 137 mmol/L (135-145)
[2025-04-16] MEDS: Furosemide 40 MG/4 ML VIAL IVPUSH (08:49)
[2025-04-16] MEDS: Potassium Chloride ER 20 MEQ TAB.ER.PRT 40 MEQ PO (08:50)
[2025-04-16 08:54] LABS: Alanine Aminotransferase 42 U/L (0-31); Albumin Level 3.7 g/dL (3.5-5.0); Alkaline Phosphatase 101 U/L (39-117); Aspartate Amino Transferase 30 U/L (5-31); Total Protein 6.6 g/dL (6.5-8.0)
[2025-04-16 09:08] LABS: Thyroid Stimulating Hormone 1.44 uIU/mL (0.32-4.0)
[2025-04-16 10:40] VITALS: BP 140/70; PULSE 71
--- NOTE | 2025-04-16 10:57 | PM.PNCARD ---
Subjective Subjective Date of Service: 04/16/25 Principal diagnosis: New onset atrial fibrillation, elevated BNP. Interval history: Patient maintaining sinus rhythm. Had brief episodes of atrial fibrillation last night. Continue amiodarone loading and switch to p.o. amiodarone 400 mg b.i.d.. Eliquis last dose should be tomorrow morning as she is planned for surgery on 04/20. Resume Eliquis after that. Patient is complaining still of some shortness of breath. Has received Lasix although intake and output chart poorly chart it. She has developed diuretic related to norovirus. Review of Systems Constitutional: Reports no additional constitutional complaints Cardiovascular: Denies chest pain, Denies rapid heart rate, Denies leg edema, Denies lightheadedness and Reports dyspnea Respiratory: Reports no additional respiratory complaints and Reports dyspnea Gastrointestinal: Reports no additional gastrointestinal complaints Musculoskeletal: Reports no additional musculoskeletal complaints Skin/Breast: Reports system reviewed and no additional complaints, except as docu Psychiatric: Reports no additional psychiatric complaints Endocrine: Reports no additional endocrine complaints Physical Exam Vital Signs: Last Vital Signs Temp 97.2 F 04/16/25 08:00 Pulse 71 04/16/25 10:40 Resp 20 04/16/25 08:00 BP 140/70 H 04/16/25 10:40 Pulse Ox 98 04/16/25 08:00 O2 Del Method Room Air 04/16/25 08:00 O2 Flow Rate 2 04/16/25 04:50 BMI result Body Mass Index 46.6 Const General: cooperative, alert, awake, acute distress mild and respiratory and anxious Nutritional Appearance: obese morbidly obese Orientation/consciousness: patient oriented x3 HEENT Head: Yes normocephalic and Yes atraumatic Neck Neck: Yes trachea midline, Yes supple and Yes no JVD Resp Effort & Inspection: normal respiratory effort Auscultation: clear to auscultation bilaterally and diminished lung sounds Cardio Jugular venous distension: no JVD Rate: regular rate Rhythm: regular rhythm Heart sounds: S1 normal heart sound present, S2 normal heart sound present, no click, no gallops, no murmurs and no rubs GI Auscultation: normal bowel sounds Skin General skin exam: no rashes or lesions noted Neuro General: patient oriented x3 and no focal motor deficits Extrem General: Yes no clubbing, cyanosis or edema Objective Labs and Meds 04/15/25 06:45 04/16/25 07:13 Lab results: Laboratory Results - last 24 hr 04/15/25 04/16/25 10:24 07:13 Sodium 137 Potassium 3.0 L Chloride 104 Carbon Dioxide 24 Anion Gap 12 BUN 12 Creatinine 0.63 Estim Creat Clear Calc 145.0 Estimated GFR > 60 Random Glucose 109 Calcium 8.7 Total Bilirubin 0.6 Direct Bilirubin 0.2 AST 30 ALT 42 H Alkaline Phosphatase 101 Total Protein 6.6 Albumin 3.7 TSH 1.44 Stl C. cayetanensis PCR Not Detected Stool Rotavirus A PCR Not Detected Stl Adenov F 40/41 PCR Not Detected Stool Astrovirus (PCR) Not Detected Stool Campylobacter PCR Not Detected Stool Cryptosporidium PCR Not Detected Stl Sh Tox Pr E STEC PCR Not Detected Stool E coli O157 PCR Not applicable Stl Enterotoxigenic E PCR Not Detected Stool EPEC (PCR) Not Detected Stool EAEC (PCR) Not Detected Stl E. histolytica PCR Not Detected Stool Giardia Lamblia PCR Not Detected Stl P. shigelloides PCR Not Detected Stool Salmonella PCR Not Detected Stool Sapovirus (PCR) Not Detected Stl Shigella/EIEC PCR Not Detected St Y.enterocolitica PCR Not Detected Stool Vibrio (PCR) Not Detected Stl Vibrio cholerae PCR Not Detected Stl Norovirus GI/GII PCR Detected A C. difficile Tox B Gene NEGATIVE Progress Note: A&P Assessment and plan (1) Paroxysmal atrial fibrillation: Status: Acute Assessment and Plan: Paroxysmal atrial fibrillation most likely related to the trauma of recent origin with left humerus fracture. Difficult control rate. I would continue with amiodarone loading for 2 weeks followed by 200 mg daily and follow up as outpatient. 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 Will need workup for atrial fibrillation including stress test as well as sleep apnea workup given her body habitus and history of hypertension. Importance of compliance with medication was discussed. She understands. Eliquis was started in patient and the last dose should be tomorrow morning and this needs to be withheld through the surgery but resumed as soon as possible after the surgery. (2) Decompensated heart failure: Status: Acute Assessment and Plan: Decompensated congestive heart failure related to atrial fibrillation rapid ventricular response with underlying hypertensive heart disease. LV ejection fraction is preserved. Will need ischemic workup as an outpatient. Continue pursue rhythm control approach as above. Will start her on Lasix 40 mg daily. In the long run will need workup for sleep apnea as well. Will follow up in the clinic after surgery and some testing as outpatient. Thank you for allowing me to partake in her care Time Spent With Patient Time: Total time managing care of this patient today ____ minutes. Progress Note: Quality Stroke Does the patient have a stroke diagnosis?: No Procedures Date of Service Date of Service: 04/16/25
--- NOTE | 2025-04-16 11:32 | P.DS_ITS ---
DS: Providers Provider Date of Service: 04/16/25 Date of admission: 04/14/25 15:36 Date of discharge: 04/16/25 Primary care physician: Windy Mcelroy MD Consults: 04/14/25 13:21 Consult to Cardiology Routine Consulting Provider: [facility] [place] [facility] Reason for consultation: new afib RVR DS: Diagnosis Discharge Diagnosis (1) Paroxysmal atrial fibrillation: Status: Acute (2) Decompensated heart failure: Status: Acute DS: Summary Hospital Course Hospital Course: 50-year-old female presented for preoperative evaluation prior to planned surgical repair of a left humerus fracture. During pre-op workup, she was found to be in new onset atrial fibrillation with RVR (HR 160s) and was referred to the ED. She reported dizziness and exertional dyspnea, but was asymptomatic at rest. She also complained of left shoulder pain from her recent fall. Hospital Course: * In the ED, she received IV diltiazem without significant response, followed by IV metoprolol, two doses of IV digoxin, and IV Lopressor * Initial labs showed leukocytosis (WBC 16.6) and hypokalemia (K 3.0), which was corrected with potassium supplementation and K remains 3.0 and will be discharged with supplement * Admitted for persistent tachycardia and further management. * Continued on IV diltiazem and digoxin loading. Home carvedilol was continued. * Echocardiogram revealed preserved ejection fraction (65?70%). * She converted to sinus rhythm during hospitalization on the night of admission * Cardiology recommended amiodarone loading, which was initiated with IV loading, will be discharge with amio 400 mg twice a day for 2 weeks, followed by 200 mg daily * Treated with IV Lasix for diastolic heart failure and will be discharged with Lasix 40 mg daily * Started on Eliquis 5 mg BID for atrial fibrillation; to be held after tomorrow in preparation for orthopedic surgery on 04/20, but to be restared after surgery when appropriate * Probable VENTURA; outpatient sleep study recommended. * Leukocytosis was likely reactive and has come down from 17 to 13 * She was having diarrhea, and testing positive for noroviurs, diarrhea has improved and to take precaution, hand washing to prevent spreading in community, diarrhea was likely driving low potassium Discharge Medications: * Furosemide (Lasix) 40 mg PO daily * Apixaban (Eliquis) 5 mg PO BID (to be held after tomorrow for surgery) * Amiodarone 400 mg PO BID for 2 weeks, then 200 mg PO daily for rhythm maintenance * Continue other home medications including Coreg * KCL 40 mg daily for few days Follow-Up and Recommendations: * Proceed with planned orthopedic surgery on 04/20 * Arrange outpatient sleep study for VENTURA evaluation, by PCP * Cardiology follow-up for rhythm and anticoagulation management * Monitor for recurrence of atrial fibrillation and heart failure symptoms Condition at Discharge: Hemodynamically stable, in sinus rhythm, symptoms improved. Time Attestation Discharge Coordination Time (in mins): 45 Quality: Safe Use of Opioids Does Pt have an Active Cancer Diagnosis on the Problem List?: No Quality: Stroke Does the patient have a stroke diagnosis?: No Physical Exam Vital Signs: Vital Signs: Last Vital Signs Temp 97.2 F 04/16/25 08:00 Pulse 71 04/16/25 10:40 Resp 20 04/16/25 08:00 BP 140/70 H 04/16/25 10:40 Pulse Ox 98 04/16/25 08:00 O2 Del Method Room Air 04/16/25 08:00 O2 Flow Rate 2 04/16/25 04:50 BMI result Body Mass Index 46.6 Const: Other: General: AO X 3, no acute distress Resp: CTA bilateral CVS: S1,S2,RRR GI: +BS, NT, no distention Skin: No rash ortho: Left arm sling Neuro: motor grossly intact Psych: appropriate affect DS: Data Data Completed and Pending Labs on day of discharge: Laboratory Results - last 24 hr 04/15/25 04/16/25 10:24 07:13 Sodium 137 Potassium 3.0 L Chloride 104 Carbon Dioxide 24 Anion Gap 12 BUN 12 Creatinine 0.63 Estim Creat Clear Calc 145.0 Estimated GFR > 60 Random Glucose 109 Calcium 8.7 Total Bilirubin 0.6 Direct Bilirubin 0.2 AST 30 ALT 42 H Alkaline Phosphatase 101 Total Protein 6.6 Albumin 3.7 TSH 1.44 Stl C. cayetanensis PCR Not Detected Stool Rotavirus A PCR Not Detected Stl Adenov F 40/41 PCR Not Detected Stool Astrovirus (PCR) Not Detected Stool Campylobacter PCR Not Detected Stool Cryptosporidium PCR Not Detected Stl Sh Tox Pr E STEC PCR Not Detected Stool E coli O157 PCR Not applicable Stl Enterotoxigenic E PCR Not Detected Stool EPEC (PCR) Not Detected Stool EAEC (PCR) Not Detected Stl E. histolytica PCR Not Detected Stool Giardia Lamblia PCR Not Detected Stl P. shigelloides PCR Not Detected Stool Salmonella PCR Not Detected Stool Sapovirus (PCR) Not Detected Stl Shigella/EIEC PCR Not Detected St Y.enterocolitica PCR Not Detected Stool Vibrio (PCR) Not Detected Stl Vibrio cholerae PCR Not Detected Stl Norovirus GI/GII PCR Detected A C. difficile Tox B Gene NEGATIVE Discharge Plan Discharge Anticipated Discharge Date/Time: 04/16/25 11:54 Patient Disposition: Home, Self-Care Discharge Diagnosis: Atrial fibrilation with RVR, hypokalemia, Diarrhea due to Norovirus Referrals: Windy Mcelroy MD [Primary Care Provider, Internal Medicine] - 1 Week Discharge Medications: New amiodarone 400 mg tablet 400 mg PO BID Qty: 28 0RF Eliquis 5 mg Tablet 5 mg PO BID Qty: 180 0RF amiodarone 200 mg tablet 200 mg PO DAILY Qty: 90 0RF Rx Instructions: To start taking on April 302024 furosemide [Lasix] 40 mg tablet 40 mg PO QAM Qty: 90 0RF potassium chloride [K-Tab] 20 mEq tablet extended release 20 meq PO DAILY Qty: 5 0RF losartan 50 mg tablet 50 mg PO DAILY Qty: 90 0RF Continued albuterol sulfate 90 mcg/actuation HFA aerosol inhaler 2 puff INHALATION Q6H PRN (Reason: shortness of breath or wheezing) Qty: 8.5 2RF albuterol sulfate 2.5 mg /3 mL (0.083 %) solution for nebulization 2.5 mg inhalation Q6H PRN (Reason: shortness of breath or wheezing) Qty: 75 1RF amlodipine 10 mg tablet 10 mg PO DAILY Qty: 90 2RF levocetirizine 5 mg tablet 5 mg PO QPM PRN (Reason: allergy symptoms) Qty: 30 3RF carvedilol 25 mg tablet 25 mg PO BID Qty: 180 5RF acetaminophen [Tylenol Extra Strength] 500 mg tablet 500 mg PO Q6H PRN (Reason: Pain) ibuprofen [Advil] 200 mg tablet 200 mg PO Q6H PRN (Reason: Pain) Discontinued losartan-hydrochlorothiazide 50-12.5 mg tablet 1 tab PO DAILY Qty: 90 5RF Discharge Orders: Discharge Order (Routine); Ordered 04/16/25 Ordered By: Branden River Diet: Advance to usual diet Activity on Discharge: As tolerated Stand Alone Forms: Patient Portal Discharge page Print Language: Arabic Other Ambulatory Orders: Basic Metabolic Panel (Routine) Timeframe: [id number] Facility: [facility] - Location: Laboratory Ordered By: Branden River Care Plan Goals: recovery from AFIB with RVR, and low potassium Health Concerns: AFIB with RVR, hypokalemia Plan of Treatment: Take Furosemide (Lasix) 40 mg by mouth daily Stop keLosartan-Hydrochlorothiazide Take Losartan 50 mg daily by mouth daily Take Apixaban (Eliquis) 5 mg by mouth BID (to be held after tomorrow for surgery), and to be restarted when appropriate after surgery Amiodarone 400 mg by mouth BID for 2 weeks, then 200 mg by mouth daily for rhythm maintenance Take Potassium supplement as recommended Continue other home medications directed Ask your PCP to arrange for sleep study to rule sleep Apnea Follow up with Cardiology office for follow up and more testing, office will reach out to you Assessment: see above
[2025-04-16 12:00] VITALS: BP 142/67; PULSE 69; RESP 20; TEMP 36.2; O2SAT 99
[2025-04-16] MEDS: Potassium Chloride/H20 10 MEQ/100 ML PIGGYBACK 100 MEQ IV (12:37)
--- NOTE | 2025-04-16 14:01 | MHC.CM.PN ---
PT REPORTS SHE LIVES WITH HER MOTHER AND S/O SHE IS INDEPENDENT WITH CARE AND USES A CPAP FOR DME SHE DECLINES A HCP PCP: PORFIRIO VELAZCO PT CLEARED TO DC HOME TODAY WITH NO SERVICES S/O TO TRANSPORT
== END 2025-04-16 14:24 | disposition home or self-care (01) | DRG 201 ==
LOC: HO.ED 14:44 → HO.EDOVER 15:40 → HO.IMC 19:01
PROVIDERS: Physician Assistant Medical; Admitting Provider Physician Assistant Medical; Emergency Provider Emergency Medicine; PCP Internal Medicine; Visit Provider Internal Medicine
DX: I48.0 Paroxysmal atrial fibrillation (principal); I50.33 Acute on chronic diastolic (congestive) heart failure; I11.0 Hypertensive heart disease with heart failure; N17.9 Acute kidney failure, unspecified; A08.11 Acute gastroenteropathy due to Norwalk agent; E66.01 Morbid (severe) obesity due to excess calories; E87.6 Hypokalemia; E86.0 Dehydration; J45.20 Mild intermittent asthma, uncomplicated; G47.33 Obstructive sleep apnea (adult) (pediatric); Z68.42 Body mass index [BMI] 45.0-49.9, adult; Z71.3 Dietary counseling and surveillance; Z87.891 Personal history of nicotine dependence; Z79.899 Other long term (current) drug therapy
CPT/HCPCS: 36415; 71045; 80048; 80053; 80076; 83735; 83880; 84443; 84484; 85025; 85027; 87493; 87507; 93005; 93306; 94660; 99285; J0131; J0282; J0283; J0616; J1160; J1163; J1938; J3480; J7120; Q9957

== ENCOUNTER 2025-04-14 15:36 | Outpatient (BNV) | payer OTHER, SELFPAY | END 2025-04-15 07:00 | PROVIDERS: Admitting Provider Physician Assistant Medical; Emergency Provider Emergency Medicine; PCP Internal Medicine; Visit Provider Internal Medicine Cardiovascular Disease | DX: I48.91 Unspecified atrial fibrillation (principal); I51.89 Other ill-defined heart diseases | CPT/HCPCS: 93306 ==

== ENCOUNTER 2025-04-14 15:36 | Outpatient (BNV) | payer OTHER, SELFPAY | END 2025-04-14 20:40 | PROVIDERS: Admitting Provider Physician Assistant Medical; Emergency Provider Emergency Medicine; PCP Internal Medicine; Visit Provider Student in an Organized Health Care Education/Training Program | DX: I50.20 Unspecified systolic (congestive) heart failure (principal) | CPT/HCPCS: 71045 ==

== ENCOUNTER → 2025-04-14 15:36 | Outpatient (BNV) | payer OTHER, SELFPAY | PROVIDERS: Admitting Provider Physician Assistant Medical; Emergency Provider Emergency Medicine; PCP Internal Medicine; Visit Provider Physician Assistant Medical | DX: I48.91 Unspecified atrial fibrillation (principal) | CPT/HCPCS: 99358 ==

== ENCOUNTER → 2025-04-14 15:36 | Outpatient (BNV) | payer OTHER, SELFPAY | PROVIDERS: Admitting Provider Physician Assistant Medical; Emergency Provider Emergency Medicine; PCP Internal Medicine; Visit Provider Physician Assistant Medical | DX: I48.91 Unspecified atrial fibrillation (principal); E87.6 Hypokalemia | CPT/HCPCS: 99223; 99232 ==

== ENCOUNTER → 2025-04-14 15:36 | Outpatient (BNV) | payer OTHER, SELFPAY | PROVIDERS: Admitting Provider Physician Assistant Medical; Emergency Provider Emergency Medicine; PCP Internal Medicine; Visit Provider Internal Medicine Cardiovascular Disease | DX: I48.0 Paroxysmal atrial fibrillation (principal); I50.9 Heart failure, unspecified | CPT/HCPCS: 99233 ==

== ENCOUNTER 2025-04-17 15:08 | Outpatient (AMB) | payer OTHER, SELFPAY ==
--- NOTE | 2025-04-17 15:25 | MHC.PC.OV ---
Vital Signs 04/17/25 15:26 Height 5 ft 3 in Weight 285 lb BMI 50.5 BP 110/60 Blood Pressure Location Rt brachial Position Sitting Respiration 16 Pulse 78 Pulse Source Pulse Oximeter Temp 98.1 F Temp Source Oral Pulse Oximetry (%) 98 Oxygen Delivery Method Room Air Intake Visit Reasons: Lt shoulder arthroplasty Dr. Rutherford 04/20 Intake Note: Pt is here today for her Lt shoulder arthoplasty Dr. Rutherford 04/20/25 Ticket Attendant Required: No Allergies egg (EGG) Allergy (Intermediate, Verified 04/17/25 16:31) ITCHY AND HIVES. lisinopril Allergy (Intermediate, Verified 04/17/25 16:31) Hives amoxicillin Adverse Reaction (Intermediate, Verified 04/17/25 16:31) Diarrhea Egg White (Diagnostic) Allergy (Intermediate, Uncoded 04/17/25 16:31) hives Medication List - Last Reconciled 04/17/25 by Windy Mcelroy MD acetaminophen (Tylenol Extra Strength) 500 mg PO Q6H PRN albuterol sulfate 90 mcg/actuation 2 puffs inhalation Q6H PRN albuterol sulfate 2.5 mg (3 mL) inhalation Q6H PRN amiodarone 400 mg PO BID amiodarone 200 mg PO DAILY amlodipine 10 mg PO DAILY carvedilol 25 mg PO BID furosemide (Lasix) 40 mg PO QAM levocetirizine 5 mg PO QPM PRN losartan 50 mg PO DAILY potassium chloride ER (K-Tab) 20 mEq PO DAILY Tobacco use date assessed: 04/17/25 Dental Screening Dental Screen Date: 04/17/25 Did you have a dental visit in the last 12 months?: No Did you have a dental problem in the last 6 months where you did not have access to dental care?: No Was dental information given to patient?: Patient declined HPI Lt shoulder arthroplasty Dr. Rutherford 04/20 HPI Details 50-year-old lady with past medical history significant for hypertension, obstructive sleep apnea on CPAP, mild intermittent asthma, morbid obesity, recently diagnosed with paroxysmal atrial fibrillation and started on Eliquis 04/15/2025, congestive heart failure, here today for preoperative exam for left shoulder arthroplasty requested by Dr. Rutherford , scheduled for 04/20/2025. She was recently admitted at [facility] for paroxysmal atrial fibrillation, difficult to control and was started on amiodarone loading 400 mg twice a day for 2 weeks followed by 200 mg daily, and started on Eliquis . She was also found to have decompensated congestive heart failure related to atrial fibrillation with underlying hypertensive heart disease and was started on Lasix 40 mg daily. Blood pressure currently is stable and controlled on carvedilol 25 mg 1 tablet twice a day , losartan 50 mg once a day and amlodipine 10 mg daily. At present patient is feeling better, denies any shortness of breath, no chest pain or lightheadedness, and no palpitations. She was having diarrhea over the last 3 days, now resolved. Found to be hypokalemic on labs drawn at the ER, with potassium 2.9 on admission and was started on potassium chloride 20 mEq daily She was seen by Cardiology and cleared to undergo left shoulder arthroplasty as scheduled on 04/20/2025. She has been advised to stop her Eliquis starting today 04/17/25, to be resumed after surgery upon surgeon's discretion. [facility] Medical History Decompensated heart failure Paroxysmal atrial fibrillation Fracture of humerus, proximal, left, closed Obstructive sleep apnea on CPAP Fibroid History of cholelithiasis Heartburn Lumbago with sciatica, right side Abnormal uterine bleeding Essential hypertension Mild intermittent asthma Surgical History Hx laparoscopic cholecystectomy (06/19/23) Hx of colonoscopy Hx of dilation and curettage H/O tubal ligation Family History Paternal Aunt Ovarian cancer Breast cancer Maternal Aunt Breast cancer Father Heart failure Diabetes Vascular abnormality Mother Memory loss Coronary artery abnormality History of prediabetes Brother No problems noted. Sister Fibromyalgia Daughter Overdose Daughter Borderline high blood pressure Other Mental health disorder Substance use disorder Social History Household Members: Spouse and Family Housing: House Do you presently have visiting nurse or other home services: No Alcohol intake: former Comment: counts correct Patient Tobacco Use Status: Former Tobacco user Tobacco use type: Cigarette Years Smoked: 15 yrs e-Cigarette/Vaping Use: Never Used Substance Use Type: Marijuana service: No Current occupational status: employed Cognitive needs: No Hearing needs: No Vision needs: Yes Female Reproductive History Menstrual Age of Menarche: 10 Questionnaire PHQ-9 Over the last 2 weeks, how often have you been bothered by any of the following problems? 1. Little interest or pleasure in doing things: not at all 2. Feeling down, depressed, or hopeless: not at all 3. Trouble falling or staying asleep, or sleeping too much: not at all 4. Feeling tired or having little energy: not at all 5. Poor appetite or overeating: not at all 6. Feeling bad about yourself - or that you are a failure or have let yourself or your family down: not at all 7. Trouble concentrating on things, such as reading the newspaper or watching television: not at all 8. Moving or speaking so slowly that other people could have noticed. Or the opposite - being so fidgety or restless that you have been moving around a lot more than usual: not at all 9. Thoughts that you would be better off or of hurting yourself in some way: not at all Total score: 0 Depression Screening Interpretation: Negative Depression Screening Done: Yes 48731 - PHQ-9 Billing: Yes Source: Developed by Drs. Rip Lafleur, Frances Nuno, Lopez Mcclure and colleagues, with an educational teresa from [employer]. Thrive Questionnaire Date Thrive assessed: 04/16/25 I am a: Patient What is your living situation today?: I have a steady place to live Within the past 12 months, did the food you bought not last and you didn't have the money to get more?: Never true Within the past 12 months, did you worry whether your food would run out before you got money to buy more?: Never true Do you have trouble paying for medicines?: No Do you have trouble getting transportation to medical appointments?: No Do you have trouble paying your heating and electricity bill?: No Do you have trouble taking care of your child, family member or friend?: No Do you have trouble with day-to-day activities such as bathing, preparing meals, shopping, managing finances, etc.?: Yes Are you currently unemployed and looking for a job?: No Are you interested in more education?: No Please select the resources that you would like help with: None Currently or been in a relationship where the following occur: No concerns reported THRIVE Score: 0 AUDIT C Alcohol Use Questionnaire (AUDIT-C) 1. How often do you have a drink containing alcohol?: Never Total Score: 0 ELLY-7 AMB Questionnaire ELLY-7 Date ELLY - 7 assessed: 02/24/24 Feeling nervous, anxious, or on edge: 0 = Not at all Not being able to stop or control worryin = Not at all Worrying too much about different things: 0 = Not at all Trouble relaxin = Not at all Being so restless that it is hard to sit still: 0 = Not at all Becoming easily annoyed or irritable: 0 = Not at all Feeling afraid as if something awful might happen: 0 = Not at all Total ELLY-7 score (0-4 normal; 5-9 mild; 10-14 moderate; 15-21 severe): 0 Source: Developed by Drs. Rip Lafleur, Frances Nuno, Lopez Mcclure and colleagues, with an educational teresa from [employer]. ELLY-7 Assessment Billing ELLY-7 Assessment Tool: ELLY-7 Assessment 50114 Review of Systems Const Denies fever(s), Denies headache(s), Reports stops breathing during sleep and Denies weakness Eyes Denies change in vision ENT Denies dizziness, Denies headache(s) and Denies nasal congestion Card Denies chest pain, Denies edema, Denies lightheadedness, Denies radiating jaw, neck or arm pain and Denies dyspnea Resp Denies cough, Denies dyspnea and Denies wheezing GI Reports no additional complaints Reports no additional complaints Musc Reports no additional complaints and Denies abnormal gait Skin/Breast Denies rash and Denies unusual bruising Neuro Denies abnormal gait, Denies dizziness, Denies headache(s) and Denies weakness Psych Reports no additional complaints Endo Reports no additional complaints Yemi/Lymph Reports no additional complaints Aller/Immun Denies seasonal rhinorrhea and Denies wheezing Physical exam (Primary Care) Vital Signs: Last Vital Signs Temp 98.1 F 04/17/25 15:26 Pulse 78 04/17/25 15:26 Resp 16 04/17/25 15:26 BP 110/60 04/17/25 15:26 Pulse Ox 98 04/17/25 15:26 Oxygen Delivery Method Room Air 04/17/25 15:26 BMI result Body Mass Index 50.5 Tobacco/Smoking Status: Tobacco use Status Tobacco use date assessed 04/17/25 04/17/25 15:34 Patient Tobacco Use Status Former Tobacco user 04/17/25 15:34 Tobacco use type Cigarette 04/17/25 15:34 e-Cigarette/Vaping Use Never Used 04/17/25 15:34 PHQ-9: PHQ-9 Score PHQ-9: Total score 0 04/17/25 15:43 Depression Screening Interpretation: Negative Thrive Assessment: Date of Thrive Assessment Date Thrive assessed 04/16/25 04/17/25 15:34 Currently or been in a relationship where the following occur: No concerns reported Const Other: Alert oriented x3, no acute distress noted ambulatory normal gait, morbidly obese, accompanied by daughter ROSA Head: Yes normocephalic Ears: external ears normal General nose exam: Normal external nose present Face and sinus: Yes face symmetric Mouth: Normal oral and palatal mucosa present and moist mucous membranes Eyes General: appearance normal, both eyes and all related structures Neck Neck: Yes full ROM, Yes no lymphadenopathy and Yes supple Resp Auscultation: clear to auscultation bilaterally Cardio Other: S1-S2 present regular rate and rhythm GI Palpation (GI): Soft to palpation, nontender, no guarding and no masses General: Yes no CVA tenderness and Yes deferred Back/Spine/Pelvis Back: no CVA tenderness and No back tenderness Skin General skin exam: no rashes or lesions noted Neuro General: gait normal and no focal motor deficits Extrem Other: Left upper extremity in a sling General: Yes no joint enlargement, Yes no clubbing, cyanosis or edema, Yes no pedal edema, Yes normal gait and No calf tenderness Psych Appearance: grossly normal and well kempt Mental Status: mental status grossly normal Speech and movement: Normal speech and movement present Affect: normal affect Results Reviewed Results Reviewed: Name: Marianne Romero Age/Sex: 50/F : 1975 Unit#: [id number] Attend Dr: Branden River MD Re04/14/25 Status: DIS IN Location: [facility] [id number] Disch: 04/16/25 SPEC : [id number] ILSA: 04/15/25 STATUS: COMP REQ : [id number] RECD: 04/15/[address]: Jillian Barajas COMP: 04/15/25 ENTERED: 04/15/[address]: Windy Mcelroy MD, Theodore MD ORDERED: CBC No Diff Test Result Flag Reference WBC 13.4 H 4.8-10.8 X10*3/uL RBC 3.51 L 4.20-5.50 X10*6/uL HGB 11.3 L 12.0-16.0 g/dl HCT 31.6 L 37.0-47.0 % MCV 90.0 80.0-98.0 fL MCH 32.2 27.0-33.0 pg MCHC 35.8 H 31.0-35.0 g/dl RDW 13.1 11.0-16.0 % PLT 296 # 160-400 X10*3/uL MPV 11.8 9.4-12.3 fL NRBC Pct Auto 0.1 0.0-0.2 /100WBC NRBC Abs Auto 0.020 H 0.0-0.012 X10*3/uL Name: Marianne Romero Age/Sex: 50/F : 1975 Unit#: [id number] Attend Dr: Branden River MD Re04/14/25 Status: DIS IN Location: [place] [address] Disch: 04/16/25 SPEC : [id number] ILSA: 04/16/25 STATUS: COMP REQ : [id number] RECD: 04/16/[address]: Branden River MD COMP: 04/16/25 ENTERED: 04/16/[address]: Windy Mcelroy MD ORDERED: Liver Panel, BMP, TSH Test Result Flag Reference Sodium 137 135-145 mmol/L Potassium 3.0 L 3.3-5.1 mmol/L CL 104 96-108 mmol/L CO2 24 22-29 mmol/L Gap 12 12-20 BUN 12 9-16 mg/dL Creat 0.63 0.5-1.4 mg/dL Estimated CrCl 145.0 Provided height and weight: 167.64 cm, 131 kg. eGFR (calculated from the MDRD study equation) and eCrCl (calculated from the Cockcroft-Gault equation) are based on different parameters and may not yield comparable results. If eCrCl result is absurd, please check patient's height/weight. eGFR > 60 Chronic Kidney Disease: Estimated GFR < 60 mL/min/1.73m2 Severe Kidney Disease: Estimated GFR < 15 mL/min/1.73m2 Glucose, Random 109 60-115 mg/dL CA 8.7 8.4-10.2 mg/dL Total Bili 0.6 0.0-1.0 mg/dL Direct Bili 0.2 0.0-0.5 mg/dL AST (GOT) 30 5-31 U/L ALT (GPT) 42 H 0-31 U/L Protein, Total 6.6 6.5-8.0 g/dL Alb 3.7 3.5-5.0 g/dL Alk Phos 101 39-117 U/L TSH 3rd Gen. 1.44 0.32-4.0 uIU/mL Coding Level of Care Code Est Pt Level 4 (72502) Complex EM visit Add On G2211 Diagnoses Preoperative examination Z01.818 Fracture of humerus, proximal, left, closed S42.A Paroxysmal atrial fibrillation I48.0 Decompensated heart failure I50.9 Obstructive sleep apnea on CPAP G47.33; Z99.89 Essential hypertension I10 Hypokalemia E87.6 Mild intermittent asthma without complication J45.20 Asthma complication type: uncomplicated Additional Codes PHQ-9 - 72560 - PHQ-9 Billing: Yes ([id number]) ELLY-7 Assessment Billing - ELLY-7 Assessment Tool: ELLY-7 Assessment 45176 ([id number]) Assessment & Plan Assessment & Plan (1) Preoperative examination: Code(s): Z01.818 - Encounter for other preprocedural examination Plan: Patient has been seen and cleared by surgery to undergo left shoulder arthroplasty, as scheduled by Dr. Rutherford on 04/20/2025. Patient has been advised to stop her Eliquis today 04/17/2025, and to resume it after surgery upon surgeon's discretion. Hold off all medicines denied before surgery (2) Fracture of humerus, proximal, left, closed: Code(s): S42.A - Unspecified fracture of upper end of left humerus, initial encounter for closed fracture Category: Medical Plan: Scheduled for left shoulder arthroplasty 04/20/2025 (3) Paroxysmal atrial fibrillation: Code(s): I48.0 - Paroxysmal atrial fibrillation Category: Medical Plan: Was started on amiodarone loading dose of 400 mg twice a day for 2 weeks and then switched to amiodarone 200 mg daily afterwards. Was started on Eliquis. Has an appointment for follow-up with Cardiology on 05/05/2025, for workup for atrial fibrillation including stress test as well as re-evaluation of obstructive sleep apnea on CPAP (4) Decompensated heart failure: Code(s): I50.9 - Heart failure, unspecified Category: Medical Plan: decompensated congestive heart failure related to atrial fibrillation rapid ventricular response with underlying hypertensive heart disease. Echocardiogram done showed LV ejection fraction is preserved. To be seen by Cardiology outpatient after her surgery for ischemic workup. Continued on Lasix 40 mg in the morning, carvedilol 25 mg 1 tab twice a day. And need a referral for re-evaluation of her obstructive sleep apnea. Repeat BNP level ordered (5) Obstructive sleep apnea on CPAP: Code(s): G47.33 - Obstructive sleep apnea (adult) (pediatric); Z99.89 - Dependence on other enabling machines and devices Category: Medical Plan: Will refer to sleep clinic for re-evaluation on her sleep apnea. Patient does admit to being noncompliant with using her CPAP machine, stressed importance of using it regularly (6) Essential hypertension: Code(s): I10 - Essential (primary) hypertension Category: Medical Plan: Blood pressure at goal of less than 130/80. Continue with amlodipine and losartan at the same dose. Reinforced importance of following a low sodium diet, getting regular exercise, and lowering stress levels. (7) Hypokalemia: Code(s): E87.6 - Hypokalemia Category: Medical Plan: Continue with potassium chloride 20 mEq daily, order repeat serum potassium (8) Mild intermittent asthma: Code(s): J45.20 - Mild intermittent asthma, uncomplicated Category: Medical Qualifiers: Asthma complication type: uncomplicated Qualified Code(s): J45.20 - Mild intermittent asthma, uncomplicated Plan: Using albuterol inhaler as needed Orders: Orders NT Pro B Type Natriuretic Pept Today I50.9 - Heart failure, unspecified Complete Blood Count Auto Diff Today D64.9 - Anemia, unspecified, D72.829 - Elevated white blood cell count, unspecified Potassium, Serum Today E87.6 - Hypokalemia
[2025-04-17 15:26] VITALS: BP 110/60; PULSE 78; RESP 16; TEMP 36.7; O2SAT 98; BMI 50.5
== END 2025-04-17 15:56 | disposition home or self-care (01) ==
PROVIDERS: PCP Internal Medicine; Visit Provider Internal Medicine
DX: Z01.818 Encounter for other preprocedural examination (principal); S42.202A Unspecified fracture of upper end of left humerus, initial encounter for closed fracture; I48.0 Paroxysmal atrial fibrillation; I50.9 Heart failure, unspecified; G47.33 Obstructive sleep apnea (adult) (pediatric); Z99.89 Dependence on other enabling machines and devices; I10 Essential (primary) hypertension; E87.6 Hypokalemia; J45.20 Mild intermittent asthma, uncomplicated

== ENCOUNTER → 2025-04-17 15:08 | Outpatient (BNVA) | payer OTHER, SELFPAY | PROVIDERS: PCP Internal Medicine; Visit Provider Internal Medicine | DX: Z01.818 Encounter for other preprocedural examination (principal); I48.0 Paroxysmal atrial fibrillation; I11.0 Hypertensive heart disease with heart failure; I50.9 Heart failure, unspecified; G47.33 Obstructive sleep apnea (adult) (pediatric); E87.6 Hypokalemia; J45.20 Mild intermittent asthma, uncomplicated; S42.202A Unspecified fracture of upper end of left humerus, initial encounter for closed fracture; X58.XXXA Exposure to other specified factors, initial encounter; Y93.9 Activity, unspecified; Y92.9 Unspecified place or not applicable; Y99.9 Unspecified external cause status; Z99.89 Dependence on other enabling machines and devices; Z79.899 Other long term (current) drug therapy | CPT/HCPCS: 96127 ==

== ENCOUNTER 2025-04-18 15:13 | Outpatient (REF) | payer OTHER, SELFPAY ==
[2025-04-18 15:29] LABS: MANUAL DIFF FLAG NO
[2025-04-18 16:16] LABS: Hematocrit 35.4 % (37.0-47.0); Hemoglobin 12.4 g/dl (12.0-16.0); Imm Gran Abs Auto 0.29 X10*3/uL (0.00-0.03); Imm Gran Pct Auto 1.9 % (0.0-0.4); Lymphocytes Absolute Auto 3.0 X10*3/uL (1.2-4.9); Mean Corpuscular HGB Conc 35.0 g/dl (31.0-35.0); Mean Corpuscular Hemoglobin 32.0 pg (27.0-33.0); Mean Corpuscular Volume 91.5 fL (80.0-98.0); NRBC Abs Auto 0.020 X10*3/uL (0.0-0.012); NRBC Pct Auto 0.1 /100WBC (0.0-0.2); Platelet Count 405 X10*3/uL (160-400); Red Blood Count 3.87 X10*6/uL (4.20-5.50); White Blood Count 15.3 X10*3/uL (4.8-10.8)
[2025-04-18 16:47] LABS: Alanine Aminotransferase 41 U/L (0-31); Anion Gap 15 (12-20); Aspartate Amino Transferase 31 U/L (5-31); Blood Urea Nitrogen 11 mg/dL (9-16); Calcium 9.3 mg/dL (8.4-10.2); Carbon Dioxide 21 mmol/L (22-29); Chloride 104 mmol/L (96-108); Estimated Glomerular Filt Rate > 60; Potassium 3.5 mmol/L (3.3-5.1); Sodium 136 mmol/L (135-145)
[2025-04-18 16:50] LABS: NT Pro B Type Natriuretic Pept 146.6 pg/mL (<300)
== END 2025-04-18 15:14 | disposition home or self-care (01) ==
LOC: HO.LAB 15:13
PROVIDERS: PCP Internal Medicine; Visit Provider Internal Medicine
DX: Z13.1 Encounter for screening for diabetes mellitus (principal); I11.0 Hypertensive heart disease with heart failure; I50.9 Heart failure, unspecified; D64.9 Anemia, unspecified; D72.829 Elevated white blood cell count, unspecified; E87.6 Hypokalemia; E66.01 Morbid (severe) obesity due to excess calories; Z68.43 Body mass index [BMI] 50.0-59.9, adult
CPT/HCPCS: 36415; 80048; 83880; 84132; 84450; 84460; 85025

== ENCOUNTER 2025-04-25 20:36 | Emergency (ER) | payer OTHER, SELFPAY ==
--- OUTSIDE RECORDS SUMMARY | 2025-04-20 08:36 | XMS_ITS | Encounter Summary ---
Author Organization [facility] Address [id number] [place] [id number] Care Team Providers Care Well Digger Name Role Phone Windy Mcelroy MD Primary Care Provider Reason for Referral * Home Health (Routine) - Pending Review Specialty Diagnoses / Procedures Referred By Jacinto wilcox Referred To Contact Home Health Services Diagnoses Primary osteoarthritis of left shoulder Janusz Hahn PA [address] [place] [address] Phone: tel: Referral ID Status Reason Start Date Expiration Date Visits Requested Visits Authorized [id number] Pending Review Consult and Treat 5 04/21/2026 1 1 Reason for Visit * Auth/Cert (Routine) Specialty Diagnoses / Procedures Referred By Jacinto wilcox Referred To Contact Diagnoses Other displaced fracture of upper end of left humerus, initial encounter for closed fracture Procedures NC ARTHROPLASTY GLENOHUMERAL JOINT TOTAL SHOULDER NC TX FRACTURE PROXIMAL HUMERAL OPEN INCL INT FIXN INCL REPR TUBEROSITY NC TENODESIS LONG TENDON OF BICEPS ARTHROPLASTY SHOULDER TOTAL REVERSE APPROACH ORIF HUMERUS PROXIMAL REPAIR TENDON SHOULDER Dav [place]uther[place] [address] Phone: tel: fax: [facility] [place] [address] [place] [phone] Phone: tel: Referral ID Status Reason Start Date Expiration Date Visits Re quested Visits Authorized [id number] 1 1 Encounter Details Date Type Department Care Team (Late st Contact Info) Description 04/20/2025 8:36 AM EST - 04/21/2025 12:46 PM EST [facility] [id number] [place] [id number] Dav Rutherford MD [address] [place] [address] Primary osteoarthritis of left shoulder (Primary Dx); Pain Discharge Disposition: Home or Self Care Social History Tobacco Use Types Packs/Day Years Used Date Smoking Tobacco: Former Cigarettes 0 2 1990 Smokeless Tobacco: Never Tobacco Cessation:Counseling Given: Not Answered Alcohol Use Standard Drinks/Week Comments Not Currently 0 (1 standard drink = 0.6 oz pur e alcohol) Food Risk Answer Date Recorded Within the past 12 months we worried whether our food would run out before we got money to buy more. Not asked 04/21/2025 Within the past 12 months th e food we bought just didn't last and we didn't have money to get more. Not asked 04/21/2025 Interpersonal Safety Answer Date Record ed Physical Abuse Unrecognized value 04/20/2025 Verbal Abuse Unrecognized value 04/20/2025 Comments No Sex and Gender Information Value Date Recorded Sex Assigned at Female 04/20/2025 8:35 AM EST Legal Sex Female 1:30 PM EST Gender Identity Female 04/20/2025 8:35 AM EST Sexual Orientation Choose not to disclose 2024 8:35 AM EST documented as of this encounter Last Filed Vital Signs Vital Sign Reading Time Taken Comments Blood Pressure 120/69 04/21/2025 8:31 AM EST Pulse 72 04/21/2025 8:31 AM EST Temperature 37.1 C (98.8 F) 04/21/2025 8:31 AM EST Respiratory Rate 15 04/21/2025 8:31 AM EST Oxygen Saturation 99% 04/21/2025 8:31 AM EST Inhaled Oxygen Concentration - - Weight 127 kg (280 lb) 04/20/2025 10:07 AM EST Height 160 cm (5' 3 ) 04/20/2025 10:07 AM EST Body Mass Index 49.6 04/20/2025 10:07 AM EST documented in this encounter Functional Status * Calculated C-SSRS Risk Score (Lifetime/Recent) Answer Date of Assessment Author No Risk Indicated 04/20/2025 5:45 PM Celia Novak RN * [place] Suicide Severity Rating Scale (Screener/Recent Self-Report) Question Answer Date of Assessment Author 1. Wish to be (Past 1 Month) No 025 5:45 PM Celia Novak RN 2. Non-Specific Active Suici rosana Thoughts (Past 1 Month) No 04/20/2025 5:45 PM Rolando Novak RN 6. Suicidal Behavior (Lifetime) No 5:45 PM Celia Novak RN documented as of this encounter Discharge Summaries * Bárbara Stone RN - 04/21/2025 10:42 AM EST Weight bearing status/Activity: Non-weight bearing left upper extremity * Bárbara Stone RN - 04/21/2025 10:41 AM EST Resumed regular diet * Mariaa Boston RN - 04/18/2025 1:39 PM EST Pre-Surgery Instructions: Medication Instructions acetaminophen (TYLENOL) 500 mg tablet Do not use DOS albuterol HFA (PROAIR HFA ; PROVENTIL HFA ; VENTOLIN HFA) 90 mcg/actuation inhaler Can use DOS amiodarone (PACERONE) 400 mg tablet Take morning of surgery with sip of water, no other fluids amLODIPine (NORVASC) 10 mg tablet Take morning of surgery with sip of water, no other fluids apixaban (ELIQUIS) 5 mg tablet Last dose 04/17 am carvediloL (COREG) 25 mg tablet Take morning of surgery with sip of water, no other fluids furosemide (LASIX) 40 mg tablet Do not use DOS levocetirizine (XYZAL) 5 mg tablet Do not use DOS losartan (COZAAR) 50 mg tablet Do not use DOS potassium chloride (KLOR-CON M10) 10 mEq CR tablet Take morning of surgery with sip of water, no other fluids albuterol 2.5 mg /3 mL (0.083 %) nebulizer solution Can use DOS Pt diagnosed and admitted in [facility] over the weekend with new onset afib-now discharged-started on new meds including Eliquis- LENA Steven notified of this and Surgeon's office notified. NPO protocol explained to the patient: NIGHT BEFORE SURGERY - may eat a regular diet and stay hydrated AFTER MIDNIGHT - No solid foods, dairy products or pulp based juices. No tea. No alcohol. May have 10 ounces of APPROVED FLUIDS prior to leaving home consumed no later than three hours before your surgery. Water, Gatorade or other clear electrolyte drinks, apple or cranberry juice. ONE cup of black coffee is acceptable WITHOUT milk, cream or dairy substitute. No tea. No gum or hard candy on the morning of surgery. Alcohol is not considered an approved fluid. Fluids other than those noted above are not acceptable and will result in the surgery being CANCELED. documented in this encounter Discharge Instructions * Discharge Instructions* Bárbara Stone RN - 04/21/2025 10:42 AM EST DISCHARGE INSTRUCTIONS: 1. Weight bearing status/Activity: Non-weight bearing left upper extremity 2. VTE prophylaxis: Starting POD#1, Eliquis 2.5 mg BID x 5 days, then resume home dose Eliquis 3. Follow-up with Dav Rutherford MD in 2-3 weeks as directed on the After Visit Summary. 4. Surgical dressing should be removed as per surgeon's instructions 5. Other instructions: per Dav Rutherford MD request 6. Contact Dav Rutherford MD office if the patient has any questions or concerns prior to their initial post operative scheduled office appointment. Preventing Deep Vein Thrombosis After Surgery In the days and weeks after surgery you have the highest chance of developing deep vein thrombosis (DVT). This condition occurs when a blood clot forms in a deep vein, often in the leg. If the clot breaks loose and travels to a lung, severe health problems and even can result. This sheet describes ways that DVT can be prevented after surgery. Follow your surgeon???s instructions so that youwill have a safe recovery. To continue preventing DVT, follow any specific instructions your health care provider gave you andthe guidelines below. Anticoagulant. Take this medication as directed. Be sure you know what foods and other medications can interact with your anticoagulant. Follow any measures to avoid dangerous interactions. Also, askyour health care provider what to do if you forget to take a dose. Returning to activity. The charles to preventing DVT after surgery is to be active as much as you can. This improves circulation so that blood flow doesn???t slow down enough to form a clot. Day by day, increase the amount of activity you do around your home. Simple exercises while in bed or sitting amor chair can help prevent DVT. Move your feet in a [place] or up and down 10 times an hour to improvecirculation. Constipation a common side effect while taking pain medications. Please be sure to: Take your stool softener/laxative as prescribed Drink plenty of water Eat foods high in fiber Increase your physical activity within the parameters set by your surgeon When to Seek Medical Attention Call 911 right away if you have any of the following: Sudden chest pain Shortness of breath Otherwise, call your doctor right away if you have any of the following: Pain, swelling, redness, or warmth in the calf or thigh Fever of 101.5??F higher, or shaking chills. Increased swelling in your leg. Increased redness, tenderness, or swelling in or around the incision. Drainage from the incision. Increased pain. Signs of problems with your anticoagulant, such as: Cough with blood or bloody sputum Bruises Heavy or uncontrolled bleeding Bleeding in the urine, stool, or vomit Black or tarry stools documented in this encounter Medications at Time of Discharge acetaminophen (TYLENOL) 500 mg tablet Take 2 tablets (1,000 mg total) by mouth every 6 (six) hours if needed for mild pain. albuterol 2.5 mg /3 mL (0.083 %) nebulizer solution Take 3 mL (2.5 mg total) by nebulization every 6 (six) hours if needed for wheezing. albuterol HFA (PROAIR HFA ; PROVENTIL HFA ; VENTOLIN HFA) 90 mcg/actuation inhaler Inhale 2 puffs by mouth every 6 (six) hours if needed for wheezing. amiodarone (PACERONE) 400 mg tablet Take 1 tablet (400 mg total) by mouth 2 (two) times a day. amLODIPine (NORVASC) 10 mg tablet Take by mouth 1 (one) time each day. apixaban (ELIQUIS) 2.5 mg tablet Take 1 tablet (2.5 mg total) by mouth 2 (two) times a day for 5 days. 10 each 04/21/2025 12:06 PM EST 04/21/2025 carvediloL (COREG) 25 mg tablet Take by mouth 2 (two) times a day with meals. furosemide (LASIX) 40 mg tablet Take 1 tablet (40 mg total) by mouth 1 (one) time each day. levocetirizine (XYZAL) 5 mg tablet Take 1 tablet (5 mg total) by mouth at bedtime. losartan (COZAAR) 50 mg tablet Take 1 tablet (50 mg total) by mouth 1 (one) time each day. potassium chloride (KLOR-CON M10) 10 mEq CR tablet Take 2 tablets (20 mEq total) by mouth 1 (one) time each day. For 5 days documented as of this encounter Ordered Prescriptions Prescription Sig Dispense Quantity Refills Last Filled Start Date End Date apixaban (ELIQUIS) 2.5 mg tablet Take 1 tablet (2.5 mg total) by mouth 2 (two) times a day for 5 days. 10 each 04/21/2025 12:06 PM EST 04/21/2025 04/26/2025 documented in this encounter Discharge Disposition Disposition Code Departure Means Destination Comment s Home or Self Care documented in this encounter Progress Notes * Bárbara Stone RN - 04/21/2025 12:22 PM EST Patient is alert/oriented X 4. AVS Scripts and discharge instruction reviewed with patient and all question answered. IV removed and all belongings gathered and given to patient at bedside. Patient was also medicated for pain prior to discharge and tolerated well; he was instructed to lease picker medication at pharmacy. Patient was escorted off unit via w/c transport. * Bárbara Stone RN - 04/21/2025 12:21 PM EST Problem: Self-Care: IPR IPOC Goal: Patient/caregiver collaborates in the IPR process in person or with bakery team member Outcome: Adequate for Discharge Problem: Cognitive: Purvi Mason Fall Risk Goal: Last Known Fall Outcome: Adequate for Discharge Problem: Cognitive: Acute Pain Goal: Expressions of feelings of enhanced comfort will increase Outcome: Adequate for Discharge Problem: Patient Specific Problem: Acute Pain Goal: Patient Specific Outcome Outcome: Adequate for Discharge Problem: Respiratory: Breathing Pattern Impairment Goal: Ability to maintain normal pulse oximetry readings will improve Outcome: Adequate for Discharge Problem: Patient Specific Problem: Breathing Pattern Impairment Goal: Patient Specific Outcome Outcome: Adequate for Discharge Problem: Skin Integrity:Infection Risk Of Goal: Demonstrates signs of wound healing without infection Outcome: Adequate for Discharge Problem: Patient Specific Problem:Infection Risk of Goal: Patient Specific Outcome Outcome: Adequate for Discharge Problem: Physical Regulation:Physical Mobility Impairment Goal: Ability to avoid complications of mobility impairment will improve Outcome: Adequate for Discharge Problem: Patient Specific Problem: Physical Mobility Impairment Goal: Patient Specific Outcome Outcome: Adequate for Discharge Problem: Cognitive:Transitional Care Goal: Barriers related to transition Outcome: Adequate for Discharge Problem: Patient Specific Problem:Transitional Care Goal: Patient Specific Outcome Outcome: Adequate for Discharge Goals: Identify possible barriers to meeting goals/advancing plan of care: Stability of the patient: Moderately Stable - Low risk of patient condition declining or worsening End of Shift Summary: * VALERIANO Fermin/Adeola - 04/21/2025 10:14 AM EST Images from the original note were not included. OCCUPATIONAL THERAPY TREATMENT NOTE [address] [id number] Occupational Therapy Summary and Impressions OT Treatment completed on 04/21/2025.: POD#1 L reverse TSA. Reinforced LUE NWB, wearing sling at all times except hygiene, and HEP. Teach back techniques used throughout, handouts modified for improved carryover as needed. Following training, Pt participated in doffing and donning of sling with [place]. Following training, alpesh/one hand dressing techniques used for UB/LB ADLs, mod I. Pt completed RUE HEP with mod I. Pt encouraged to refer to handouts as a reference for proper techniques while athome. Pt is now functioning at an adequate level for discharge. Education provided on shower chair for increased home safety, Pt verbalized understanding but does not plan on obtaining at this time. Encouraged pacing throughout all tasks, moving slowly and taking rest breaks as needed throughout all tasks. Pt verbalized understanding. Reports no further concerns. Boyfriend should be able to provide assistance as needed for first several days at home. No further skilled OT services are recommended at this time. Discharge Recommendation: As per interdisciplinary team. - Ashli Lincoln OTR/Adeola OT Discharge Recommendation: As per disciplinary team [facility]: Daily Activity: 21BC 04/21/25 1014 OT Last Visit OT Received On 04/21/25 Precautions Medical Precautions Fall Risk Safety Interventions Call simons within reach RUE Weight Bearing Status Full LUE Weight Bearing Status Non Weight Bearing RLE Weight Bearing Status Full LLE Weight Bearing Status Full Orthoses Applied Sling (L UE) Pain Assessment Pain Assessment 0-10 Pain Score 7 Pain Type Surgical pain Pain Location Shoulder Pain Orientation Left Pain Descriptors Aching;Discomfort Pain Frequency Constant/continuous Pain Onset Ongoing Patient's Pain Goal No pain Pain Interventions Repositioned;Ambulation/increased activity;Rest Static Sitting Balance Static Sitting-Level of Assistance Independent Dynamic Sitting Balance Dynamic Sitting-Level of Assistance Independent Static Standing Balance Static Standing-Level of Assistance Independent Dynamic Standing Balance Dynamic Standing-Level of Assistance Supervision Cognition Overall Cognitive Status WFL Arousal/Alertness Appropriate responses to stimuli Orientation Level Oriented X4 Following Commands Follows all commands and directions without difficulty Insight Good insight into deficits Perception Inattention/Neglect Appears intact Initiation Appears intact Motor Planning Appears intact OT Assessment Prognosis Good Evaluation/Treatment Tolerance Patient tolerated treatment well Plan OT Plan No skilled OT No Skilled OT Safe to return home Therapy interventions in this session Self Care: Pt educated and participated in donning/doffing of sling and UB/LB dressing using hemidressing tech and while maintaining restrictions set by . There-ex: Pt participated in L UE therex addressing elbow flex/ext, forearm sup/pron, wrist flex/ext, radial and ulnar deviations and digit flex/ext completing 10 reps of each exercise. Also engaged in pendulums. Pt encouraged to complete therex 3 times daily and 10 reps of each exercise. Education Pt is now at safe level for DC. Reviewed all precautions and modified ADL approaches with improved carryover. In no acute distress. Reports understanding and agreeable to recs. VALERIANO Fermin/Adeola 04/21/2025 * Ashli Lincoln OTR/Adeola - 04/21/2025 9:44 AM EST Images from the original note were not included. OCCUPATIONAL THERAPY EVALUATION [address] [id number] Payor: Payor: [employer] [facility] [email or web address] / Plan: [employer] / Product Type: *No Product type* / Admitting Diagnosis: Other displaced fracture of upper end of left humerus, initial encounter for closed fracture [S42.292A] DJD of shoulder [M19.019] Past Medical History Past Surgical History Medical History[1] Surgical History[2] Social History Family History Social History Socioeconomic History Marital status: Single Spouse name: Not on file Number of children: Not on file Years of education: Not on file Highest education level: Not on file Occupational History Not on file Tobacco Use Smoking status: Former Types: Cigarettes Start date: 2011 Quit date: 1990 Years since quittin.9 Smokeless tobacco: Never Substance and Sexual Activity Alcohol use: Not Currently Drug use: Never Sexual activity: Defer Other Topics Concern Not on file Social History Narrative Not on file Family History[3] History of Present Illness Pt is a female admitted to [facility] 04/20/25 for L reverse TSA 2/2 left proximal humerus fracture. Post op NWB, sling at all times, Dr. Rutherford shoulder protocol. Cleared for OT eval. Occupational Therapy Summary and Impressions OT Evaluation completed on 04/21/2025. Pt is POD#1 L reverse TSA. LUE NWB, LUE sling at all times except hygiene, no proximal ROM. Pt educated on all R UE precautions, reports understanding, continueto reinforce functionally. Pt met in bed, A&Ox4, reports 7/10 pain. On RA with O2 100% at rest.Supine to sit EOB, min A. Sit<>Stand no AD, CGA. Functional ambulation 450ft no AD, CGA initially, progressing to supervision. O2 noted to decrease to 91% on RA during ambulation with increasedWOB. Pt educated on PLB strategy for energy conservation, verbalized and demonstrated good understanding throughout session. Stair management in order to engage in all ADLs, supervision with L ascending and descending rail. Trained on alpesh dressing techniques, donning/doffing of sling, and L UE HEP(no shoulder AROM, pendulums, and AROM elbow to hand only). Performed UB dressing with min A using alpesh dressing techniques and LB dressing with CGA using one handed techniques. Completed sling management with mod A. Completed HEP, min A. Pt given handouts to use as a resource regarding HEP, sling management, and alpesh-dressing techniques. Pt is currently not functioning at baseline level and would benefit from a follow-up session to address sling management and HEP prior to discharge. DischargeRecommendation: As per interdisciplinary team. - Ashli Lincoln OTR/Adeola OT Discharge Recommendation: As per disciplinary team [facility]: Daily Activity: 16BC 04/21/25 0944 OT Last Visit OT Received On 04/21/25 Precautions Medical Precautions Fall Risk Safety Interventions Call simons within reach RUE Weight Bearing Status Full LUE Weight Bearing Status Non Weight Bearing RLE Weight Bearing Status Full LLE Weight Bearing Status Full Orthoses Applied Sling (L UE) Pain Assessment Pain Assessment 0-10 Pain Score 7 Pain Type Surgical pain Pain Location Shoulder Pain Orientation Left Pain Descriptors Aching;Discomfort Pain Frequency Constant/continuous Pain Onset Ongoing Patient's Pain Goal No pain Pain Interventions Repositioned;Ambulation/increased activity;Rest Home Living Home Living Comments Pt lives with her boyfriend and her mom in a 2 level home, 3 [place] with bilateral wide rails. Pt has tub/shower with grab bar. Has grab bar near toilet. Prior Function Which is your dominant hand? Right Prior Function Comments Pt previously independent in ADLs and functional mobility, no AD. CompletesIADLs including cooking, cleaning, laundry, driving, and working from home. Boyfriend is able to assist as needed. ADL UE Dressing Assistance Minimum assistance LE Dressing Assistance Supervision Toileting Assistance Other (Comment) (not performed, has used bathroom with nursing staff. reports ability to complete toilet transfer and hygiene with supervision) Bed Mobility Lying to Sitting Assistance Minimum assistance Functional Transfers Sit to Stand Assistance Contact guard Functional Mobility Walking Assistance Contact guard;Supervision (progressing to supervision) Device No device Distance Ambulated (ft) 450 Static Sitting Balance Static Sitting-Level of Assistance Supervision Dynamic Sitting Balance Dynamic Sitting-Level of Assistance Supervision Static Standing Balance Static Standing-Level of Assistance Supervision;Contact guard Dynamic Standing Balance Dynamic Standing-Level of Assistance Contact guard Cognition Overall Cognitive Status WFL Arousal/Alertness Appropriate responses to stimuli Orientation Level Oriented X4 Following Commands Follows all commands and directions without difficulty Insight Good insight into deficits Vision - Basic Assessment Current Vision Wears glasses only for reading Vision - Complex Assessment Ocular Range of Motion WFL Head Position Upright, centered, looking straight ahead, not leaning any direction Functional Acuity Able to read clock/calendar on wall without difficulty;Able to read employee namebadge without difficulty Perception Inattention/Neglect Appears intact Initiation Appears intact Motor Planning Appears intact Sensation Light Touch Partial deficits in the LUE (reports slight numbness at digits only, localization intact.) Hand Function Gross Grasp Functional Coordination Coordination Impaired (GMC L UE impaired, FMC LUE intact.) RUE Assessment RUE Assessment Within Functional Limits RUE Assessment Comments strength grossly 5/5 throughout LUE Assessment LUE Assessment Impaired LUE Assessment Comments shoulder NT 2/2 precaution. strength grossly 3/5 throughout elbow-wrist. 3+/5 grasp. OT Assessment OT Assessment Results Decreased ADL status;Decreased upper extremity strength;Decreased endurance;Decreased sensation;Decreased fine motor control;Decreased functional mobility;Decreased gross motor control;Decreased IADLs;Decreased trunk control for functional activities Prognosis Good (for stated goals) Evaluation/Treatment Tolerance Patient tolerated treatment well Comments Denied dizziness with mobility. Demonstrated slight SOB with activity, O2 91%+ throughout.Benefitted from cues for PLB. Plan Treatment Interventions ADL retraining;Functional transfer training;UE strengthening/ROM;Endurance training;Patient/family training;Equipment evaluation/education;Neuromuscular reeducation;Compensatory technique education OT Plan Skilled OT OT Frequency Follow-up visit only OT - Evaluation Status Complete OT Evaluation Time Entry OT Evaluation (Moderate) Time Entry 60 Education Pt educated on role of OT, OT plan of care, restriction of NWB L UE, L UE HEP (no shoulder AROM, pendulums, and AROM elbow to hand only), donning/doffing of sling, hemidressing techniques, transfer techniques, discharge recommendations, and call simons system. Patient demonstrated good understanding of education learned. Will continue to educate and reinforce. Goals: 1. Pt will don/doff sling at MOD I level while maintaining restrictions. - 04/21/2025, VALERIANO Fermin/Adeola 2. Pt will be independent with UE HEP as prescribed by MD to maximize function with ADLS. - 04/21/2025, VALERIANO Fermin/Adeola 3. Pt will complete UB/LB dressing with mod I using alpesh dressing techniques. - 04/21/2025, VALERIANO Fermin/JENNIFER Blake, 04/21/2025 [1] Past Medical History: Diagnosis Date A-fib ([facility] V24, [facility] V28) new onset Afib-04/14/2025 Asthma CHF (congestive heart failure) ([facility] V24, [facility] V28) 04/2025 r/t afib per pcp note Fibroids Fractures 04/2025 LUE after fall Heartburn Hypertension Hypokalemia 04/2025 Obesity PONV (postoperative nausea and vomiting) Sleep apnea compliant with CPAP SOB (shortness of breath) on exertion Vertigo 1 episode [2] Past Surgical History: Procedure Laterality Date CHOLECYSTECTOMY COLONOSCOPY DILATION AND CURETTAGE OF UTERUS TUBAL LIGATION [3] Family History Problem Relation Name Age of Onset Heart disease Mother Other (thyroid problems) Mother Other (pre diabetes) Father Fibromyalgia Sister Heart attack Brother at 54 yrs old of [place] Hearing loss Paternal Grandmother * Danielle Jacobs, RD - 04/21/2025 8:09 AM EST Initial Nutrition Assessment and Recommendations Patient: Marianne Romero Sex: female : 1975 50 year old female presents on 04/20 for elective left shoulder arthroplasty due to fracture. Past medical history includes HTN, recently diagnosed Afib, and CHF. Patient triggered on nutrition screening for malnutrition score of 2. She reports decreased appetite since fracturing her shoulder ~1 week ago. She was eating breakfast at time of visit. No PO intake documented in flowsheets at this time. She reports weight as ~280 lb, does not believe she has lost weight recently. Encouraged intake of protein-rich foods to help meet nutrition needs and promote healing from surgery. ASSESSMENT: Medical History[1] Surgical History[2] Labs: Lab Results Component Value Date BUN 9 04/20/2025 CREATININE 0.60 04/20/2025 NA 138 04/20/2025 K 3.7 04/20/2025 CL 102 04/20/2025 CO2 26 04/20/2025 CALCIUM 9.4 04/20/2025 ALKPHOS 99 04/20/2025 EGFR 108 04/20/2025 GLUCOSE 99 04/20/2025 Lab Results Component Value Date AST 21 04/20/2025 ALT 30 04/20/2025 No results found for: AMYLASE , LIPASE No results found for: CHOL , HDL , LDLCALC , VLDL , TRIG No results found for: HGBA1C Medications: MEDSSCHEDULED[3]MEDSCONTINUOUS[4] Anthropometrics: Height: 1.6 m (63 ) Admit Weight: 127 kg (280 lb) Most Recent Weight:127 kg (280 lb) Current Calculated Body mass index is 49.6 kg/m??. Weight History: Wt Readings from Last 10 Encounters: 04/20/25 127 kg (280 lb) 04/11/25 127.90304 kg (279.4 lb) Recent Weight Change Recent Weight Change: No (Patient reports weight as 280 lb. She does not believe she has lost weight recently.) Current Diet Order: Dietary Orders (From admission, onward) Start Ordered 04/20/25 1606 Adult diet [facility]; General; Regular (Order Panel) Diet effective now Question Answer Comment Location [facility] Diet Type (req) General General Diet Regular 04/20/25 1608 Social Influencers of Health & Nutrition - Hunger Vital Signs: Within the past 12 months we worried whether our food would run out before we got money to buy more: Not asked Within the past 12 months the food we bought just didn't last and we didn't have money to get more: Not asked Who obtained answers? Unable to complete at this time. Assistance: Unable to determine at this time Allergies: Amoxicillin, Bactrim [sulfamethoxazole-trimethoprim], Egg, and Lisinopril Patient confirms egg allergy. Nutrition Focused Physical Exam: Nutrition-Focused Physical Findings Overall Appearance: No muscle/fat loss noted Per Nursing Assessment: Edema: non-pitting to RUE and LUE Skin: bruising to left arm; incision to left shoulder GI: last BM 04/20 DIAGNOSIS: Malnutrition Coding Code Type: None Identified Predicted Sub-Optimal Intake related to Physiologic causes as evidenced by patient reporting poor appetite since fracturing shoulder. Status: New Nutrition Goal: PO intake 50% or more at all meals Goal Status: Initial assessment - unable to assess INTERVENTION/RECOMMENDATIONS: Continue regular diet Consider adding Ensure Max BID ( High Protein, Low Carbohydrate ) if PO intake is consistently <50% Encouraged intake of protein-rich foods MONITORING/EVALUATION: Monitor intake, Monitor appetite, Monitor weight changes, Monitor pertinent lab values, and Monitorstool output Danielle Jacobs, MS, RD, CDN [1] Past Medical History: Diagnosis Date A-fib ([facility] V24, [facility] V28) new onset Afib-04/14/2025 Asthma CHF (congestive heart failure) ([facility] V24, [facility] V28) 04/2025 r/t afib per pcp note Fibroids Fractures 04/2025 LUE after fall Heartburn Hypertension Hypokalemia 04/2025 Obesity PONV (postoperative nausea and vomiting) Sleep apnea compliant with CPAP SOB (shortness of breath) on exertion Vertigo 1 episode [2] Past Surgical History: Procedure Laterality Date CHOLECYSTECTOMY COLONOSCOPY DILATION AND CURETTAGE OF UTERUS TUBAL LIGATION [3] acetaminophen, 1,000 mg, oral, q8h LACY amiodarone, 400 mg, oral, BID amLODIPine, 10 mg, oral, Daily apixaban, 2.5 mg, oral, BID carvediloL, 25 mg, oral, BID with meals furosemide, 40 mg, oral, Daily losartan, 50 mg, oral, Daily meloxicam, 15 mg, oral, Daily senna-docusate, 1 tablet, oral, BID [4] lactated Ringer's, 100 mL/hr, Last Rate: 100 mL/hr (04/20/25 1137) lactated Ringer's, 100 mL/hr, Last Rate: 100 mL/hr (04/20/25 1749) * YONAS Hernandez - 04/21/2025 6:40 AM EST [facility] Progress Note SUBJECTIVE: No complaints. Denies chest pain, shortness of breath, abdominal pain. Pain controlled.Resting comfortably. Vitals: Intake / Output: Vitals: 04/21/25 0353 BP: 137/73 Pulse: 75 Resp: 16 Temp: 36.8 ??C (98.2 ??F) SpO2: 95% Intake/Output Summary (Last 24 hours) at 04/21/2025 0640 Last data filed at 04/21/2025 0403 Gross per 24 hour Intake 1050 ml Output 1500 ml Net -450 ml Physical Exam: No chest pain or shortness of breath, Dressing dry and intact, Radial, median, and ulnar nerves intact, Hand is warm, cap refill <3 seconds, and 2+ radial pulse Intact EPL/FPL/FDS/FDP/IO/wrist flexion/wrist extension Imaging: none Assesment: The Patient is post op day 1 from left reverse total shoulder arthroplasty for fracture by Dr. Dav Rutherford MD Plan: 1. Weight bearing status: NWB LUJailyn 2. DVT risk protocol: Starting POD#1, Eliquis 2.5 mg BID x 5 days, then resume home dose Eliquis 3. Consultants following: None 4. Pulse ox 5. Pending PT/OT eval 6. Rx done per Dr. Rutherford. Patient will need Eliquis 2.5 mg BID x 5 days on discharge (Sent to [facility]) Janusz Hahn PA-C [facility] : [place] patients : [facility] Orth[facility] patients Cosigned by Dav Rutherford MD at 04/21/2025 8:05 AM EST Associated attestation - Dav Rutherford MD - 04/21/2025 8:05 AM EST I have seen and examined the patient. I agree with the above providers assessment and plan. S: NAD, resting in bed O: Focused examination of LEFT upper extremity Sling in place Dressing/Incision CDI Able to extend wrist, flex wrist, extend digits, flex digits, abduct and adduct digits Sensation intact to light touch in axiliary, median, radial and ulnar distribution Cap refill < 2 sec A/P Status post LEFT Reverse Shoulder Arthroplasty for Fracture(04/20) NWB LUE Maintain sling Pain control DVT ppx Follow up as outpatient in 10-14 days MD Dav Min MD 04/21/25 8:04 AM EST * Eve Carrington RN - 04/21/2025 12:15 AM EST Problem: Self-Care: IPR IPOC Goal: Patient/caregiver collaborates in the IPR process in person or with bakery team member Outcome: Progressing Note: IPR continues till discharge. Problem: Cognitive: Purvi Mason Fall Risk Goal: Last Known Fall Outcome: Progressing Note: Patient is educated on fall protocol measures and verbalize understanding. Patient has the call simons and personal items within reach. Patient's bed is in the lowest position and bed alarm is on. Hourly rounding is in place. Foot pumps supplied and pt educated on usage in helping to prevent blood clots. Problem: Cognitive: Acute Pain Goal: Expressions of feelings of enhanced comfort will increase Outcome: Progressing Note: Pt report pain is tolerable and denies need for pain intervention over night. Problem: Patient Specific Problem: Acute Pain Goal: Patient Specific Outcome Outcome: Progressing Note: Pt will like to be in a pain of 5/10. Problem: Respiratory: Breathing Pattern Impairment Goal: Ability to maintain normal pulse oximetry readings will improve Outcome: Progressing Note: Patient remains on CPOX as protocol. Patient is on room air, sat greater than 95. Denies chest pain and SOB. Hospital CPAP used overnight. Problem: Patient Specific Problem: Breathing Pattern Impairment Goal: Patient Specific Outcome Outcome: Progressing Note: Patient will like to maintain normal pulse oximetry readings Problem: Skin Integrity:Infection Risk Of Goal: Demonstrates signs of wound healing without infection Outcome: Progressing Note: Tegederm on right shoulder is CDI. Sling in place. Patient is afebrile. No s/s of infection noted. Problem: Patient Specific Problem:Infection Risk of Goal: Patient Specific Outcome Outcome: Progressing Note: Pt will like to heal without infection. Problem: Physical Regulation:Physical Mobility Impairment Goal: Ability to avoid complications of mobility impairment will improve Outcome: Progressing Note: Patient ambulate to the bathroom with assist x 1. Voiding without difficulty. Problem: Patient Specific Problem: Physical Mobility Impairment Goal: Patient Specific Outcome Outcome: Progressing Note: Patient will ambulate with assistance of staff during hospital stay. Problem: Cognitive:Transitional Care Goal: Barriers related to transition Outcome: Progressing Note: Pt anticipate to be discharge home when cleared by MD. Problem: Patient Specific Problem:Transitional Care Goal: Patient Specific Outcome Outcome: Progressing Note: Patient would like to be discharged home * Eve Carrington RN - 04/20/2025 9:58 PM EST Patient walked 20 feet to bathroom with standby assist of 2 and walker with chair follow. No complain of SOB, chest pain, nausea, or dizziness. Tolerated well Egress test successful. Eve Carrington RN * Celia Padron RN - 04/20/2025 5:21 PM EST Admit 9-7 * Denise Rotmhan RN - 04/20/2025 5:16 PM EST Problem: Sensory:Periop Procedure - Major Goal: Demonstrates/reports adequate pain control Outcome: Adequate for Discharge Patient managed Problem: Skin Integrity: Periop Procedure - Major Goal: Patient will remain free of injury and skin integrity maintained Outcome: Adequate for Discharge Incision CDI * YONAS House - 04/20/2025 5:11 PM EST [facility] Progress Note SUBJECTIVE: Pt reports mild shoulder pain. Denies chest pain, shortness of breath, abdominal pain. Resting comfortably. Vitals: Intake / Output: Vitals: 04/20/25 1700 BP: 139/76 Pulse: 72 Resp: 22 Temp: SpO2: 92% Intake/Output Summary (Last 24 hours) at 04/20/2025 1712 Last data filed at 04/20/2025 1426 Gross per 24 hour Intake 1050 ml Output -- Net 1050 ml Physical Exam: Dressing intact. No staining Wound with good approximation, no drainage +WE/WF/G/I. 2+ Radial pulse Imaging: All components in good position. Assesment: The Patient is post op day 0 from left total shoulder arthroplasty by Dr. Dav Rutherford MD Plan: -NWB LUE in sling -DVT prophylaxis: Starting POD#1, Eliquis 2.5 mg BID x 5 days, then resume home dose Eliquis -Abx: Ancef -Standard pain control -No consults -AC negative -VENTURA protocol, pulse ox -IV TXA Rx done per Dr. Rutherford. Patient will need Eliquis 2.5 mg BID x 5 days Rx. Babak Felix PA-C Orthopedic Surgery [facility]/Spine pager documented in this encounter Procedure Notes * Dav Rutherford MD - 04/20/2025 12:37 PM EST DATE OF SURGERY: 04/20/25 PREOPERATIVE DIAGNOSES: LEFT Shoulder Closed 3-part fracture of proximal humerus, initial encounter LEFT Shoulder Biceps tendonitis of shoulder initial encounter LEFT Shoulder Closed displaced fracture of greater tuberosity of humerus, initial encounter POSTOPERATIVE DIAGNOSIS: LEFT Shoulder Closed 3-part fracture of proximal humerus, initial encounter LEFT Shoulder Biceps tendonitis of shoulder initial encounter LEFT Shoulder Closed displaced fracture of greater tuberosity of humerus, initial encounter PROCEDURE: LEFT reverse total shoulder arthroplasty for fracture. LEFT shoulder open biceps tenodesis. LEFT shoulder greater tuberosity fixation and repair SURGEON: Dav Rutherford MD MATERIAL HAULER: 1. Janusz Hahn PA-C ANESTHESIA: General with Regional lnterscalene Nerve Block COMPLICATIONS: None apparent ESTIMATED BLOOD LOSS: 150 ml SPECIMENS: none TOURNIQUET TIME: None MEDICATIONS: 2 g of IV Cefazolin, 1 g of Powdered Vancomycin deep within the wound prior to closure DVT PROPHYLAXIS: Sequential compression devices to the bilateral lower extremities IMPLANTS: Azalia Tornier Perform Fracture Stem [id number], +0mm poly liner. [place] Perform, 36mm concentric glenosphere, +3mm lateralized. Baseplate x 4 screws FINDINGS: Proximal humerus fracture involving lesser tuberosity, displaced greater tuberosity fragment, fracture at the surgical neck, no meaningful soft tissue attachment to the humeral head INDICATIONS: Marianne is a 50 y.o. female who had a ground level fall and sustained a LEFT proximal humerus fracture on 04/10/25. Patient was seen and evaluated and due to the widely displaced comminuted proximal humerus fracture was indicated for a LEFT reverse total shoulder arthroplasty for fracture. Fully understanding the risks to include, but not be limited to the following: Risk of anesthesia, includingdeath; nerve/tendon/vessel injury; deep venous thrombosis (DVT), pulmonary embolism (PE); infection, shoulder stiffness, prosthetic loosening or instability; concern and unknown outcome of scapular notching; potential of the procedure to not alleviate the condition; and the potential need for further surgery in the future. After going over these risks, benefits, and alternatives, Marianne desired to proceed with surgery. All of her questions were answered satisfactorily and she signed the surgical consent form to proceed. Pre- operative medical clearance was also obtained prior to surgery. PROCEDURE IN DETAIL: The patient was met in the pre-operative holding area. The operative extremity was confirmed and marked with the patient's participation and after confirming with the radiographs. The operative plan,risks, and informed consent were reviewed in detail.The patient's questions were answered in detailto their satisfaction. Regional anesthesia was established with an interscalene nerve block by the anesthesiologist. The patient was then brought to the operating room by the anesthesia providers.General anesthesia was smoothly established. The patient was then positioned into the beachchair position with the neck held in a neutral position and all bony prominences well padded. Sequential compress ion devices were applied to the bilateral lower extremities for DVT prophylaxis and the patient wassecured to the table with a safety strap. The LEFT upper extremity was prepped and draped in a standard sterile surgical fashion. Time- out was performed according to hospital protocol confirming the correct patient, correct side and site, and correct operative procedure. All parties were in agreement. Examination under anesthesia revealed revealed ecchymoses and intact skin about the shoulder. There was crepitus with any passive motion of the shoulder. A standard 8 cm deltopectoral incision wasused, and meticulous hemostasis was obtained throughout with the electrocautery. The cephalic vein w as identified in the deltopectoral interval, retracted laterally, and protected throughout the case. The clavipectoral fascia was incised, the strap muscles were carefully identified, protected, and retracted medially. The musculocutaneous nerve was identified, and carefully kept out of harm's way. The biceps sheath was opened and the long head of the biceps tendon was tenodesed to the upper border of tendinous pectoralis major with two #2 FiberWire sutures placed in locking fashion. The greater tuberosity was displaced posteriorly and a skin hook technique was used to retrieve it and two #2 Fiberwire sutures were placed at the posterosuperior aspect of the greater tuberosity bone-tendon interface in Modified Velasquez Umang configuration to control it. The lesser tuberosity was likewise mobilized and freed from its fracture bed and a #2 Fiberwire suture was placed in Modified Velasquez Umang configuration at the subscapularis tendon to bone interface. The articular surface was devoid of any meaningful soft tissue attachments so I proceeded with reverse total shoulder arthroplasty. Using the [place] Tornier instrumentation, the intramedullary canal was identified, and serial reaming performed up to 8mm. A humeral neck osteotomy was not required due to the fracture. A Tornier Perform fracture trial humerus was placed in 20 to 25 degrees retroversion. This position was marked with the bovie. Then the broaching with the medullary canal reamer was performed by hand. This acted like a trial stem and had excellent axial and rotational and levering stability. I then moved on to the glenoid leaving the trial in place to protect the proximal humerus. A Fukuda retractor was then placed and the biceps stump and superior labrum were excised. Next, theaxillary nerve was identified and protected and an extensive capsulectomy was performed. A 90-degree 2-pronged anterior glenoid Bankart retractor was placed anteriorly and secured to the drapes with a Chaya clamp. A large pointed Hohmann retractor was placed superiorly giving 360-degree access to the glenoid. A circumferential labrectomy was performed, and circumferential exposure of the glenoid was then possible. The remaining cartilage on the glenoid face was carefully scraped away using a large curette. The standard 3+ mm offset 25 mm baseplate sizer was placed and felt to be the perfect fit. The center pin was drilled. The neoglenoid reamer was then placed and reamed routinely. Next, the initial center hole was drilled. Next, the 6.5mm drill was used for the center hole and measured at 30 mm. The larger center hole was then drilled in preparation of the real implant. On theback table, the 6.5mmx30 mm screw was positioned in the 25mm 3+MM offset baseplate (turning it counter-clockwise until it fell into position) and then the baseplate/screw construct was screwed into final position in the glenoid. This achieved excellent fixation. Next, the 4 peripheral holes were drilled and appropriate length screws advanced superiorly, anteriorly, inferiorly, and posteriorly respectively. The 36 mm standard glenosphere was then tapped into position and the center screw advanced achieving excellent fixation. Attention was turned back to the humerus. The medullary canal was prepared and a single batch of [place] Cement was prepared and finger packed in the medullary canal. I then cleared the cement from the proximal 1 cm of metaphyseal portion of the humeral shaft and then packed a layer of morselized humeral head autograft on top of the cement. No hemodynamic changes occurred with the cement placement. A #5 Fiberwire suture was placed in the suture hole of the prosthesis and the real 8S x130mm Tornier Perform Fracture humeral prosthesis was placed in 20 degrees of retroversion and had excellent axial and rotational stability after cement hardened. The 0mm trial poly was placed and felt to be anexcellent fit. The humerus was dislocated again and the real 0mm poly liner was placed and tapped into position. The humerus was reduced. There was no calcar or periprosthetic fractures seen on inspection. The 90-degree suture lasso was then used first to pass the horizontal around- the world #5 suture in the lesser and greater tuberosities. The 90-degree suture lasso was then used to pass all 4 of the remaining vertical shaft to tuberosity sutures. The remaining autograft bone graft from the humeral head was placed in the interface between the proximal metaphyseal bone graft, the stem and under the repaired tuberosities to enhance bony healing of the tuberosities into position. The horizontal sutures were tied first to avoid over-reducing the tuberosities. Then, the vertical sutures were all secured. Finally, 2 additional horizontal sutures were tied giving an excellent repair which was stable to full range of motion testing. The wound and joint were then copiously irrigated with 3 litersof sterile normal saline while taking care to not wash away the bone graft. The wound was dried. Hemostasis was excellent and no deep drain was required. One gram of powdered Vancomycin was placed deep within the wound. The deltopectoral interval was tagged closed with three separate #2 Fiberwire sutures in case of need for future revision. The skin wound was then closed in layers with 2-0 Monocryl interrupted and 3-0 Monocryl running, ending with dermabond and tegaderm. The drapes were then removed, an Ultrasling with abduction pillow was applied, and the patient was then allowed to waken from anesthesia. The patient was then transferred to the recovery room in stable condition. Marianne tolerated the procedure well and there were no intra- or perioperative complications. All sponge and needle counts were correct. POST-OPERATIVE PLAN: The patient will be admitted to the hospital for pain control, medical monitoring, post-operative IV antibiotics, and initiation of therapies. The patient will be discharged to home or to a rehab facility depending on their progress with therapies, functional independence, medical stability, and pain control on oral pain medications. Shoulder Grashey and Axillary portable radiographs will be obtained in the PACU to confirm time zero hardware placement and positioning. The patient will receive amultimodal analgesia regimen to minimize the number of narcotic pain medications needed. The patient will use cryotherapy in the post-operative period. The ARC sling will remain on and secured at alltimes for the first three weeks post-op except for hygiene, therapy, and home exercises. The patient will follow my Accelerated Reverse Total Shoulder Arthroplasty protocol as follows: No weightbearing to the LEFT upper extremity for 6 weeks, sling with abduction pillow for 2 to 3 weeks. Ok for pendulum's and elbow/wrist/hand/finger range of motion exercises immediately post-op. Supervised and structured physical therapy will begin between 2 and 3 weeks post-op. Will initiate gentle passive assisted exercises for the operative shoulder at 2 weeks post-op with forward elevation gradually progressing from 0-90 to 0-160 by week six. External rotation will progress gradually from 10 degrees to 45 degrees by week 10. Goal is for full symmetric shoulder motion by week 12. Will start sub-maximal pain free deltoid isometrics in the scapular plane at 2 weeks, IR/ER isometrics at 6 weeks, isotonic IR/ER and sidelying strengthening at 9 weeks. Progressive unrestricted strengthening will begin at 12 weeks, with a lifetime lifting restriction of 10 pounds to the operative arm for life. Ok to return to light duty work once off of all pain medications if can perform job without the useof the operative extremity. Patient will be seen by me in clinic at day 10-14 post-op with repeat LEFT shoulder radiographs, 6 weeks with repeat shoulder radiographs, and 3 months post-op with repeat radiographs. Further appointments and imaging to be determined based on progress with therapies and sooner if issues arise. This is Dav Rutherford MD and I was present and participated in all aspects of this case. Attending Addendum: This is Dav Rutherford MD and I was present and participated in all aspects of this case. A physician legal administrative assistant was necessary to assist due to the unavailability of a qualified resident. The PA provided essential intraoperative support including positioning, retraction, exposure, and closure, under direct supervision. * YONAS Hernandez - 04/20/2025 12:37 PM EST Date: 04/20/2025 Location: [facility] OR Name: Marianne Romero, : 1975, Diagnosis Pre-op Diagnosis * Other displaced fracture of upper end of left humerus, initial encounter for closed fracture [S42.292A] Post-op Diagnosis * Other displaced fracture of upper end of left humerus, initial encounter for closed fracture [S42.292A] Procedures ARTHROPLASTY SHOULDER TOTAL REVERSE APPROACH 94854 - [place] ARTHROPLASTY GLENOHUMERAL JOINT TOTAL SHOULDER ORIF HUMERUS PROXIMAL 35597 - [place] FRACTURE PROXIMAL HUMERAL OPEN INCL INT FIXN INCL REPR TUBEROSITY REPAIR TENDON SHOULDER 74455 - [place] TENODESIS LONG TENDON OF BICEPS Additional Procedures Indications: Marianne Romero is an 50 y.o. female who is having surgery for left proximal humerus fracture. Surgeon(s) & Latin Dance Instructor(s) * Dav Rutherford MD - Primary Physician Latin Dance Instructor: YONAS Magaña; YONAS Hernandez Staff Jewel Stripper: Yissel Rosario, ANNIE; Kim López RN Physician Latin Dance Instructor: YOANS Magaña; YONAS Hernandez Environmental Health And Safety Leader: Yumiko Sotelo Scrub: Wisam Gonzales Scrub Person: Krystyna James RN Anesthesia: * No anesthesia type entered * ASA: III Estimated Blood Loss: Minimal Drains: * No LDAs found * Specimen: See op note Findings: See op note Complications: None; patient tolerated the procedure well. Disposition: PACU - hemodynamically stable. Condition: stable Ortho Plan: -NWB LUE in sling -PACU XR -DVT prophylaxis: Starting POD#1, Eliquis 2.5 mg BID x 5 days, then resume home dose Eliquis -Abx: Ancef -Standard pain control -No consults -AC negative -VENTURA protocol, pulse ox -IV TXA -Closure: 2-0 monocryl, 2-0 quill, skin glue, tegaderm Rx done per Dr. Rutherford. Patient will need Eliquis 2.5 mg BID x 5 days Rx. Janusz BRANHAM-C [facility] : [place] patients : Gen Ortho patients * Mariaa Boston RN - 04/19/2025 9:42 AM EST Pt has new onset Afib and was admitted to [facility], treated and discharged. She has since been been evaluated by her PCP and given clearance to proceed with surgery. This case has been discussed with LENA Steven, recommendations as follows; repeat electrolytes on the morning of surgery due to her low potassium, If we cant locate an EKG she can have that repeated on DOS . documented in this encounter Plan of Treatment Pending Results Name Type Priority Associated Diagnoses Date /Time XR Humerus 2+ Views Left Imaging Routine Pain 04/20/2025 3:13 PM EST Scheduled Orders Name Type Priority Associated Diagnoses Orde r Schedule XR Humerus 2+ Views Left Imaging Routine Pain Once for 1 Occurrences starting 04/20/2025 until 04/20/2025 Scheduled Referrals Name Type Priority Associated Diagnoses Orde r Schedule Ambulatory referral to Home Health Outpatient Referral Routine Primary osteoarthritis of left shoulder 1 Occurrences starting 04/21/2025 until 04/21/2026 documented as of this encounter Goals Goal Patient Goal Type Associated Problems Recent Progress Patient-Stated? Author Autogenerat ed Goal Care Plan Autogenerated Problem No Annette Tracy documented as of this encounter Procedures Procedure Name Priority Date/Time Associated Diagnosis Comments HEMOGLOBIN AND HEMATOCRIT STAT 04/20/2025 7:21 PM EST OXYGEN THERAPY, ADULT Routine 04/20/2025 5:30 PM EST OXYGEN THERAPY, ADULT Routine 04/20/2025 5:30 PM EST XR SHOULDER 2+ VIEWS LEFT STAT 04/20/2025 4:37 PM EST OXYGEN THERAPY, ADULT Routine 04/20/2025 3:27 PM EST XR FLUORO UP TO 1 HOUR (STATISTICS)(NO REPORT) Routine 04/20/2025 3:12 PM EST Pain NC TENODESIS LONG TENDON OF BICEPS 04/20/2025 11:23 AM EST Other displaced fracture of upper end of left humerus, initial encounter for closed fracture Case Notes PCPSDD [place] TX FRACTURE PROXIMAL HUMERAL OPEN INCL INT FIXN INCL REPR TUBEROSITY 04/20/2025 11:23 AM EST Other displaced fracture of upper end of left humerus, initial encounter for closed fracture Case Notes PCPSDD [place] ARTHROPLASTY GLENOHUMERAL JOINT TOTAL SHOULDER 04/20/2025 11:23 AM EST Other displaced fracture of upper end of left humerus, initial encounter for closed fracture Case Notes PCPSDD COMPREHENSIVE METABOLIC PANEL STAT 04/20/2025 10:46 AM EST ABO RH STAT 04/20/2025 9:55 AM EST TYPE AND SCREEN STAT 04/20/2025 9:55 AM EST documented in this encounter Results * (ABNORMAL) Hemoglobin and hematocrit (04/20/2025 7:21 PM EST) Hemoglobin 12.1(L) 12.5 - 16.0 g/dL LAB HEMETOLOGY METHOD 04/20/2025 7:56 PM EST [facility] Hematocrit 34.8(L) 37.0 - 47.0 % LAB HEMETOLOGY METHOD 04/20/2025 7:56 PM EST [facility] Blood Venous blood specimen / Unknown 04/20/2025 7:21 PM EST 04/20/2025 7:26 PM EST us Laurent BRANHAM LAB BLOOD ORDERABLES Final Res ult [facility] [address] [place] [address], [place] [phone] * XR Shoulder 2+ Views Left (04/20/2025 4:37 PM EST) Anatomical Region Laterality Modality Upper Extremities, Shoulder Left Radi ographic Imaging 04/20/2025 5:21 PM EST Impressions 04/20/2025 5:25 PM EST Satisfactory position and alignment of components of the reverse total shoulder arthroplasty. No evidence of an acute/unexpected periprosthetic fracture. -------- FINAL REPORT -------- Dictated By: Eduard Gann Dictated Date: 04/20/2025 17:21 ET Assigned Physician: Eduard Gann Reviewed and Electronically Signed By: Eduard Gann Signed Date: 04/20/2025 17:25 ET Workstation ID: [id number] Transcribed By: Self Edit Transcribed Date: 04/20/2025 17:21 ET Narrative 04/20/2025 5:25 PM EST EXAM: XR SHOULDER 2+ VIEWS LEFT CLINICAL INDICATION: L RSA in patient with history of proximal humerus fracture. COMPARISON: Intraoperative fluoroscopy images from 04/20/2025 TECHNIQUE: Left shoulder, 3 views FINDINGS: The humeral component of the reverse total shoulder arthroplasty has a normal articulation with the glenosphere which is anchored to the glenoid by intact screws. No abnormal lucency or fracture around the hardware. The humeral component is cemented in place. Alignment is normal at the acromioclavicular joint. No acute abnormalities in the visualized portion of the lung. Procedure Note Eduard Gann MD - 04/20/2025 EXAM: XR SHOULDER 2+ VIEWS LEFT CLINICAL INDICATION: L RSA in patient with history of proximal humerus fracture. COMPARISON: Intraoperative fluoroscopy images from 04/20/2025 TECHNIQUE: Left shoulder, 3 views FINDINGS: The humeral component of the reverse total shoulder arthroplasty has anormal articulation with the glenosphere which is anchored to the glenoidby intact screws. No abnormal lucency or fracture around the hardware.The humeral component is cemented in place. Alignment is normal at theacromioclavicular joint. No acute abnormalities in the visualized portionof the lung. IMPRESSION: Satisfactory position and alignment of components of the reverse totalshoulder arthroplasty. No evidence of an acute/unexpected periprostheticfracture. -------- FINAL REPORT -------- Dictated By: Eduard Gann Dictated Date: 04/20/2025 17:21 ET Assigned Physician: Eduard Gann Reviewed and Electronically Signed By: Eduard Gann Signed Date: 04/20/2025 17:25 ET Workstation ID: [id number] Transcribed By: Self Edit Transcribed Date: 04/20/2025 17:21 ET us Janusz BRANHAM IMG XR PROCEDURES Final R esult * XR Fluoro Up To 1 Hour (Statistics)(No Report) (04/20/2025 3:12 PM EST) Narrative RIS PACS/VR - 04/20/2025 3:13 PM EST This order has been auto-finalized and does not contain a result. us Dav Rutherford MD IMG FLUOROSCOPY PROCEDURES Final Result RIS PACS/VR * Comprehensive metabolic panel (04/20/2025 10:46 AM EST) Sodium 138 135 - 145 mmol/L LAB CHEMISTRY METHOD 04/20/2025 11:25 AM [facility] Potassium 3.7 3.5 - 5.1 mmol/L LAB CHEMISTRY METHOD 04/20/2025 11:25 AM [facility] Chloride 102 98 - 107 mmol/L LAB CHEMISTRY METHOD 04/20/2025 11:25 AM [facility] CO2 26 24 - 32 mmol/L LAB CHEMISTRY METHOD 04/20/2025 11:25 AM [facility] Anion Gap 10 5 - 14 LAB CHEMISTRY METHOD 04/20/2025 11:25 AM [facility] Glucose 99 70 - 99 mg/dL LAB CHEMISTRY METHOD 04/20/2025 11:25 AM [facility] BUN 9 7 - 17 mg/dL LAB CHEMISTRY METHOD 04/20/2025 11:25 AM [facility] Creatinine 0.60 0.50 - 1.00 mg/dL LAB CHEMISTRY METHOD 04/20/2025 11:25 AM [facility] eGFR 108 >=60 mL/min/1. 73m2 LAB CHEMISTRY METHOD 04/20/2025 11:25 AM [facility] Comment:Calculation based on the Chronic Kidney Disease Epidemiology Collaboration (CKD-EPI) equation refit without adjustment for race. BUN/Creatinine Ratio 15.0 12.0 - 20.0 LAB CHEMISTRY METHOD 04/20/2025 11:25 AM [facility] Calcium 9.4 8.4 - 10.2 mg/dL LAB CHEMISTRY METHOD 04/20/2025 11:25 AM [facility] AST (SGOT) 21 5 - 40 unit/L LAB CHEMISTRY METHOD 04/20/2025 11:25 AM [facility] ALT (SGPT) 30 7 - 52 unit/L LAB CHEMISTRY METHOD 04/20/2025 11:25 AM [facility] Alkaline Phosphatase 99 34 - 104 unit/L LAB CHEMISTRY METHOD 04/20/2025 11:25 AM EST [facility] Total Protein 7.6 6.4 - 8.5 g/dL LAB CHEMISTRY METHOD 04/20/2025 11:25 AM [facility] Albumin 4.1 3.5 - 5.0 g/dL LAB CHEMISTRY METHOD 04/20/2025 11:25 AM [facility] Total Bilirubin 0.6 0.3 - 1.0 mg/dL LAB CHEMISTRY METHOD 04/20/2025 11:25 AM [facility] Blood Venous blood specimen / Unknown Venipuncture / Unknown 04/20/2025 10:46 AM EST 04/20/2025 10:50 AM EST Troy Swift MD LAB BLOOD ORDERABLES Final Res ult [facility] [address] [place] [id number], [place] [phone] * ABO Rh (04/20/2025 9:55 AM EST) ABO Group O 04/20/2025 11:36 AM EST [facility] Rh Type Negative 04/20/2025 11:36 AM [facility] Blood Venous blood specimen / Unknown Venipuncture / Unknown 04/20/2025 9:55 AM EST 04/20/2025 10:04 AM EST Dav Rutherford MD LAB BLOOD BANK TEST ORDERA BLES Final Result [facility] [address] [place] [id number], [place] [phone] * Type and screen (04/20/2025 9:55 AM EST) ABO Group O 04/20/2025 11:36 AM EST [facility] Rh Type Negative 04/20/2025 11:36 AM EST [facility] Antibody Screen Negative 04/20/2025 11:36 AM EST [facility] Blood Venous blood specimen / Unknown Venipuncture / Unknown 04/20/2025 9:55 AM EST 04/20/2025 10:04 AM EST Dav Rutherford MD LAB BLOOD BANK TEST ORDERA BLES Final Result [facility] [address] [place] [address], [place] [phone] documented in this encounter Visit Diagnoses Diagnosis DJD of shoulder- Primary Osteoarthrosis, unspecified whether generalized or localized, shoulder region Pain Generalized pain Primary osteoarthritis of left shoulder documented in this encounter Admitting Diagnoses Diagnosis DJD of shoulder Osteoarthrosis, unspecified whether generalized or localized, shoulder region documented in this encounter Administered Medications Inactive Administered Medications - up to 3 most recent administrations Medication Order MAR Action Action Date Dose Rate Site acetaminophen (TYLENOL) tablet 1,000 mg 1,000 mg, oral, Every 8 hours scheduled, First dose on Zoe 04/20/25 at 1630, Recovery & On Unit, Administer q8h around the clock, scheduled. Do not Given 04/21/2025 10:15 AM EST 1,000 mg Given 04/21/2025 1:53 AM EST 1,000 mg Given 04/20/2025 6:07 PM EST 1,000 mg albuterol 2.5 mg /3 mL (0.083 %) nebulizer solution 2.5 mg 2.5 mg, nebulization, Every 8 hours PRN, wheezing, Starting on Zoe 04/20/25 at 1604, Recovery & On Unit Given 04/20/2025 6:51 PM EST 2.5 mg amiodarone (PACERONE) tablet 400 mg 400 mg, oral, 2 times daily, First dose on Zoe 04/20/25 at 2100, Recovery & On Unit Given 04/21/2025 9:03 AM EST 400 mg Given 04/20/2025 8:24 PM EST 400 mg amLODIPine (NORVASC) tablet 10 mg 10 mg, oral, Daily, First dose on Zoe 04/20/25 at 1630, Recovery & On Unit Given 04/21/2025 9:01 AM EST 10 mg apixaban (ELIQUIS) tablet 2.5 mg 2.5 mg, oral, 2 times daily, First dose on Thu04/21/25 at 0900, For 5 days, Recovery & On Unit, Indication: Atrial Fibrillation Given 04/21/2025 9:02 AM EST 2.5 mg bupivacaine (PF) (MARCAINE) 0.5 % injection 30 mL 30 mL, injection, Once, On Zoe 04/20/25 at 0915, For 1 dose, Preprocedure Given 04/20/2025 10:57 AM EST 30 mL carvediloL (COREG) tablet 25 mg 25 mg, oral, 2 times daily with meals, First dose on Zoe 04/20/25 at 1700, Recovery & On Unit Given 04/21/2025 9:03 AM EST 25 mg ceFAZolin (ANCEF) 2 g in sterile water 20 mL IV syringe 2 g, intravenous, Administer over 3 Minutes, Once, On Zoe 04/20/25 at 1930, For 1 dose, Recovery & On Unit, Give 8 hours after the intra-op cefazolin dose, Indication: Prophylaxis-Surgical Given 04/20/2025 8:24 PM EST 2 g dexAMETHasone (DECADRON) injection 4 mg 4 mg, intravenous, Once as needed, nausea and vomitting, Starting on Zoe 04/20/25 at 1527, For 1 dose, Recovery (only), Administer 2nd unless given in OR Given 04/20/2025 4:06 PM EST 4 mg dexAMETHasone (DECADRON) tablet 8 mg 8 mg, oral, Once, On Thu04/21/25 at 0800, For 1 dose, Phase II/On Unit, For 1 dose, POD#1 in the morning. Hold for patients with the following procedures: I&D with or without poly exchange, resection arthroplasty, removal of prosthesis. Given 04/21/2025 9:02 AM EST 8 mg fentaNYL (PF) (SUBLIMAZE) injection 100 mcg 100 mcg, intravenous, Once as needed, severe pain, Starting on Zoe 04/20/25 at 0845, For 1 dose, Preprocedure Given 04/20/2025 10:55 AM EST 100 mcg furosemide (LASIX) tablet 40 mg 40 mg, oral, Daily, First dose on Zoe 04/20/25 at 1630, Recovery & On Unit Given 04/21/2025 9:03 AM EST 40 mg lactated Ringer's infusion 100 mL/hr, intravenous, Continuous, Starting on Zoe 04/20/25 at 0915, Preprocedure Restarted 04/20/2025 11:43 AM EST Continued by Anesthesia 04/20/2025 11:37 AM EST 100 mL/hr New Bag 04/20/2025 10:55 AM EST 100 mL/hr 100 mL/hr lactated Ringer's infusion 100 mL/hr, intravenous, Continuous, Starting on Zoe 04/20/25 at 1630, Recovery & On Unit Restarted 04/20/2025 5:49 PM EST 100 mL/hr 100 mL/hr losartan (COZAAR) tablet 50 mg 50 mg, oral, Daily, First dose on Zoe 04/20/25 at 1630, Recovery & On Unit Given 04/21/2025 9:02 AM EST 50 mg meloxicam (MOBIC) tablet 15 mg 15 mg, oral, Daily, First dose on Thu04/21/25 at 0900, Phase II/On Unit, Do NOT give for patients >80y.o. or eCrCl <15mL/min <75yo: dose 15mg 75-80yo: dose 7.5mg Given 04/21/2025 9:02 AM EST 15 mg methocarbamoL (ROBAXIN) tablet 750 mg 750 mg, oral, Every 6 hours PRN, muscle spasms, Starting on Zoe 04/20/25 at 1605, Recovery & On Unit Given 04/21/2025 9:02 AM EST 750 mg Given 04/21/2025 1:53 AM EST 750 mg metoclopramide (REGLAN) injection 10 mg 10 mg, intravenous, Every 6 hours PRN, nausea, vomiting, Starting on Zoe 04/20/25 at 1605, Recovery & On Unit, To be given if Zofran is ineffective Doses LESS than or equal to 10 mg can be given IV push undiluted over 1 minute Given 04/20/2025 4:20 PM EST 10 mg midazolam (VERSED) injection 2 mg 2 mg, intravenous, Once, On Zoe 04/20/25 at 0915, For 1 dose, Preprocedure Given 04/20/2025 10:55 AM EST 2 mg ondansetron (PF) (ZOFRAN) injection 4 mg 4 mg, intravenous, Once as needed, nausea, vomiting, Starting on Zoe 04/20/25 at 1527, For 1 dose, Recovery (only), Infuse over 2 minutes. Administer 1st unless given in OR then give dexamethasone Given 04/20/2025 3:56 PM EST 4 mg oxyCODONE (ROXICODONE) immediate release tablet 10 mg 10 mg, oral, Every 4 hours PRN, moderate pain, Pain scale 4-6, Starting on Zoe 04/20/25 at 1605, Recovery & On Unit Given 04/21/2025 9:03 AM EST 10 mg sodium chloride 0.9 % bolus 500 mL 500 mL, intravenous, at 250 mL/hr, Administer over 2 Hours, Once, On Oze 04/20/25 at 1900, For 1 dose New Bag 04/20/2025 6:54 PM EST 500 mL 250 mL/hr tranexamic acid (CYKLOKAPRON) 1,000 mg in sodium chloride 0.9 % 100 mL IVPB - MBP 1,000 mg (1 g), intravenous, at 200 mL/hr, Administer over 30 Minutes, Once, On Zoe 04/20/25 at 1545, For 1 dose, Recovery (only), Administer within 30 minutes of arrival to PACU Mini-Bag Plus bag. Do not exceed maximum rate of 100 mg per minute., Tranexamic Acid Indication: Surgical Prophylaxis: Orthopedic New Bag 04/20/2025 3:55 PM EST 1,000 mg 200 mL/hr documented in this encounter Discontinued Medications Medication Sig Discontinue Reason Start Date End Da te apixaban (ELIQUIS) 5 mg tablet Take 1 tablet (5 mg total) by mouth 2 (two) times a day. Stop Taking at Discharge 04/21/2025 documented as of this encounter Historical Medications * This list may reflect changes made after this encounter. potassium chloride (KLOR-CON M10) 10 mEq CR tablet Take 2 tablets (20 mEq total) by mouth 1 (one) time each day. For 5 days losartan (COZAAR) 50 mg tablet Take 1 tablet (50 mg total) by mouth 1 (one) time each day. levocetirizine (XYZAL) 5 mg tablet Take 1 tablet (5 mg total) by mouth at bedtime. furosemide (LASIX) 40 mg tablet Take 1 tablet (40 mg total) by mouth 1 (one) time each day. carvediloL (COREG) 25 mg tablet Take by mouth 2 (two) times a day with meals. amLODIPine (NORVASC) 10 mg tablet Take by mouth 1 (one) time each day. amiodarone (PACERONE) 400 mg tablet Take 1 tablet (400 mg total) by mouth 2 (two) times a day. albuterol 2.5 mg /3 mL (0.083 %) nebulizer solution Take 3 mL (2.5 mg total) by nebulization every 6 (six) hours if needed for wheezing. albuterol HFA (PROAIR HFA ; PROVENTIL HFA ; VENTOLIN HFA) 90 mcg/actuation inhaler Inhale 2 puffs by mouth every 6 (six) hours if needed for wheezing. acetaminophen (TYLENOL) 500 mg tablet Take 2 tablets (1,000 mg total) by mouth every 6 (six) hours if needed for mild pain. apixaban (ELIQUIS) 5 mg tablet Take 1 tablet (5 mg total) by mouth 2 (two) times a day. added in this encounter Active and Recently Administered Medications Times are shown in EST. Scheduled Medication Order 04/19/2025 04/20/2025 04/21/2025 acetaminophen (TYLENOL) tablet 1,000 mg 1,000 mg, oral, Every 8 hours scheduled, First dose on Zoe 04/20/25 at 1630, Recovery & On Unit, Administer q8h around the clock, scheduled. Do not 1807 (Given - Provider: Celia Padron RN) 0153 (Given - Provider: Eve Carrington RN)1015 (Given - Provider: Bárbara Stone RN) amiodarone (PACERONE) tablet 400 mg 400 mg, oral, 2 times daily, First dose on Zoe 04/20/25 at 2100, Recovery & On Unit 2023 (Given - Provider: Eve Carrington RN) 0903 (Given - Provider: Bárbara Stone RN) amLODIPine (NORVASC) tablet 10 mg 10 mg, oral, Daily, First dose on Zoe 04/20/25 at 1630, Recovery & On Unit 1749 (Not Given - Provider: Celia Padron RN - Reason: Change in vital signs) 0901 (Given - Provider: Bárbara Stone RN) apixaban (ELIQUIS) tablet 2.5 mg 2.5 mg, oral, 2 times daily, First dose on Thu04/21/25 at 0900, For 5 days, Recovery & On Unit, Indication: Atrial Fibrillation 0902 (Given - Provid er: Bárbara Stone RN) bupivacaine (PF) (MARCAINE) 0.5 % injection 30 mL (COMPLETED) 30 mL, injection, Once, On Zoe 04/20/25 at 0915, For 1 dose, Preprocedure 1057 (Given - Provider: Karina Kyle RN) carvediloL (COREG) tablet 25 mg 25 mg, oral, 2 times daily with meals, First dose on Thu04/20/25 at 1700, Recovery & On Unit 1748 (Not Given - Provider: Celia Padron RN - Reason: Change in vital signs) 0903 (Given - Provider: Bárbara Stone RN - Comment: just eating) ceFAZolin (ANCEF) 2 g in sterile water 20 mL IV syringe (COMPLETED) 2 g, intravenous, Administer over 3 Minutes, Once, On Zoe 04/20/25 at 0915, For 1 dose, Preprocedure, To be administered in the OR <60 minutes before incision Weight based dosin gram Ancef: less than 70kg 2 gram Ancef: 70-120kg 3 gram Ancef: greater than 120kg, Indication: Prophylaxis-Surgical 1154 (New Bag - Provider: Troy Swift MD) ceFAZolin (ANCEF) 2 g in sterile water 20 mL IV syringe (COMPLETED) 2 g, intravenous, Administer over 3 Minutes, Once, On Zoe 04/20/25 at 1930, For 1 dose, Recovery & On Unit, Give 8 hours after the intra-op cefazolin dose, Indication: Prophylaxis-Surgical 2023 (Given - Provider: Eve Carrington RN) dexAMETHasone (DECADRON) tablet 8 mg (COMPLETED) 8 mg, oral, Once, On Thu04/21/25 at 0800, For 1 dose, Phase II/On Unit, For 1 dose, POD#1 in the morning. Hold for patients with the following procedures: I&D with or without poly exchange, resection arthroplasty, removal of prosthesis. 09 (Given - Provid er: Bárbara Stone RN) furosemide (LASIX) tablet 40 mg 40 mg, oral, Daily, First dose on Zoe 04/20/25 at 1630, Recovery & On Unit 1749 (Not Given - Provider: Celia Padron RN - Reason: Other) 09 (Given - Provider: Bárbara Stone RN) losartan (COZAAR) tablet 50 mg 50 mg, oral, Daily, First dose on Zoe 04/20/25 at 1630, Recovery & On Unit 1749 (Not Given - Provider: Celia Padron RN - Reason: Other) 09 (Given - Provider: Bárbara Stone RN) meloxicam (MOBIC) tablet 15 mg 15 mg, oral, Daily, First dose on Thu04/21/25 at 0900, Phase II/On Unit, Do NOT give for patients >80y.o. or eCrCl <15mL/min <75yo: dose 15mg 75-80yo: dose 7.5mg 09 (Given - Provid er: Bárbara Stone RN) midazolam (VERSED) injection 2 mg (COMPLETED) 2 mg, intravenous, Once, On Thu04/20/25 at 0915, For 1 dose, Preprocedure 1055 (Given - Provider: Karina Kyle RN) senna-docusate (PERICOLACE) 8.6-50 mg per tablet 1 tablet 1 tablet, oral, 2 times daily, First dose on Thu04/20/25 at 2100, Phase II/On Unit, Start evening of POD#0. Hold for loose stools. Hold for patients with history of IBS, IBO, ileostomy. 2023 (Not Given - Provider: Eve Carrington RN - Reason: Patient/Resident/Agent refused - education provided - Comment: pt having loose bowel movement) 901 (Not Given - Provider: Bárbara Stone RN - Reason: Patient/Resident/Agent refused - education provided ) sodium chloride 0.9 % bolus 500 mL (COMPLETED) 500 mL, intravenous, at 250 mL/hr, Administer over 2 Hours, Once, On Zoe 04/20/25 at 1900, For 1 dose 1854 (New Bag - Provider: Celia Padron, ANNIE)2054 (Stopped - Provider: Eve Carrington RN) tranexamic acid (CYKLOKAPRON) 1,000 mg in sodium chloride 0.9 % 100 mL IVPB - MBP (COMPLETED) 1,000 mg (1 g), intravenous, at 200 mL/hr, Administer over 30 Minutes, Once, On Zoe 04/20/25 at 1545, For 1 dose, Recovery (only), Administer within 30 minutes of arrival to PACU Mini-Bag Plus bag. Do not exceed maximum rate of 100 mg per minute., Tranexamic Acid Indication: Surgical Prophylaxis: Orthopedic 1555 (New Bag - Provider: Bonnie Quick RN)1749 (Stopped - Provider: Celia Padron RN) vancomycin (VANCOCIN) 1,000 mg in sodium chloride 0.9 % 250 mL IVPB (COMPLETED) 1,000 mg, intravenous, at 250 mL/hr, Administer over 60 Minutes, Once, On Zoe 04/20/25 at 0915, For 1 dose, Preprocedure, Vancomycin 1000mg in sodium chloride 0.9% (NS) 250mL IVPB-MBP. 1,000mg IV at 250mL/hour for one dose pre-op, Indication: Prophylaxis-Surgical 1154 (New Bag - Provider: Troy Swift MD) Continuous Medication Order 04/19/2025 04/20/2025 04/21/2025 lactated Ringer's infusion 100 mL/hr, intravenous, Continuous, Starting on Zoe 04/20/25 at 0915, Preprocedure 1055 (New Bag - Provider: Karina Kyle RN)1137 (Continued by Anesthesia - Provider: Troy Swift MD)1142 (Paused - Provider: Troy Swift MD - Comment: Switch to gravity)1143 (Restarted - Provider: Troy Swift MD)1426 (Anesthesia Volume Adjustment - Provider: Luis Márquez CRNA) 1446 (Due: Order Ending - Provider: Automatic Discharge Provider - Comment: [Order ends at this time. Document the following action when infusion is complete: Stopped]) lactated Ringer's infusion 100 mL/hr, intravenous, Continuous, Starting on Zoe 04/20/25 at 1630, Recovery & On Unit 1749 (Restarted - Provider: Celia Padron RN) 1446 (Due: Order Ending - Provider: Automatic Discharge Provider - Comment: [Order ends at this time. Document the following action when infusion is complete: Stopped]) PRN Medication Order 04/19/2025 04/20/2025 04/21/2025 albuterol 2.5 mg /3 mL (0.083 %) nebulizer solution 2.5 mg 2.5 mg, nebulization, Every 8 hours PRN, wheezing, Starting on Zoe 04/20/25 at 1604, Recovery & On Unit 1749 (Not Given - Provider: Celia Padron RN - Reason: Other)1851 (Given - Provider: Celia Padron RN) aluminum-magnesium hydroxide-simethicone (MAALOX) 200-200-20 mg/5 mL suspension 30 mL 30 mL, oral, Every 6 hours PRN, heartburn, indigestion, Starting on Zoe 04/20/25 at 1730, Phase II/On Unit benzocaine-menthoL (CEPACOL SORE THROAT) 15-3.6 mg lozenge 1 lozenge 1 lozenge, Mouth/Throat, Every 2 hours PRN, sore throat, Starting on Zoe 04/20/25 at 1730, Phase II/On Unit bisacodyL (DULCOLAX) suppository 10 mg 10 mg, rectal, Daily PRN, constipation, Starting on Thu04/21/25 at 0000, Phase II/On Unit, Hold for patients with history of IBS, IBO, ileostomy. calcium carbonate (TUMS) chewable tablet 500 mg 500 mg, oral, Every 4 hours PRN, heartburn, indigestion, Starting on Thu04/20/25 at 1730, Phase II/On Unit, Ordered as calcium carbonate. 500 mg calcium carbonate = 200 mg elemental calcium. dexAMETHasone (DECADRON) injection 4 mg (COMPLETED) 4 mg, intravenous, Once as needed, nausea and vomitting, Starting on Zoe 04/20/25 at 1527, For 1 dose, Recovery (only), Administer 2nd unless given in OR 1606 (Given - Provider: Denise Rothman RN) fentaNYL (PF) (SUBLIMAZE) injection 100 mcg (COMPLETED) 100 mcg, intravenous, Once as needed, severe pain, Starting on Zoe 04/20/25 at 0845, For 1 dose, Preprocedure 1055 (Given - Provider: Karina Kyle RN) HYDROmorphone (DILAUDID) injection 0.5 mg 0.5 mg, intravenous, Every 4 hours PRN, severe pain, Pain scale 7-10, Starting on Zoe 04/20/25 at 1605, Recovery & On Unit magnesium hydroxide (MILK OF MAGNESIA) 400 mg/5 mL suspension 30 mL 30 mL, oral, Daily PRN, constipation, Starting on Zoe 04/20/25 at 1730, Phase II/On Unit, Hold for patients with history of IBS, IBO, ileostomy. methocarbamoL (ROBAXIN) tablet 750 mg 750 mg, oral, Every 6 hours PRN, muscle spasms, Starting on Zoe 04/20/25 at 1605, Recovery & On Unit 0153 (Given - Provid er: Eve Carrington RN)0902 (Given - Provider: Bárbara Stone RN) metoclopramide (REGLAN) injection 10 mg 10 mg, intravenous, Every 6 hours PRN, nausea, vomiting, Starting on Zoe 04/20/25 at 1605, Recovery & On Unit, To be given if Zofran is ineffective Doses LESS than or equal to 10 mg can be given IV push undiluted over 1 minute 1620 (Given - Provider: Denise Rothman RN) ondansetron (PF) (ZOFRAN) injection 4 mg (COMPLETED) 4 mg, intravenous, Once as needed, nausea, vomiting, Starting on Zoe 04/20/25 at 1527, For 1 dose, Recovery (only), Infuse over 2 minutes. Administer 1st unless given in OR then give dexamethasone 1556 (Given - Provider: Bonnie Quick RN) ondansetron (PF) (ZOFRAN) injection 4 mg 4 mg, intravenous, Every 6 hours PRN, nausea, vomiting, Starting on Zoe 04/20/25 at 1605, Recovery & On Unit, To be given first oxyCODONE (ROXICODONE) immediate release tablet 10 mg 10 mg, oral, Every 4 hours PRN, moderate pain, Pain scale 4-6, Starting on Zoe 04/20/25 at 1605, Recovery & On Unit 0903 (Given - Provid er: Bárbara Stone RN) oxyCODONE (ROXICODONE) immediate release tablet 5 mg 5 mg, oral, Every 4 hours PRN, Pain scale 1-3, Starting on Zoe 04/20/25 at 1605, Recovery & On Unit povidone-iodine (BETADINE) 30 mL in sodium chloride 0.9 % 1,000 mL irrigation (CANCELED) As needed, Starting on Zoe 04/20/25 at 1243, Intraprocedure 1243 (Given - Provider: Dav Rutherford MD - Comment: USED THROUGHOUT THE CASE.) sodium chloride 0.9 % irrigation solution (CANCELED) As needed, Starting on Zoe 04/20/25 at 1243, Intraprocedure 1243 (Given - Provider: Dav Rutherford MD) vancomycin (VANCOCIN) vial for injection (CANCELED) As needed, Starting on Zoe 04/20/25 at 1330, Intraprocedure 1330 (Given - Provider: Dav Rutherford MD - Comment: SPRINKLED INTO WOUND PRIOR TO CLOSURE.) vancomycin (VANCOCIN) vial for injection (CANCELED) As needed, Starting on Zoe 04/20/25 at 1406, Intraprocedure 1406 (Given - Provider: Dav Rutherford MD - Comment: 2 GM. STERILE POWDER VANCOMYCIN MIXED WITH BONE CEMENT.) documented in this encounter Orders Medications Ordered That Tye ht Not Have Been Administered Count Last Ordered Date First Ordered Date aluminum-magnesium hydroxide -simethicone (MAALOX) 200-200-20 mg/5 mL suspension 30 mL 1 04/20/2025 benzocaine-menthoL (CEPACOL SORE THROAT) 15-3.6 mg lozenge 1 lozenge 1 04/20/2025 bisacodyL (DULCOLAX) suppository 10 mg 1 calcium carbonate (TUMS) alexis wable tablet 500 mg 1 04/20/2025 ceFAZolin (ANCEF) 2 g in everett rile water 20 mL IV syringe 1 04/20/2025 HYDROmorphone (DILAUDID) injection 0.2 mg 1 04/20/2025 HYDROmorphone (DILAUDID) injection 0.5 mg 2 04/20/2025 ipratropium-albuteroL (DUONE B) 0.5-2.5 mg/3 mL nebulizer solution 3 mL 1 04/20/2025 magnesium hydroxide (MILK OF MAGNESIA) 400 mg/5 mL suspension 30 mL 1 04/20/2025 ondansetron (PF) (ZOFRAN) injection 4 mg 1 04/20/2025 orphenadrine (NORFLEX) injection 30 mg 1 oxyCODONE (ROXICODONE) immed iate release tablet 5 mg 2 04/20/2025 povidone-iodine (BETADINE) 3 0 mL in sodium chloride 0.9 % 1,000 mL irrigation 1 04/20/2025 prochlorperazine (COMPAZINE) injection 10 mg 1 04/20/2025 senna-docusate (PERICOLACE) 8.6-50 mg per tablet 1 tablet 1 04/20/2025 sodium chloride 0.9 % irrigation solution 1 04/20/2025 vancomycin (VANCOCIN) 1,000 mg in sodium chloride 0.9 % 250 mL IVPB 1 04/20/2025 vancomycin (VANCOCIN) vial for injection 2 04/20/2025 Lab Orders Without Results Count Last Ordered D ate First Ordered Date POCT GLUCOSE, BLOOD 1 04/20/2025 Nursing Count Last Ordered Date First Orde red Date BLADDER SCAN 1 04/20/2025 PLACE IN OUTPATIENT/HOSPITAL AMBULATORY SURGERY 1 04/20/2025 Respiratory Care Count Last Ordered Date First Ordered Date OXYGEN THERAPY, ADULT 3 04/20/2025 Admission Count Last Ordered Date First Orde red Date INITIATE EXTENDED RECOVERY 1 04/20/2025 Discharge Count Last Ordered Date First Orde red Date DISCHARGE PATIENT 1 04/21/2025 ADT Patient Update Count Last Ordered Date Firs t Ordered Date UPDATE PATIENT ACCOMMODATIONS 1 04/20/2025 documented in this encounter Additional Health Concerns Active Problems Noted Date Diagnosed Date Autogenerated Problem 04/21/2025 documented as of this encounter Care Teams Well Digger Relationship Specialty Start Date End Date Windy Mcelroy MD [address] [place] [address] PCP - General Internal Medicine 04/17/25 documented as of this encounter
--- OUTSIDE RECORDS SUMMARY | 2025-04-20 11:37 | XMS_ITS | Encounter Summary ---
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 Name Role Phone Windy Mcelroy MD Primary Care Provider [phone] Reason for Visit * Auth/Cert (Routine) Specialty Diagnoses / Procedures Referred By Jacinto wilcox Referred To Contact Diagnoses Other displaced fracture of upper end of left humerus, initial encounter for closed fracture Procedures LA ARTHROPLASTY GLENOHUMERAL JOINT TOTAL SHOULDER LA TX FRACTURE PROXIMAL HUMERAL OPEN INCL INT FIXN INCL REPR TUBEROSITY LA TENODESIS LONG TENDON OF BICEPS ARTHROPLASTY SHOULDER TOTAL REVERSE APPROACH ORIF HUMERUS PROXIMAL REPAIR TENDON SHOULDER Dav [place] [address] Phone: tel: fax: [facility] OR [address] [place] [phone] Phone: tel: Referral ID Status Reason Start Date Expiration Date Visits Re quested Visits Authorized [id number] 1 1 Encounter Details Date Type Department Care Team (Late st Contact Info) Description 04/20/2025 11:37 AM EST Anesthesia Event [facility] OR [address] [place] [id number] Troy Swift MD [address] [place] [address] David Barone MD [address] [place] [address] Anesthesia Record Procedure Summary Procedure Name Responsible Anesthesiologist Anesthesia Start Time Anesthesia Stop Time ARTHROPLASTY SHOULDER TOTAL REVERSE APPROACH (Left: Shoulder) Troy Swift MD 04/20/25 1137 04/20/25 1557 Events Date Time Event Comment 04/20/2025 1043 1101 Block Placed 1137 An Start 1138 In Room 1138 An Start Data The patient wa s reevaluated immediately before moderate or deep sedation use and before anesthesia induction. 1143 An Induction 1146 An Intubation 1150 Anesthesia Ready 1237 Proc Start 1545 An Extubation 1547 an stop data 1547 Transport to PACU/ICU Patien t reassessed and ready for transfer, airway stable. Patient transport to designated recovery area. {Transport to PACU/ICU:[id number]} 1547 Out of Room 1557 Handoff to RN I completed my handoff to the receiving nurse during which we: 1. Identified the patient 2. Identified the responsible provider 3. Reviewed the pertinent medical history 4. Discussed the surgical course 5. Reviewed intra-op anesthesia management and issues during anesthesia 6. Set expectations for post-procedure period 7. Allowed opportunity for questions and acknowledgement of understanding. 1557 An Stop 04/21/2025 2154 Charting Exception This even t is only to be used when the record fails to meet documentation requirements for billing and thus is unable to be signed through the regular documentation verification process. Please document reason for use: Meds Name Total propofol (DIPRIVAN) injection 10 mg/mL 3 00 mg rocuronium 50 mg ondansetron 2 mg/mL 4 mg sugammadex (BRIDION) injection 100 mg/mL 400 mg ceFAZolin (ANCEF) 2 g in sterile water 2 0 mL IV syringe 3 g vancomycin (VANCOCIN) 1,000 mg in sodium chloride 0.9 % 250 mL IVPB 1,000 mg tranexamic acid (CYKLOKAPRON) injection 2 g ketamine (KETALAR) injection 50 mg/mL sy ringe 50 mg dexAMETHasone (DECADRON) injection 4 mg/ mL 8 mg lactated Ringer's infusion 800 mL * Agents Name O2 * Blood No blood administrations on file. Lines, Drains, and Airways Type Details Placement Removal Wound Incision; 04/20/25; N; Yes; Shoulder; Left, Lateral; EXOFIN GLUE,TEGADERM, arm sling 04/20/25 0000 by Yissel Rosario RN Interscalene Block 1247 (created via procedure documentation); 04/20/25; 1101; single-shot; short-bevel; 22 G; (3 1/8 inch); none; No 04/20/25 1247 by Troy Swift MD Peripheral IV Placement Date: 04/02 ; Placement Time: 1001; Catheter Size: 20 G; Orientation: Anterior, Right; Location: Hand; Site Prep: Chlorhexidine; Insertion Attempts: 1; Patient Tolerance: Tolerated well; Removal Date: 04/21/25; Removal Time: 1043 04/20/25 1001 by Kathy Dyer RN 04/21/25 1043 by Bárbara Stone RN ETT Placement Date: 04/02 ; Placement Time: 1426 (created via procedure documentation); Mask Ventilation: 2; Technique: Direct laryngoscopy; Type: ETT; Cuffed: Yes; Blade Size: 3; Location: Oral; Insertion Attempts: 1; Placement Verification: Auscultation, Capnometry; Airway Comments: Easy atraumatic intubation. Airway clean and dry throughout. Dentition as per pre-op. *See Anesthesia Record/MAR for full documentation of meds given during this encounter ; Removal Date: 04/20/25; Removal Time: 1545 04/20/25 1426 by Troy Swift MD 04/20/25 1545 by Luis Márquez CRNA documented in this encounter Social History Tobacco Use Types Packs/Day Years Used Date Smoking Tobacco: Former Cigarettes 0 2 1990 Smokeless Tobacco: Never Alcohol Use Standard Drinks/Week Comments Not Currently [...] AM EST documented as of this encounter Functional Status * Calculated C-SSRS Risk Score (Lifetime/Recent) Answer Date of Assessment Author No Risk Indicated 04/20/2025 5:45 PM Celia Novak RN * [place] Suicide Severity Rating Scale (Screener/Recent Self-Report) Question Answer Date of Assessment Author 1. Wish to be (Past 1 Month) No 025 5:45 PM Celia Novak RN 2. Non-Specific Active Suici rosana Thoughts (Past 1 Month) No 04/20/2025 5:45 PM Rolando Novak RN 6. Suicidal Behavior (Lifetime) No 5:45 PM Celia Novak RN documented as of this encounter Progress Notes * Troy Swift MD - 04/21/2025 9:51 PM EST Patient: aMrianne Romero Procedure Summary Date: 04/20/25 Room / Location: [facility] OR 02 / [facility] OR Anesthesia Start: 1137 Anesthesia Stop: Procedures: ARTHROPLASTY SHOULDER TOTAL REVERSE APPROACH (Left: Shoulder) ORIF HUMERUS PROXIMAL (Left: Arm Upper) REPAIR TENDON SHOULDER (Left: Arm Upper) Diagnosis: Other displaced fracture of upper end of left humerus, initial encounter for closed fracture Surgeons: Dav Rutherford MD Responsible Provider: Troy Swift MD Anesthesia Type: general ASA Status: 3 Anesthesia Plan: general Last Vitals: Vitals Value Taken Time BP 120/69 04/21/25 08:31 Temp 37.1 ??C (98.8 ??F) 04/21/25 08:31 Pulse 72 04/21/25 08:31 Resp 15 04/21/25 08:31 SpO2 99 % 04/21/25 08:31 Pain Score: 5 - Moderate pain Anesthesia Post Evaluation Patient location during evaluation: PACU Patient participation: complete - patient participated Level of consciousness: awake and alert Pain management: adequate Airway patency: patent Anesthetic complications: no Cardiovascular status: acceptable and hemodynamically stable Respiratory status: spontaneous ventilation and acceptable Hydration status: euvolemic Comments: Post anesthetic care is complete. The patient may be released per ASPAN standards. No apparent anesthetic complications are noted. As a part of normal post anesthetic care the following were addressed: respiratory and cardiac function, mental status, body temperature, pain, nausea and vomiting, hydration. Vitals, see flowsheets Nausea: No Vomiting: No No notable events documented. * Troy Swift MD - 04/20/2025 2:19 PM ESTAssociated Order(s): Intubation General Information and Staff Patient location during procedure: OR Anesthesiologist: Troy Swift MD Performed: anesthesiologist Performed by: Troy Swift MD Authorized by: Troy Swift MD Intubation Additional Comments Easy atraumatic intubation. Airway clean and dry throughout. Dentition as per pre-op. *See Anesthesia Record/MAR for full documentation of meds given during this encounter Airway not difficult Reason: elective Final Airway Details Successful airway: ETT Cuffed: yes Successful intubation technique: direct laryngoscopy Adjuncts used in placement: intubating stylet and anterior pressure/BURP Endotracheal tube insertion site: oral Blade: Vivek Blade size: #3 ETT size (mm): 7.0 Cormack-Lehane Classification: grade I - full view of glottis Placement verified by: chest auscultation and capnometry Measured from: lips ETT to lips (cm): 20 Ventilation between attempts: BVM Final airway type: endotracheal airway Indications and Patient Condition Indications for airway management: anesthesia Sedation level: Yes Preoxygenated: yesSoft Tissue Damage: No Dentition Unchanged: Yes Patient position: sniffing MILS maintained throughout Mask difficulty assessment: 2 - vent by mask + OA or adjuvant +/- NMBA * Troy Swift MD - 04/20/2025 12:47 PM ESTAssociated Order(s): Peripheral Block Peripheral Block Patient location during procedure: pre-op Start time: 04/20/2025 10:54 AM End time: 04/20/2025 11:01 AM Reason for block: at surgeon's request Staffing Performed: anesthesiologist Anesthesiologist: Troy Swift MD Preanesthetic Checklist Completed: patient identified, IV checked, site marked, risks and benefits discussed, surgical consent, monitors and equipment checked, pre-op evaluation and timeout performed Peripheral Block Patient position: sitting Prep: ChloraPrep Patient monitoring: heart rate, manager cardiac and continuous pulse ox Block type: interscalene Laterality: left Injection technique: single-shot Guidance: ultrasound guided Local infiltration: lidocaine Infiltration strength: 1 % Dose: 2 mL Needle Needle type: short-bevel Needle gauge: 22 G Needle length: 3 1/8 inch. Needle localization: ultrasound guidance Assessment Injection assessment: negative aspiration for heme, no paresthesia on injection, incremental injection with negative aspiration q 5ml and local visualized surrounding nerve on ultrasound Paresthesia pain: none Heart rate change: no Additional Notes Done for post-op pain management * Troy Swift MD - 04/20/2025 10:42 AM EST Relevant Problems No relevant active problems Clinical information reviewed: Tobacco Allergies Meds Med Hx Surg Hx OB Status Fam Hx Soc Hx Anesthesia Plan ASA 3 Anesthesia Plan: general General Anesthesia Considerations: LMA Anesthesia Considerations peripheral nerve single shot Comment: (interscalene) Anesthesia Risks Discussed dental injury, nausea, pain, corneal abrasion, allergic reaction, serious complications and sore throat Plan Factors Patient is not a current smoker Induction method: intravenous Anesthetic plan and risks discussed with patient. Anesthesia Plan discussed with attending and surgeon. Anesthesia Evaluation Patient summary reviewed and Nursing notes reviewed History of anesthetic complications Airway Mallampati: III Thyromental distance: > 3 finger breadths Neck ROM: fullnot intubatedno noted risk Dental Pulmonary - normal exam breath sounds clear to auscultation (+) asthma, shortness of breath, sleep apnea Cardiovascular Exercise tolerance: good (+) hypertension, CHF (-) valvular problems/murmurs, past WI ECG reviewed Rhythm: regular Rate: normal Neuro/Psych - negative ROS (-) CVA Mental Status: alert and oriented - neuro/psych exam normal GI/Hepatic/Renal - negative ROS (-) GERD, liver disease Endo/Other - negative ROS (-) diabetes mellitus Abdominal (+) obese Abdomen: soft. Bowel sounds: normal. PONV RISK SCORE: 4 Vitals: 04/18/25 1305 04/20/25 0915 04/20/25 1007 Temp: 36.8 ??C (98.2 ??F) TempSrc: Tympanic Weight: 127 kg (280 lb) 127 kg (280 lb) Height: 1.6 m (63 ) 1.6 m (63 ) SpO2 Readings from Last 1 Encounters: No data found for SpO2 No results found for: WBC , RBC , HGB , HCT , PLT , MCV Allergies[1] STOP BANG: STOP-Bang Total Score: 6 (04/18/2025 1:26 PM) NPO Status: Time of Last Liquid: 0730 Time of Last Solid: 09 [1] Allergies Allergen Reactions Amoxicillin Hives and Diarrhea Bactrim [Sulfamethoxazole-Trimethoprim] Hives and Diarrhea Egg Hives and Itching And Eggs whites Lisinopril Hives and Diarrhea documented in this encounter Plan of Treatment Not on file documented as of this encounter Goals Goal Patient Goal Type Associated Problems Recent Progress Patient-Stated? Author Autogenerat ed Goal Care Plan Autogenerated Problem No Annette Tracy documented as of this encounter Procedures Procedure Name Priority Date/Time Associated Diagnosis Comments TH AN ENDOTRACHEAL(NO CHARGE) Routine 04/20/2025 2:19 PM EST TH AN NERVE BLOCK INTERSCALENE (NO CHARGE) Routine 04/20/2025 10:54 AM EST TH AN NERVE BLOCK INTERSCALENE (CHARGE) Routine 04/20/2025 10:54 AM EST documented in this encounter Results * TH AN ENDOTRACHEAL(NO CHARGE) (04/20/2025 2:19 PM EST) Troy Singh MD - 04/20/2025 2:19 PM EST Troy Swift MD 04/20/2025 2:26 PM General Information and Staff Patient location during procedure: OR Anesthesiologist: Troy Swift MD Performed: anesthesiologist Performed by: Troy Swift MD Authorized by: Troy Swift MD Intubation Additional Comments Easy atraumatic intubation. Airway clean and dry throughout. Dentition as per pre-op. *See Anesthesia Record/MAR for full documentation of meds given during this encounter Airway not difficult Reason: elective Final Airway Details Successful airway: ETT Cuffed: yes Successful intubation technique: direct laryngoscopy Adjuncts used in placement: intubating stylet and anterior pressure/BURP Endotracheal tube insertion site: oral Blade: Vivek Blade size: #3 ETT size (mm): 7.0 Cormack-Lehane Classification: grade I - full view of glottis Placement verified by: chest auscultation and capnometry Measured from: lips ETT to lips (cm): 20 Ventilation between attempts: BVM Final airway type: endotracheal airway Indications and Patient Condition Indications for airway management: anesthesia Sedation level: Yes Preoxygenated: yesSoft Tissue Damage: No Dentition Unchanged: Yes Patient position: sniffing MILS maintained throughout Mask difficulty assessment: 2 - vent by mask + OA or adjuvant +/- NMBA us Troy Swift MD ANESTHESIA ORDERABLES Final Re sult * TH AN NERVE BLOCK INTERSCALENE (CHARGE), TH AN NERVE BLOCK INTERSCALENE (NO CHARGE) (04/20/2025 10:54 AM EST) Troy Singh MD - 04/20/2025 10:54 AM EST Troy Swift MD 04/20/2025 12:47 PM Peripheral Block Patient location during procedure: pre-op Start time: 04/20/2025 10:54 AM End time: 04/20/2025 11:01 AM Reason for block: at surgeon's request Staffing Performed: anesthesiologist Anesthesiologist: Troy Swift MD Preanesthetic Checklist Completed: patient identified, IV checked, site marked, risks and benefits discussed, surgical consent, monitors and equipment checked, pre-op evaluation and timeout performed Peripheral Block Patient position: sitting Prep: ChloraPrep Patient monitoring: heart rate, manager cardiac and continuous pulse ox Block type: interscalene Laterality: left Injection technique: single-shot Guidance: ultrasound guided Local infiltration: lidocaine Infiltration strength: 1 % Dose: 2 mL Needle Needle type: short-bevel Needle gauge: 22 G Needle length: 3 1/8 inch. Needle localization: ultrasound guidance Assessment Injection assessment: negative aspiration for heme, no paresthesia on injection, incremental injection with negative aspiration q 5ml and local visualized surrounding nerve on ultrasound Paresthesia pain: none Heart rate change: no Additional Notes Done for post-op pain management us Troy Swift MD ANESTHESIA ORDERABLES Final Re sult documented in this encounter Visit Diagnoses Not on filedocumented in this encounter Administered Medications Inactive Administered Medications - up to 3 most recent administrations Medication Order MAR Action Action Date Dose Rate Site ceFAZolin (ANCEF) 2 g in sterile water 20 mL IV syringe 2 g, intravenous, Administer over 3 Minutes, Once, On Zoe 04/20/25 at 0915, For 1 dose, Preprocedure, To be administered in the OR <60 minutes before incision Weight based dosin gram Ancef: less than 70kg 2 gram Ancef: 70-120kg 3 gram Ancef: greater than 120kg, Indication: Prophylaxis-Surgical New Bag 04/20/2025 11:54 AM EST 3 g dexAMETHasone (DECADRON) injection intravenous, As needed, Starting on Zoe 04/20/25 at 1245, Anesthesia Intraprocedure Given 04/20/2025 12:45 PM EST 8 mg ketamine (KETALAR) injection intravenous, As needed, Starting on Zoe 04/20/25 at 1245, Anesthesia Intraprocedure Given 04/20/2025 3:04 PM EST 10 mg Given 04/20/2025 1:45 PM EST 10 mg Given 04/20/2025 12:45 PM EST 30 mg lactated Ringer's infusion 100 mL/hr, intravenous, Continuous, Starting on Zoe 04/20/25 at 0915, Preprocedure Restarted 04/20/2025 11:43 AM EST Continued by Anesthesia 04/20/2025 11:37 AM EST 100 mL/hr New Bag 04/20/2025 10:55 AM EST 100 mL/hr 100 mL/hr ondansetron (PF) (ZOFRAN) injection intravenous, As needed, Starting on Zoe 04/20/25 at 1436, Anesthesia Intraprocedure Given 04/20/2025 2:36 PM EST 4 mg propofoL (DIPRIVAN) injection intravenous, As needed, Starting on Zoe 04/20/25 at 1143, Anesthesia Intraprocedure Given 04/20/2025 3:32 PM EST 20 mg Given 04/20/2025 3:30 PM EST 40 mg Given 04/20/2025 3:25 PM EST 40 mg rocuronium (ZEMURON) injection intravenous, As needed, Starting on Zoe 04/20/25 at 1143, Anesthesia Intraprocedure Given 04/20/2025 11:43 AM EST 50 mg sugammadex (BRIDION) 100 mg/mL injection intravenous, As needed, Starting on Zoe 04/20/25 at 1532, Anesthesia Intraprocedure Given 04/20/2025 3:[address] 400 mg tranexamic acid (CYKLOKAPRON) injection intravenous, As needed, Starting on Zoe 04/20/25 at 1235, Anesthesia Intraprocedure Given 04/20/2025 3:07 PM EST 1 g Given 04/20/2025 12:35 PM EST 1 g vancomycin (VANCOCIN) 1,000 mg in sodium chloride 0.9 % 250 mL IVPB 1,000 mg, intravenous, at 250 mL/hr, Administer over 60 Minutes, Once, On Zoe 04/20/25 at 0915, For 1 dose, Preprocedure, Vancomycin 1000mg in sodium chloride 0.9% (NS) 250mL IVPB-MBP. 1,000mg IV at 250mL/hour for one dose pre-op, Indication: Prophylaxis-Surgical New Bag 04/20/2025 11:54 AM EST 1,000 mg documented in this encounter Additional Health Concerns Active Problems Noted Date Diagnosed Date Autogenerated Problem 04/21/2025 documented as of this encounter Care Teams Plant Taxonomy Teacher Relationship Specialty Start Date End Date Windy Mcelroy MD [address] [place] [address] PCP - General Internal Medicine 04/17/25 documented as of this encounter
--- OUTSIDE RECORDS SUMMARY | 2025-04-20 11:45 | XMS_ITS | Encounter Summary ---
Author Organization [facility] Address [address] [place] [address] Care Team Providers Care Coal Conveyor Operator Name Role Phone Windy Mcelroy MD Primary Care Provider [phone] Reason for Visit * Auth/Cert (Routine) Specialty Diagnoses / Procedures Referred By Jacinto wilcox Referred To Contact Diagnoses Other displaced fracture of upper end of left humerus, initial encounter for closed fracture Procedures IL ARTHROPLASTY GLENOHUMERAL JOINT TOTAL SHOULDER [place] TX FRACTURE PROXIMAL HUMERAL OPEN INCL INT FIXN INCL REPR TUBEROSITY IL TENODESIS LONG TENDON OF BICEPS ARTHROPLASTY SHOULDER TOTAL REVERSE APPROACH ORIF HUMERUS PROXIMAL REPAIR TENDON SHOULDER Dav Rutherford MD [address] [place] [phone] Phone: tel: fax: [facility] OR [address] [place] [phone] Phone: tel: Referral ID Status Reason Start Date Expiration Date Visits Re quested Visits Authorized [id number] 1 1 Encounter Details Date Type Department Care Team (Late st Contact Info) Description 04/20/2025 11:45 AM EST - 04/20/2025 1:45 PM EST Surgery [facility] OR [address] [place] [phone] Dav Rutherford MD [address] [place] [address] ARTHROPLASTY SHOULDER TOTAL REVERSE APPROACH [82791 (CPT )] Surgery Details Date/Time Status Location OR Service Patient Class Case Class Case Type Trauma Case? 04/20/2025 11:45 AM [facility] [place] [facility] Outpatient Surgery F - Elective Panel 1 Procedure LRB Anes Op Region Wound Class Comments ARTHROPLASTY SHOULDER TOTAL REVERSE APPROACH Left Shoulder Class I/ Clean ORIF HUMERUS PROXIMAL Left Arm Upper Class I/ Clean REPAIR TENDON SHOULDER Left Arm Upper Class I / Clean Surgeon Surgeon Role Service Panel Dav Rutherford MD Primary Orthopedics 1 Case Notes PCPSDD documented in this encounter Social History Tobacco Use Types Packs/Day Years Used Date Smoking Tobacco: Former Cigarettes 0 2 012 - 1990 Smokeless Tobacco: Never Tobacco Cessation:Counseling Given: [...] Sign Reading Time Taken Comments Blood Pressure 120/63 04/20/2025 11:30 AM EST Pulse 65 04/20/2025 11:30 AM EST Temperature 36.8 C (98.2 F) 04/20/2025 9:15 AM EST Respiratory Rate 15 04/20/2025 11:30 AM EST Oxygen Saturation 96% 04/20/2025 11:30 AM EST Inhaled Oxygen Concentration - - Weight 127 kg (280 lb) 04/20/2025 10:07 AM EST Height 160 cm (5' 3 ) 04/20/2025 10:07 AM EST Body Mass Index 49.6 04/20/2025 10:07 AM EST documented in this encounter Discharge Summaries * Bárbara Stone [...] use DOS Pt diagnosed and admitted in [facility] over the weekend with new onset afib-now [...] prevent DVT. 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 Patient was escorted off unit via w/c transport. * Bárbara Stone RN - 04/21/2025 12:21 PM EST Problem: Self-Care: IPR IPOC Goal: Patient/caregiver collaborates in the IPR process in person or with sample steamer Outcome: Adequate for Discharge Problem: Cognitive: Loja Marlon Fall Risk Goal: Last Known Fall Outcome: [...] were not included. OCCUPATIONAL THERAPY TREATMENT NOTE [address] [phone] Occupational Therapy Summary and Impressions OT Treatment [...] Discharge Recommendation: As per interdisciplinary team. - VALERIANO Fermin/Adeola OT Discharge Recommendation: As per disciplinary team [facility]: Daily Activity: 21BC 04/21/25 1014 OT Last [...] distress. Reports understanding and agreeable to recs. JENNIFER Fermin 04/21/2025 * JENNIFER Fermin - 04/21/2025 9:44 AM EST Images from the original note were not included. OCCUPATIONAL THERAPY EVALUATION [address] [phone] Payor: Payor: [facility] / Plan: Particle [place] / Product Type: *No Product type* / [...] Illness Pt is a female admitted to [facility] 04/20/25 for L reverse TSA 2/2 left [...] OT Discharge Recommendation: As per disciplinary team [facility]: Daily Activity: 16BC 04/21/25 0944 OT Last [...] mom in a 2 level home, 3 ALBERT with bilateral wide rails. Pt has tub/shower [...] I level while maintaining restrictions. - 04/21/2025, Ashli Lincoln OTR/L 2. Pt will be independent with UE HEP as prescribed by MD to maximize function with ADLS. - 04/21/2025, Ashli Lincoln OTR/L 3. Pt will complete UB/LB dressing with mod I using alpesh dressing techniques. - 04/21/2025, VALERAINO Fermin/VALERIANO Blake/Adeola, 04/21/2025 [1] Past Medical History: Diagnosis Date A-fib ([facility] V24, [facility] V28) new onset Afib-04/14/2025 Asthma CHF (congestive heart failure) ([facility] V24, [facility] V28) 04/2025 r/t afib per pcp note [...] attack Brother at 54 yrs old of [place] Hearing loss Paternal Grandmother * Danielle Jacobs RD - 04/21/2025 8:09 AM EST Initial [...] Encounters: 04/20/25 127 kg (280 lb) 04/11/25 127.80857 kg (279.4 lb) Recent Weight Change Recent Weight Change: No (Patient reports weight as 280 lb. She does not believe she has lost weight recently.) Current Diet Order: Dietary Orders (From admission, onward) Start Ordered 04/20/25 1606 Adult diet [facility]; General; Regular (Order Panel) Diet effective now Question Answer Comment Location [facility] Diet Type (req) General General Diet Regular [...] [1] Past Medical History: Diagnosis Date A-fib ([facility] V24, [facility] V28) new onset Afib-04/14/2025 Asthma CHF (congestive heart failure) ([facility] V24, [facility] V28) 04/2025 r/t afib per pcp note [...] Rutherford MD Plan: 1. Weight bearing status: NWJosey OCHOA 2. DVT risk protocol: Starting POD#1, Eliquis 2.5 mg BID x 5 days, then resume home dose Eliquis 3. Consultants following: None 4. Pulse ox 5. Pending PT/OT eval 6. Rx done per Dr. Rutherford. Patient will need Eliquis 2.5 mg BID x 5 days on discharge (Sent to [facility]) Janusz BRANHAM-[facility] : [facility] patients : Gen Ortho patients Cosigned by [...] post LEFT Reverse Shoulder Arthroplasty for Fracture(04/20) ASHLEE OCHOA Maintain sling Pain control DVT ppx Follow up as outpatient in 10-14 days MD Dav Min MD 04/21/25 8:04 AM EST * Eve Carrington RN - 04/21/2025 12:15 AM EST Problem: Self-Care: IPR IPOC Goal: Patient/caregiver collaborates in the IPR process in person or with sample steamer Outcome: Progressing Note: IPR continues till discharge. Problem: Cognitive: Loja Marlon Fall Risk Goal: Last Known Fall Outcome: [...] 5:21 PM EST Admit 9-7 * Denise Rothman RN - 04/20/2025 5:16 PM EST Problem: [...] arthroplasty by Dr. Dav Rutherford MD Plan: -IGGYB DON in sling -DVT prophylaxis: Starting POD#1, Eliquis [...] fixation and repair SURGEON: Dav Rutherford MD METAL SASH SETTER: 1. Janusz Hahn PA-C ANESTHESIA: General with Regional lnterscalene Nerve Block COMPLICATIONS: None apparent ESTIMATED BLOOD LOSS: 150 ml SPECIMENS: none TOURNIQUET TIME: None MEDICATIONS: 2 g of IV Cefazolin, 1 g of Powdered Vancomycin deep within the wound prior to closure DVT PROPHYLAXIS: Sequential compression devices to the bilateral lower extremities IMPLANTS: Azalia Tornier Perform Fracture Stem [id number], +0mm poly liner. Azalia Perform, 36mm concentric glenosphere, +3mm lateralized. Baseplate [...] with reverse total shoulder arthroplasty. Using the Big Livenier instrumentation, the intramedullary canal was identified, and [...] all aspects of this case. A physician assistant sales director was necessary to assist due to the unavailability of a qualified resident. The PA provided essential intraoperative support including positioning, retraction, exposure, and closure, under direct supervision. * YONAS Hernanedz - 04/20/2025 12:37 PM EST Date: 04/20/2025 Location: [facility] OR Name: Marianne Romero, : 1975, Diagnosis Pre-op Diagnosis * Other displaced fracture of upper end of left humerus, initial encounter for closed fracture [S42.292A] Post-op Diagnosis * Other displaced fracture of upper end of left humerus, initial encounter for closed fracture [S42.292A] Procedures ARTHROPLASTY SHOULDER TOTAL REVERSE APPROACH 42381 - IL ARTHROPLASTY GLENOHUMERAL JOINT TOTAL SHOULDER ORIF HUMERUS PROXIMAL 31724 - IL TX FRACTURE PROXIMAL HUMERAL OPEN INCL INT FIXN INCL REPR TUBEROSITY REPAIR TENDON SHOULDER 83803 - IL TENODESIS LONG TENDON OF BICEPS Additional Procedures Indications: Marianne Romero is an 50 y.o. female who is having surgery for left proximal humerus fracture. Surgeon(s) & Manager Ecommerce(s) * Dav Rutherford MD - Primary Physician Manager Ecommerce: YONAS Magaña; YONAS Hernandez Staff Associate Professor Of Management: Yissel Rosario RN; Kim López RN Physician Manager Ecommerce: YONAS Magaña; YONAS Hernandez Manager: Yumiko Bazzi Relief Scrub: Wisam Gonzales Scrub Person: Krystyna James [...] mg BID x 5 days Rx. Janusz [facility]HAM[facility] : [place] patients : Gen Ortho patients * Mariaa Boston RN - 04/19/2025 9:42 AM EST Pt has new onset Afib and was admitted to [facility], treated and discharged. She has since been [...] REPORT) Routine 04/20/2025 3:12 PM EST Pain IL TENODESIS LONG TENDON OF BICEPS 04/20/2025 11:23 AM EST Other displaced fracture of upper end of left humerus, initial encounter for closed fracture Case Notes PCPSDD [place] FRACTURE PROXIMAL HUMERAL OPEN INCL INT FIXN INCL REPR TUBEROSITY 04/20/2025 11:23 AM EST Other displaced fracture of upper end of left humerus, initial encounter for closed fracture Case Notes PCPSDD [place] ARTHROPLASTY GLENOHUMERAL JOINT TOTAL SHOULDER 04/20/2025 11:23 AM EST Other displaced fracture of upper end of left humerus, initial encounter for closed fracture Case Notes [facility] COMPREHENSIVE METABOLIC PANEL STAT 04/20/2025 10:46 AM EST ABO RH STAT 04/20/2025 9:55 AM EST TYPE AND SCREEN STAT 04/20/2025 9:55 AM EST documented in this encounter Results * (ABNORMAL) Hemoglobin and hematocrit (04/20/2025 7:21 PM EST) Hemoglobin 12.1(L) 12.5 - 16.0 g/dL LAB HEMETOLOGY METHOD 04/20/2025 7:[address] [facility] Hematocrit 34.8(L) 37.0 - 47.0 % LAB HEMETOLOGY METHOD 04/20/2025 7:[address] [facility] Blood Venous blood specimen / Unknown 04/20/2025 7:21 PM EST 04/20/2025 7:26 PM EST us Laurent BRANHAM LAB BLOOD ORDERABLES Final Res ult [facility] [address] [facility]], [place] [id number], * XR Shoulder 2+ Views Left (04/20/2025 [...] Signed Date: 04/20/2025 17:25 ET Workstation ID: [id number] Transcribed By: Self Edit Transcribed Date: 04/20/2025 [...] Signed Date: 04/20/2025 17:25 ET Workstation ID: [id number] Transcribed By: Self Edit Transcribed Date: 04/20/2025 17:21 ET us Janusz BRANHAM IMG XR PROCEDURES Final R esult * XR Fluoro Up To 1 Hour (Statistics)(No Report) (04/20/2025 3:12 PM EST) Narrative [facility] PACS/VR - 04/20/2025 3:13 PM EST This order has been auto-finalized and does not contain a result. Dav Rutherford MD IMG FLUOROSCOPY PROCEDURES Final Result [facility] P[facility] * Comprehensive metabolic panel (04/20/2025 10:46 AM EST) Sodium 138 135 - 145 mmol/L LAB CHEMISTRY METHOD 04/20/2025 11:[address] [facility] Potassium 3.7 3.5 - 5.1 mmol/L LAB CHEMISTRY METHOD 04/20/2025 11:[address] [facility] Chloride 102 98 - 107 mmol/L LAB CHEMISTRY METHOD 04/20/2025 11:[address] [facility] CO2 26 24 - 32 mmol/L LAB CHEMISTRY METHOD 04/20/2025 11:[address] [facility] Anion Gap 10 5 - 14 LAB CHEMISTRY METHOD 04/20/2025 11:[address] [facility] Glucose 99 70 - 99 mg/dL LAB CHEMISTRY METHOD 04/20/2025 11:25 AM [facility] BUN 9 7 - 17 mg/dL LAB CHEMISTRY METHOD 04/20/2025 11:25 AM [facility] Creatinine 0.60 0.50 - 1.00 mg/dL LAB CHEMISTRY METHOD 04/20/2025 11:25 AM [facility] eGFR 108 >=60 mL/min/1. 73m2 LAB CHEMISTRY METHOD 04/20/2025 11:25 AM [facility] Comment:Calculation based on the Chronic Kidney Disease Epidemiology Collaboration (CKD-EPI) equation refit without adjustment for race. BUN/Creatinine Ratio 15.0 12.0 - 20.0 LAB CHEMISTRY METHOD 04/20/2025 11:25 AM [facility] Calcium 9.4 8.4 - 10.2 mg/dL LAB CHEMISTRY METHOD 04/20/2025 11:25 AM [facility] AST (SGOT) 21 5 - 40 unit/L LAB CHEMISTRY METHOD 04/20/2025 11:25 AM [facility] ALT (SGPT) 30 7 - 52 unit/L LAB CHEMISTRY METHOD 04/20/2025 11:25 AM [facility] Alkaline Phosphatase 99 34 - 104 unit/L LAB CHEMISTRY METHOD 04/20/2025 11:25 AM [facility] Total Protein 7.6 6.4 - 8.5 g/dL LAB CHEMISTRY METHOD 04/20/2025 11:25 AM [facility] Albumin 4.1 3.5 - 5.0 g/dL LAB CHEMISTRY METHOD 04/20/2025 11:25 AM [facility] Total Bilirubin 0.6 0.3 - 1.0 mg/dL LAB CHEMISTRY METHOD 04/20/2025 11:25 AM [facility] Blood Venous blood specimen / Unknown Venipuncture / Unknown 04/20/2025 10:46 AM EST 04/20/2025 10:50 AM EST Troy Swift MD LAB BLOOD ORDERABLES Final Res ult [facility] [address] [place] [id number], [place] [phone] * ABO Rh (04/20/2025 9:55 AM EST) ABO Group O 04/20/2025 11:[address] [facility] Rh Type Negative 04/20/2025 11:[address] [facility] Blood Venous blood specimen / Unknown Venipuncture / Unknown 04/20/2025 9:55 AM EST 04/20/2025 10:04 AM EST us Dav Rutherford MD LAB BLOOD BANK TEST ORDERA BLES Final Result [facility] [address] [place] [address], [place] [phone] * Type and screen (04/20/2025 9:55 AM EST) ABO Group O 04/20/2025 11:[address] [facility] Rh Type Negative 04/20/2025 11:[address] [facility] Antibody Screen Negative 04/20/2025 11:[address] [facility] Blood Venous blood specimen / Unknown Venipuncture / Unknown 04/20/2025 9:55 AM EST 04/20/2025 10:04 AM EST us Dav Rutherford MD LAB BLOOD BANK TEST ORDERA BLES Final Result [facility] [address] [place] [address], [place] [phone] documented in this encounter Visit Diagnoses Diagnosis Pain Generalized pain Primary osteoarthritis of left shoulder Other displaced fracture of upper end of left humerus, initial encounter for closed fracture documented in this encounter Admitting Diagnoses Diagnosis [...] Given 04/21/2025 9:03 AM EST 10 mg povidone-iodine (BETADINE) 30 mL in sodium chloride 0.9 % 1,000 mL irrigation As needed, Starting on Zoe 04/20/25 at 1243, Intraprocedure Given 04/20/2025 12:43 PM EST 400 mL Left Upper Arm sodium chloride 0.9 % bolus 500 mL 500 mL, intravenous, at 250 mL/hr, Administer over 2 Hours, Once, On Zoe 04/20/25 at 1900, For 1 dose New Bag 04/20/2025 6:54 PM EST 500 mL 250 mL/hr sodium chloride 0.9 % irrigation solution As needed, Starting on Zoe 04/20/25 at 1243, Intraprocedure Given 04/20/2025 12:43 PM EST 3,000 mL Left Upper Arm tranexamic acid (CYKLOKAPRON) 1,000 mg in sodium [...] 3:55 PM EST 1,000 mg 200 mL/hr vancomycin (VANCOCIN) vial for injection As needed, Starting on Zoe 04/20/25 at 1330, Intraprocedure Given 04/20/2025 1:30 PM EST 1 g Left Arm vancomycin (VANCOCIN) vial for injection As needed, Starting on Zoe 04/20/25 at 1406, Intraprocedure Given 04/20/2025 2:06 PM EST 2 g Left Upper Arm documented in this encounter Discontinued Medications Medication [...] 04/20/25 at 1700, Recovery & On Unit 1748 [...] 40 mg, oral, Daily, First dose on Thu04/20/25 at 1630, Recovery & On Unit 1749 (Not Given - Provider: Celia Padron, ANNIE - Reason: Other) 09 (Given - Provider: Bárbara Stone RN) losartan (COZAAR) tablet 50 mg 50 mg, oral, Daily, First dose on Thu04/20/25 at 1630, Recovery & On Unit 1749 (Not Given - Provider: Celia Padron RN - Reason: Other) 09 (Given - Provider: Bárbara Stone RN) meloxicam (MOBIC) tablet 15 mg 15 mg, oral, Daily, First dose on Thu04/21/25 at 0900, Phase II/On Unit, Do NOT give for patients >80y.o. or eCrCl <15mL/min <75yo: dose 15mg 75-80yo: dose 7.5mg 901 (Given - Provid er: Bárbara Stone RN) [...] - Comment: pt having loose bowel movement) 09 (Not Given - Provider: Bárbara Stone RN [...] Bonnie Quick RN)1749 (Stopped - Provider: Celia Padron, ANNIE) vancomycin (VANCOCIN) 1,000 mg in sodium chloride [...] Comment: Switch to gravity)1143 (Restarted - Provider: Tory Swift MD)1426 (Anesthesia Volume Adjustment - Provider: Luis Márquez CRNA) 1446 (Due: Order Ending - Provider: Automatic Discharge Provider - Comment: [Order ends at this time. Document the following action when infusion is complete: Stopped]) lactated Ringer's infusion 100 mL/hr, intravenous, Continuous, Starting on Thu04/20/25 at 1630, Recovery & On Unit 1749 [...] Every 8 hours PRN, wheezing, Starting on Thu04/20/25 at 1604, Recovery & On Unit 1749 (Not Given - Provider: Celia Padron RN - Reason: Other)1851 (Given - Provider: Celia Padron RN) aluminum-magnesium hydroxide-simethicone (MAALOX) 200-200-20 mg/5 mL suspension 30 mL 30 mL, oral, Every 6 hours PRN, heartburn, indigestion, Starting on Thu04/20/25 at 1730, Phase II/On Unit benzocaine-menthoL (CEPACOL SORE THROAT) 15-3.6 mg lozenge 1 lozenge 1 lozenge, Mouth/Throat, Every 2 hours PRN, sore throat, Starting on Thu04/20/25 at 1730, Phase II/On Unit bisacodyL (DULCOLAX) [...] as needed, nausea and vomitting, Starting on Thu04/20/25 at 1527, For 1 dose, Recovery (only), [...] 1 04/20/2025 ceFAZolin (ANCEF) 2 g in albert rile water 20 mL IV syringe 1 [...] iate release tablet 5 mg 2 04/20/2025 prochlorperazine (COMPAZINE) injection 10 mg 1 04/20/2025 senna-docusate (PERICOLACE) 8.6-50 mg per tablet 1 tablet 1 04/20/2025 vancomycin (VANCOCIN) 1,000 mg in sodium chloride 0.9 % 250 mL IVPB 1 04/20/2025 Lab Orders Without Results Count Last [...] documented as of this encounter Care Teams Coal Conveyor Operator Relationship Specialty Start Date End Date Windy Mcelroy MD [address] [place] [address] PCP - General Internal Medicine 11/17/25 documented as of this encounter
--- NOTE | ~2025-04-25 | XR_ITS ---
CLINICAL HISTORY: sob, recent new CHF 1 view chest x-ray Comparison: CR - XR CHEST 1V - 04/14/25 20:37 EST Findings: The lungs are clear. Heart size is normal. No acute fracture. Interval left shoulder arthroplasty. IMPRESSION: 1. Interval left shoulder arthroplasty. 2. No acute cardiopulmonary findings. This document has been electronically signed by: Chris Das MD on 04/25/2025 21:58:14
--- NOTE | 2025-04-25 20:42 | ECG_ITS ---
Test Reason : WESAKNESS Blood Pressure : */* mmHG Vent. Rate : 68 BPM Atrial Rate : 68 BPM P-R Int : 164 ms QRS Dur : 96 ms QT Int : 424 ms P-R-T Axes : 23 56 57 degrees QTcB Int : 450 ms Normal sinus rhythm Nonspecific ST abnormality Abnormal ECG When compared with ECG of 14-Apr-2025 10:33, Sinus rhythm has replaced Atrial fibrillation Vent. rate has decreased by [address] no longer depressed in Inferior leads ST no longer depressed in Anterolateral leads T wave inversion no longer evident in Inferior leads T wave inversion no longer evident in Lateral leads Referred By: Generic ED Physician Electronically Signed By: Franky Delatorre
[2025-04-25 20:43] VITALS: BP 126/42; BP 178/92; PULSE 72; PULSE 94; RESP 16; TEMP 36.4; O2SAT 98; BMI 53.7
[2025-04-25 20:57] VITALS: BP 126/42; PULSE 72; RESP 16; TEMP 36.4; O2SAT 98
[2025-04-25 20:58] LABS: MANUAL DIFF FLAG NO
--- NOTE | 2025-04-25 20:58 | PC.NURSE ---
Pt awake and alert. Presents to ED via EMS for concerns of generalized weakness over past few days with increased swelling to bilateral lower extremities. Recent left shoulder fx srugery within last week. Recent dx with A fib and CHF. Started on Eliquis last week. Pt denies CP or SOB. Pain 5/10 to left shoulder. Vitals currently stable. Orders place, labs and EKG completed. PIV in place. 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
[2025-04-25 20:59] LABS: Hematocrit 30.8 % (37.0-47.0); Hemoglobin 10.4 g/dl (12.0-16.0); Imm Gran Abs Auto 0.16 X10*3/uL (0.00-0.03); Imm Gran Pct Auto 1.5 % (0.0-0.4); Lymphocytes Absolute Auto 1.9 X10*3/uL (1.2-4.9); Mean Corpuscular HGB Conc 33.8 g/dl (31.0-35.0); Mean Corpuscular Hemoglobin 32.2 pg (27.0-33.0); Mean Corpuscular Volume 95.4 fL (80.0-98.0); NRBC Abs Auto 0.000 X10*3/uL (0.0-0.012); NRBC Pct Auto 0.0 /100WBC (0.0-0.2); Platelet Count 334 X10*3/uL (160-400); Red Blood Count 3.23 X10*6/uL (4.20-5.50); White Blood Count 11.0 X10*3/uL (4.8-10.8)
[2025-04-25 21:05] LABS: INTERNATIONAL NORM RATIO 1.1 (0.9-1.1); Prothrombin Time 13.5 SEC (11.2-13.5)
--- OUTSIDE RECORDS SUMMARY | 2025-04-25 21:11 | XMS_ITS | Data Portability ---
Author Organization [facility] Jayda Guallpa [place] Address [address] [place] [address] Care Team Providers Care Modeling Manager Name Role Phone PORFIRIO VELAZCO Primary Care Provider PORFIRIO VELAZCO Referring Provider Assessment Encounter Date Assessment Date Assessment LastModified by Organization Details LastModified Time 04/11/2025 04/11/2025 I reviewed my findings with her and her family. We looked at the x-rays together. Unfortunately she does have a significantly displaced left proximal humerus fracture, greater tuberosity is displaced superiorly and medially. There is some mild comminution. I reviewed the natural history of proximal humerus fractures and treatment options. Given her age and the fracture configuration I do believe she would benefit from open reduction internal fixation. Alternatively, if this cannot be addressed with fixation a shoulder arthroplasty may be a consideration. I am going to have her see my partner Dr. Rutherford. She is going to contact her primary care physician for an appointment to work towards medical optimization. She will continue to to use the sling for comfort. She may remove this for hygiene. Linn protocol reviewed. She was counseled to expect that she may develop some bruising as a result of the injury, it may take a few more days for this to evolve and become apparent. At present she is unable to work due to her injury. Her is likely going to need to take some [place] time to take care of her, he is working on obtaining that paperwork. Not available 04/11/2025 13:55:44 04/13/2025 04/13/2025 IMPRESSION: 50-year-old woman with a [...] answered satisfactorily. Thank you for this consultation elvia Not available 04/13/2025 09:01:28 Plan of Treatment Reminders Order Date Submit Date Provider Last Modified By Organization Details Last Modified Time Details Appointments POST-OP 2024 09:45A M Tray Rutherford MD Not available Not available Not available Lab None recorded. Referral None recorded. Procedures None recorded. Surgeries reverse total shoulder arthropla sty (SURG) 2024 025 [email or web address] Not available 04/25/2025 11:51:[address], shoulder, w/o contrast - Left proximal humerus fracture preoperat familia planning blueprint protocol* *Please call patient to schedule and hand carry CD 2024 025 [email or web address] [facility] ([facility]) , [address] [facility], [place], [address], 04/21/2025 09:18:30 Medication Orders None recorded. Patient TargetsNo targets recorded. Patient Instructions Encounter Date Encounter Id Patient Instructions Last Modified By Organization Details Last Modified Time 04/11/2025 [id number] I independently reviewed her left shoulder x-rays from yesterday which show a displaced at least 3 part proximal humerus fracture. Shoulder appears located. The greater tuberosity fragment is displaced superiorly and medially. Not available 04/18/2025 08:47:14 04/13/2025 [id number] views of the left shoulder were reviewed these demonstrate a proximal humerus fracture involving the surgical neck reverse obliquity fashion greater tuberosity with proximal migration 2 views of the left humerus were reviewed again demonstrating a proximal humerus fracture involving the surgical neck and greater tuberosity Not available 04/13/2025 09:11:06 Reason for Referral None Reported. Results Created Date Observation Date Name Description Value Unit Range Abnormal Flag Note LastModifiedBy Organization Detail LastModifiedTime 04/20/2004/20/2025 imagi ng/di agnos tic resul t No observ ation record ed. [facility] Information Management [address] [place], [address], 04/21/2025 04:55:23 04/25/2004/19/2025 CT, shoul rita, w/o contr ast EXAMIN ATION: CT SHOULD ER WITHOU T CONTRA ST, LEFT CLINIC AL INFORM ATION: Fall. Left should er fractu re. Injury on 2024. COMPAR PANFILO: No releva nt prior studie s are availa ble for compar panfilo. TECHNI QUE: Multid etecto r volume tric images of the left should er were obtain ed withou t intrav enous contra st. Multip lanar reform atted images in starks l and sagitt al orient ations were submit cruz. [address] examin ation was perfor med using dose optimi zation techni ques as approp riate, variou sly includ ing the follow ing: *Autom ated exposu re contro l *Adjus tment of mA and/or kV accord ing to patien t size (this includ es techni ques or standa rdized protoc ols for target ed exams where dose is matche d to indica tion/r erica for exam; i.e. extrem ities or head) *Use of iterat familia recons tructi on techni que DLP: 291.64 mGy-cm Number of known CT and cardia c nuclea r medici ne (myoca rdial perfus ion studie s) imagin g report s in the past 12-mon period : 0 FINDIN GS: Commin uted and displa mitchell proxim al dana l fractu re with a domina nt obliqu e compon ent throug h the dana l neck. There is an anteri or displa cement of the distal fractu re fragme nt with apex anteri or angula tion. Fractu re gap measur es up to 1.6 cm in AP dimens ion with cortic al overla p measur ing up to 3.4 cm in cranio caudal dimens ion. Multip le fractu re fragme nts along the periph michela of the domina nt fractu re line. Additi onal obliqu e fractu res throug h the lesser tubero sity with cortic al overla p measur ing up to 1.3 cm in ML dimens ion, as well as throug h the greate r tubero sity, with fractu re fragme nts displa mitchell superi or to the dana l head by approx imatel y 3.4 cm. Findin gs are consis tent with a four-p art fractu re as per the Neer classi ficati on system . No disloc ation. Modera te glenoh umeral joint effusi on. Promin ent adjace nt soft tissue swelli ng. Strand ing and swelli ng extend s along the left pector al muscle , which could repres ent an associ ated muscle strain . No soft tissue mass or extra- articu lar fluid collec tion. No axilla ry lympha denopa thy. A 0.2 cm calcif ied granul jasvir within the left upper lobe. No soft tissue nodule or mass. The visual ized centra l airway s are patent . The visual ized medias tinum is unrema rkable . IMPRES TALYA: 1. Commin uted, displa mitchell proxim al dana l fractu re with a domina nt obliqu e compon ent throug h the dana l neck. Anteri or displa cement of the distal fractu re fragme nt with apex anteri or angula tion. Multip le fractu re fragme nts along the periph michela of the domina nt fractu re line. Additi onal obliqu e fractu res throug h the lesser tubero sity and greate r tubero sity with cortic al overla p measur ing up to 1.3 cm in ML dimens ion. Findin gs are consis tent with a four-p art fractu re as per the Neer classi ficati on system . 2. Modera te glenoh umeral joint effusi on. Promin ent adjace nt soft tissue swelli ng. Strand ing and swelli ng extend s along the left pector al muscle which could repres ent an associ ated muscle strain . Electr onical ly signed by: William smith MD 2024 09:09 AM EST RP Workst ation: [id number] Thank you for referr ing your patien t to us, William smith MD [phone] (Elect maria a lares Signed - 2024 09:09) INTERFACE [facility] ([facility]) [address] [facility] [address], [place], [address], 04/25/2025 09:12:13 Result Notes Documentation Provider Name and Address Organization Details Recorded Time Ct, Shoulder, W/o Contrast : EXAMINATION: CT SHOULDER WITHOUT CONTRAST, LEFT CLINICAL INFORMATION: Fall. Left shoulder fracture. Injury on 04/10/2025. COMPARISON: No relevant prior studies are available for comparison. TECHNIQUE: Multidetector volumetric images of the left shoulder were obtained without intravenous contrast. Multiplanar reformatted images in coronal and sagittal orientations were submitted. 04/24/[address] examination was performed using dose optimization techniques as appropriate, variously including the following: *Automated exposure control *Adjustment of mA and/or kV according to patient size (this includes techniques or standardized protocols for targeted exams where dose is matched to indication/reason for exam; i.e. extremities or head) *Use of iterative reconstruction technique DLP: 291.64 mGy-cm Number of known CT and cardiac nuclear medicine (myocardial perfusion studies) imaging reports in the past 12-month period: 0 FINDINGS: Comminuted and displaced proximal humeral fracture with a dominant oblique component through the humeral neck. There is an anterior displacement of the distal fracture fragment with apex anterior angulation. Fracture gap measures up to 1.6 cm in AP dimension with cortical overlap measuring up to 3.4 cm in craniocaudal dimension. Multiple fracture fragments along the periphery of the dominant fracture line. Additional oblique fractures through the lesser tuberosity with cortical overlap measuring up to 1.3 cm in ML dimension, as well as through the greater tuberosity, with fracture fragments displaced superior to the humeral head by approximately 3.4 cm. Findings are consistent with a four-part fracture as per the Neer classification system. No dislocation. Moderate glenohumeral joint effusion. Prominent adjacent soft tissue swelling. Stranding and swelling extends along the left pectoral muscle, which could represent an associated muscle strain. No soft tissue mass or extra-articular fluid collection. No axillary lymphadenopathy. A 0.2 cm calcified granuloma within the left upper lobe. No soft tissue nodule or mass. The visualized central airways are patent. The visualized mediastinum is unremarkable. IMPRESSION: 1. Comminuted, displaced proximal humeral fracture with a dominant oblique component through the humeral neck. Anterior displacement of the distal fracture fragment with apex anterior angulation. Multiple fracture fragments along the periphery of the dominant fracture line. Additional oblique fractures through the lesser tuberosity and greater tuberosity with cortical overlap measuring up to 1.3 cm in ML dimension. Findings are consistent with a four-part fracture as per the Neer classification system. 2. Moderate glenohumeral joint effusion. Prominent adjacent soft tissue swelling. Stranding and swelling extends along the left pectoral muscle which could represent an associated muscle strain. Electronically signed by: William Powers MD 04/25/2025 09:09 AM [facility] Thank you for referring your patient to us, William Powers MD [id number] (Electronically Signed - 04/25/2025 09:09) Not Available [facility] 04/25/2025 09:12:13 Problems Name Problem SNOMED Code Status Onset Date Resolution Date Notes Provider Name and Address Organization Details Recorded Time Pain of left shoulder joint 44909144377990 109 Active [address], [place], [address] , [place] [facility] 5 06:41:19 Closed fracture of upper end of humerus 67712429 Active [address], [place], [address] , [place] [facility], [facility] 5 08:56:58 Body mass index 40+ - severely obese 242002924 Active 2024 Jose Morris MD [address], [place], [address] , [place] [facility], P 5 08:46:39 Problem Notes None recorded. Procedures Surgical History Date Name Laterality Status Provider Name and Address Organization Details Recorded Time 04/20/20 REVERSE TOTAL SHOULDER ARTHROPLASTY (SURG) completed Neela Estrada [facility] 04/21/2025 09:24:53 Imaging Results None recorded. Procedure Notes None recorded. Medical Equipment None Reported. Allergies Allergen ID Allergen Name Allergen Category Reaction Reaction Severity Criticality Documentation Date Start Date Code Code System Note Provider Name and Address Organization Details Recorded Time 077678 azithromy luis enrique medicatio n Not available Not available Not available 04/17/20252024 80613 RxNorm Not Available [employer] - prod 12:43:14 424961 clarithro mycin medicatio n Not available Not available Not available 04/17/20252024 15853 RxNorm Not Available [employer] - prod 12:43:14 109216 lisinopri l medicatio n Not available Not available Not available 04/18/2025 28491 RxNorm Daly LaDouceur null, [place] [facility], [facility] 5 14:12:23 404449 amoxicill in medicatio n Not available Not available Not available 04/18/2025 723 RxNorm Daly LaDouceur null, [place] [facility], [facility] 5 14:12:30 600148 egg extract food,medi cation Not available Not available Not available 04/18/2025 26094 15 RxNorm Daly LaDouceur null, [place] [facility], P 14:12:39 610717 sulfameth oxazole / trimethop rim medicatio n diarrhea hives Not available Not available Not available 04/20/20252024 11309 RxNorm Not Available [employer] - prod 00:12:25 Medications Name Sig Start Date Stop Date Status Note LastModified by Organization Details LastModified Time carvedilol 25 mg tablet TAKE 1 TABLET (25 MG) ORALLY 2 TIMES A DAY active Not Available Not Available No t Available Colace 100 mg capsule 1 tablet two times per day (while taking tramadol) *Only take if needed for constipat ion 2024 active Not Available Not Available Not Avai lable azithromyci n 250 mg tablet TAKE 2 TABLETS BY MOUTH TODAY, THEN TAKE 1 TABLET DAILY FOR 4 DAYS DIRECTED 04/11 completed Not Available Not Available Not Available benzonatate 200 mg capsule TAKE 1 CAPSULE BY MOUTH THREE TIMES A DAY NEEDED FOR COUGH FOR 10 DAYS 04/18 completed Not Available Not Available Not Available prednisone 20 mg tablet TAKE 1 TABLET BY MOUTH EVERY DAY 04/18 completed Not Available Not Available Not Available omeprazole 40 mg capsule,del ayed release 1 capsule every morning for 7 days*Star t the morning after surgery. Finish entire prescript ion 2024 active Not Available Not Available Not Avai lable tramadol 50 mg tablet 1 pills every 6 hours as needed. *Start the night of surgery 2024 active Not Available Not Available Not Avai lable acetaminoph en ER 650 mg tablet,exte nded release 1 tablet (650 mg) by mouth every 6 hours for 3 days, then as needed.*S tart the night of surgery 2024 active Not Available Not Available Not Avai lable ketorolac 10 mg tablet STARTING THE NIGHT OF SURGERY TAKE 1 TABLET BY MOUTH 3 TIMES A DAY X3DAYS THEN 1 TAB TWICE A DAY X2DAYS 2024 active Not Available Not Available Not Avai lable amlodipine 10 mg tablet TAKE 1 TABLET BY MOUTH EVERY DAY active Not Available Not Available No t Available gabapentin 300 mg capsule 1 pill three times a day for 3 days*Star t the night of surgery. Finish entire prescript ion 2024 active Not Available Not Available Not Avai lable losartan 50 mg-hydrochl orothiazide 12.5 mg tablet TAKE 1 TABLET BY MOUTH EVERY DAY active Not Available Not Available No t Available cefdinir 300 mg capsule TAKE 1 CAPSULE BY MOUTH EVERY 12 HOURS FOR 7 DAYS 04/11 completed Not Available Not Available Not Available Reglan 5 mg tablet 1 tablet (5 mg) every 8 hours as needed for nausea*On ly take if needed to treat or prevent nausea 2024 active Not Available Not Available Not Avai lable senna 8.6 mg capsule 2 pills at bedtime, if no bowel movement by day 3, increase by 2 pills two times per day, up to a maximum of 8 pills per day* Only take if needed for constipat ion 2024 active Not Available Not Available Not Avai lable ibuprofen active Not Available Not Cori ilable Not Available Tylenol active Not Available Not Avail able Not Available levocetiriz ine 5 mg tablet TAKE 1 TABLET BY MOUTH EVERY EVENING NEEDED FOR ALLERGY SYMPTOMS active Not Available Not Available No t Available Vitals Date Recorded Body height Body mass index (BMI) Body weight Provider Name and Address Organization Details Last Updated DateTime 04/11/2025 160.02 cm 49.6 kg/m2 905520.86 g Jose Morris MD [address], [place], [address], [place] [facility], 04/11/2025 13:56:09 Social History None recorded. Functional Status None recorded. Mental Status None recorded. Family History Nothing Reported. Medical History No medical history recorded. Gynecological HistoryNo gynecological history recorded. Obstetrics History GPAL:G 0 P 0 0 0 0 Past Encounters Encounter ID Performer Location Encounter Start Date Encounter Closed Date Diagnosis/Indication Diagnosis SNOMED-CT Code Diagnosis ICD10 Code Diagnosis IMO Codes Diagnosis Note [id number] MD JORGE [address] [address] 04/11/2025 13:05:10 04/11/2025 13:40:17 Pain of left shoulder joint 9340124523 6917491 M25.512 865016 Closed fra cture of upper end of humerus 78547834 S42.292A 531104062 Body mass index 40+ - severely obese 378359158 E66.01 Z68.42 [id number] Dav Rutherford MD [address] [address] 04/13/2025 08:52:45 04/13/2025 09:44:52 Closed fracture of upper end of humerus 76892385 S42.292A [id number] Health Concerns Section Related Observation LastModified by Organization Detai ls LastModified Time None Recorded Concern Status LastModified by Organization Details LastModified Time None Recorded Advance Directives Directive None Recorded Payers Insurance Date Sequence Insurance Name Policy Number Policy Iglesias Covered Member ID Iglesias Member ID Guarantor Name 04/17/[address] [place] [address] [id number] Marianne Romero [id number] Marianne Romero Notes Date Note Type Note Provider Name and Address Organization Details Recorded Time 04/11/2025 text/html 50-year-old nyzhs-xrar-uyqwxhwj female here for an evaluation of acute left shoulder pain that started yesterday after a fall at home. She tripped and fell over a marietta litter box while getting out of bed. She noted immediate pain in her left shoulder. She was seen at [facility]. X-rays were performed and she was diagnosed with a shoulder fracture. She was placed into a sling. She denies any prior history of issues with the shoulder, admits to some occasional left tennis elbow in the past. Since the time of her injury she has been moderately uncomfortable. She rates her pain between a 7 to a 10 on a 10 point scale at its worst. She denies radiating pain down the arm. She denies numbness or tingling. She denies any headaches. She does not believe she lost consciousness at the time of her fall. She denies any other injuries. She has a history of high blood pressure controlled on medications. History of asthma. 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 Non-smoker. Intermittent use of marijuana. Jose Morris MD [address], [place], [address], [place] [facility] 04/18/2025 08:48:38 04/13/2025 text/html ROS as noted in the HPI 50-year-old dznrm-dzlk-vrjzxazm woman presenting with left shoulder injury sustained on 04/10/2025. She fell a few days ago initially went to [facility] where she was given a sling ibuprofen [...] Dav Rutherford MD [address], [place], [address], [place] [facility] 04/13/2025 09:54:34 OBGyn Episode No OBEpisode recorded.
--- OUTSIDE RECORDS SUMMARY | 2025-04-25 21:11 | XMS_ITS | Continuity of Care Document ---
Author Organization [place] [facility] [place] Address [address] [facility] [address] [place] [address] Care Team Providers Care Occupational Health Physiotherapist Name Role Phone PORFIRIO VELAZCO Primary Care Provider PORFIRIO VELAZCO Referring Provider [phone] Assessment Encounter Date Assessment Date Assessment LastModified [...] Modified Time Details Appointments POST-OP 2024 09:45A Araceli Rutherford MD Not available Not available Not available Lab None recorded. Referral None recorded. Procedures None recorded. Surgeries reverse total shoulder arthropla sty (SURG) 2024 025 [email or web address] Not available 04/25/2025 11:51:[address], shoulder, w/o contrast - Left proximal humerus fracture preoperat familia planning blueprint protocol* *Please call patient to schedule and hand carry CD 2024 025 [email or web address] [facility] ([facility]) , [address], [place], [address], 04/21/2025 09:18:30 Medication Orders None recorded. Patient TargetsNo targets recorded. Patient Instructions Encounter Date Encounter Id Patient Instructions Last Modified By Organization Details Last Modified Time 04/13/2025 [id number] views of the left shoulder were [...] resul t No observ ation record ed. [facility] Information Management [address] [place], [address], 04/21/2025 04:55:23 04/25/2004/19/2025 CT, shoul rita, w/o [...] imagin g report s in the past 12-thu period : 0 FINDIN GS: Commin uted [...] patien t to us, William smith MD [id number] (Elect maria a lares Signed - 2024 09:09) INTERFACE [facility] ([facility]) [address] [address], [place], [address], 04/25/2025 09:12:13 Result Notes None recorded. Problems Name Problem SNOMED Code Status Onset Date Resolution Date Notes Provider Name and Address Organization Details Recorded Time Pain of left shoulder joint [id number] 109 Active 2024 Jose Morris MD [address], [place], [address] , [place] [facility] 06:41:19 Closed fracture of upper end of humerus 34496103 Active 2024 Dav Rutherford MD [address], [place], [address] , [place] [facility] 5 08:56:58 Body mass index 40+ - severely obese 020327253 Active 2024 Jose Morris MD [address], [place], [address] , [place] [facility] 5 08:46:39 Problem Notes None recorded. Procedures Surgical History Date Name Laterality Status Provider Name and Address Organization Details Recorded Time 04/20/20 25 REVERSE TOTAL SHOULDER ARTHROPLASTY (SURG) completed Neela Estrada [place] [facility] 04/21/2025 09:24:53 Imaging Results None recorded. Procedure Notes None recorded. Medical Equipment None Reported. Allergies Allergen ID Allergen Name Allergen Category Reaction Reaction Severity Criticality Documentation Date Start Date Code Code System Note Provider Name and Address Organization Details Recorded Time 271154 azithromy luis enrique medicatio n Not available Not available Not available 04/17/20252024 13737 RxNorm Not Available bety - External Data Service - prod 12:43:14 316349 clarithro mycin medicatio n Not available Not available Not available 04/17/20252024 04748 RxNorm Not Available bety - External Data Service - prod 12:43:14 436904 lisinopri l medicatio n Not available Not available Not available 04/18/2025 61794 RxNorm Daly LaDouceur null, [place] [facility] 5 14:12:23 672082 amoxicill in medicatio n Not available Not available Not available 04/18/2025 723 RxNorm Daly LaDouceur null, [place] [facility] 5 14:12:30 704075 egg extract food,medi cation Not available Not available Not available 04/18/2025 64785 15 RxNorm Daly LaDouceur null, [place] [facility] 14:12:39 904338 sulfameth oxazole / trimethop rim medicatio n diarrhea hives Not available Not available Not available 04/20/20252024 23601 RxNorm Not Available [facility] - External Data Service - prod 00:12:25 Medications Name [...] ICD10 Code Diagnosis IMO Codes Diagnosis Note [id number] Jose Morris MD [address] [address] 04/11/2025 13:05:10 04/11/2025 13:40:17 Pain of left shoulder joint [id number] 7135506 M25.512 483686 Closed fra cture of upper end of humerus 11367518 S42.292A 909516736 Body mass index 40+ - severely obese 114889260 E66.01 Z68.42 [id number] Dav Rutherford MD [facility] [place] [address] [address] 04/13/2025 08:52:45 04/13/2025 09:44:52 Closed fracture of upper end of humerus 29049640 S42.292A [id number] Health Concerns Section Related Observation LastModified by Organization Detai ls LastModified Time None Recorded Concern Status LastModified by Organization Details LastModified Time None Recorded Payers Encounter Date Sequence Insurance Name Policy Number Policy Iglesias Covered Member ID Iglesias Member ID Guarantor Name 04/13/[address] [place] [address] [id number] Marianne Romero [id number] Marianne Romero Notes Date Note Type Note Provider Name and Address Organization Details Recorded Time 04/13/2025 text/html ROS as noted in the HPI 50-year-old [id number] t woman presenting with left shoulder injury sustained on 04/10/2025. She fell a few days ago initially went to [facility] where she was given a sling [...] Dav Rutherford MD [address], [place], [address], [place] [facility] 04/13/2025 09:54:34 OBGyn Episode No OBEpisode recorded.
--- OUTSIDE RECORDS SUMMARY | 2025-04-25 21:11 | XMS_ITS ---
Author Name [facility] Organization Unknown Results Test Name/Text Value Interpretation Date Range Source Hgb Bld-mCnc 12.1 g/dL Below low normal 04/21/2025 12.5 - 16 [facility] Hct VFr Bld Auto 34.8 % Below low normal 04/21/2025 37 - 47 [facility] CO2 SerPl-sCnc 26.0 mmol/L 04/20/2025 24 - 32 [facility] Bilirub SerPl-mCnc 0.6 mg/dL 04/20/2025 0.3 - 1 [facility] Anion Gap SerPl Calc-sCnc 10.0 04/20/2025 5 - 14 [facility] ALP SerPl-cCnc 99.0 unit/L 04/20/2025 34 - 104 [facility] Prot SerPl-mCnc 7.6 g/dL 04/20/2025 6.4 - 8.5 [facility] BUN/Creat SerPl 15.0 04/20/2025 12 - 20 [facility] Calcium SerPl-mCnc 9.4 mg/dL 04/20/2025 8.4 - 10.2 [facility] Sodium SerPl-sCnc 138.0 mmol/L 04/20/2025 135 - 14 5 [facility] ALT SerPl-cCnc 30.0 unit/L 04/20/2025 7 - 52 [facility] Albumin SerPl-mCnc 4.1 g/dL 04/20/2025 3.5 - 5 [facility] Glucose SerPl-mCnc 99.0 mg/dL 04/20/2025 70 - 99 [facility] AST SerPl-cCnc 21.0 unit/L 04/20/2025 5 - 40 [facility] Potassium SerPl-sCnc 3.7 mmol/L 04/20/2025 3.5 - 5.1 [facility] Chloride SerPl-sCnc 102.0 mmol/L 04/20/2025 98 - 107 [facility] Creat SerPl-mCnc 0.6 mg/dL 04/20/2025 0.5 - 1 [facility] BUN SerPl-mCnc 9.0 mg/dL 04/20/2025 7 - 17 [facility] eGFRcr SerPlBld CKD-EPI 2020 108.0 mL/min/1.73m2 04/20/2025 - [facility] ABO Group Bld O 04/20/2025 [facility] Rh Bld Negative 04/20/2025 [facility] N Bld gp Ab Scn SerPl Ql Negative 04/20/2025 [facility] ABO Group Bld O 04/20/2025 [facility] Rh Bld Negative 04/20/2025 [facility] N History of Medication Use Medication Directions Dispensed Refills Start Date End Date Stat us azithromycin 250 mg tablet TAKE 2 TABLETS BY MOUTH TODAY, THEN TAKE 1 TABLET DAILY FOR 4 DAYS DIRECTED 04/11/2025 completed cefdinir 300 mg capsule TAKE 1 CAPSULE BY MOUTH EVERY 12 HOURS FOR 7 DAYS 04/11/2025 completed amlodipine 10 mg tablet TAKE 1 TABLET BY MOUTH EVERY DAY active benzonatate 200 mg capsule TAKE 1 CAPSULE BY MOUTH THREE TIMES A DAY NEEDED FOR COUGH FOR 10 DAYS active carvedilol 25 mg tablet TAKE 1 TABLET (25 MG) ORALLY 2 TIMES A DAY active levocetirizine 5 mg tablet TAKE 1 TABLET BY MOUTH EVERY EVENING NEEDED FOR ALLERGY SYMPTOMS active losartan 50 mg-hydrochlorothiazi de 12.5 mg tablet TAKE 1 TABLET BY MOUTH EVERY DAY active prednisone 20 mg tablet TAKE 1 TABLET BY MOUTH EVERY DAY active Allergies Allergen Reaction Severity Comment Documented Date Source Statu s AMOXICILLIN DIARRHEA 04/18/2025 [facility] activ e EGG ITCHING And Eggs whites 04/18/2025 [facility] active LISINOPRIL DIARRHEA 04/18/2025 [facility] active SULFAMETHOXAZOLE-TRI METHOPRIM DIARRHEA 04/18/2025 [facility] active AZITHROMYCIN 04/17/2025 [facility] activ e CLARITHROMYCIN 04/17/2025 [facility] act familia Problems Problem Status Onset Date Problem Type Date of Resoluti on Source Closed fracture of upper end of humerus active 2025-04-13 ProblemAct [facility] Body mass index 40+ - severely obese active 2025-04-18 ProblemAct [facility] Pain of left shoulder joint active 2025-04-11 ProblemAct [facility] Encounters Encounter Type Encounter Reason Primary Diagnosis Location Date Ambulatory Primary osteoarthritis, left shoulder Primary osteoarthritis, left shoulder [facility] 04/20/2025 Ambulatory [facility] [place] 04/13/2025 Ambulatory [facility] [place] 04/11/2025 Ambulatory [facility] [place] 04/11/2025 Ambulatory [facility] [place] 04/10/2025 Ambulatory [facility] [place] 04/10/2025 Care Team Organization Name Specialty Phone Email Start Date End Da te [facility] 04/18/2025 [facility] Primary [facility] 04/18/2025
--- OUTSIDE RECORDS SUMMARY | 2025-04-25 21:11 | XMS_ITS | Clinical Summary ---
Author Organization [facility] Address [address] [place] [address] Phone Care Team Providers Care Delivery Specialist Name Role Phone Windy Mcelroy MD Primary Care Provider Allergies Active Allergy Reactions Criticality Noted Date Comments Amoxicillin Hives,Diarrhea 04/18/2025 Sulfamethoxazole-Trimethoprim Hives,Diarrhea Egg Hives,Itching 04/18/2025 And Eggs whites Lisinopril Hives,Diarrhea 04/18/2025 Medications acetaminophen (TYLENOL) 500 mg tablet Take 2 tablets (1,000 mg total) by mouth every 6 (six) hours if needed for mild pain. Active albuterol HFA (PROAIR HFA ; PROVENTIL HFA ; VENTOLIN HFA) 90 mcg/actuation inhaler Inhale 2 puffs by mouth every 6 (six) hours if needed for wheezing. Active albuterol 2.5 mg /3 mL (0.083 %) nebulizer solution Take 3 mL (2.5 mg total) by nebulization every 6 (six) hours if needed for wheezing. Active amiodarone (PACERONE) 400 mg tablet Take 1 tablet (400 mg total) by mouth 2 (two) times a day. Active amLODIPine (NORVASC) 10 mg tablet Take by mouth 1 (one) time each day. Active carvediloL (COREG) 25 mg tablet Take by mouth 2 (two) times a day with meals. Active furosemide (LASIX) 40 mg tablet Take 1 tablet (40 mg total) by mouth 1 (one) time each day. Active levocetirizine (XYZAL) 5 mg tablet Take 1 tablet (5 mg total) by mouth at bedtime. Active losartan (COZAAR) 50 mg tablet Take 1 tablet (50 mg total) by mouth 1 (one) time each day. Active potassium chloride (KLOR-CON M10) 10 mEq CR tablet Take 2 tablets (20 mEq total) by mouth 1 (one) time each day. For 5 days Active apixaban (ELIQUIS) 2.5 mg tablet Take 1 tablet (2.5 mg total) by mouth 2 (two) times a day for 5 days. 10 each 04/21/2025 12:06 PM EST 025 Active apixaban (ELIQUIS) 5 mg tablet Take 1 tablet (5 mg total) by mouth 2 (two) times a day. 025 Discontin ued(Stop Taking at Discharge ) Active Problems Problem Noted Date Diagnosed Date DJD of shoulder 04/20/2025 Encounters Date Type Department Care Team Description 04/20/2025 11:45 AM EST - 04/20/2025 1:45 PM EST Surgery [facility] OR [address] [place] [phone] Dav Rutherford MD ARTHROPLASTY SHOULDER TOTAL REVERSE APPROACH [14052 (CPT )] 04/20/2025 11:37 AM EST Anesthesia Event [facility] OR [address] [place] [phone] Troy Swift MD Kanelos, Peter T, MD 04/20/2025 8:36 AM EST - 04/21/2025 12:46 PM EST Hospital Encounter [facility] [id number] [place] [phone] Dav Rutherford MD Primary osteoarthritis of left shoulder (Primary Dx); Pain Discharge Disposition: Home or Self Care from Last 3 Months Surgical History Surgery Date Site/Laterality Comments TUBAL LIGATION CHOLECYSTECTOMY DILATION AND CURETTAGE OF UTERUS COLONOSCOPY Medical History Medical History Date Comments Asthma Hypertension A-fib (CMS/HCC V24, CMS/HCC V28) new onset Afib-04/14/2025 Hypokalemia 04/2025 Vertigo 1 episode Fractures 04/2025 LUE after fall Fibroids Sleep apnea compliant with C PAP SOB (shortness of breath) on exertion Heartburn PONV (postoperative nausea and vomiting) Obesity CHF (congestive heart failur e) ([facility] V24, [facility] V28) 04/2025 r/t afib per pcp note Family History Medical History Relation Name Comments Heart attack Brother at 54 yrs old of [place] pre diabetes Father Heart disease Mother thyroid problems Mother Hearing loss Paternal Grandmother Fibromyalgia Sister Relation Name Status Comments Brother Father Mother Alive Paternal Grandmother Sister Alive Social History Tobacco Use Types Packs/Day Years Used Date Smoking Tobacco: Former Cigarettes 0 2 - 1990 Smokeless Tobacco: Never Tobacco Cessation:Counseling [...] not to disclose 2024 8:35 AM EST Obstetrics History Last Filed Vital Signs Vital Sign Reading [...] Mass Index 49.6 04/20/2025 10:07 AM EST Plan of Treatment Health Maintenance Due Date Last Done Comments Breast Cancer Screening 1973 Colorectal Cancer Screening: Colonoscopy 1973 DTaP,Tdap,and Td Vaccines (1 - Tdap) 1992 Hepatitis B Vaccines (1 of 3 - 19+ 3-dose series) 1992 Cervical Cancer Screening: P ap Smear 1994 Pneumococcal Vaccine: 50+ Ye ars (1 of 1 - PCV) 2023 RSV Immunization Adult Patie nts (1 - Risk 50-74 years 1-dose series) 2023 Zoster Vaccines (1 of 2) 2023 Cholesterol Screening (Lipid Panel) 06/30/2023 HIV Screening 06/30/2023 Hepatitis C Screening 06/30/2023 Depression Screening 06/01/2024 COVID-19 Vaccine (1 - 2024-2 6 season) 2025 Influenza Vaccine (#1) 2025 Social Influencers of Health Screening 04/21/2026 04/21/2025 HIB Vaccines Aged Out No longer eligi [...] Care Plan Autogenerated Problem No Annette Tracy Medical Devices Implanted Type Area Deburrer Strip Device Identifier Shelf Expiration Date Model / Serial / Lot Cement Bone Palacos High-Viscosity - [id number] Implanted:Qty: 1 on 04/20/2025 by Dav Rutherford MD at [facility] Bone Cement Left: Shoulder HERAEUS KULZER [id number] 05/31/2028 [id number] / / [id number] Description:1 gram of vancom ycin mixed into 1 bag of bone cement. Cement Bone Palacos High-Viscosity - [id number] Implanted:Qty: 1 on 04/20/2025 by Dav Rutherford MD at [facility] Bone Cement Left: Shoulder MITA KENNY [id number] 09/28/2028 [id number] / / [id number] Description:1 gram of vancom ycin mixed into 1 bag of bone cement. Humeral Perform Ret Insert Sz1/2 36mm +0 - [id number] - [id number] Implanted:Qty: 1 on 04/20/2025 by Dav Rutherford MD at [facility] Joints Shoulder Left: Shoulder [employer] 12/05/2025 [id number] / [id number] / [id number] Lateralized Baseplate +3mm 25mm - [id number] - [id number] Implanted:Qty: 1 on 04/20/2025 by Dav Rutherford MD at [facility] Joints Shoulder Left: Shoulder [employer] [id number] 01/03/2030 [id number] / [id number] / Standard Glenosphere 36mm - [id number] - [id number] Implanted:Qty: 1 on 04/20/2025 by Dav Rutherford MD at [facility] Joints Shoulder Left: Shoulder 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S 11/16/2029 [id number] / [id number] / N/A Stem Fracture Sz 8s L 130mm - [id number] - [id number] Implanted:Qty: 1 on 04/20/2025 by Dav Rutherford MD at [facility] Joints Shoulder Left: Shoulder [employer] 08/15/2029 [id number] / [id number] / N/A Central Threaded Post Screw 6.5x30mm - Sn/A - [id number] Implanted:Qty: 1 on 04/20/2025 by Dav Rutherford MD at [facility] Joints Shoulder Left: Shoulder 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 [id number] / N/A / N/A Peripheral Screw 5x18mm - Sn/A - [id number] Implanted:Qty: 2 on 04/20/2025 by Dav Rutherford MD at [facility] Joints Shoulder Left: Shoulder 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 [id number] / N/A / N/A Peripheral Screw 5x38mm - Sn/A - [id number] Implanted:Qty: 2 on 04/20/2025 by Dav Rutherford MD at [facility] Joints Shoulder Left: Shoulder 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 [id number] / N/A / N/A Procedures Procedure Name Priority Date/Time Associated Diagnosis [...] REPORT) Routine 04/20/2025 3:12 PM EST Pain TH AN ENDOTRACHEAL(NO CHARGE) Routine 04/20/2025 2:19 PM EST NE TENODESIS LONG TENDON OF BICEPS 04/20/2025 11:23 AM EST Other displaced fracture of upper end of left humerus, initial encounter for closed fracture Case Notes PCPSDD NE TX FRACTURE PROXIMAL HUMERAL OPEN INCL INT FIXN INCL REPR TUBEROSITY 04/20/2025 11:23 AM EST Other displaced fracture of upper end of left humerus, initial encounter for closed fracture Case Notes PCPSDD NE ARTHROPLASTY GLENOHUMERAL JOINT TOTAL SHOULDER 04/20/2025 11:23 AM EST Other displaced fracture of upper end of left humerus, initial encounter for closed fracture Case Notes PCPSDD TH AN NERVE BLOCK INTERSCALENE (NO CHARGE) Routine 04/20/2025 10:54 AM EST TH AN NERVE BLOCK INTERSCALENE (CHARGE) Routine 04/20/2025 10:54 AM EST COMPREHENSIVE METABOLIC PANEL STAT 04/20/2025 10:46 AM EST ABO RH STAT 04/20/2025 9:55 AM EST TYPE AND SCREEN STAT 04/20/2025 9:55 AM EST from Last 3 Months Results * (ABNORMAL) Hemoglobin and hematocrit (04/20/2025 7:21 PM EST) Hemoglobin 12.1(L) 12.5 - 16.0 g/dL LAB HEMETOLOGY METHOD 04/20/2025 7:56 PM EST [facility] Hematocrit 34.8(L) 37.0 - 47.0 % LAB HEMETOLOGY METHOD 04/20/2025 7:56 PM EST [facility] Blood Venous blood specimen / Unknown 04/20/2025 7:21 PM EST 04/20/2025 7:26 PM EST us Laurent BRANHAM LAB BLOOD ORDERABLES Final Res ult [facility] [address] [place] [address], [place] [phone] * XR Shoulder 2+ Views Left (04/20/2025 [...] Signed Date: 04/20/2025 17:25 ET Workstation ID: [id number] Transcribed By: Self Edit Transcribed Date: 04/20/2025 [...] Signed Date: 04/20/2025 17:25 ET Workstation ID: [id number] Transcribed By: Self Edit Transcribed Date: 04/20/2025 17:21 ET us Janusz BRANHAM IMG XR PROCEDURES Final R esult * XR Fluoro Up To 1 Hour (Statistics)(No Report) (04/20/2025 3:12 PM EST) Narrative RIS PACS/VR - 04/20/2025 3:13 PM EST This order has been auto-finalized and does not contain a result. us Dav Rutherford MD IMG FLUOROSCOPY PROCEDURES Final Result RIS PACS/VR * TH AN ENDOTRACHEAL(NO CHARGE) (04/20/2025 2:19 PM EST) Troy Singh MD - 04/20/2025 2:19 PM EST Troy Swift MD 04/20/2025 2:26 PM General Information and Staff Patient location during procedure: OR Anesthesiologist: Tryo Swift MD Performed: anesthesiologist Performed by: Troy [...] sitting Prep: ChloraPrep Patient monitoring: heart rate, environmental monitoring specialist and continuous pulse ox Block type: interscalene [...] MD ANESTHESIA ORDERABLES Final Re sult * Comprehensive metabolic panel (04/20/2025 10:46 AM EST) Sodium 138 135 - 145 mmol/L LAB CHEMISTRY METHOD 04/20/2025 11:25 AM [facility] Potassium 3.7 3.5 - 5.1 mmol/L LAB CHEMISTRY METHOD 04/20/2025 11:25 AM [facility] Chloride 102 98 - 107 mmol/L LAB CHEMISTRY METHOD 04/20/2025 11:25 AM [facility] CO2 26 24 - 32 mmol/L LAB CHEMISTRY METHOD 04/20/2025 11:25 AM [facility] Anion Gap 10 5 - 14 LAB CHEMISTRY METHOD 04/20/2025 11:25 AM [facility] Glucose 99 70 - 99 mg/dL LAB CHEMISTRY METHOD 04/20/2025 11:25 AM [facility] BUN 9 7 - 17 mg/dL LAB CHEMISTRY METHOD 04/20/2025 11:25 AM [facility] Creatinine 0.60 0.50 - 1.00 mg/dL LAB CHEMISTRY METHOD 04/20/2025 11:25 AM [facility] eGFR 108 >=60 mL/min/1. 73m2 LAB CHEMISTRY METHOD 04/20/2025 11:25 AM [facility] Comment:Calculation based on the Chronic Kidney Disease Epidemiology Collaboration (CKD-EPI) equation refit without adjustment for race. BUN/Creatinine Ratio 15.0 12.0 - 20.0 LAB CHEMISTRY METHOD 04/20/2025 11:25 AM [facility] Calcium 9.4 8.4 - 10.2 mg/dL LAB CHEMISTRY METHOD 04/20/2025 11:25 AM [facility] AST (SGOT) 21 5 - 40 unit/L LAB CHEMISTRY METHOD 04/20/2025 11:25 AM [facility] ALT (SGPT) 30 7 - 52 unit/L LAB CHEMISTRY METHOD 04/20/2025 11:25 AM [facility] Alkaline Phosphatase 99 34 - 104 unit/L LAB CHEMISTRY METHOD 04/20/2025 11:25 AM [facility] Total Protein 7.6 6.4 - 8.5 g/dL LAB CHEMISTRY METHOD 04/20/2025 11:25 AM [facility] Albumin 4.1 3.5 - 5.0 g/dL LAB CHEMISTRY METHOD 04/20/2025 11:25 AM [facility] Total Bilirubin 0.6 0.3 - 1.0 mg/dL LAB CHEMISTRY METHOD 04/20/2025 11:25 AM [facility] Blood Venous blood specimen / Unknown Venipuncture / Unknown 04/20/2025 10:46 AM EST 04/20/2025 10:50 AM EST us rToy Swift MD LAB BLOOD ORDERABLES Final Res ult [facility] [address] [place] [address], [place] [phone] * ABO Rh (04/20/2025 9:55 AM EST) ABO Group O 04/20/2025 11:36 AM EST [facility] Rh Type Negative 04/20/2025 11:36 AM EST [facility] Blood Venous blood specimen / Unknown Venipuncture / Unknown 04/20/2025 9:55 AM EST 04/20/2025 10:04 AM EST us Dav Rutherford MD LAB BLOOD BANK TEST ORDERA BLES Final Result Performing Organization Address [facility] Co de Phone Number [facility] [address] [place] [address], [place] [phone] * Type and screen (04/20/2025 9:55 AM EST) ABO Group O 04/20/2025 11:36 AM EST [facility] Rh Type Negative 04/20/2025 11:36 AM EST [facility] Antibody Screen Negative 04/20/2025 11:36 AM EST [facility] Blood Venous blood specimen / Unknown Venipuncture / Unknown 04/20/2025 9:55 AM EST 04/20/2025 10:04 AM EST us Dav Rutherford MD LAB BLOOD BANK TEST ORDERA BLES Final Result Performing Organization Address City/[facility]/ZIP Co de Phone Number [facility] [address] [place] [address], [place] [phone] from Last 3 Months Additional Health Concerns Active Problems Noted Date Diagnosed Date Autogenerated Problem 04/21/2025 Insurance MEDICAID - [place] [facility] [address] [place] [address] Advance Directives * Full Code - Confirmed (Latest Code Status on File) Date Activated Date Inactivated Comments 04/20/2025 4:08 PM 04/21/2025 2:46 PM This code status was ascertained in the following way: Code status discussion: discussion with patient To update the patient's code status, place a code status order. Do not modify or discontinue any currently active code status orders. Care Teams Delivery Specialist Relationship Specialty Start Date End Date Windy Mcelroy MD [address] [place] [address] PCP - General Internal Medicine 04/17/25
--- OUTSIDE RECORDS SUMMARY | 2025-04-25 21:11 | XMS_ITS | Continuity of Care Document ---
Author Organization [place] [facility] [place] Address [address] [place] [address] Care Team Providers Care Termite Inspector Name Role Phone PORFIRIO VELAZCO Primary Care Provider [phone] PORFIRIO VELAZCO Referring Provider Assessment Encounter Date [...] comfort. She may remove this for hygiene. Icing protocol reviewed. She was counseled to expect that she may develop some bruising as a result of the injury, it may take a few more days for this to evolve and become apparent. At present she is unable to work due to her injury. Her is likely going to need to take some FMLA time to take care of her, he is working on obtaining that paperwork. Not available 04/11/2025 13:55:44 Plan of Treatment Reminders Order Date Submit Date Provider Last Modified By Organization Details Last Modified Time Details Appointments POST-O P 025 09:45AM Tray Rutherford MD Not available Not available Not available Lab None record ed. Referral None record ed. Procedures None record ed. Surgeries None record ed. Imaging None record ed. Medication Orders None record ed. Patient TargetsNo targets recorded. Patient Instructions Encounter Date Encounter Id Patient Instructions Last Modified By Organization Details Last Modified Time 04/11/2025 [id number] I independently reviewed her left shoulder x-rays from yesterday which show a displaced at least 3 part proximal humerus fracture. Shoulder appears located. The greater tuberosity fragment is displaced superiorly and medially. Not available 04/18/2025 08:47:14 Reason for Referral None Reported. Results Created Date Observation Date Name Description Value Unit Range Abnormal Flag Note LastModifiedBy Organization Detail LastModifiedTime 04/20/2004/20/2025 imagi ng/di agnos tic resul t No observ ation record ed. [facility] [address] [place] [address], [id number], 04/21/2025 04:55:23 04/25/2004/19/2025 CT, shoul rita, w/o [...] patien t to us, William smith MD [id number] (Elect maria a lares Signed - 2024 09:09) INTERFACE [facility] ([facility]) [address], [place], [address], 04/25/2025 09:12:13 Result Notes None recorded. Problems Name Problem SNOMED Code Status Onset Date Resolution Date Notes Provider Name and Address Organization Details Recorded Time Pain of left shoulder joint 03454938924844 109 Active 2024 Jose Morris MD [address], [place], [address] , [place] [facility] 5 06:41:19 Closed fracture of upper end of humerus 84983095 Active [address], [place], [address] , [place] [facility], [facility] 5 08:56:58 Body mass index 40+ - severely obese 193335601 Active [address], [place], [address] , [place] [facility], [facility] 5 08:46:39 Problem Notes None recorded. Procedures Surgical History Date Name Laterality Status Provider Name and Address Organization Details Recorded Time 04/20/20 REVERSE TOTAL SHOULDER ARTHROPLASTY (SURG) completed Neela Estrada [place] [facility] 04/21/2025 09:24:53 Imaging Results None recorded. Procedure Notes None recorded. Medical Equipment None Reported. Allergies Allergen ID Allergen Name Allergen Category Reaction Reaction Severity Criticality Documentation Date Start Date Code Code System Note Provider Name and Address Organization Details Recorded Time 214085 azithromy luis enrique medicatio n Not available Not available Not available 04/17/20252024 63404 RxNorm Not Available [employer] - prod 12:43:14 948480 clarithro mycin medicatio n Not available Not available Not available 04/17/20252024 45270 RxNorm Not Available [employer] - prod 12:43:14 240149 lisinopri l medicatio n Not available Not available Not available 04/18/2025 30845 RxNorm Daly Ivy null, [place] [facility] 5 14:12:23 515096 amoxicill in medicatio n Not available Not available Not available 04/18/2025 723 RxNorm Daly Ivy null, [place] [facility] 5 14:12:30 634985 egg extract food,medi cation Not available Not available Not available 04/18/2025 95286 15 RxNorm Daly Ivy null, [place] [facility], [facility] 14:12:39 550570 sulfameth oxazole / trimethop rim medicatio n diarrhea hives Not available Not available Not available 04/20/20252024 06342 RxNorm Not Available [employer] - prod 00:12:25 Medications Name [...] Updated DateTime 04/11/2025 160.02 cm 49.6 kg/m2 572646.86 g Jose Morris MD [address], [place], [address], [place] [facility] 04/11/2025 13:56:09 Social History None recorded. Functional Status None recorded. Mental Status None recorded. Family History Nothing Reported. Medical History No medical history recorded. Gynecological HistoryNo gynecological history recorded. Obstetrics History GPAL:G 0 P 0 0 0 0 Past Encounters Encounter ID Performer Location Encounter Start Date Encounter Closed Date Diagnosis/Indication Diagnosis SNOMED-CT Code Diagnosis ICD10 Code Diagnosis IMO Codes Diagnosis Note [id number] Jose Morris MD [facility] [address] [place] [address] 04/11/2025 13:05:10 04/11/2025 13:40:17 Pain of left shoulder joint [id number] 9834751 M25.512 001637 Closed fra cture of upper end of humerus 26132676 S42.292A 109213847 Body mass index 40+ - severely obese 498908034 E66.01 Z68.42 [id number] Health Concerns Section Related Observation LastModified by Organization Detai ls LastModified Time None Recorded Concern Status LastModified by Organization Details LastModified Time None Recorded Payers Encounter Date Sequence Insurance Name Policy Number Policy Iglesias Covered Member ID Iglesias Member ID Guarantor Name 04/11/[address] [place] [address] [id number] Marianne Romero [id number] Marianne Romero Notes Date Note Type Note Provider Name and Address Organization Details Recorded Time 04/11/2025 text/html 50-year-old [id number] female here for an evaluation of acute left shoulder pain that started yesterday after a fall at home. She tripped and fell over a [place] litter box while getting out of bed. She noted immediate pain in her left shoulder. She was seen at [facility]. X-rays were performed and she was diagnosed [...] Jose Morris MD [address], [place], [address], [place] [facility] 04/18/2025 08:48:38 04/13/2025 text/html ROS as noted in the HPI 50-year-old [id number] woman presenting with left shoulder injury sustained on 04/10/2025. She fell a few days ago initially went to [facility] where she was given a sling [...] Dav Rutherford MD [address], [place], [address], [place] [facility] 04/13/2025 09:54:34 OBGyn Episode No OBEpisode recorded.
--- NOTE | 2025-04-25 21:19 | ED.WEAKNESS ---
HPI - Weakness General Chief complaint: Weakness Stated complaint: Left side body swelling & weakness post surgery Time Seen by Provider: 04/25/25 21:05 Source: patient Mode of arrival: ambulatory Limitations: no limitations History of Present Illness ED Provider: Dr. Anusha Andrade HPI Narrative: Patient comes to the emergency room complaining of worsening lower extremity edema. Patient states that she was discharged a bit over a week ago from this hospital. Patient was diagnosed with new onset CHF and atrial fibrillation. Patient states that she is compliant taking amiodarone, Lasix and Eliquis. Patient denies any chest pain, patient has mild shortness of breath, no significant orthopnea. Patient states that she has been having episodes of heart racing, patient became very anxious due to her new diagnosis and decided to come to the hospital. Patient denies any syncopal episodes Related Data Home Medications ?Medication ?Instructions ?Recorded ?Confirmed acetaminophen 500 mg tablet 500 mg PO Q6H PRN Pain 11/05/20 04/17/25 (Tylenol Extra Strength) Previous Rx's ?Medication ?Instructions ?Recorded albuterol sulfate 2.5 mg/3 mL 2.5 mg (3 mL) inhalation Q6H PRN 02/16/24 (0.083 %) solution for nebulization shortness of breath or wheezing #75 mL albuterol sulfate 90 mcg/actuation 2 puff inhalation Q6H PRN 02/16/24 aerosol inhaler shortness of breath or wheezing #8.5 grams amlodipine 10 mg tablet 10 mg PO DAILY #90 tabs 10/11/24 levocetirizine 5 mg tablet 5 mg PO QPM PRN allergy symptoms 02/07/25 #30 tabs carvedilol 25 mg tablet 25 mg PO BID #180 tabs 03/16/25 amiodarone 200 mg tablet 200 mg PO DAILY #90 tabs 04/16/25 amiodarone 400 mg tablet 400 mg PO BID #28 tabs 04/16/25 furosemide 40 mg tablet (Lasix) 40 mg PO QAM #90 tabs 04/16/25 losartan 50 mg tablet 50 mg PO DAILY #90 tabs 04/16/25 potassium chloride 20 mEq 20 meq PO DAILY #5 tabs 04/16/25 tablet,extended release (K-Tab) furosemide 40 mg tablet (Lasix) 40 mg PO BID #10 tabs 04/25/25 Allergies Allergy/AdvReac Type Severity Reaction Status Date / Time egg (EGG) Allergy Intermediate ITCHY AND Verified 04/17/25 16:31 HIVES. lisinopril Allergy Intermediate Hives Verified 04/17/25 16:31 sulfamethoxazole (From Allergy Hives Verified 04/25/25 20:47 Bactrim) trimethoprim (From Bactrim) Allergy Hives Verified 04/25/25 20:47 amoxicillin AdvReac Intermediate Diarrhea Verified 04/17/25 16:31 Egg White (Diagnostic) Allergy Intermediate hives Uncoded 04/17/25 16:31 Review of Systems Review of Systems: Constitutional : No Weight loss, No Fever, No Chills, No Night Sweats, No Fatigue, No Malaise ENT/Mouth : No Hearing loss, No Ear Pain, No Nasal Congestion, No Sinus Pain, No Hoarseness, No sore throat, No Rhinorrhea, No Swallowing Difficulty Eyes: No Eye Pain, No Swelling, No Redness, No Foreign Body, No Discharge, No Vision Changes Cardiovascular : No Chest Pain, mild shortness of breath, no orthopnea, complaining of intermittent palpitations, gone at this time, complaining of lower extremity edema Respiratory : No Cough, No Sputum, No Wheezing, No Smoke Exposure, No Dyspnea Gastrointestinal : No Nausea, No Vomiting, No Diarrhea, No Constipation, No abdominal Pain, No Hematochezia, No Melena Genitourinary : no irregular bleeding, No Dysuria, No Urinary Frequency, No Hematuria, No Urinary Incontinence, No Urgency, No Flank Pain, No Urinary Flow Changes, No Hesitancy Musculoskeletal : No joint pain, No Myalgias, No Joint Swelling Skin : No Skin Lesions, No rash Neuro : No Weakness, No Numbness, No Paresthesias, No Loss of Consciousness, No Dizziness, No Headache Psych : No Anxiety/Panic, No Depression, No SI/HI/AH/VH, No Social Issues, Heme/Lymph: No Bruising, No Bleeding,No Lymphadenopathy Endocrine : No Polyuria, No Polydipsia, No Temperature Intolerance [facility] Past Medical History Medical History Decompensated heart failure Paroxysmal atrial fibrillation Fracture of humerus, proximal, left, closed Obstructive sleep apnea on CPAP Fibroid History of cholelithiasis Heartburn Lumbago with sciatica, right side Abnormal uterine bleeding Essential hypertension Mild intermittent asthma Surgical History Hx laparoscopic cholecystectomy (06/19/23) Hx of colonoscopy Hx of dilation and curettage H/O tubal ligation Family History Family History Paternal Aunt Ovarian cancer Breast cancer Maternal Aunt Breast cancer Father Heart failure Diabetes Vascular abnormality Mother Memory loss Coronary artery abnormality History of prediabetes Brother No problems noted. Sister Fibromyalgia Daughter Overdose Daughter Borderline high blood pressure Other Mental health disorder Substance use disorder Social History Social History Household Members: Spouse and Family Housing: House Do you presently have visiting nurse or other home services: No Alcohol intake: former Comment: counts correct Patient Tobacco Use Status: Former Tobacco user Tobacco use type: Cigarette Years Smoked: 15 yrs Smoked in Last 30 Days: No e-Cigarette/Vaping Use: Never Used Use of substances other than those prescribed or required for medical reasons: No Substance Use Type: Marijuana Advance Directives: No Advance Directives Information Provided: No service: No Current occupational status: employed Cognitive needs: No Hearing needs: No Vision needs: Yes Physical Exam Exam: Exam: Appearance: Alert. Oriented X3. No acute distress. Eyes: Pupils equal, round and reactive to light. ENT: Pharynx normal. Neck: Normal inspection. Neck supple. No lymph nodes noted. No crepitus CVS: Normal heart rate and rhythm. Pulses normal. Normal S1 and S2 Respiratory: No respiratory distress. Breath sounds normal. No Wheezing. No rales Abdomen: Soft and nontender. No rigidity. No distention. Skin: Skin warm and dry. Normal skin color. Normal skin turgor. Extremities: +2 pitting edema bilaterally. Left arm is in a sling, recuperating from a humeral fracture Neuro: Oriented X 3. No motor deficit. No sensory deficit. Moving all extremities. No slurred speech. CN 2 through 12 grossly intact Psych: calm, cooperative, normal affect Vital Signs: Vital Signs: Last Vital Signs Temp 97.9 F 04/25/25 23:05 Pulse 74 04/25/25 23:05 Resp 16 04/25/25 23:05 BP 99/34 L 04/25/25 23:05 Pulse Ox 98 04/25/25 23:05 O2 Del Method Room Air 04/25/25 23:05 BMI result Body Mass Index 53.7 Course Course Course Narrative: Patient reports worsening lower extremity edema, patient was diagnosed with CHF and atrial fibrillation couple of weeks ago. Reports to be compliant with medications including amiodarone Lasix in Eliquis. At this time, patient denies chest pain, no significant shortness of breath Medical Decision Making Medical Decision Making [facility] Narrative: My interpretation of EKG: Normal sinus rhythm, heart rate 68, no ST segment depression or elevation, no T-wave inversion, QTC 450 My interpretation of labs: No significant abnormality in patient's hematology and chemistry. LFTs chronically elevated, per BNP bumped 198, troponin negative. Serology was negative for RSV COVID and flu Chest x-ray does not show any acute cardiopulmonary abnormality. Patient ambulated by herself around the emergency room, oxygen saturation steady in the mid 90s, heart rate in the 80s, no dizziness or shortness of breath. Patient feels well to go home. We will increase her Lasix from 40 mg to 80 mg for a few days, then she will return to her normal dose. Patient needs close follow-up with the PCP, patient agrees with plan Differential Diagnosis Differential Diagnoses: The differential diagnosis associated with the presentation includes (CHF, atrial fibrillation, COVID, RSV, influenza) Admission/Observation Consideration of admission/observation: Escalation of care including admission/observation considered (He had been patient's complaints, recent diagnosis, medical history, observation was considered.) Lab Data [facility] Lab Attestation statement: I reviewed the patient's lab results. 04/25/25 20:53 04/25/25 20:53 Labs: Lab Results 04/25/25 Range/Units 20:53 WBC 11.0 H (4.8-10.8) X10*3/uL RBC 3.23 L (4.20-5.50) X10*6/uL Hgb 10.4 L (12.0-16.0) g/dl Hct 30.8 L (37.0-47.0) % MCV 95.4 (80.0-98.0) fL MCH 32.2 (27.0-33.0) pg MCHC 33.8 (31.0-35.0) g/dl RDW 14.8 (11.0-16.0) % Plt Count 334 (160-400) X10*3/uL MPV 10.9 (9.4-12.3) fL Immature Gran % (Auto) 1.5 H (0.0-0.4) % Neut % (Auto) 71.0 (45-73) % Lymph % (Auto) 17.4 L (20-40) % [place] % (Auto) 6.8 (2-11) % Eos % (Auto) 2.9 (0-4) % Baso % (Auto) 0.4 (0-2) % Lymph # (Auto) 1.9 (1.2-4.9) X10*3/uL [place] # (Auto) 0.8 (0.1-1.2) X10*3/uL Eos # (Auto) 0.3 (0.0-0.4) X10*3/uL Baso # (Auto) 0.0 (0.0-0.2) X10*3/uL Abs Immat Gran (auto) 0.16 H (0.00-0.03) X10*3/uL Absolute Neuts (auto) 7.8 (2.0-8.3) x10*3/uL Absolute Nucleated RBC 0.000 (0.0-0.012) X10*3/uL Nucleated RBC % (auto) 0.0 (0.0-0.2) /100WBC PT 13.5 (11.2-13.5) SEC INR 1.1 (0.9-1.1) Sodium 138 (135-145) mmol/L Potassium 3.8 (3.3-5.1) mmol/L Chloride 104 (96-108) mmol/L Carbon Dioxide 26 (22-29) mmol/L Anion Gap 12 (12-20) BUN 8 L (9-16) mg/dL Creatinine 0.71 (0.5-1.4) mg/dL Estim Creat Clear Calc 126.4 Estimated GFR > 60 Random Glucose 137 H (60-115) mg/dL Calcium 8.8 (8.4-10.2) mg/dL Total Bilirubin 0.4 (0.0-1.0) mg/dL AST 46 H (5-31) U/L ALT 87 H (0-31) U/L Alkaline Phosphatase 118 H (39-117) U/L Troponin I High Sens < 2.7 D (<3.5-17.0) ng/L NT-Pro-B Natriuret Pep 498.0 H (<300) pg/mL Total Protein 6.5 (6.5-8.0) g/dL Albumin 3.6 (3.5-5.0) g/dL Influenza Type A (PCR) NEGATIVE (Negative) Influenza Type B (PCR) NEGATIVE (Negative) RSV RNA Qual (PCR) NEGATIVE (Negative) SARS-CoV-2 RNA (RT-PCR) NEGATIVE (Negative) Independent Interpretation I performed an independent interpretation of an: Plain X-Ray Radiology Impression Discussion of test interpretation with radiology: I have reviewed the radiologist's reading. Radiologist Impression: The lungs are clear. Heart size is normal. No acute fracture. Interval left shoulder arthroplasty. IMPRESSION: 1. Interval left shoulder arthroplasty. 2. No acute cardiopulmonary findings. Critical Care Time Critical Care Time Critical Care Time: Yes Total Critical Care Time: 35 Attestation: I have personally provided critical care time. Time includes review of lab data, radiology results, discussion with consultants, and monitoring for potential decompensation. Intervention performed as documented. Discharge Plan Discharge Clinical Impression: Bilateral edema of lower extremity Patient Disposition: Home, Self-Care Instructions: Leg Edema (ED) Additional Instructions: Please follow-up with your primary care physician tomorrow. If you have any worsening or new symptoms, please return to the emergency room or call 911 Prescriptions: New furosemide [Lasix] 40 mg tablet 40 mg PO BID Qty: 10 0RF No Action albuterol sulfate 90 mcg/actuation HFA aerosol inhaler 2 puff INHALATION Q6H PRN (Reason: shortness of breath or wheezing) Qty: 8.5 2RF albuterol sulfate 2.5 mg /3 mL (0.083 %) solution for nebulization 2.5 mg inhalation Q6H PRN (Reason: shortness of breath or wheezing) Qty: 75 1RF amlodipine 10 mg tablet 10 mg PO DAILY Qty: 90 2RF levocetirizine 5 mg tablet 5 mg PO QPM PRN (Reason: allergy symptoms) Qty: 30 3RF carvedilol 25 mg tablet 25 mg PO BID Qty: 180 5RF furosemide [Lasix] 40 mg tablet 40 mg PO QAM Qty: 90 0RF amiodarone 400 mg tablet 400 mg PO BID Qty: 28 0RF amiodarone 200 mg tablet 200 mg PO DAILY Qty: 90 0RF Rx Instructions: To start taking on April 302024 potassium chloride [K-Tab] 20 mEq tablet extended release 20 meq PO DAILY Qty: 5 0RF losartan 50 mg tablet 50 mg PO DAILY Qty: 90 0RF acetaminophen [Tylenol Extra Strength] 500 mg tablet 500 mg PO Q6H PRN (Reason: Pain) Print Language: Somali
[2025-04-25 21:22] LABS: Alanine Aminotransferase 87 U/L (0-31); Albumin Level 3.6 g/dL (3.5-5.0); Alkaline Phosphatase 118 U/L (39-117); Anion Gap 12 (12-20); Aspartate Amino Transferase 46 U/L (5-31); Blood Urea Nitrogen 8 mg/dL (9-16); Calcium 8.8 mg/dL (8.4-10.2); Carbon Dioxide 26 mmol/L (22-29); Chloride 104 mmol/L (96-108); Creatinine Clr Calc Pharmacy 126.4; Estimated Glomerular Filt Rate > 60; Potassium 3.8 mmol/L (3.3-5.1); Sodium 138 mmol/L (135-145); Total Protein 6.5 g/dL (6.5-8.0)
[2025-04-25 21:27] LABS: NT Pro B Type Natriuretic Pept 498.0 pg/mL (<300)
[2025-04-25 21:28] LABS: Troponin-I High Sensitivity < 2.7 ng/L (<3.5-17.0)
[2025-04-25 21:34] LABS: Resp Syncy Virus RNA Qual PCR NEGATIVE (Negative); SARS COV2 PCR INHOUSE NEGATIVE (Negative)
--- NOTE | 2025-04-25 23:01 | MHC.EDTECH ---
ammulation completed at this time, pt 02 level 96-100%, pt heart rate 80-95 beats per minute. pt denies weakness, dizziness, and SOB.
[2025-04-25 23:05] VITALS: BP 99/34; PULSE 74; RESP 16; TEMP 36.6; O2SAT 98
[2025-04-26] VITALS: BP 103/38; PULSE 72; RESP 11; TEMP 36.7; O2SAT 97
[2025-04-26 00:06] VITALS: BP 103/38; PULSE 72; RESP 11; TEMP 36.7; O2SAT 97
== END 2025-04-26 00:06 | disposition home or self-care (01) ==
PROVIDERS: Emergency Provider Emergency Medicine; PCP Internal Medicine
DX: R60.9 Edema, unspecified (principal); R53.1 Weakness; I50.9 Heart failure, unspecified; I48.91 Unspecified atrial fibrillation; Z79.899 Other long term (current) drug therapy; Z03.818 Encounter for observation for suspected exposure to other biological agents ruled out
CPT/HCPCS: 71045; 80053; 83880; 84484; 85025; 85610; 87637; 93005; 99283; 99284

== ENCOUNTER → 2025-04-25 20:42 | Outpatient (BNV) | payer OTHER, SELFPAY | PROVIDERS: Emergency Provider Emergency Medicine; PCP Internal Medicine; Visit Provider Internal Medicine Cardiovascular Disease | DX: R94.31 Abnormal electrocardiogram [ECG] [EKG] (principal); R53.1 Weakness | CPT/HCPCS: 93010 ==

== ENCOUNTER → 2025-04-25 21:09 | Outpatient (BNV) | payer OTHER, SELFPAY | PROVIDERS: Emergency Provider Emergency Medicine; PCP Internal Medicine; Visit Provider Radiology Diagnostic Radiology | DX: R06.02 Shortness of breath (principal); Z96.612 Presence of left artificial shoulder joint | CPT/HCPCS: 71045 ==

== ENCOUNTER 2025-05-17 14:43 | Outpatient (AMB) | payer OTHER, SELFPAY ==
[2025-05-17 14:48] VITALS: BP 118/72; PULSE 67; RESP 16; TEMP 36.4; O2SAT 100; BMI 52.3
--- NOTE | 2025-05-17 14:48 | A.OFFPC_ITS ---
Vital Signs 05/17/25 14:48 Height 5 ft 3 in Weight 295 lb BMI 52.3 BP 118/72 Blood Pressure Location Rt brachial Position Sitting Respiration 16 Pulse 67 Pulse Source Pulse Oximeter Temp 97.6 F Temp Source Oral Pulse Oximetry (%) 100 Oxygen Delivery Method Room Air Intake Visit Reasons: Annual PE Intake Note: Pt is here today for her PE: last mammogram 08/20/23, papsmear 03/20/21, colonoscopy 06/13/22 Travel Assistant Required: No Allergies egg (EGG) Allergy (Intermediate, Verified 05/17/25 15:04) ITCHY AND HIVES. lisinopril Allergy (Intermediate, Verified 05/17/25 15:04) Hives sulfamethoxazole (From Bactrim) Allergy (Verified 05/17/25 15:04) Hives trimethoprim (From Bactrim) Allergy (Verified 05/17/25 15:04) Hives amoxicillin Adverse Reaction (Intermediate, Verified 05/17/25 15:04) Diarrhea Egg White (Diagnostic) Allergy (Intermediate, Uncoded 05/17/25 15:04) hives Medication List - Last Reconciled 05/17/25 by Windy Mcelroy MD acetaminophen (Tylenol Extra Strength) 500 mg PO Q6H PRN albuterol sulfate 90 mcg/actuation 2 puffs inhalation Q6H PRN albuterol sulfate 2.5 mg (3 mL) inhalation Q6H PRN amiodarone 200 mg PO DAILY amlodipine 10 mg PO DAILY apixaban (Eliquis) 5 mg PO BID carvedilol 25 mg PO BID furosemide (Lasix) 40 mg PO QAM furosemide (Lasix) 40 mg PO BID levocetirizine 5 mg PO QPM PRN losartan 50 mg PO DAILY Tobacco use date assessed: 05/17/25 Dental Screening Dental Screen Date: 05/17/25 Did you have a dental visit in the last 12 months?: Yes Did you have a dental problem in the last 6 months where you did not have access to dental care?: No Was dental information given to patient?: Patient has dentist HPI Annual PE HPI Details 50-year-old lady with past medical histo ry significant for hypertension, obstructive sleep apnea on CPAP, mild intermittent asthma, morbid obesity, recently diagnosed with paroxysmal atrial fibrillation and started on Eliquis 04/15/2025, congestive heart failure, here today for her physical examination. On April 25, the patient presented to the emergency room for significant leg swelling and a sensation of her heart racing, feeling as if she was going to pass out. Lab work at that time revealed a drop in hemoglobin to 10.4 from 12.4 a week prior, and her BNP was elevated to 498 from a baseline of 140, . An EKG was performed and reported as normal The patient reports experiencing intermittent rectal bleeding. A colonoscopy is scheduled for July. She also has frequent heartburn, which can occur even after drinking water. On April 10, the patient sustained a fall, which resulted in a three-part shoulder fracture and an injury to her knee. A knee X-ray revealed degenerative arthritis under the kneecap and in the medial compartment, with no fracture or dislocation. She is currently attending physical therapy for her shoulder, with some improvement in mobility. The patient's medical history is significant for atrial fibrillation, for which she takes apixaban, and sleep apnea, for which she uses a CPAP device. She has a home sleep study scheduled for titration on the of the . Her current medications include furosemide 40 mg in the morning, carvedilol 25 mg twice daily, amiodarone 200 mg daily, apixaban, amlodipine 10 mg at night, and losartan. She has a history of uterine fibroids, which are being monitored without intervention, and denies any family history of thyroid problems. She is due for her breast cancer screening, with last mammogram done 08/20/23. She is also due for her cervical cancer screening, with last papsmear done 03/20/21 Her last colonoscopy was done in 2022,by Dr. Chen , with serrated polyp and a tubular adenoma removed. Repeat colon cancer screening due again in 3 years. [facility] Medical History (Updated 05/17/25 @ 15:15 by Windy Mcelroy MD) Paroxysmal atrial fibrillation Decompensated heart failure Fracture of humerus, proximal, left, closed Obstructive sleep apnea on CPAP Fibroid History of cholelithiasis Heartburn Lumbago with sciatica, right side Abnormal uterine bleeding Essential hypertension Mild intermittent asthma Surgical History Hx laparoscopic cholecystectomy (06/19/23) Hx of colonoscopy Hx of dilation and curettage H/O tubal ligation Family History Paternal Aunt Ovarian cancer Breast cancer Maternal Aunt Breast cancer Father Heart failure Diabetes Vascular abnormality Mother Memory loss Coronary artery abnormality History of prediabetes Brother No problems noted. Sister Fibromyalgia Daughter Overdose Daughter Borderline high blood pressure Other Mental health disorder Substance use disorder Social History Household Members: Spouse and Family Housing: House Do you presently have visiting nurse or other home services: No Alcohol intake: former Comment: counts correct Patient Tobacco Use Status: Former Tobacco user Tobacco use type: Cigarette Years Smoked: 15 yrs e-Cigarette/Vaping Use: Never Used Substance Use Type: Marijuana service: No Current occupational status: employed Cognitive needs: No Hearing needs: No Vision needs: Yes Female Reproductive History Menstrual Age of Menarche: 10 Questionnaire PHQ-9 Over the last 2 weeks, how often have you been bothered by any of the following problems? 1. Little interest or pleasure in doing things: not at all 2. Feeling down, depressed, or hopeless: not at all 3. Trouble falling or staying asleep, or sleeping too much: not at all 4. Feeling tired or having little energy: not at all 5. Poor appetite or overeating: not at all 6. Feeling bad about yourself - or that you are a failure or have let yourself or your family down: not at all 7. Trouble concentrating on things, such as reading the newspaper or watching television: not at all 8. Moving or speaking so slowly that other people could have noticed. Or the opposite - being so fidgety or restless that you have been moving around a lot more than usual: not at all 9. Thoughts that you would be better off or of hurting yourself in some way: not at all Total score: 0 Depression Screening Interpretation: Negative Depression Screening Done: Yes Source: Developed by Drs. Rip Lafleur, Frances Nuno, Lopez Mcclure and colleagues, with an educational teresa from [employer]. Thrive Questionnaire Date Thrive assessed: 04/17/25 I am a: Patient What is your living situation today?: I have a steady place to live Within the past 12 months, did the food you bought not last and you didn't have the money to get more?: Never true Within the past 12 months, did you worry whether your food would run out before you got money to buy more?: Never true Do you have trouble paying for medicines?: No Do you have trouble getting transportation to medical appointments?: No Do you have trouble paying your heating and electricity bill?: No Do you have trouble taking care of your child, family member or friend?: No Do you have trouble with day-to-day activities such as bathing, preparing meals, shopping, managing finances, etc.?: Yes Are you currently unemployed and looking for a job?: No Are you interested in more education?: No Please select the resources that you would like help with: None Currently or been in a relationship where the following occur: No concerns reported THRIVE Score: 0 AUDIT C Alcohol Use Questionnaire (AUDIT-C) 1. How often do you have a drink containing alcohol?: Never 3. How often do you have six or more drinks on one occasion?: Never Total Score: 0 ELLY-7 AMB Questionnaire ELLY-7 Date ELLY - 7 assessed: 05/17/25 Feeling nervous, anxious, or on edge: 0 = Not at all Not being able to stop or control worryin = Not at all Worrying too much about different things: 0 = Not at all Trouble relaxin = Not at all Being so restless that it is hard to sit still: 0 = Not at all Becoming easily annoyed or irritable: 0 = Not at all Feeling afraid as if something awful might happen: 0 = Not at all Total ELLY-7 score (0-4 normal; 5-9 mild; 10-14 moderate; 15-21 severe): 0 Source: Developed by Drs. Rip Lafleur, Frances Nuno, Lopez Mcclure and colleagues, with an educational teresa from [employer]. ELLY-7 Assessment Billing ELLY-7 Assessment Tool: ELLY-7 Assessment 90697 Review of Systems Const Denies fever(s), Denies headache(s) and Denies weakness Eyes Details: [facility] Denies change in vision ENT Details: Dental prophylaxis every six-months Denies dizziness, Denies headache(s) and Denies nasal congestion Card Denies chest pain, Denies edema, Denies lightheadedness, Denies radiating jaw, neck or arm pain and Denies dyspnea Resp Denies cough, Denies dyspnea and Denies wheezing GI Reports as per HPI Reports no additional complaints Musc Reports no additional complaints and Denies abnormal gait Skin/Breast Denies rash and Denies unusual bruising Neuro Denies abnormal gait, Denies dizziness, Denies headache(s) and Denies weakness Psych Reports no additional complaints Endo Reports no additional complaints Yemi/Lymph Reports no additional complaints Aller/Immun Denies seasonal rhinorrhea and Denies wheezing Physical exam (Primary Care) Vital Signs: Last Vital Signs Temp 97.6 F 05/17/25 14:48 Pulse 67 05/17/25 14:48 Resp 16 05/17/25 14:48 BP 118/72 05/17/25 14:48 Pulse Ox 100 05/17/25 14:48 Oxygen Delivery Method Room Air 05/17/25 14:48 BMI result Body Mass Index 52.3 Tobacco/Smoking Status: Tobacco use Status Tobacco use date assessed 05/17/25 05/17/25 14:51 Patient Tobacco Use Status Former Tobacco user 05/17/25 14:51 Tobacco use type Cigarette 05/17/25 14:51 e-Cigarette/Vaping Use Never Used 05/17/25 14:51 PHQ-9: PHQ-9 Score PHQ-9: Total score 0 05/17/25 15:05 Depression Screening Interpretation: Negative Thrive Assessment: Date of Thrive Assessment Date Thrive assessed 04/17/25 05/17/25 14:51 Currently or been in a relationship where the following occur: No concerns reported Const Other: Alert oriented x3, no acute distress noted ambulatory normal gait, morbidly obese, accompanied by daughter ROSA Head: Yes normocephalic Ears: external ears normal General nose exam: Normal external nose present Face and sinus: Yes face symmetric Mouth: Normal oral and palatal mucosa present and moist mucous membranes Eyes General: appearance normal, both eyes and all related structures Neck Neck: Yes full ROM, Yes no lymphadenopathy and Yes supple Chest Breast/axilla palpation: normal palpation of the breasts Resp Auscultation: clear to auscultation bilaterally Cardio Other: S1-S2 present regular rate and rhythm GI Palpation (GI): Soft to palpation, nontender, no guarding and no masses General: Yes no CVA tenderness and Yes deferred Back/Spine/Pelvis Back: no CVA tenderness and No back tenderness Skin General skin exam: no rashes or lesions noted Neuro General: gait normal and no focal motor deficits Extrem General: Yes no joint enlargement, Yes no clubbing, cyanosis or edema, Yes no pedal edema, Yes normal gait and No calf tenderness Psych Appearance: grossly normal and well kempt Mental Status: mental status grossly normal Speech and movement: Normal speech and movement present Affect: normal affect Results Reviewed Results Reviewed: Name: Marianne Romero Age/Sex: 50/F : 1975 Unit#: [id number] Attend Dr: Anusha Andrade MD Re04/25/25 Status: [facility] Disch: SPEC : [id number] ILSA: 04/25/25 STATUS: COMP REQ : [id number] RECD: 04/25/[address]: Anusha Andrade MD COMP: 04/25/25 ENTERED: 04/25/[address]: Generic ED Physician ORDERED: CBC Auto Diff Test Result Flag Reference WBC 11.0 H 4.8-10.8 X10*3/uL RBC 3.23 L 4.20-5.50 X10*6/uL HGB 10.4 L 12.0-16.0 g/dl HCT 30.8 L 37.0-47.0 % MCV 95.4 80.0-98.0 fL MCH 32.2 27.0-33.0 pg MCHC 33.8 31.0-35.0 g/dl RDW 14.8 11.0-16.0 % PLT 334 160-400 X10*3/uL MPV 10.9 9.4-12.3 fL Neut Pct Auto 71.0 45-73 % ImGran Pct Auto 1.5 H 0.0-0.4 % Lymp Pct Auto 17.4 L 20-40 % Beaver Pct Auto 6.8 2-11 % Eos Pct Auto 2.9 0-4 % Baso Pct Auto 0.4 0-2 % NRBC Pct Auto 0.0 0.0-0.2 /100WBC ANC Neut Abs # 7.8 2.0-8.3 x10*3/uL ImGran Abs Auto 0.16 H 0.00-0.03 X10*3/uL Lymph Abs Auto 1.9 1.2-4.9 X10*3/uL Beaver Abs Auto 0.8 0.1-1.2 X10*3/uL Eos Abs Auto 0.3 0.0-0.4 X10*3/uL Baso Abs Auto 0.0 0.0-0.2 X10*3/uL NRBC Abs Auto 0.000 0.0-0.012 X10*3/uL RUN: 05/17/25 1506 PAGE 1 [facility] [address] [place] [id number] Rod Tape Operator: Jabari Levy M.D. Specimen Inquiry Name: Marianne Romero Age/Sex: 50/F : 1975 Unit#: [id number] Attend Dr: Anusha Andrade MD Re04/25/25 Status: [facility] ER Location: [facility] Disch: SPEC : [id number] ILSA: 04/25/25 STATUS: COMP REQ : [id number] RECD: 04/25/[address] [facility] [address]: Anusha Andrade MD COMP: 04/25/25 ENTERED: 04/25/[address]: Generic ED Physician ORDERED: CMP Test Result Flag Reference Sodium 138 135-145 mmol/L Potassium 3.8 3.3-5.1 mmol/L Slight Hemolysis.Interpret result with caution. CL 104 96-108 mmol/L CO2 26 22-29 mmol/L Gap 12 12-20 BUN 8 L 9-16 mg/dL Creat 0.71 0.5-1.4 mg/dL Estimated CrCl 126.4 Provided height and weight: 160.02 cm, 137.4 kg. eGFR (calculated from the MDRD study equation) and eCrCl (calculated from the Cockcroft-Gault equation) are based on different parameters and may not yield comparable results. If eCrCl result is absurd, please check patient's height/weight. eGFR > 60 Chronic Kidney Disease: Estimated GFR < 60 mL/min/1.73m2 Severe Kidney Disease: Estimated GFR < 15 mL/min/1.73m2 Glucose, Random 137 H 60-115 mg/dL CA 8.8 8.4-10.2 mg/dL Total Bili 0.4 0.0-1.0 mg/dL AST (GOT) 46 H 5-31 U/L Slight Hemolysis.Interpret result with caution. ALT (GPT) 87 H 0-31 U/L Protein, Total 6.5 6.5-8.0 g/dL Alb 3.6 3.5-5.0 g/dL Alk Phos 118 H 39-117 U/L Coding Level of Care Code Est Pt Prev Care 40-64y(03201) Diagnoses Annual visit for general adult medical examination with abnormal findings Z00.01 Mild intermittent asthma without complication J45.20 Asthma complication type: uncomplicated Essential hypertension I10 Heartburn R12 Morbid obesity with BMI of 50.0-59.9, adult E66.01; Z68.43 Hypokalemia E87.6 Obstructive sleep apnea on CPAP G47.33; Z99.89 Paroxysmal atrial fibrillation I48.0 Additional Codes ELLY-7 Assessment Billing - ELLY-7 Assessment Tool: ELLY-7 Assessment 96062 ([id number]) Assessment & Plan Assessment & Plan (1) Annual visit for general adult medical examination with abnormal findings: Code(s): Z00.01 - Encounter for general adult medical examination with abnormal findings Plan: She is due for her breast cancer screening, with last mammogram done 08/20/23. Patient states that she will call schedule her own appointment for her breast cancer screening. She is also due for her cervical cancer screening, with last papsmear done 03/20/21. She has already has an appointment with [facility] for [place] routine Pap and pelvic exam next year. Her last colonoscopy was done in 2022,by Dr. Chen , with serrated polyp and a tubular adenoma removed. Repeat colon cancer screening due again in 3 years. Up-to-date with her pneumococcal vaccine and and tetanus diphtheria vaccine but does not want to get a flu vaccine or COVID booster. Fasting labs ordered (2) Mild intermittent asthma: Code(s): J45.20 - Mild intermittent asthma, uncomplicated Category: Medical Qualifiers: Asthma complication type: uncomplicated Qualified Code(s): J45.20 - Mild intermittent asthma, uncomplicated Plan: Has albuterol inhaler which she uses as needed for episodes of wheezing and bronchospasm. (3) Essential hypertension: Code(s): I10 - Essential (primary) hypertension Category: Medical Plan: Blood pressure at goal of less than 130/80. Continue with current medication. Reinforced importance of following a low sodium diet, getting regular exercise, and lowering stress levels. Takes albuterol inhaler as needed (4) Heartburn: Code(s): R12 - Heartburn Category: Medical Plan: Prescription sent for famotidine 40 mg daily (5) Morbid obesity with BMI of 50.0-59.9, adult: Code(s): E66.01 - Morbid (severe) obesity due to excess calories; Z68.43 - Body mass index [BMI] 50.0-59.9, adult Category: Medical Plan: Discussed need to increase activity and weight reduction. Advised to switch a Mediterranean diet is a healthy diet that helps, limit food high in fat, sugar, and calories. Eat slowly, pay attention to portion sizes, plan your meals ahead of time, start regular physical activity, at least 150 minutes of moderate intensity exercise, or 90 minutes per week of vigorous exercise. Keeping a food diary, tracking what you eat and your physical activity can help assess what improvements you can make. (6) Hypokalemia: Code(s): E87.6 - Hypokalemia Category: Medical Plan: Will check serum potassium (7) Obstructive sleep apnea on CPAP: Code(s): G47.33 - Obstructive sleep apnea (adult) (pediatric); Z99.89 - Dependence on other enabling machines and devices Category: Medical Plan: Currently using CPAP has an appointment for titration (8) Paroxysmal atrial fibrillation: Code(s): I48.0 - Paroxysmal atrial fibrillation Category: Medical Plan: Currently on amiodarone 200 mg daily, apixaban 5 mg twice a day. And carvedilol 25 mg 1 tablet twice a day. Has an appointment already scheduled to see cardiology for further evaluation Orders: Orders Complete Blood Count Auto Diff 05/18/25 I10 - Essential (primary) hypertension, E66.01 - Morbid (severe) obesity due to excess calories, Z68.43 - Body mass index [BMI] 50.0-59.9, adult, R12 - Heartburn, E87.6 - Hypokalemia, J45.20 - Mild intermittent asthma, uncomplicated, G47.33 - Obstructive sleep apnea (adult) (pediatric), Z99.89 - Dependence on other enabling machines and devices NT Pro B Type Natriuretic Pept 05/18/25 I10 - Essential (primary) hypertension, E66.01 - Morbid (severe) obesity due to excess calories, Z68.43 - Body mass index [BMI] 50.0-59.9, adult, R12 - Heartburn, E87.6 - Hypokalemia, J45.20 - Mild intermittent asthma, uncomplicated, G47.33 - Obstructive sleep apnea (adult) (pediatric), Z99.89 - Dependence on other enabling machines and devices TSH reflex Free T4 05/18/25 I10 - Essential (primary) hypertension, E66.01 - Morbid (severe) obesity due to excess calories, Z68.43 - Body mass index [BMI] 50.0-59.9, adult, R12 - Heartburn, E87.6 - Hypokalemia, J45.20 - Mild intermittent asthma, uncomplicated, G47.33 - Obstructive sleep apnea (adult) (pediatric), Z99.89 - Dependence on other enabling machines and devices Comprehensive Mobile. Panel Fast 05/18/25 I10 - Essential (primary) hypertension, E66.01 - Morbid (severe) obesity due to excess calories, Z68.43 - Body mass index [BMI] 50.0-59.9, adult, R12 - Heartburn, E87.6 - Hypokalemia, J45.20 - Mild intermittent asthma, uncomplicated, G47.33 - Obstructive sleep apnea (adult) (pediatric), Z99.89 - Dependence on other enabling machines and devices Lipid Panel 05/18/25 I10 - Essential (primary) hypertension, E66.01 - Morbid (severe) obesity due to excess calories, Z68.43 - Body mass index [BMI] 50.0- 59.9, adult, R12 - Heartburn, E87.6 - Hypokalemia, J45.20 - Mild intermittent asthma, uncomplicated, G47.33 - Obstructive sleep apnea (adult) (pediatric), Z99.89 - Dependence on other enabling machines and devices Ferritin 05/18/25 I10 - Essential (primary) hypertension, E66.01 - Morbid (severe) obesity due to excess calories, Z68.43 - Body mass index [BMI] 50.0- 59.9, adult, R12 - Heartburn, E87.6 - Hypokalemia, J45.20 - Mild intermittent asthma, uncomplicated, G47.33 - Obstructive sleep apnea (adult) (pediatric), Z99.89 - Dependence on other enabling machines and devices Vitamin D 25-OH Total 05/18/25 I10 - Essential (primary) hypertension, E66.01 - Morbid (severe) obesity due to excess calories, Z68.43 - Body mass index [BMI] 50.0-59.9, adult, R12 - Heartburn, E87.6 - Hypokalemia, J45.20 - Mild intermittent asthma, uncomplicated, G47.33 - Obstructive sleep apnea (adult) (pediatric), Z99.89 - Dependence on other enabling machines and devices IRON PROFILE 05/18/25 I10 - Essential (primary) hypertension, E66.01 - Morbid (severe) obesity due to excess calories, Z68.43 - Body mass index [BMI] 50.0- 59.9, adult, R12 - Heartburn, E87.6 - Hypokalemia, J45.20 - Mild intermittent asthma, uncomplicated, G47.33 - Obstructive sleep apnea (adult) (pediatric), Z99.89 - Dependence on other enabling machines and devices Medications: New famotidine 40 mg PO DAILY 90 tabs 0RF R12 - Heartburn Discontinued furosemide Discontinued Reason: Doctor's Order 40 mg PO BID 10 tabs 0RF
--- OUTSIDE RECORDS SUMMARY | 2025-05-17 19:40 | XMS_ITS | Clinical Summary ---
Author Organization [facility] Address [address] [place] [address] Phone Care Team Providers Care Animal Care Assistant Name Role Phone Windy Mcelroy MD Primary Care Provider [phone] Allergies Active Allergy Reactions Criticality Noted Date [...] days. 10 each 04/21/2025 12:06 PM EST Active apixaban (ELIQUIS) 5 mg tablet Take 1 tablet (5 mg total) by mouth 2 (two) times a day. 025 Discontin ued(Stop Taking at Discharge ) Active Problems Problem Noted Date Diagnosed Date DJD of shoulder 04/20/2025 Encounters Date Type Department Care Team Description 04/20/2025 11:45 AM EST - 04/20/2025 1:45 PM EST Surgery [facility] [place] [address] [place] [phone] Dav Rutherford MD ARTHROPLASTY SHOULDER TOTAL REVERSE APPROACH [79014 (CPT )] 04/20/2025 11:37 AM EST Anesthesia Event [facility] OR [address] [place] [phone] Troy Swift MD Kanelos, Peter T, MD 04/20/2025 8:36 AM EST - 04/21/2025 12:46 PM EST Hospital Encounter [facility] [address] [place] [phone] Dav Rutherford MD Primary osteoarthritis of [...] vomiting) Obesity CHF (congestive heart failur e) ([facility] V24, [facility] V28) 04/2025 r/t afib per [...] not to disclose 2024 8:35 AM EST Last Filed Vital Signs Vital Sign Reading [...] ed Goal Care Plan Autogenerated Problem No Demarcus, Annette Medical Devices Implanted Type 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 Cement Bone Palacos High-Viscosity - [id number] Implanted:Qty: 1 on 04/20/2025 by Dav Rutherford MD at [facility] Bone Cement Left: Shoulder MITA KENNY [id number] 09/28/2028 [id number] / / [id number] Description:1 gram of vancom ycin mixed into 1 bag of bone cement. Humeral Perform Ret Insert Sz1/2 36mm +0 - [id number] - [id number] Implanted:Qty: 1 on 04/20/2025 by Dav Rutherford MD at [facility] Joints Shoulder Left: Shoulder [employer] 12/05/2025 [id number] / [id number] / [id number] Lateralized Baseplate +3mm 25mm - [id number] - [id number] Implanted:Qty: 1 on 04/20/2025 by Dav Rutherford MD at [facility] Joints Shoulder Left: Shoulder [employer] [id number] 01/03/2030 [id number] / [id number] / Standard Glenosphere 36mm - [id number] - [id number] Implanted:Qty: 1 on 04/20/2025 by Dav Rutherford MD at [facility] Joints Shoulder Left: Shoulder 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 11/16/2029 [id number] / [id number] / N/A Stem Fracture Sz 8s L 130mm - [id number] - [id number] Implanted:Qty: 1 on 04/20/2025 by Dav Rutherford MD at [facility] Joints Shoulder Left: Shoulder [employer] 08/15/2029 [id number] / [id number] / N/A Central Threaded Post Screw 6.5x30mm - Sn/A - [id number] Implanted:Qty: 1 on 04/20/2025 by Dav Rutherford MD at [facility] Joints Shoulder Left: Shoulder 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 [id number] / N/A / N/A Peripheral Screw 5x18mm - Sn/A - [id number] Implanted:Qty: 2 on 04/20/2025 by Dav Rutherford MD at [facility] Joints Shoulder Left: Shoulder 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 [id number] / N/A / N/A Peripheral Screw 5x38mm - Sn/A - [id number] Implanted:Qty: 2 on 04/20/2025 by Dav Rutherford MD at [facility] Joints Shoulder Left: Shoulder 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 [id number] / N/A / N/A Procedures Procedure Name Priority Date/Time Associated Diagnosis Comments HEMOGLOBIN AND HEMATOCRIT STAT 04/20/2025 7:21 PM EST OXYGEN THERAPY, ADULT Routine 04/20/2025 5:30 PM EST OXYGEN THERAPY, ADULT Routine 04/20/2025 5:30 PM EST XR SHOULDER 2+ VIEWS LEFT STAT 04/20/2025 4:37 PM EST OXYGEN THERAPY, ADULT Routine 04/20/2025 3:27 PM EST XR HUMERUS 2+ VIEWS LEFT Routine 04/20/2025 3:13 PM EST Pain XR FLUORO UP TO 1 HOUR (STATISTICS)(NO REPORT) Routine 04/20/2025 3:12 PM EST Pain TH AN ENDOTRACHEAL(NO CHARGE) Routine 04/20/2025 2:19 PM EST UT TENODESIS LONG TENDON OF BICEPS 04/20/2025 11:23 AM EST Other displaced fracture of upper end of left humerus, initial encounter for closed fracture Case Notes PCPSDD UT TX FRACTURE PROXIMAL HUMERAL OPEN INCL INT FIXN INCL REPR TUBEROSITY 04/20/2025 11:23 AM EST Other displaced fracture of upper end of left humerus, initial encounter for closed fracture Case Notes PCPSDD UT ARTHROPLASTY GLENOHUMERAL JOINT TOTAL SHOULDER 04/20/2025 11:23 [...] LAB HEMETOLOGY METHOD 04/20/2025 7:56 PM EST [facility] Hematocrit 34.8(L) 37.0 - 47.0 % LAB HEMETOLOGY METHOD 04/20/2025 7:56 PM EST [facility] Blood Venous blood specimen / Unknown 04/20/2025 7:21 PM EST 04/20/2025 7:26 PM EST Laurent BRANHAM LAB BLOOD ORDERABLES Final Res ult [facility] [address] [place] [address], * XR Shoulder 2+ Views Left (04/20/2025 [...] Signed Date: 04/20/2025 17:25 ET Workstation ID: [id number] Transcribed By: Self Edit Transcribed Date: 04/20/2025 [...] Signed Date: 04/20/2025 17:25 ET Workstation ID: [id number] Transcribed By: Self Edit Transcribed Date: 04/20/2025 17:21 ET Janusz BRANHAM IMG XR PROCEDURES Final R esult * XR Humerus 2+ Views Left (04/20/2025 3:13 PM EST) Anatomical Region Laterality Modality Upper Extremities, Humerus Left Radio graphic Imaging 05/10/2025 3:06 PM EST Impressions 05/10/2025 3:06 PM EST Fluoroscopic assistance provided to the physician. -------- FINAL REPORT -------- Dictated By: Bernardo Lynch Dictated Date: 05/10/2025 15:06 ET Assigned Physician: Bernardo Lynch Reviewed and Electronically Signed By: Bernardo Lynch Signed Date: 05/10/2025 15:06 ET Workstation ID: [id number] Transcribed By: Self Edit Transcribed Date: 05/10/2025 15:06 ET Narrative 05/10/2025 3:06 PM EST XR HUMERUS 2+ VIEWS LEFT PROCEDURE/HISTORY: Fluoroscopy for ARTHROPLASTY SHOULDER TOTAL REVERSE APPROACH - Left ORIF HUMERUS PROXIMAL - Left REPAIR TENDON SHOULDER - Left Fluoroscopic guidance was provided to Dr. Rutherford for the procedure. Fluoroscopic time: 0 minutes. Cumulative dose: 3.89 mGy Procedure Note Bernardo Lynch MD - 05/10/2025 XR HUMERUS 2+ VIEWS LEFT PROCEDURE/HISTORY: Fluoroscopy for ARTHROPLASTY SHOULDER TOTAL REVERSEAPPROACH - Left ORIF HUMERUS PROXIMAL - Left REPAIR TENDON SHOULDER - Left Fluoroscopic guidance was provided to Dr. Rutherford for the procedure. Fluoroscopic time: 0 minutes. Cumulative dose: 3.89 mGy IMPRESSION: Fluoroscopic assistance provided to the physician. -------- FINAL REPORT -------- Dictated By: Bernardo Lynch Dictated Date: 05/10/2025 15:06 ET Assigned Physician: Bernardo Lynch Reviewed and Electronically Signed By: Bernardo Lynch Signed Date: 05/10/2025 15:06 ET Workstation ID: [id number] Transcribed By: Self Edit Transcribed Date: 05/10/2025 15:06 ET Dav Rutherford MD IM XR PROCEDURES Final Re sult * XR Fluoro Up To 1 Hour (Statistics)(No Report) (04/20/2025 3:12 PM EST) Narrative RIS PACS/VR - 04/20/2025 3:13 PM EST This order has been auto-finalized and does not contain a result. us Dav Rutherford MD IMG FLUOROSCOPY PROCEDURES Final Result RIS PACS/VR * TH AN ENDOTRACHEAL(NO CHARGE) (04/20/2025 2:19 PM EST) Narrative Troy [place] MD - 04/20/2025 2:19 PM EST Troy [...] Singh MD - 04/20/2025 10:54 AM EST Tory [place] MD 04/20/2025 12:47 PM Peripheral Block [...] sitting Prep: ChloraPrep Patient monitoring: heart rate, cardiac rehab nurse and continuous pulse ox Block type: interscalene [...] mmol/L LAB CHEMISTRY METHOD 04/20/2025 11:25 AM [facility] Potassium 3.7 3.5 - 5.1 mmol/L LAB CHEMISTRY METHOD 04/20/2025 11:25 AM [facility] Chloride 102 98 - 107 mmol/L LAB CHEMISTRY METHOD 04/20/2025 11:25 AM [facility] CO2 26 24 - 32 mmol/L LAB CHEMISTRY METHOD 04/20/2025 11:25 AM [facility] Anion Gap 10 5 - 14 LAB CHEMISTRY METHOD 04/20/2025 11:25 AM [facility] Glucose 99 70 - 99 mg/dL LAB CHEMISTRY METHOD 04/20/2025 11:25 AM [facility] BUN 9 7 - 17 mg/dL LAB CHEMISTRY METHOD 04/20/2025 11:25 AM [facility] Creatinine 0.60 0.50 - 1.00 mg/dL LAB CHEMISTRY METHOD 04/20/2025 11:25 AM [facility] eGFR 108 >=60 mL/min/1. 73m2 LAB CHEMISTRY METHOD 04/20/2025 11:25 AM [facility] Comment:Calculation based on the Chronic Kidney Disease Epidemiology Collaboration (CKD-EPI) equation refit without adjustment for race. BUN/Creatinine Ratio 15.0 12.0 - 20.0 LAB CHEMISTRY METHOD 04/20/2025 11:25 AM [facility] Calcium 9.4 8.4 - 10.2 mg/dL LAB CHEMISTRY METHOD 04/20/2025 11:25 AM [facility] AST (SGOT) 21 5 - 40 unit/L LAB CHEMISTRY METHOD 04/20/2025 11:25 AM [facility] ALT (SGPT) 30 7 - 52 unit/L LAB CHEMISTRY METHOD 04/20/2025 11:25 AM [facility] Alkaline Phosphatase 99 34 - 104 unit/L LAB CHEMISTRY METHOD 04/20/2025 11:25 AM [facility] Total Protein 7.6 6.4 - 8.5 g/dL LAB CHEMISTRY METHOD 04/20/2025 11:25 AM [facility] Albumin 4.1 3.5 - 5.0 g/dL LAB CHEMISTRY METHOD 04/20/2025 11:25 AM [facility] Total Bilirubin 0.6 0.3 - 1.0 mg/dL LAB CHEMISTRY METHOD 04/20/2025 11:25 AM [facility] Blood Venous blood specimen / Unknown Venipuncture / Unknown 04/20/2025 10:46 AM EST 04/20/2025 10:50 AM EST us Troy Swift MD LAB BLOOD ORDERABLES Final Res ult [facility] [address] [place] [address], [place] [phone] * ABO Rh (04/20/2025 9:55 AM EST) ABO Group O 04/20/2025 11:36 AM EST [facility] Rh Type Negative 04/20/2025 11:36 AM EST [facility] Blood Venous blood specimen / Unknown Venipuncture / Unknown 04/20/2025 9:55 AM EST 04/20/2025 10:04 AM EST Dav Rutherford MD LAB BLOOD BANK TEST ORDERA BLES Final Result Performing Organization Address [facility] Co de Phone Number [facility] [address] [place] [address], [place] [phone] * Type and screen (04/20/2025 9:55 AM EST) ABO Group O 04/20/2025 11:36 AM EST [facility] Rh Type Negative 04/20/2025 11:36 AM EST [facility] Antibody Screen Negative 04/20/2025 11:36 AM EST [facility] Blood Venous blood specimen / Unknown Venipuncture / Unknown 04/20/2025 9:55 AM EST 04/20/2025 10:04 AM EST us Dav Rutherford MD LAB BLOOD BANK TEST ORDERA BLES Final Result [facility] [address] [place] [address], [place] [phone] from Last 3 Months Additional Health Concerns Active Problems Noted Date Diagnosed Date Autogenerated Problem 04/21/2025 Insurance MEDICAID - [place] [facility] [address] [place] [address] Advance Directives * Full Code - Confirmed (Latest Code Status on File) Date Activated Date Inactivated Comments 04/20/2025 4:08 PM 04/21/2025 2:46 PM This code status was ascertained in the following way: Code status discussion: discussion with patient To update the patient's code status, place a code status order. Do not modify or discontinue any currently active code status orders. Care Teams Animal Care Assistant Relationship Specialty Start Date End Date Windy Mcelroy MD [address] [place] [address] PCP - General Internal Medicine 04/17/25
--- OUTSIDE RECORDS SUMMARY | 2025-05-17 19:40 | XMS_ITS | Continuity of Care Document ---
Author Organization [place] [facility] Jayda Guallpa [facility] Address [address] [address] Care Team Providers Care Big Data Software Engineer Name Role Phone PORFIRIO VELAZCO Primary Care [...] answered satisfactorily. Thank you for this consultation [email or web address] Not available 04/13/2025 09:01:28 Plan of Treatment Reminders Order Date Submit Date Provider Last Modified By Organization Details Last Modified Time Details Appointments POST-OP 2025 08:30A Araceli Rutherford MD Not available Not available Not available Lab None recorded. Referral None recorded. Procedures None recorded. Surgeries reverse total shoulder arthropla sty (SURG) 2024 025 [email or web address] Not available 04/25/2025 11:51:[address], shoulder, w/o contrast - Left proximal humerus fracture preoperat familia planning blueprint protocol* *Please call patient to schedule and hand carry CD 2024 025 [facility] ([facility]) , [address], [place], [address], 04/21/2025 09:18:30 Medication Orders None recorded. Patient TargetsNo targets recorded. Patient Instructions Encounter Date Encounter Id Patient Instructions Last Modified By Organization Details Last Modified Time 04/13/2025 [id number] 3 views of the left shoulder were [...] resul t No observ ation record ed. [facility] [address] [place], [address], 04/21/2025 04:55:23 04/25/2004/19/2025 CT, shoul rita, w/o [...] dose optimi zation techni ques as approp tam yen includ ing the follow ing: *Autom ated [...] imagin g report s in the past -thu period : 0 FINDIN GS: Commin uted [...] patien t to us, William smith MD [phone] (Elect maria a lares Signed - 2024 09:09) INTERFACE [facility] ([facility]) [address] [facility] [address], [place], [address], 04/25/2025 09:12:13 Result Notes None recorded. Problems Name Problem SNOMED Code Status Onset Date Resolution Date Notes Provider Name and Address Organization Details Recorded Time Pain of left shoulder joint 47441830517106 109 Active 2024 Jose Morris MD [address], [place], [address] , [place] [facility] 06:41:19 Closed fracture of upper end of humerus 71847105 Active 2024 Dav Rutherford MD [address], [place], [address] , [place] [facility] 5 08:56:58 Body mass index 40+ - severely obese 298684038 Active 2024 Jose Morris MD [address], [place], [address] , [place] [facility] 5 08:46:39 Problem Notes None recorded. Procedures Surgical History Date Name Laterality Status Provider Name and Address Organization Details Recorded Time 04/20/20 REVERSE TOTAL SHOULDER ARTHROPLASTY (SURG) completed Neela Bazziunier [facility] 04/21/2025 09:24:53 Imaging Results None recorded. Procedure Notes None recorded. Medical Equipment None Reported. Allergies Allergen ID Allergen Name Allergen Category Reaction Reaction Severity Criticality Documentation Date Start Date Code Code System Note Provider Name and Address Organization Details Recorded Time 801893 azithromy luis enrique medicatio n Not available Not available Not available 04/17/20252024 70347 RxNorm Not Available bety - External Data Service - prod 12:43:14 731195 clarithro mycin medicatio n Not available Not available Not available 04/17/20252024 96722 RxNorm Not Available [place] [facility] External Data Service - prod 12:43:14 303400 lisinopri l medicatio n Not available Not available Not available 04/18/2025 01947 RxNorm Daly LaDouceur null, [place] [facility] 5 14:12:23 367233 amoxicill in medicatio n Not available Not available Not available 04/18/2025 723 RxNorm Daly LaDouceur null, [place] [facility] 5 14:12:30 909207 egg extract food,medi cation Not available Not available Not available 04/18/2025 02439 15 RxNorm Daly LaDouceur null, [place] [facility] 5 14:12:39 010314 sulfameth oxazole / trimethop rim medicatio n diarrhea hives Not available Not available Not available 04/20/20252024 82735 RxNorm Not Available [place] - External Data Service - prod 5 00:12:25 Medications Name Sig Start Date Stop Date Status Note LastModified by Organization Details LastModified Time losartan 50 mg tablet TAKE 1 TABLET (50 MG) BY MOUTH DAILY active Not Available Not Available No t Available furosemide 40 mg tablet TAKE 1 TABLET (40 MG) BY MOUTH EVERY MORNING active Not Available Not Available No t Available carvedilol 25 mg tablet TAKE 1 TABLET (25 MG) ORALLY 2 TIMES A DAY active Not Available Not Available No t Available azithromyci n 250 mg tablet TAKE 2 TABLETS BY MOUTH TODAY, THEN TAKE 1 TABLET DAILY FOR 4 DAYS DIRECTED 04/11 completed Not Available Not Available Not Available amiodarone 200 mg tablet TAKE 1 TAB (200MG) ORALLY DAILY TO START TAKING ON APRIL 302024 active Not Available Not Available No t Available benzonatate 200 mg capsule TAKE 1 CAPSULE BY MOUTH THREE TIMES A DAY NEEDED FOR COUGH FOR 10 DAYS 04/18 completed Not Available Not Available Not Available senna 8.6 mg tablet PLEASE SEE ATTACHED FOR DETAILED DIRECTION S active Not Available Not Available No t Available prednisone 20 mg tablet TAKE 1 TABLET BY MOUTH EVERY DAY 04/18 completed Not Available Not Available Not Available omeprazole 40 mg capsule,del ayed release TAKE 1 CAPSULE EVERY MORNING FOR 7 DAYS *START THE MORNING AFTER SURGERY. FINISH ENTIRE PRESCRIPT ION active Not Available Not Available No t Available tramadol 50 mg tablet TAKE 1 TABLET BY MOUTH EVERY 6 HOURS NEEDED. START THE NIGHT OF SURGERY active Not Available Not Available No t Available acetaminoph en ER 650 mg tablet,exte nded release STARTING THE NIGHT OF SURGERY TAKE 1 TAB BY MOUTH EVERY 6 HOURS X3DAYS THEN ONLY NEEDED AFTER active Not Available Not Available No t Available ketorolac 10 mg tablet PLEASE SEE ATTACHED FOR DETAILED DIRECTION S active Not Available Not Available No t Available metoclopram ameya 5 mg tablet TAKE 1 TABLET BY MOUTH EVERY 8 HOURS ONLY IF NEEDED FOR NAUSEA active Not Available Not Available No t Available amiodarone 400 mg tablet TAKE 1 TABLET BY MOUTH TWICE A DAY active Not Available Not Available No t Available aspirin 325 mg tablet,bladimir yed release TAKE 1 TABLET (325 MG) BY MOUTH DAILY FOR CLOT PREVENTIO N FOR 30 DAYS active Not Available Not Available No t Available amlodipine 10 mg tablet TAKE 1 TABLET BY MOUTH EVERY DAY active Not Available Not Available No t Available docusate sodium 100 mg capsule TAKE 1 CAPSULE BY MOUTH TWICE A DAY NEEDED FOR CONSTIPAT ION WHILE TAKING TRAMADOL active Not Available Not Available No t Available gabapentin 300 mg capsule TAKE 1 CAPSULE BY MOUTH 3 TIMES A DAY FOR 3 DAYS. START THE NIGHT OF SURGERY. FINISH PRESCRIPT ION active Not Available Not Available No t Available losartan 50 mg-hydrochl orothiazide 12.5 mg tablet TAKE 1 TABLET BY MOUTH EVERY DAY active Not Available Not Available No t Available cefdinir 300 mg capsule TAKE 1 CAPSULE BY MOUTH EVERY 12 HOURS FOR 7 DAYS 04/11 completed Not Available Not Available Not Available oxycodone 5 mg tablet TAKE 1 TABLET (5 MG) BY MOUTH EVERY 8 HOURS NEEDED FOR PAIN (SCALE SCORE 7-10) FOR 3 DAYS active Not Available Not Available No t Available senna 8.6 mg capsule 2 pills at [...] Not Available Not Available No t Available Eliquis 5 mg tablet TAKE 1 TABLET BY MOUTH TWICE A DAY active Not Available Not Available No t Available potassium chloride ER 20 mEq tablet,exte nded release TAKE 1 TABLET BY MOUTH DAILY active Not Available Not Available No t [...] ICD10 Code Diagnosis IMO Codes Diagnosis Note [id number] Jose Morris MD [address] [place] [phone] 04/11/2025 13:05:10 04/11/2025 13:40:17 Pain of left shoulder joint 3207855311 1909000 M25.512 133418 Closed fra cture of upper end of humerus 32862029 S42.292A 441634406 Body mass index 40+ - severely obese 777201437 E66.01 Z68.42 [id number] Dav Rutherford MD [facility] [address] [facility] [address] [place] [address] 04/13/2025 08:52:45 04/13/2025 09:44:52 Closed fracture of upper end of humerus 42414632 S42.292A [id number] Health Concerns Section Related Observation LastModified by Organization Detai ls LastModified Time None Recorded Concern Status LastModified by Organization Details LastModified Time None Recorded Payers Encounter Date Sequence Insurance Name Policy Number Policy Iglesias Covered Member ID Iglesias Member ID Guarantor Name 04/13/[address] [place] [address] [id number] Marianne Romero [id number] Mariannepatricia Romero Notes Date Note Type Note Provider Name and Address Organization Details Recorded Time 04/13/2025 text/html ROS as noted in the HPI 50-year-old [id number] t woman presenting with left shoulder injury sustained on 04/10/2025. She fell a few days ago initially went to [facility] where she was given a [...] Dav Rutherford MD [address], [place], [address], [place] [facility] 04/13/2025 09:54:34 OBGyn Episode No OBEpisode recorded.
--- OUTSIDE RECORDS SUMMARY | 2025-05-17 19:40 | XMS_ITS | Continuity of Care Document ---
Author Organization [place] [facility] Jayda Guallpa AONE [place] Address [address] [place] [address] Care Team Providers Care Hod Carrier Name Role Phone PORFIRIO VELAZCO Primary Care [...] comfort. She may remove this for hygiene. Chadwickng protocol reviewed. She was counseled to expect [...] Last Modified Time Details Appointments POST-O P 026 08:30AM Tray Rutherford MD Not available Not available Not available Lab None record ed. Referral None record ed. Procedures None record ed. Surgeries None record ed. Imaging None record ed. Medication Orders None record ed. Patient TargetsNo targets recorded. Patient Instructions Encounter Date Encounter Id Patient Instructions Last Modified By Organization Details Last Modified Time 04/11/2025 [id number] I independently reviewed her left shoulder x-rays [...] resul t No observ ation record ed. [facility] Health Information Management [address] [place] [address], [address], 04/21/2025 04:55:23 04/25/2004/19/2025 CT, shoul rita, w/o [...] and sagitt al orient ations were submit curz. [address] examin ation was perfor [...] William smith MD 2024 09:09 AM EST Workst ation: [id number] Thank you for referr ing your patien t to us, William smith MD [id number] (Elect maria a lares Signed - 2024 09:09) INTERFACE [facility] ([facility]) [address] [facility] [address], [place], [address], 04/25/2025 09:12:13 Result Notes None recorded. Problems Name Problem SNOMED Code Status Onset Date Resolution Date Notes Provider Name and Address Organization Details Recorded Time Pain of left shoulder joint 33266893568440 109 Active 2024 Jose Morris MD [address], [place], [address] , [place] [facility] [place], P 5 06:41:19 Closed fracture of upper end of humerus 73205455 Active 2024 Dav Rutherford MD [address], [place], [address] , [place] [facility] [place], P 5 08:56:58 Body mass index 40+ - severely obese 550078089 Active 2024 Jose Morris MD [address], [place], [address] , [place] [facility], P 5 08:46:39 Problem Notes None recorded. Procedures Surgical History Date Name Laterality Status Provider Name and Address Organization Details Recorded Time 04/20/20 REVERSE TOTAL SHOULDER ARTHROPLASTY (SURG) completed Neela Colbertier [place] [facility] [place], P 04/21/2025 09:24:53 Imaging Results None recorded. Procedure Notes None recorded. Medical Equipment None Reported. Allergies Allergen ID Allergen Name Allergen Category Reaction Reaction Severity Criticality Documentation Date Start Date Code Code System Note Provider Name and Address Organization Details Recorded Time 814705 azithromy luis enrique medicatio n Not available Not available Not available 04/17/20252024 28202 RxNorm Not Available [employer] - prod 12:43:14 758740 clarithro mycin medicatio n Not available Not available Not available 04/17/20252024 89474 RxNorm Not Available [employer] - prod 12:43:14 408599 lisinopri l medicatio n Not available Not available Not available 04/18/2025 44159 RxNorm Daly Biju null, [place] [facility] [place], P 5 14:12:23 452478 amoxicill in medicatio n Not available Not available Not available 04/18/2025 723 RxNorm Daly Biju null, [place] [facility] [place], P 5 14:12:30 672505 egg extract food,medi cation Not available Not available Not available 04/18/2025 10598 15 RxNorm Daly Biju null, [place] [facility] [place], P 5 14:12:39 398207 sulfameth oxazole / trimethop rim medicatio n diarrhea hives Not available Not available Not available 04/20/20252024 12286 RxNorm Not Available [employer] - prod 00:12:25 Medications Name [...] Updated DateTime 04/11/2025 160.02 cm 49.6 kg/m2 423562.86 g Jose Morris MD [address], [place], [address], [place] [facility] [place], 04/11/2025 13:56:09 Social History None recorded. Functional Status None recorded. Mental Status None recorded. Family History Nothing Reported. Medical History No medical history recorded. Gynecological HistoryNo gynecological history recorded. Obstetrics History GPAL:G 0 P 0 0 0 0 Past Encounters Encounter ID Performer Location Encounter Start Date Encounter Closed Date Diagnosis/Indication Diagnosis SNOMED-CT Code Diagnosis ICD10 Code Diagnosis IMO Codes Diagnosis Note [id number] Jose Morris MD [address] [place] [address] 04/11/2025 13:05:10 04/11/2025 13:40:17 Pain of left shoulder joint 8943675994 1572199 M25.512 792180 Closed fra cture of upper end of humerus 60966607 S42.292A 688850041 Body mass index 40+ - severely obese 150187410 E66.01 Z68.42 [id number] Health Concerns Section Related Observation LastModified by Organization Detai ls LastModified Time None Recorded Concern Status LastModified by Organization Details LastModified Time None Recorded Payers Encounter Date Sequence Insurance Name Policy Number Policy Iglesias Covered Member ID Iglesias Member ID Guarantor Name 04/11/2025 1 [facility] [id number] Mariannepatricia Romero [id number] [facility] Nick Notes Date Note Type Note Provider Name and Address Organization Details Recorded Time 04/11/2025 text/html 50-year-old ocyqz-oedw-aanthieg female here for an evaluation of acute left shoulder pain that started yesterday after a fall at home. She tripped and fell over a marietta litter box while getting out of bed. She noted immediate pain in her left shoulder. She was seen at [facility]. X-rays were performed and she was [...] Jose Morris MD [address], [place], [address], [place] [facility] [place], P 04/18/2025 08:48:38 04/13/2025 text/html ROS as noted in the HPI 50-year-old jvhzb-qamd-wzlfjars woman presenting with left shoulder injury sustained on 04/10/2025. She fell a few days ago initially went to [facility] where she was given a sling [...] Dav Rutherford MD [address], [place], [address], [place] [facility] [place], P 04/13/2025 09:54:34 OBGyn Episode No OBEpisode recorded.
--- OUTSIDE RECORDS SUMMARY | 2025-05-17 19:40 | XMS_ITS | Continuity of Care Document ---
Author Organization [place] [facility] Jayda Guallpa AONE [place] Address [address] [place] [address] Care Team Providers Care Computer Assistant Name Role Phone PORFIRIO VELAZCO Primary Care Provider PORFIRIO VELAZCO Referring Provider Assessment Encounter Date Assessment Date Assessment LastModified by Organization Details LastModified Time 05/05/2025 05/05/2025 IMPRESSION: status post LEFT Reverse Shoulder Arthroplasty for fracture (Tornier Perform Fx (04/20/2025 at [facility]) PLAN: Patient is doing well. Patient may begin their postoperative protocol with physical therapy in 1 weeks, a PT prescription was provided. We will see them back for repeat clinical and radiographic evaluation in 6 weeks. Postoperative Care Summary For Reverse Total Shoulder Arthroplasty The patient will follow my Reverse Total Shoulder Arthroplasty protocol as follows: 1. No weightbearing to the LEFT upper extremity for 6 weeks, sling with abduction pillow for 2 weeks. 2. Ok for pendulums and elbow/wrist/hand /finger range of motion exercises immediately post-op. 3. Supervised and structured physical therapy will begin between 2 and 3 weeks post-op. 4. Will initiate gentle passive assisted exercises for the operative shoulder at 2 weeks post-op with forward elevation gradually progressing from 0-90 to 0-160 by week six. External rotation will progress gradually from 10 degrees to 45 degrees by week 10, Goal is for full symmetric shoulder motion by week 12. 5. Will start sub-maximal pain free deltoid isometrics in the scapular plane at 2 weeks, IR/ER isometrics at 6 weeks, isotonic IR/ER and sidelying strengthening at 9 weeks. 6. Progressive unrestricted strengthening will begin at 12 weeks, with a lifetime lifting restriction of 10 pounds to the operative arm for life. 7. Ok to return to light duty work once off of all pain medications if can perform job without the use of the operative extremity. 8. Patient will be seen by me in clinic at day 10-14 post-op with repeat LEFT shoulder radiographs, 8 weeks with repeat shoulder radiographs, and 4 months post-op with repeat radiographs. Further appointments and imaging to be determined based on progress with therapies and sooner if issues arise. Not available 05/02/2025 19:01:05 Plan of Treatment Reminders Order Date Submit Date Provider Last Modified By Organization Details Last Modified Time Details Appointments POST-OP 2025 08:30A M Tray Rutherford MD Not available Not available Not available Lab None recorded. Referral physical therapist referral - Physical Therapy Post-Oper ative Guideline s Dr. Dav Rutherford Reverse Total Shoulder Arthropla sty *Biceps Tenodesis - No lifting >5lbs for 6 weeks Phase I: Immediate postopera tive phase (0-2 weeks after surgery) Goals: Protect shoulder arthropla sty Ensure wound healing Prevent shoulder stiffness Restore active ROM of elbow, wrist and hand Maximize ADL;s with modificat ions/prec autions Activitie s: Sling use during this period. Keep sling on to sleep. No active motion of the shoulder. No lifting, pushing or pulling of objects May perform activitie s in front of you but nothing above shoulder height Start three times daily gentle pendulum / Codman exercises on post-op day 1 Start three times daily elbow, wrist, hand, and finger active and passive range of motion exercises Ice 4-5x Daily Avoid shoulder extension , external rotation No shoulder range of motion for first 2 weeks Phase II: Outpatien t Rehabilit ation (2-6 weeks after surgery) Goals: Protect the shoulder and avoid overstres sing the repair Restore full passive range of motion Gradually restore active motion Re-establ sergio dynamic shoulder stability Exercises : Begin sub-maxim al pain free deltoid isometric s in the scapular plane (Avoid shoulder extension when isolating posterior deltoid) Progress ROM with passive assisted exercises : Supine forward flexion and elevation in the scapular plane to 160 degrees ER in scapular plane to tolerance . Respect soft tissue constrain ts Gentle resisted exercises of elbow, wrist and hand Phase III: Active ROM/ Early Strengthe richardson (6-8 weeks post-surg michela) Goals: Progressi on of PROM (note: full PROM is not expected) Gradual restorati on of AROM Control pain and inflammat ion Protect the wound, do not overstres s soft tissues Re-establ sergio dynamic shoulder and scapular stability Exercises : Continue with PROM program Start PROM IR to tolerance (not to exceed 50 degrees) in the scapular plane. Advanced shoulder AA/AROM as appropria te. Forward flexion and elevation in scapular plane in the supine position with progressi on to sitting/s tanding ER and IR in the scapular plane in supine with progressi on to sitting/s tanding Begin gentle GH IR and ER sub-maxim al pain free isometric s Initiate gentle scapuloth oracic rhythmic stabiliza tion and alternati ng isometric s in supine as appropria te. Begin gentle periscapu lar and deltoid sub-maxim al pain free isotonic strengthe richardson exercises . Progress strengthe richardson of the elbow, wrist and hand Gentle GH and Scapuloth oracic joint mobilizat ions as indicated Weeks 9-12 Continue with above exercises and functiona l activity progressi on Begin AROM supine forward flexion and elevation in the plan of the scapula with light resistanc e resistive bands Progress to gentle GH IR and ER isotonic strengthe richardson exercises in sidelying Phase IV: Strengthe richardson Phase (Weeks 12+) Goals: Enhance functiona l use of operative extremity and advance functiona l activitie s Enhance shoulder mechanics , muscular strength and endurance Exercises : *No heavy lifting (nothing heavier than 5lbs) Weights should never go behind the head Continue with previous program as indicated Progress to gentle resisted flexion, elevation while standing Continue strength gains Continue progressi on toward return to functiona l and recreatio nal activitie s within limits as identifie d by progress made during rehab and outlined by Dr. Rutherford and physical therapist 2024 025 Not available 05/09/2025 13:02:51 Procedures None recorded. Surgeries None recorded. Imaging XR, shoulder, 2 or more view 2024 025 [facility], [address], [place], [address], 05/09/2025 13:02:51 Medication Orders None recorded. Patient TargetsNo targets recorded. Patient Instructions Encounter Date Encounter Id Patient Instructions Last Modified By Organization Details Last Modified Time 05/05/2025 [id number] [facility] - ACCELERATE D Reverse Total Shoulder Arthroplasty Not available 05/09/2025 13:02:51 Imaging: LEFT shoulder three view radiographs including AP, true AP (Grashey), scapular-Y views were ordered by me, obtained today, reviewed with the patient, and independently interpreted by me as demonstrating a well-placed reverse shoulder prosthesis in appropriate position, no hardware related problems no obvious fractures dislocations or other osseous abnormalities. Not available 05/05/2025 10:28:28 Reason for Referral Physical Therapist Referral for Postoperative visit Physical Therapy Post-Operative Guidelines Dr. Dav Rutherford Reverse Total Shoulder Arthroplasty *Biceps Tenodesis- No lifting >5lbs for 6 weeks Phase I: Immediate postoperative phase (0-2 weeks after surgery) Goals: Protect shoulder arthroplasty Ensure wound healing Prevent shoulder stiffness Restore active ROM of elbow, wrist and hand Maximize ADL;s with modifications/precautions Activities: Sling use during this period. Keep sling on to sleep. No active motion of the shoulder. No lifting, pushing or pulling of objects May perform activities in front of you but nothing above shoulder height Start three times daily gentle pendulum / Codman exercises on post-op day 1 Start three times daily elbow, wrist, hand, and finger active and passive range of motion exercises Ice 4-5x Daily Avoid shoulder extension, external rotation No shoulder range of motion for first 2 weeks Phase II: Outpatient Rehabilitation (2-6 weeks after surgery) Goals: Protect the shoulder and avoid overstressing the repair Restore full passive range of motion Gradually restore active motion Re-establish dynamic shoulder stability Exercises: Begin sub- maximal pain free deltoid isometrics in the scapular plane (Avoid shoulder extension when isolating posterior deltoid) Progress ROM with passive assisted exercises: Supine forward flexion and elevation in the scapular plane to 160 degrees ER in scapular plane to tolerance. Respect soft tissue constraints Gentle resisted exercises of elbow, wrist and hand Phase III: Active ROM/ Early Strengthening (6-8 weeks post-surgery) Goals: Progression of PROM (note: full PROM is not expected) Gradual congregation of AROM Control pain and inflammation Protect the wound, do not overstress soft tissues Re-establish dynamic shoulder and scapular stability Exercises: Continue with PROM program Start PROM IR to tolerance (not to exceed 50 degrees) in the scapular plane. Advanced shoulder AA/AROM as appropriate. Forward flexion and elevation in scapular plane in the supine position with progression to sitting/standing ER and IR in the scapular plane in supine with progression to sitting/standing Begin gentle GH IR and ER sub-maximal pain free isometrics Initiate gentle scapulothoracic rhythmic stabilization and alternating isometrics in supine as appropriate. Begin gentle periscapular and deltoid sub-maximal pain free isotonic strengthening exercises. Progress strengthening of the elbow, wrist and hand Gentle GH and Scapulothoracic joint mobilizations as indicated Weeks 9-12 Continue with above exercises and functional activity progression Begin AROM supine forward flexion and elevation in the plan of the scapula with light resistance resistive bands Progress to gentle GH IR and ER isotonic strengthening exercises in sidelying Phase IV: Strengthening Phase (Weeks 12+) Goals: Enhance functional use of operative extremity and advance functional activities Enhance shoulder mechanics, muscular strength and endurance Exercises: *No heavy lifting (nothing heavier than 5lbs) Weights should never go behind the head Continue with previous program as indicated Progress to gentle resisted flexion, elevation while standing Continue strength gains Continue progression toward return to functional and recreational activities within limits as identified by progress made during rehab and outlined by Dr. Rutherford and physical therapist Referring Physician: Dav Rutherford, Orthopedic Surgery, Encounter Date: 05/05/2025 Results Created Date Observation Date Name Description Value Unit Range Abnormal Flag Note LastModifiedBy Organization Detail LastModifiedTime 04/20/2004/20/2025 imagi ng/di agnos tic resul t No observ ation record ed. [facility] Health Information Management [address] [place], [address], 04/21/2025 04:55:23 04/25/20 25 04/19/2025 CT, shoul rita, w/o contr ast EXAMIN [...] patien t to us, William smith MD [id number] (Elect maria a lares Signed - 2024 09:09) INTERFACE [facility] ([facility]) [address] [address], [place], [address], 04/25/2025 09:12:13 Result Notes None recorded. Problems Name Problem SNOMED Code Status Onset Date Resolution Date Notes Provider Name and Address Organization Details Recorded Time Pain of left shoulder joint 89580037032360 109 Active 2024 Jose Morris MD [address], [place], [address] , [place] [facility], P 5 06:41:19 Closed fracture of upper end of humerus 95375892 Active 2024 Dav Rutherford MD [address], [place], [address] , [place] [facility], P 5 08:56:58 Body mass index 40+ - severely obese 601761456 Active 2024 Jose Morris MD [address], [place], [address] , [place] [facility], P 5 08:46:39 Problem Notes None recorded. Procedures Surgical History Date Name Laterality Status Provider Name and Address Organization Details Recorded Time 04/20/20 25 REVERSE TOTAL SHOULDER ARTHROPLASTY (SURG) completed Neela Estrada [facility], P 04/21/2025 09:24:53 Imaging Results None recorded. Procedure Notes None recorded. Medical Equipment None Reported. Allergies Allergen ID Allergen Name Allergen Category Reaction Reaction Severity Criticality Documentation Date Start Date Code Code System Note Provider Name and Address Organization Details Recorded Time 861050 azithromy luis enrique medicatio n Not available Not available Not available 04/17/20252024 88577 RxNorm Not Available [facility] - [employer] - prod 12:43:14 395517 clarithro mycin medicatio n Not available Not available Not available 04/17/20252024 72966 RxNorm Not Available [facility] External [employer] - prod 12:43:14 138671 lisinopri l medicatio n Not available Not available Not available 04/18/2025 09517 RxNorm Daly Biju null, [facility], P 5 14:12:23 104064 amoxicill in medicatio n Not available Not available Not available 04/18/2025 723 RxNorm Daly Viviancemurray null, [facility], P 5 14:12:30 640282 egg extract food,medi cation Not available Not available Not available 04/18/2025 17573 15 RxNorm Daly Biju null, [place] [facility], P 5 14:12:39 598303 sulfameth oxazole / trimethop rim medicatio n diarrhea hives Not available Not available Not available 04/20/20252024 87881 RxNorm Not Available bety - External [employer] - prod 5 [...] ICD10 Code Diagnosis IMO Codes Diagnosis Note [id number] Jose Morris MD [facility] [address] [facility] [facility] [address] [place] [address] 04/11/2025 13:05:10 04/11/2025 13:40:17 Pain of left shoulder joint 8097860132 8381119 M25.512 789001 Closed fra cture of upper end of humerus 86572889 S42.292A 545354694 Body mass index 40+ - severely obese 622171389 E66.01 Z68.42 98666468 130337 MD CASSIA Puentes [place] [address] [facility] [address] [place] [address] 04/13/2025 08:52:45 04/13/2025 09:44:52 Closed fracture of upper end of humerus 59164031 S42.292A 803321825 [id number] Dav Rutherford MD [address] [address] 05/05/2025 09:41:43 05/05/2025 10:31:35 Postoperative visit 324057398 Z48.89 [id number] status post Reverse Shoulder Arthroplas ty Health Concerns Section Related Observation LastModified by Organization Detai ls LastModified Time None Recorded Concern Status LastModified by Organization Details LastModified Time None Recorded Payers Encounter Date Sequence Insurance Name Policy Number Policy Iglesias Covered Member ID Iglesias Member ID Guarantor Name 05/05/[address] [place] [address] [id number] Mariannepatricia Romero [id number] Marianne Nick Notes Date Note Type Note Provider Name and Address Organization Details Recorded Time 05/05/2025 text/html ROS as noted in the HPI Patient presents for their first postoperative visit. They are status post the following procedure 1) Left RSA for fracture (04/20/2025 at [facility]) Dav Rutherford MD [address], [place], [address], [place] [facility], P 05/05/2025 10:28:41 OBGyn Episode No OBEpisode recorded.
--- OUTSIDE RECORDS SUMMARY | 2025-05-17 19:40 | XMS_ITS | Data Portability ---
Author Organization [place] [facility] Jayda Guallpa [facility] [place] Address [address] [place] [address] Care Team Providers Care Process Planner Name Role Phone PORFIRIO VELAZCO Primary Care Provider [phone] PORFIRIO VELAZCO Referring Provider Assessment Encounter Date [...] this consultation elvia Not available 04/13/2025 09:01:28 05/05/2025 05/05/2025 IMPRESSION: status post LEFT Reverse Shoulder Arthroplasty for fracture (Tornier Perform Fx (04/20/2025 at [facility]) PLAN: Patient is doing well. Patient may [...] 2 weeks. 2. Ok for pendulums and elbow/wrist/hand/f radha range of motion exercises immediately post-op. 3. [...] available 05/09/2025 13:02:51 Procedures None recorded. Surgeries reverse total shoulder arthropla sty (SURG) 2024 025 [email or web address] Not available 04/25/2025 11:51:41 Imaging XR, shoulder, 2 or more view 2024 025 [facility], [address], [place], [address], 05/09/2025 13:02:51 CT, shoulder, w/o contrast - Left proximal humerus fracture preoperat familia planning blueprint protocol* *Please call patient to schedule and hand carry CD 2024 025 [email or web address] [facility] ([facility]) , [address], [address], [place], [address], 04/21/2025 09:18:30 Medication Orders None recorded. Patient TargetsNo targets recorded. Patient Instructions Encounter Date Encounter Id Patient Instructions Last Modified By Organization Details Last Modified Time 04/11/2025 [id number] I independently reviewed her left shoulder x-rays from yesterday which show a displaced at least 3 part proximal humerus fracture. Shoulder appears located. The greater tuberosity fragment is displaced superiorly and medially. Not available 04/18/2025 08:47:14 04/13/2025 [id number] views of the left shoulder were reviewed these demonstrate a proximal humerus fracture involving the surgical neck reverse obliquity fashion greater tuberosity with proximal migration 2 views of the left humerus were reviewed again demonstrating a proximal humerus fracture involving the surgical neck and greater tuberosity Not available 04/13/2025 09:11:06 05/05/2025 [id number] AJR - ACCELERATE D Reverse Total Shoulder [...] (note: full PROM is not expected) Gradual denominational of AROM Control pain and inflammation Protect [...] resul t No observ ation record ed. [facility] [address] [place] [address], [id number], 04/21/2025 04:55:23 04/25/20 25 04/19/2025 CT, shoul [...] patien t to us, William smith MD [id number] (Elect maria a lares Signed - 2024 09:09) INTERFACE [facility] ([facility]) [address] [facility] [address], [place], [address], 04/25/2025 09:12:13 Result Notes Documentation Provider Name [...] by: William Powers MD 04/25/2025 09:09 AM [facility] Thank you for referring your patient to us, William Powers MD [phone] (Electronically Signed - 04/25/2025 09:09) Not Available [facility] 04/25/2025 09:12:13 Problems Name Problem SNOMED Code Status Onset Date Resolution Date Notes Provider Name and Address Organization Details Recorded Time Pain of left shoulder joint 36898015157073 109 Active [address], [place], [address] , [place] [facility], P 5 06:41:19 Closed fracture of upper end of humerus 61834042 Active [address], [place], [address] , [place] [facility], P 5 08:56:58 Body mass index 40+ - severely obese 653891515 Active 2024 Jose Morris MD [address], [place], [address] , [place] [facility], P 5 08:46:39 Problem Notes None recorded. Procedures Surgical History Date Name Laterality Status Provider Name and Address Organization Details Recorded Time 04/20/20 25 REVERSE TOTAL SHOULDER ARTHROPLASTY (SURG) completed Neela Bazziunier [place] - [facility], P 04/21/2025 09:24:53 Imaging Results None recorded. Procedure Notes None recorded. Medical Equipment None Reported. Allergies Allergen ID Allergen Name Allergen Category Reaction Reaction Severity Criticality Documentation Date Start Date Code Code System Note Provider Name and Address Organization Details Recorded Time 286107 azithromy luis enrique medicatio n Not available Not available Not available 04/17/20252024 44323 RxNorm Not Available bety - External Data Service - prod 12:43:14 691226 clarithro mycin medicatio n Not available Not available Not available 04/17/20252024 89475 RxNorm Not Available bety - External Data Service - prod 12:43:14 293949 lisinopri l medicatio n Not available Not available Not available 04/18/2025 54443 RxNorm Daly LaDouceur null, [place] - [facility], P 14:12:23 981045 amoxicill in medicatio n Not available Not available Not available 04/18/2025 723 RxNorm Daly LaDouceur null, [place] - [facility], P 5 14:12:30 165691 egg extract food,medi cation Not available Not available Not available 04/18/2025 93651 15 RxNorm Daly LaDouceur null, [place] - [facility], P 14:12:39 387969 sulfameth oxazole / trimethop rim medicatio n diarrhea hives Not available Not available Not available 04/20/20252024 03834 RxNorm Not Available bety - External Data [...] Updated DateTime 04/11/2025 160.02 cm 49.6 kg/m2 812946.86 g Jose Morris MD [address], [place], [address], [place] [facility], [facility] 04/11/2025 13:56:09 Social History None recorded. Functional Status None recorded. Mental Status None recorded. Family History Nothing Reported. Medical History No medical history recorded. Gynecological HistoryNo gynecological history recorded. Obstetrics History GPAL:G 0 P 0 0 0 0 Past Encounters Encounter ID Performer Location Encounter Start Date Encounter Closed Date Diagnosis/Indication Diagnosis SNOMED-CT Code Diagnosis ICD10 Code Diagnosis IMO Codes Diagnosis Note [id number] Jose Morris MD [address] [address] 04/11/2025 13:05:10 04/11/2025 13:40:17 Pain of left shoulder joint 0813148491 5663307 M25.512 703544 Closed fra cture of upper end of humerus 03573126 S42.292A 483656542 Body mass index 40+ - severely obese 291649972 E66.01 Z68.42 [id number] Dav Rutherford MD [facility] [address] [address] 04/13/2025 08:52:45 04/13/2025 09:44:52 Closed fracture of upper end of humerus 03903503 S42.292A [id number] Dav Rutherford MD [address] [address] 05/05/2025 09:41:43 05/05/2025 10:31:35 Postoperative visit 204384814 Z48.89 11696357 status post Reverse Shoulder Arthroplas ty Health Concerns Section Related Observation LastModified by Organization Detai ls LastModified Time None Recorded Concern Status LastModified by Organization Details LastModified Time None Recorded Advance Directives Directive None Recorded Payers Insurance Date Sequence Insurance Name Policy Number Policy Iglesias Covered Member ID Iglesias Member ID Guarantor Name 05/16/[address] [place] [address] [id number] Marianne Romero [id number] Marianne Romero Notes Date Note Type Note Provider Name and Address Organization Details Recorded Time 04/11/2025 text/html 50-year-old soqna-npje-drnoqrmp female here for an evaluation of acute left shoulder pain that started yesterday after a fall at home. She tripped and fell over a marietta litter box while getting out of bed. She noted immediate pain in her left shoulder. She was seen at [facility]. X-rays were performed and she was [...] from home. Non-smoker. Intermittent use of marijuana. MD [address], [place], [address], [place] [facility], [facility] 04/18/2025 08:48:38 04/13/2025 text/html ROS as noted in the HPI 50-year-old cdaln-qwra-jqnycomb woman presenting with left shoulder injury sustained on 04/10/2025. She fell a few days ago initially went to [facility] where she was given a [...] Dav Rutherford MD [address], [place], [address], [email or web address] - [facility], P 04/13/2025 09:54:34 05/05/2025 text/html ROS as noted in the HPI Patient presents for their first postoperative visit. They are status post the following procedure 1) Left RSA for fracture (04/20/2025 at [facility]) Dav Rutherford MD [address], [place], [address], [email or web address] - [facility], P 05/05/2025 10:28:41 OBGyn Episode No OBEpisode recorded.
== END 2025-05-17 15:25 | disposition home or self-care (01) ==
LOC: HO.HMCC 14:43
PROVIDERS: PCP Internal Medicine; Visit Provider Internal Medicine
DX: Z00.01 Encounter for general adult medical examination with abnormal findings (principal); J45.20 Mild intermittent asthma, uncomplicated; I10 Essential (primary) hypertension; R12 Heartburn; E66.01 Morbid (severe) obesity due to excess calories; Z68.43 Body mass index [BMI] 50.0-59.9, adult; E87.6 Hypokalemia; G47.33 Obstructive sleep apnea (adult) (pediatric); Z99.89 Dependence on other enabling machines and devices; I48.0 Paroxysmal atrial fibrillation

== ENCOUNTER → 2025-05-17 14:43 | Outpatient (BNVA) | payer OTHER, SELFPAY | PROVIDERS: PCP Internal Medicine; Visit Provider Internal Medicine | DX: Z00.01 Encounter for general adult medical examination with abnormal findings (principal); I11.0 Hypertensive heart disease with heart failure; I50.9 Heart failure, unspecified; J45.20 Mild intermittent asthma, uncomplicated; G47.33 Obstructive sleep apnea (adult) (pediatric); I48.0 Paroxysmal atrial fibrillation; R12 Heartburn; E66.01 Morbid (severe) obesity due to excess calories; E87.6 Hypokalemia; Z68.43 Body mass index [BMI] 50.0-59.9, adult; Z99.89 Dependence on other enabling machines and devices; Z79.01 Long term (current) use of anticoagulants | CPT/HCPCS: 96127 ==

== ENCOUNTER 2025-05-18 09:55 | Outpatient (REF) | payer OTHER, SELFPAY ==
--- OUTSIDE RECORDS SUMMARY | 2025-05-18 12:10 | XMS_ITS | Clinical Summary ---
Author Organization [facility] Address [address] [place] [address] Phone Care Team Providers Care Electrical Worker Name Role Phone Windy Mcelroy MD Primary [...] EST - 04/20/2025 1:45 PM EST Surgery [facility] OR [address] [place] [address] Dav Rutherford MD ARTHROPLASTY SHOULDER TOTAL REVERSE APPROACH [07980 (CPT )] 04/20/2025 11:37 AM EST Anesthesia Event [facility] OR [address] [place] [phone] Troy Swift MD Kanelos, Peter T, MD 04/20/2025 8:36 AM EST - 04/21/2025 12:46 PM EST Hospital Encounter [facility] [address] [place] [phone] Dav Rutherford MD Primary osteoarthritis of [...] vomiting) Obesity CHF (congestive heart failur e) (CMS/[facility] V24, [facility] V28) 04/2025 r/t afib per pcp note Family History Medical History Relation Name Comments Heart attack Brother at 54 yrs old of [place] pre diabetes Father Heart disease Mother thyroid [...] Demarcus, [employer] Implanted Type Area Export Sales Manager Device Identifier Shelf Expiration Date Model / Serial / Lot Cement Bone Palacos High-Viscosity - [id number] Implanted:Qty: 1 on 04/20/2025 by Dav Rutherford MD at [facility] Bone Cement Left: Shoulder HERAEUS KULZER [id number] 05/31/2028 [id number] / / [id number] Description:1 gram of vancom ycin mixed into 1 bag of bone cement. Cement Bone Palacos High-Viscosity - [id number] Implanted:Qty: 1 on 04/20/2025 by Dav Rutherford MD at [facility] Bone Cement Left: Shoulder MITA KENNY [id number] 09/28/2028 [id number] / / [id number] Description:1 gram of vancom ycin mixed into 1 bag of bone cement. Humeral Perform Ret Insert Sz1/2 36mm +0 - [id number] - [id number] Implanted:Qty: 1 on 04/20/2025 by Dav Rutherford MD at [facility] Joints Shoulder Left: Shoulder [employer] 12/05/2025 [id number] / [id number] / [id number] Lateralized Baseplate +3mm 25mm - [id number] - [id number] Implanted:Qty: 1 on 04/20/2025 by Dav Rutherford MD at [facility] Joints Shoulder Left: Shoulder [employer] [id number] 01/03/2030 [id number] / [id number] / Standard Glenosphere 36mm - [id number] - [id number] Implanted:Qty: 1 on 04/20/2025 by Dav Rutherford MD at [facility] Joints Shoulder Left: Shoulder 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 11/16/2029 [id number] / [id number] / N/A Stem Fracture Sz 8s L 130mm - [id number] - [id number] Implanted:Qty: 1 on 04/20/2025 by Dav Rutherford MD at [facility] Joints Shoulder Left: Shoulder [employer] 08/15/2029 [id number] / [id number] / N/A Central Threaded Post Screw 6.5x30mm - Sn/A - [id number] Implanted:Qty: 1 on 04/20/2025 by Dav Rutherford MD at [facility] Joints Shoulder Left: Shoulder 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 [id number] / N/A / N/A Peripheral Screw 5x18mm - Sn/A - [id number] Implanted:Qty: 2 on 04/20/2025 by Dav Rutherford MD at [facility] Joints Shoulder Left: Shoulder 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 [id number] / N/A / N/A Peripheral Screw 5x38mm - Sn/A - [id number] Implanted:Qty: 2 on 04/20/2025 by Dav Rutherford MD at [facility] Joints Shoulder Left: Shoulder 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 [id number] / N/A / N/A Procedures Procedure Name [...] ENDOTRACHEAL(NO CHARGE) Routine 04/20/2025 2:19 PM EST MS TENODESIS LONG TENDON OF BICEPS 04/20/2025 11:23 AM EST Other displaced fracture of upper end of left humerus, initial encounter for closed fracture Case Notes PCPSDD MS TX FRACTURE PROXIMAL HUMERAL OPEN INCL INT FIXN INCL REPR TUBEROSITY 04/20/2025 11:23 AM EST Other displaced fracture of upper end of left humerus, initial encounter for closed fracture Case Notes PCPSDD MS ARTHROPLASTY GLENOHUMERAL JOINT TOTAL SHOULDER 04/20/2025 11:23 [...] LAB HEMETOLOGY METHOD 04/20/2025 7:56 PM EST [facility] Hematocrit 34.8(L) 37.0 - 47.0 % LAB HEMETOLOGY METHOD 04/20/2025 7:56 PM EST [facility] Blood Venous blood specimen / Unknown 04/20/2025 7:21 PM EST 04/20/2025 7:26 PM EST Laurent BRANHAM LAB BLOOD ORDERABLES Final Res ult [facility] [address] [place] [address], * XR Shoulder 2+ Views Left (04/20/2025 [...] Signed Date: 04/20/2025 17:25 ET Workstation ID: [id number] Transcribed By: Self Edit Transcribed Date: 04/20/2025 [...] Signed Date: 04/20/2025 17:25 ET Workstation ID: [id number] Transcribed By: Self Edit Transcribed Date: 04/20/2025 [...] Signed Date: 05/10/2025 15:06 ET Workstation ID: [id number] Transcribed By: Self Edit Transcribed Date: 05/10/2025 [...] Signed Date: 05/10/2025 15:06 ET Workstation ID: [id number] Transcribed By: Self Edit Transcribed Date: 05/10/2025 [...] sitting Prep: ChloraPrep Patient monitoring: heart rate, personnel associate and continuous pulse ox Block type: interscalene [...] mmol/L LAB CHEMISTRY METHOD 04/20/2025 11:25 AM [facility] Potassium 3.7 3.5 - 5.1 mmol/L LAB CHEMISTRY METHOD 04/20/2025 11:25 AM [facility] Chloride 102 98 - 107 mmol/L LAB CHEMISTRY METHOD 04/20/2025 11:25 AM [facility] CO2 26 24 - 32 mmol/L LAB CHEMISTRY METHOD 04/20/2025 11:25 AM [facility] Anion Gap 10 5 - 14 LAB CHEMISTRY METHOD 04/20/2025 11:25 AM [facility] Glucose 99 70 - 99 mg/dL LAB CHEMISTRY METHOD 04/20/2025 11:25 AM [facility] BUN 9 7 - 17 mg/dL LAB CHEMISTRY METHOD 04/20/2025 11:25 AM [facility] Creatinine 0.60 0.50 - 1.00 mg/dL LAB CHEMISTRY METHOD 04/20/2025 11:25 AM [facility] eGFR 108 >=60 mL/min/1. 73m2 LAB CHEMISTRY METHOD 04/20/2025 11:25 AM [facility] Comment:Calculation based on the Chronic Kidney Disease Epidemiology Collaboration (CKD-EPI) equation refit without adjustment for race. BUN/Creatinine Ratio 15.0 12.0 - 20.0 LAB CHEMISTRY METHOD 04/20/2025 11:25 AM [facility] Calcium 9.4 8.4 - 10.2 mg/dL LAB CHEMISTRY METHOD 04/20/2025 11:25 AM [facility] AST (SGOT) 21 5 - 40 unit/L LAB CHEMISTRY METHOD 04/20/2025 11:25 AM [facility] ALT (SGPT) 30 7 - 52 unit/L LAB CHEMISTRY METHOD 04/20/2025 11:25 AM [facility] Alkaline Phosphatase 99 34 - 104 unit/L LAB CHEMISTRY METHOD 04/20/2025 11:25 AM [facility] Total Protein 7.6 6.4 - 8.5 g/dL LAB CHEMISTRY METHOD 04/20/2025 11:25 AM [facility] Albumin 4.1 3.5 - 5.0 g/dL LAB CHEMISTRY METHOD 04/20/2025 11:25 AM [facility] Total Bilirubin 0.6 0.3 - 1.0 mg/dL LAB CHEMISTRY METHOD 04/20/2025 11:25 AM [facility] Blood Venous blood specimen / Unknown Venipuncture / Unknown 04/20/2025 10:46 AM EST 04/20/2025 10:50 AM EST us Troy Swift MD LAB BLOOD ORDERABLES Final Res ult [facility] [address] [place] [address], [place] [phone] * ABO Rh (04/20/2025 9:55 AM EST) ABO Group O 04/20/2025 11:36 AM EST [facility] Rh Type Negative 04/20/2025 11:36 AM EST [facility] Blood Venous blood specimen / Unknown Venipuncture / Unknown 04/20/2025 9:55 AM EST 04/20/2025 10:04 AM EST Dav Rutherford MD LAB BLOOD BANK TEST ORDERA BLES Final Result Performing Organization Address [facility] Co de Phone Number [facility] [address] [place] [address], [place] [phone] * Type and screen (04/20/2025 9:55 AM EST) ABO Group O 04/20/2025 11:36 AM EST [facility] Rh Type Negative 04/20/2025 11:36 AM EST [facility] Antibody Screen Negative 04/20/2025 11:36 AM EST [facility] Blood Venous blood specimen / Unknown Venipuncture / Unknown 04/20/2025 9:55 AM EST 04/20/2025 10:04 AM EST us Dav Rutherford MD LAB BLOOD BANK TEST ORDERA BLES Final Result [facility] [address] [place] [address], [place] [phone] from Last 3 Months Additional Health Concerns Active Problems Noted Date Diagnosed Date Autogenerated Problem 04/21/2025 Insurance MEDICAID - [place] [facility] [address] [place] [address] Advance Directives * Full Code - Confirmed (Latest Code Status on File) Date Activated Date Inactivated Comments 04/20/2025 4:08 PM 04/21/2025 2:46 PM This code status was ascertained in the following way: Code status discussion: discussion with patient To update the patient's code status, place a code status order. Do not modify or discontinue any currently active code status orders. Care Teams Electrical Worker Relationship Specialty Start Date End Date Windy Mcelroy MD [address] [place] [address] PCP - General Internal Medicine 04/17/25
[2025-05-18 14:12] LABS: MANUAL DIFF FLAG NO
[2025-05-18 14:27] LABS: Hematocrit 39.0 % (37.0-47.0); Hemoglobin 12.3 g/dl (12.0-16.0); Imm Gran Abs Auto 0.06 X10*3/uL (0.00-0.03); Imm Gran Pct Auto 0.7 % (0.0-0.4); Lymphocytes Absolute Auto 2.2 X10*3/uL (1.2-4.9); Mean Corpuscular HGB Conc 31.5 g/dl (31.0-35.0); Mean Corpuscular Hemoglobin 31.1 pg (27.0-33.0); Mean Corpuscular Volume 98.5 fL (80.0-98.0); NRBC Abs Auto 0.000 X10*3/uL (0.0-0.012); NRBC Pct Auto 0.0 /100WBC (0.0-0.2); Platelet Count 381 X10*3/uL (160-400); Red Blood Count 3.96 X10*6/uL (4.20-5.50); White Blood Count 9.0 X10*3/uL (4.8-10.8)
[2025-05-18 15:15] LABS: NT Pro B Type Natriuretic Pept 139.0 pg/mL (<300)
[2025-05-18 15:29] LABS: Alanine Aminotransferase 46 U/L (0-31); Albumin Level 4.0 g/dL (3.5-5.0); Alkaline Phosphatase 138 U/L (39-117); Anion Gap 10 (12-20); Aspartate Amino Transferase 37 U/L (5-31); Blood Urea Nitrogen 13 mg/dL (9-16); Calcium 9.6 mg/dL (8.4-10.2); Carbon Dioxide 31 mmol/L (22-29); Chloride 103 mmol/L (96-108); Cholesterol 197 mg/dL (<200); Estimated Glomerular Filt Rate > 60; HDL Cholesterol 59 mg/dL (>40); Iron 41 mcg/dL (30-160); Percent Iron Saturation 15 % (15-50); Potassium 4.1 mmol/L (3.3-5.1); Sodium 140 mmol/L (135-145); Total Iron Binding Capacity 267 mcg/dL (228-428); Total Protein 7.0 g/dL (6.5-8.0); Triglycerides 94 mg/dL (<150); Unsaturated Iron Binding 226 ug/dL
[2025-05-18 15:35] LABS: Ferritin 79 ng/mL (10-250)
== END 2025-05-18 09:56 | disposition home or self-care (01) ==
LOC: HO.HMGCLDS 09:55
PROVIDERS: PCP Internal Medicine; Visit Provider Internal Medicine
DX: I10 Essential (primary) hypertension (principal); E66.01 Morbid (severe) obesity due to excess calories; R12 Heartburn; E87.6 Hypokalemia; J45.20 Mild intermittent asthma, uncomplicated; G47.33 Obstructive sleep apnea (adult) (pediatric); Z68.43 Body mass index [BMI] 50.0-59.9, adult; Z99.89 Dependence on other enabling machines and devices; Z13.0 Encounter for screening for diseases of the blood and blood-forming organs and certain disorders involving the immune mechanism
CPT/HCPCS: 36415; 80053; 80061; 82306; 82728; 83540; 83880; 84443; 85025

== ENCOUNTER 2025-05-30 15:17 | Emergency (ER) | payer OTHER, SELFPAY ==
[2025-05-30 15:38] VITALS: BP 122/76; PULSE 68; RESP 16; TEMP 36.4; O2SAT 97; BMI 49.8
--- NOTE | 2025-05-30 15:39 | ED.SKABFB ---
HPI - Skin/Abscess/Foreign Bdy General Chief complaint: Skin/Abscess/Foreign Body Stated complaint: abscess left buttock line Time Seen by Provider: 05/30/25 21:52 Source: patient Mode of arrival: ambulatory Limitations: no limitations History of Present Illness ED Provider: Dr. Anusha Andrade HPI narrative: Patient comes to the emergency room complaining of an abscess to the labia majora externally on the left side . Patient states that she went to urgent care 2 days ago. Patient states that they could not drain it, prescribed minocycline and told the patient to come to the emergency room if it was not getting any better. The abscess grew in size. Patient states that at home, for last few hours, has been draining. Patient denies any fever or chills. Related Data Home Medications ?Medication ?Instructions ?Recorded ?Confirmed acetaminophen 500 mg tablet 500 mg PO Q6H PRN Pain 11/05/20 05/17/25 (Tylenol Extra Strength) apixaban 5 mg tablet (Eliquis) 5 mg PO BID 05/17/25 05/17/25 Previous Rx's ?Medication ?Instructions ?Recorded albuterol sulfate 2.5 mg/3 mL 2.5 mg (3 mL) inhalation Q6H PRN 02/16/24 (0.083 %) solution for nebulization shortness of breath or wheezing #75 mL albuterol sulfate 90 mcg/actuation 2 puff inhalation Q6H PRN 02/16/24 aerosol inhaler shortness of breath or wheezing #8.5 grams amlodipine 10 mg tablet 10 mg PO DAILY #90 tabs 10/11/24 levocetirizine 5 mg tablet 5 mg PO QPM PRN allergy symptoms 02/07/25 #30 tabs carvedilol 25 mg tablet 25 mg PO BID #180 tabs 03/16/25 amiodarone 200 mg tablet 200 mg PO DAILY #90 tabs 04/16/25 furosemide 40 mg tablet (Lasix) 40 mg PO QAM #90 tabs 04/16/25 losartan 50 mg tablet 50 mg PO DAILY #90 tabs 04/16/25 famotidine 40 mg tablet 40 mg PO DAILY #90 tabs 05/17/25 cholecalciferol (vitamin D3) 1,250 1,250 mcg PO QWEEK 3 months #13 05/28/25 mcg (50,000 unit) capsule caps cephalexin 500 mg capsule 500 mg PO BID #20 caps 05/30/25 doxycycline hyclate 100 mg capsule 100 mg PO BID #20 caps 05/30/25 oxycodone 5 mg tablet 5 mg PO BID PRN pain #7 tabs 05/30/25 Allergies Allergy/AdvReac Type Severity Reaction Status Date / Time egg (EGG) Allergy Intermediate ITCHY AND Verified 05/30/25 15:41 HIVES. lisinopril Allergy Intermediate Hives Verified 05/30/25 15:41 sulfamethoxazole (From Allergy Hives Verified 05/30/25 15:41 Bactrim) trimethoprim (From Bactrim) Allergy Hives Verified 05/30/25 15:41 amoxicillin AdvReac Intermediate Diarrhea Verified 05/30/25 15:41 Egg White (Diagnostic) Allergy Intermediate hives Uncoded 05/17/25 15:04 Review of Systems Review of Systems: Constitutional : No Weight loss, No Fever, No Chills, No Night Sweats, No Fatigue, No Malaise ENT/Mouth : No Hearing loss, No Ear Pain, No Nasal Congestion, No Sinus Pain, No Hoarseness, No sore throat, No Rhinorrhea, No Swallowing Difficulty Eyes: No Eye Pain, No Swelling, No Redness, No Foreign Body, No Discharge, No Vision Changes Cardiovascular : No Chest Pain, No SOB, No Dyspnea on Exertion, No Orthopnea, No Edema, No Palpitations Respiratory : No Cough, No Sputum, No Wheezing, No Smoke Exposure, No Dyspnea Gastrointestinal : No Nausea, No Vomiting, No Diarrhea, No Constipation, No abdominal Pain, No Hematochezia, No Melena Genitourinary : no irregular bleeding, No Dysuria, No Urinary Frequency, No Hematuria, No Urinary Incontinence, No Urgency, No Flank Pain, No Urinary Flow Changes, No Hesitancy Musculoskeletal : No joint pain, No Myalgias, No Joint Swelling Skin : Complaining of an abscess on the left side of the external labia majora Neuro : No Weakness, No Numbness, No Paresthesias, No Loss of Consciousness, No Dizziness, No Headache Psych : No Anxiety/Panic, No Depression, No SI/HI/AH/VH, No Social Issues, Heme/Lymph: No Bruising, No Bleeding,No Lymphadenopathy Endocrine : No Polyuria, No Polydipsia, No Temperature Intolerance [facility] Past Medical History Medical History (Updated 05/30/25 @ 23:11 by Anusha Andrade MD) Vitamin D deficiency Paroxysmal atrial fibrillation Decompensated heart failure Fracture of humerus, proximal, left, closed Obstructive sleep apnea on CPAP Fibroid History of cholelithiasis Heartburn Lumbago with sciatica, right side Abnormal uterine bleeding Essential hypertension Mild intermittent asthma Surgical History Hx laparoscopic cholecystectomy (06/19/23) Hx of colonoscopy Hx of dilation and curettage H/O tubal ligation Family History Family History Paternal Aunt Ovarian cancer Breast cancer Maternal Aunt Breast cancer Father Heart failure Diabetes Vascular abnormality Mother Memory loss Coronary artery abnormality History of prediabetes Brother No problems noted. Sister Fibromyalgia Daughter Overdose Daughter Borderline high blood pressure Other Mental health disorder Substance use disorder Social History Social History Household Members: Spouse and Family Housing: House Do you presently have visiting nurse or other home services: No Alcohol intake: former Comment: counts correct Patient Tobacco Use Status: Former Tobacco user Tobacco use type: Cigarette Years Smoked: 15 yrs e-Cigarette/Vaping Use: Never Used Substance Use Type: Marijuana Advance Directives: Yes Advance Directives on File: Yes Advance Directives Date on File: 05/17/25 Do you have a plan to hurt others: No Plan service: No Current occupational status: employed Cognitive needs: No Hearing needs: No Vision needs: Yes Physical Exam Exam: Exam: Appearance: Alert. Oriented X3. No acute distress. Eyes: Pupils equal, round and reactive to light. ENT: Pharynx normal. Neck: Normal inspection. Neck supple. No lymph nodes noted. No crepitus CVS: Normal heart rate and rhythm. Pulses normal. Normal S1 and S2 Respiratory: No respiratory distress. Breath sounds normal. No Wheezing. No rales Abdomen: Soft and nontender. No rigidity. No distention. Skin: Skin warm and dry. Normal skin color. Normal skin turgor. See : Patient has an abscess in the lateral aspect of the labia majora, externally. There is a dome of pus about to pop Extremities: No lower extremity edema. No Lacerations. No Rash Neuro: Oriented X 3. No motor deficit. No sensory deficit. Moving all extremities. No slurred speech. CN 2 through 12 grossly intact Psych: calm, cooperative, normal affect Vital Signs: Vital Signs: Last Vital Signs Temp 97.5 F 05/30/25 21:37 Pulse 73 05/30/25 21:37 Resp 16 05/30/25 21:37 BP 157/52 H 05/30/25 21:37 Pulse Ox 96 05/30/25 21:37 O2 Del Method Room Air 05/30/25 21:37 BMI result Body Mass Index 49.8 Course Course Course Narrative: This is a Rapid Medical Exam performed in triage by Lila Ambrocio PA-C. Full HPI, ROS and PE to be performed by primary ED provider. 50-year-old lady with past medical history significant for HTN, VENTURA on CPAP, mild intermittent asthma, morbid obesity, paroxysmal atrial fibrillation and started on Eliquis 04/15/2025, CHF, presenting to the ED c/o abscess to L groin wrapping around to buttock x5 days. Has been taking Minocycline x2 days w/o relief from Urgent Care. States area is draining. PE: Area not evaluated in triage Plan: Labs, UA Medications Administered Discontinued Medications Generic Name Dose Route Start Last Admin Trade Name Freq PRN Reason Stop Dose Admin Cephalexin HCl 500 mg 05/30/25 22:22 05/30/25 22:31 Cephalexin 500 Mg Capsule PO 05/30/25 22:23 500 mg ONCE ONE Administration Doxycycline Monohydrate 100 mg 05/30/25 22:26 05/30/25 22:33 Doxycycline Monohydrate 100 Mg Capsule PO 05/30/25 22:27 100 mg ONCE ONE Administration Lidocaine HCl 10 ml 05/30/25 22:22 05/30/25 22:31 Lidocaine Hcl 2 % Mpf 5 Ml Vial INFILTRATI 05/30/25 22:23 10 ml ONCE ONE Administration Oxycodone HCl 5 mg 05/30/25 22:22 05/30/25 22:31 Oxycodone Hcl Immed Release 5 Mg Tablet PO 05/30/25 22:23 5 mg ONCE ONE Administration Medical Decision Making Medical Decision Making MDM Narrative: I discussed with the patient that the best next thing is to I and D the abscess and to change her antibiotics. Patient agrees with plan. Patient tolerated well the procedure, packing was applied. Patient will return on June 01 for a wound check Lab Data 05/30/25 17:05 05/30/25 17:05 Labs: Lab Results 05/30/25 Range/Units 17:05 WBC 10.9 H (4.8-10.8) X10*3/uL RBC 4.35 (4.20-5.50) X10*6/uL Hgb 13.4 (12.0-16.0) g/dl Hct 40.8 (37.0-47.0) % MCV 93.8 (80.0-98.0) fL MCH 30.8 (27.0-33.0) pg MCHC 32.8 (31.0-35.0) g/dl RDW 13.0 (11.0-16.0) % Plt Count 371 (160-400) X10*3/uL MPV 10.3 (9.4-12.3) fL Immature Gran % (Auto) 0.5 H (0.0-0.4) % Neut % (Auto) 70.3 (45-73) % Lymph % (Auto) 19.8 L (20-40) % Blair % (Auto) 6.9 (2-11) % Eos % (Auto) 2.1 (0-4) % Baso % (Auto) 0.4 (0-2) % Lymph # (Auto) 2.2 (1.2-4.9) X10*3/uL Blair # (Auto) 0.8 (0.1-1.2) X10*3/uL Eos # (Auto) 0.2 (0.0-0.4) X10*3/uL Baso # (Auto) 0.0 (0.0-0.2) X10*3/uL Abs Immat Gran (auto) 0.05 H (0.00-0.03) X10*3/uL Absolute Neuts (auto) 7.7 (2.0-8.3) x10*3/uL Absolute Nucleated RBC 0.000 (0.0-0.012) X10*3/uL Nucleated RBC % (auto) 0.0 (0.0-0.2) /100WBC Sodium 146 H (135-145) mmol/L Potassium 4.0 (3.3-5.1) mmol/L Chloride 108 (96-108) mmol/L Carbon Dioxide 27 (22-29) mmol/L Anion Gap 15 (12-20) BUN 10 (9-16) mg/dL Creatinine 0.85 (0.5-1.4) mg/dL Estim Creat Clear Calc 100.7 Estimated GFR > 60 Random Glucose 100 (60-115) mg/dL Calcium 9.9 (8.4-10.2) mg/dL Procedures Abscess I/D Site: other (Labia majora or externally) Side (if applicable): left Local Anesthetic: lidocaine 2% Amount of anesthesia used (mL): 10 Technique: incised with blade Amount of fluid expressed (mL): 4 Sent for culture/gram staining?: No Packing used?: iodoform Discharge Plan Discharge Clinical Impression: Abscess of genital labia Patient Disposition: Home, Self-Care Instructions: Abscess (ED), Abscess Follow-up (ED), Incision and Drainage (ED) Additional Instructions: Please follow-up on June 01 for a wound check and packing removal. Please follow-up with your primary care physician tomorrow. If you have any worsening or new symptoms, please return to the emergency room or call 911 Prescriptions: New doxycycline hyclate 100 mg capsule 100 mg PO BID Qty: 20 0RF cephalexin 500 mg capsule 500 mg PO BID Qty: 20 0RF oxycodone 5 mg tablet 5 mg PO BID PRN (Reason: pain) Qty: 7 0RF Rx Instructions: Partial Fill upon patient request. No Action albuterol sulfate 90 mcg/actuation HFA aerosol inhaler 2 puff INHALATION Q6H PRN (Reason: shortness of breath or wheezing) Qty: 8.5 2RF albuterol sulfate 2.5 mg /3 mL (0.083 %) solution for nebulization 2.5 mg inhalation Q6H PRN (Reason: shortness of breath or wheezing) Qty: 75 1RF amlodipine 10 mg tablet 10 mg PO DAILY Qty: 90 2RF levocetirizine 5 mg tablet 5 mg PO QPM PRN (Reason: allergy symptoms) Qty: 30 3RF carvedilol 25 mg tablet 25 mg PO BID Qty: 180 5RF cholecalciferol (vitamin D3) 1,250 mcg (50,000 unit) capsule 1,250 mcg PO QWEEK 90 Days Qty: 13 0RF furosemide [Lasix] 40 mg tablet 40 mg PO QAM Qty: 90 0RF amiodarone 200 mg tablet 200 mg PO DAILY Qty: 90 0RF Rx Instructions: To start taking on April 302024 losartan 50 mg tablet 50 mg PO DAILY Qty: 90 0RF acetaminophen [Tylenol Extra Strength] 500 mg tablet 500 mg PO Q6H PRN (Reason: Pain) Eliquis 5 mg tablet 5 mg PO BID famotidine 40 mg tablet 40 mg PO DAILY Qty: 90 0RF Print Language: Frisian
[2025-05-30 17:14] LABS: MANUAL DIFF FLAG NO
[2025-05-30 17:18] LABS: Hematocrit 40.8 % (37.0-47.0); Hemoglobin 13.4 g/dl (12.0-16.0); Imm Gran Abs Auto 0.05 X10*3/uL (0.00-0.03); Imm Gran Pct Auto 0.5 % (0.0-0.4); Lymphocytes Absolute Auto 2.2 X10*3/uL (1.2-4.9); Mean Corpuscular HGB Conc 32.8 g/dl (31.0-35.0); Mean Corpuscular Hemoglobin 30.8 pg (27.0-33.0); Mean Corpuscular Volume 93.8 fL (80.0-98.0); NRBC Abs Auto 0.000 X10*3/uL (0.0-0.012); NRBC Pct Auto 0.0 /100WBC (0.0-0.2); Platelet Count 371 X10*3/uL (160-400); Red Blood Count 4.35 X10*6/uL (4.20-5.50); White Blood Count 10.9 X10*3/uL (4.8-10.8)
[2025-05-30 17:29] LABS: Anion Gap 15 (12-20); Blood Urea Nitrogen 10 mg/dL (9-16); Calcium 9.9 mg/dL (8.4-10.2); Carbon Dioxide 27 mmol/L (22-29); Chloride 108 mmol/L (96-108); Creatinine Clr Calc Pharmacy 100.7; Estimated Glomerular Filt Rate > 60; Potassium 4.0 mmol/L (3.3-5.1); Sodium 146 mmol/L (135-145)
--- OUTSIDE RECORDS SUMMARY | 2025-05-30 19:10 | XMS_ITS | Clinical Summary ---
Author Organization [facility] Address [address] [place] [address] Phone Care Team Providers Care Life Advisor Name Role Phone Windy Mcelroy MD Primary [...] 10 each 04/21/2025 12:06 PM EST Active Active Problems Problem Noted Date Diagnosed Date DJD of shoulder 04/20/2025 Encounters Date Type Department Care Team Description 04/20/2025 11:45 AM EST - 04/20/2025 1:45 PM EST Surgery [facility] OR [address] [place] [id number] Dav Rutherford MD ARTHROPLASTY SHOULDER TOTAL REVERSE APPROACH [84117 (CPT )] 04/20/2025 11:37 AM EST Anesthesia Event [facility] OR [address] [place] [id number] Troy Swift MD Kanelos, Peter T, MD 04/20/2025 8:36 AM EST - 04/21/2025 12:46 PM EST Hospital Encounter [facility] [address] [place] [id number] Dav Rutherford MD Primary osteoarthritis of left shoulder (Primary Dx); Pain Discharge Disposition: Home or Self Care from Last 3 Months Surgical History Surgery Date Site/Laterality Comments TUBAL LIGATION CHOLECYSTECTOMY DILATION AND CURETTAGE OF UTERUS COLONOSCOPY Medical History Medical History Date Comments Asthma Hypertension A-fib ([facility] V24, [facility] V28) new onset Afib-04/14/2025 Hypokalemia 04/2025 Vertigo 1 episode Fractures 04/2025 LUE after fall Fibroids Sleep apnea compliant with C PAP SOB (shortness of breath) on exertion Heartburn PONV (postoperative nausea and vomiting) Obesity CHF (congestive heart failur e) ([facility] V24, [facility] V28) 04/2025 r/t afib per pcp note Family History Medical History Relation Name Comments Heart attack Brother at 54 yrs old of [place] pre diabetes Father Heart disease Mother thyroid [...] on patient's age to complete this topic Medical Devices Implanted Type Area [employer] Device Identifier Shelf Expiration Date Model / Serial / Lot Cement Bone Palacos High-Viscosity - [id number] Implanted:Qty: 1 on 04/20/2025 by Dav Rutherford MD at [facility] Bone Cement Left: Shoulder [employer]AE[employer] KUL[employer] [id number] 05/31/2028 [id number] / / [id number] Description:1 gram of vancom ycin mixed into 1 bag of bone cement. Cement Bone Palacos High-Viscosity - [id number] Implanted:Qty: 1 on 04/20/2025 by Dav Rutherford MD at [facility] Bone Cement Left: Shoulder [employer] KUL[employer] [id number] 09/28/2028 [id number] / / [id number] Description:1 gram of vancom ycin mixed into 1 bag of bone cement. Humeral Perform Ret Insert Sz1/2 36mm +0 - [id number] - [id number] Implanted:Qty: 1 on 04/20/2025 by Dav Rutherford MD at [facility] Joints Shoulder Left: Shoulder [employer] 12/05/2025 [id number] / [id number] / [id number] Lateralized Baseplate +3mm 25mm - [id number] - [id number] Implanted:Qty: 1 on 04/20/2025 by Dav Rutherford MD at [facility] Joints Shoulder Left: Shoulder [employer] [id number] 01/03/2030 [id number] / [id number] / Standard Glenosphere 36mm - [id number] - [id number] Implanted:Qty: 1 on 04/20/2025 by Dav Rutherford MD at [facility] Joints Shoulder Left: Shoulder 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[employer] 11/16/2029 [id number] / [id number] / N/A Stem Fracture Sz 8s L 130mm - [id number] - [id number] Implanted:Qty: 1 on 04/20/2025 by Dav Rutherford MD at [facility] Joints Shoulder Left: Shoulder [employer] 08/15/2029 [id number] / [id number] / N/A Central Threaded Post Screw 6.5x30mm - Sn/A - [id number] Implanted:Qty: 1 on 04/20/2025 by Dav Rutherford MD at [facility] Joints Shoulder Left: Shoulder 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 [id number] / N/A / N/A Peripheral Screw 5x18mm - Sn/A - [id number] Implanted:Qty: 2 on 04/20/2025 by Dav Rutherford MD at [facility] Joints Shoulder Left: Shoulder 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 [id number] / N/A / N/A Peripheral Screw 5x38mm - Sn/A - [id number] Implanted:Qty: 2 on 04/20/2025 by Dav Rutherford MD at [facility] Joints Shoulder Left: Shoulder PATINO [employer]- VERONI ITEMS [id number] / N/A / N/A Procedures Procedure Name [...] ENDOTRACHEAL(NO CHARGE) Routine 04/20/2025 2:19 PM EST SD TENODESIS LONG TENDON OF BICEPS 04/20/2025 11:23 AM EST Other displaced fracture of upper end of left humerus, initial encounter for closed fracture Case Notes PCPSDD SD TX FRACTURE PROXIMAL HUMERAL OPEN INCL INT FIXN INCL REPR TUBEROSITY 04/20/2025 11:23 AM EST Other displaced fracture of upper end of left humerus, initial encounter for closed fracture Case Notes PCPSDD SD ARTHROPLASTY GLENOHUMERAL JOINT TOTAL SHOULDER 04/20/2025 11:23 [...] ult [facility] [address] [place] [address], [place] [phone] * XR Shoulder 2+ Views Left (04/20/2025 [...] Signed Date: 04/20/2025 17:25 ET Workstation ID: [id number] Transcribed By: Self Edit Transcribed Date: 04/20/2025 [...] Signed Date: 04/20/2025 17:25 ET Workstation ID: [id number] Transcribed By: Self Edit Transcribed Date: 04/20/2025 [...] Signed Date: 05/10/2025 15:06 ET Workstation ID: [id number] Transcribed By: Self Edit Transcribed Date: 05/10/2025 [...] physician. 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 pulse ox Block type: interscalene [...] CHEMISTRY METHOD 04/20/2025 11:25 AM [facility] Potassium 3.7 3.5 - 5.1 mmol/L LAB CHEMISTRY METHOD 04/20/2025 11:25 AM [facility] Chloride 102 98 - 107 mmol/L LAB CHEMISTRY METHOD 04/20/2025 11:25 AM [facility] CO2 26 24 - 32 mmol/L LAB CHEMISTRY METHOD 04/20/2025 11:25 AM [facility] Anion Gap 10 5 - 14 LAB CHEMISTRY METHOD 04/20/2025 11:25 AM [facility] Glucose 99 70 - 99 mg/dL LAB CHEMISTRY METHOD 04/20/2025 11:25 AM [facility] BUN 9 7 - 17 mg/dL LAB CHEMISTRY METHOD 04/20/2025 11:25 AM [facility] Creatinine 0.60 0.50 - 1.00 mg/dL LAB CHEMISTRY METHOD 04/20/2025 11:25 AM [facility] eGFR 108 >=60 mL/min/1. 73m2 LAB CHEMISTRY METHOD 04/20/2025 11:25 AM EST [facility] Comment:Calculation based on the Chronic Kidney Disease Epidemiology Collaboration (CKD-EPI) equation refit without adjustment for race. BUN/Creatinine Ratio 15.0 12.0 - 20.0 LAB CHEMISTRY METHOD 04/20/2025 11:25 AM EST [facility] Calcium 9.4 8.4 - 10.2 mg/dL LAB CHEMISTRY METHOD 04/20/2025 11:25 AM EST [facility] AST (SGOT) 21 5 - 40 unit/L LAB CHEMISTRY METHOD 04/20/2025 11:25 AM [facility] ALT (SGPT) 30 7 - 52 unit/L LAB CHEMISTRY METHOD 04/20/2025 11:25 AM [facility] Alkaline Phosphatase 99 34 - 104 unit/L LAB CHEMISTRY METHOD 04/20/2025 11:25 AM EST [facility] Total Protein 7.6 6.4 - 8.5 g/dL LAB CHEMISTRY METHOD 04/20/2025 11:25 AM [facility] Albumin 4.1 3.5 - 5.0 g/dL LAB CHEMISTRY METHOD 04/20/2025 11:25 AM [facility] Total Bilirubin 0.6 0.3 - 1.0 mg/dL LAB CHEMISTRY METHOD 04/20/2025 11:25 AM EST [facility] Blood Venous blood specimen / Unknown Venipuncture / Unknown 04/20/2025 10:46 AM EST 04/20/2025 10:50 AM EST us Troy Swift MD LAB BLOOD ORDERABLES Final Res ult [facility] [address] [place] [address], [place] [phone] * ABO Rh (04/20/2025 9:55 AM EST) [...] Result [facility] [address] [place] [address], [place] [phone] * Type and screen (04/20/2025 9:55 AM [...] ORDERA BLES Final Result Performing Organization Address City/[facility]/ZIP Co de Phone Number [facility] [address] [place] [address], [place] [phone] from Last 3 Months Insurance MEDICAID - [place] [facility] [address] [place] [address] Advance Directives * Full Code - Confirmed (Latest Code Status on File) Date Activated Date Inactivated Comments 04/20/2025 4:08 PM 04/21/2025 2:46 PM This code status was ascertained in the following way: Code status discussion: discussion with patient To update the patient's code status, place a code status order. Do not modify or discontinue any currently active code status orders. Care Teams Life Advisor Relationship Specialty Start Date End Date Windy Mcelroy MD [address] [place] [address] PCP - General Internal Medicine 04/17/25
--- OUTSIDE RECORDS SUMMARY | 2025-05-30 19:11 | XMS_ITS | Continuity of Care Document ---
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 [facility] Health Information Management [address] [place] [address], [address], 04/21/2025 04:55:23 04/25/2004/19/2025 CT, shoul rita, w/o [...] sity, with fractu re fragme nts displa mitchlel superi or to the dana l head [...] patien t to us, William smith MD [phone] (Elect maria a lares Signed - 2024 09:09) INTERFACE [facility] ([facility]) [address] [facility] [address], [place], [address], 04/25/2025 09:12:13 Result Notes None recorded. Problems Name Problem SNOMED Code Status Onset Date Resolution Date Notes Provider Name and Address Organization Details Recorded Time Pain of left shoulder joint 80415415771943 109 Active 2024 Jose Morris MD [address], [place], [address] , [place] [facility], P 5 06:41:19 Closed fracture of upper end of humerus 62558357 Active 2024 Dav Rutherford MD [address], [place], [address] , [place] [facility], P 5 08:56:58 Body mass index 40+ - severely obese 417761669 Active 2024 Jose Morris MD [address], [place], [address] , [place] [facility], P 5 08:46:39 Problem Notes None recorded. Procedures Surgical History Date Name Laterality Status Provider Name and Address Organization Details Recorded Time 04/20/20 REVERSE TOTAL SHOULDER ARTHROPLASTY (SURG) completed Neela Colbertier [place] [facility], P 04/21/2025 09:24:53 Imaging Results None recorded. Procedure Notes None recorded. Medical Equipment None Reported. Allergies Allergen ID Allergen Name Allergen Category Reaction Reaction Severity Criticality Documentation Date Start Date Code Code System Note Provider Name and Address Organization Details Recorded Time 432218 azithromy luis enrique medicatio n Not available Not available Not available 04/17/20252024 79469 RxNorm Not Available prollie Data [employer] - prod 12:43:14 939939 clarithro mycin medicatio n Not available Not available Not available 04/17/20252024 61640 RxNorm Not Available pro[employer]ie [employer] - prod 12:43:14 054385 lisinopri l medicatio n Not available Not available Not available 04/18/2025 82958 RxNorm Daly Biju null, [place] [facility], P 5 14:12:23 992164 amoxicill in medicatio n Not available Not available Not available 04/18/2025 723 RxNorm Daly Biju null, [place] - [facility], P 5 14:12:30 325132 egg extract food,medi cation Not available Not available Not available 04/18/2025 88902 15 RxNorm Daly Biju null, [place] [facility], P 5 14:12:39 124392 sulfameth oxazole / trimethop rim medicatio n diarrhea hives Not available Not available Not available 04/20/20252024 46650 RxNorm Not Available prollie Data Service - prod 00:12:25 Medications Name [...] Updated DateTime 04/11/2025 160.02 cm 49.6 kg/m2 222174.86 g Jose Morris MD [address], [place], [address], [place] [facility], 04/11/2025 13:56:09 Social History None recorded. Functional Status None recorded. Mental Status None recorded. Family History Nothing Reported. Medical History No medical history recorded. Gynecological HistoryNo gynecological history recorded. Obstetrics History GPAL:G 0 P 0 0 0 0 Past Encounters Encounter ID Performer Location Encounter Start Date Encounter Closed Date Diagnosis/Indication Diagnosis SNOMED-CT Code Diagnosis ICD10 Code Diagnosis IMO Codes Diagnosis Note [id number] Jose Morris MD [address] [place] [address] 04/11/2025 13:05:10 04/11/2025 13:40:17 Pain of left shoulder joint 9033205038 [id number] M25.512 414979 Closed fra cture of upper end of humerus 85150771 S42.292A 712919372 Body mass index 40+ - severely obese 865003327 E66.01 Z68.42 71903165 Health Concerns Section Related Observation LastModified by Organization Detai ls LastModified Time None Recorded Concern Status LastModified by Organization Details LastModified Time None Recorded Payers Encounter Date Sequence Insurance Name Policy Number Policy Iglesias Covered Member ID Iglesias Member ID Guarantor Name 04/11/2025 1 [facility] [id number] Mariannepatricia Romero [id number] [facility] Nick Notes Date Note Type Note Provider Name and Address Organization Details Recorded Time 04/11/2025 text/html 50-year-old alwmb-dqvp-pnyqthjb female here for an evaluation of acute left shoulder pain that started yesterday after a fall at home. She tripped and fell over a marietta litter box while getting out of bed. She noted immediate pain in her left shoulder. She was seen at [facility]. X-rays were performed and she was diagnosed [...] Jose Morris MD [address], [place], [address], [place] [facility], P 04/18/2025 08:48:38 04/13/2025 text/html ROS as noted in the HPI 50-year-old lbkcx-nhlj-lrlxuxlz woman presenting with left shoulder injury sustained on 04/10/2025. She fell a few days ago initially went to [facility] where she was given a sling ibuprofen and Tylenol. She was referred to see Dr. oMrris who then subsequently referred her to me she rates her pain 8 out of 10 she endorses night symptoms. 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 She was diagnosed with a left proximal humerus fracture. She presents today with her . Past medical history consistent with hypertension asthma Past surgical history consistent with colonoscopy tubal ligation D&CDenies smoking Dav Rutherford MD [address], [place], [address], [place] [facility], [facility] 04/13/2025 09:54:34 OBGyn Episode No OBEpisode recorded.
--- OUTSIDE RECORDS SUMMARY | 2025-05-30 19:11 | XMS_ITS | Continuity of Care Document ---
Author Organization [place] [facility] Jayda Guallpa AONE [place] Address [address] [place] [address] Care Team Providers Care Director Of Manufacturing Operations Name Role Phone PORFIRIO VELAZCO Primary Care Provider [phone] PORFIRIO VELAZCO Referring Provider Assessment Encounter Date Assessment Date Assessment LastModified by Organization Details LastModified Time 05/05/2025 05/05/2025 IMPRESSION: status post LEFT Reverse Shoulder Arthroplasty for fracture (Tornier Perform Fx (04/20/2025 at [facility]) PLAN: Patient is doing well. Patient [...] [facility], [address], [place], [address], 05/09/2025 13:02:51 Medication Orders None recorded. Patient TargetsNo targets recorded. Patient Instructions Encounter Date Encounter Id Patient Instructions Last Modified By Organization Details Last Modified Time 05/05/2025 [id number] AJR - ACCELERATE D Reverse Total Shoulder [...] (note: full PROM is not expected) Gradual scientology of AROM Control pain and inflammation Protect [...] resul t No observ ation record ed. [facility] Health Information Management [address] [place], [address], 04/21/2025 04:55:23 04/25/20 25 04/19/2025 CT, shoul [...] patien t to us, William smith MD [phone] (Elect maria a lares Signed - 2024 09:09) INTERFACE [facility] ([facility]) [address] [address], [place], [address], 04/25/2025 09:12:13 Result Notes None recorded. Problems Name Problem SNOMED Code Status Onset Date Resolution Date Notes Provider Name and Address Organization Details Recorded Time Pain of left shoulder joint 94289356759771 109 Active 2024 Jose Morris MD [address], [place], [address] , [place] [facility], P 5 06:41:19 Closed fracture of upper end of humerus 92899220 Active 2024 Dav Rutherford MD [address], [place], [address] , [place] [facility], P 5 08:56:58 Body mass index 40+ - severely obese 705736313 Active 2024 Jose Morris MD [address], [place], [address] , [place] [facility], P 5 08:46:39 Problem Notes None recorded. Procedures Surgical History Date Name Laterality Status Provider Name and Address Organization Details Recorded Time 04/20/20 25 REVERSE TOTAL SHOULDER ARTHROPLASTY (SURG) completed Neela Estrada [facility], P 04/21/2025 09:24:53 Imaging Results None recorded. Procedure Notes None recorded. Medical Equipment None Reported. Allergies Allergen ID Allergen Name Allergen Category Reaction Reaction Severity Criticality Documentation Date Start Date Code Code System Note Provider Name and Address Organization Details Recorded Time 359316 azithromy luis enrique medicatio n Not available Not available Not available 04/17/20252024 32526 RxNorm Not Available bety - External Data Service - prod 12:43:14 290458 clarithro mycin medicatio n Not available Not available Not available 04/17/20252024 19905 RxNorm Not Available [facility] External Data Service - prod 12:43:14 686876 lisinopri l medicatio n Not available Not available Not available 04/18/2025 90878 RxNorm Daly Biju null, [facility], P 5 14:12:23 199046 amoxicill in medicatio n Not available Not available Not available 04/18/2025 723 RxNorm Daly Viviancemurray null, [facility], P 5 14:12:30 315338 egg extract food,medi cation Not available Not available Not available 04/18/2025 14807 15 RxNorm Daly Biju null, [place] [facility], P 5 14:12:39 122195 sulfameth oxazole / trimethop rim medicatio n diarrhea hives Not available Not available Not available 04/20/20252024 35650 RxNorm Not Available bety - External Data [...] ICD10 Code Diagnosis IMO Codes Diagnosis Note [id number] Jose Morris MD [facility] [address] [facility] [address] [place] [address] 04/11/2025 13:05:10 04/11/2025 13:40:17 Pain of left shoulder joint 7812183094 5752017 M25.512 229336 Closed fra cture of upper end of humerus 19943694 S42.292A 158502766 Body mass index 40+ - severely obese 935524303 E66.01 Z68.42 08003901 [id number] MD CASSIA Puentes [place] [address] [facility] [address] [place] [address] 04/13/2025 08:52:45 04/13/2025 09:44:52 Closed fracture of upper end of humerus 27065827 S42.292A 569090739 [id number] Dav Rutherford MD [address] [address] 05/05/2025 09:41:43 05/05/2025 10:31:35 Postoperative visit 017930457 Z48.89 05771737 status post Reverse Shoulder Arthroplas ty Health Concerns Section Related Observation LastModified by Organization Detai ls LastModified Time None Recorded Concern Status LastModified by Organization Details LastModified Time None Recorded Payers Encounter Date Sequence Insurance Name Policy Number Policy Iglesias Covered Member ID Iglesias Member ID Guarantor Name 05/05/[address] [place] [address] [id number] Mariannepatricia Rmoero [id number] Marianne Nick Notes Date Note Type Note Provider Name and Address Organization Details Recorded Time 05/05/2025 text/html ROS as noted in the HPI Patient presents for their first postoperative visit. They are status post the following procedure 1) Left RSA for fracture (04/20/2025 at [facility]) Dav Rutherford MD [address], [place], [address], [place] [facility], P 05/05/2025 10:28:41 OBGyn Episode No OBEpisode recorded.
--- OUTSIDE RECORDS SUMMARY | 2025-05-30 19:11 | XMS_ITS | Data Portability ---
Author Organization [place] [facility] Jayda Guallpa AONE [place] Address [address] [place] [address] Care Team Providers Care Station Detective Name Role Phone PORFIRIO VELAZCO Primary Care Provider PORFIRIO VELAZCO Referring Provider [phone] Assessment Encounter Date Assessment Date Assessment LastModified [...] (Tornier Perform Fx (04/20/2025 at [facility]) PLAN: Patient is doing well. Patient may [...] or more view 2024 025 [facility], [address], [place], [address], 05/09/2025 13:02:51 CT, shoulder, w/o contrast - Left proximal humerus fracture preoperat familia planning blueprint protocol* *Please call patient to schedule and hand carry CD 2024 025 [email or web address] [facility] ([facility]) , [address], [place], [address], 04/21/2025 09:18:30 Medication Orders None recorded. Patient TargetsNo targets recorded. Patient Instructions Encounter Date Encounter Id Patient Instructions Last Modified By Organization Details Last Modified Time 04/11/2025 [id number] I independently reviewed her left shoulder x-rays from yesterday which show a displaced at least 3 part proximal humerus fracture. Shoulder appears located. The greater tuberosity fragment is displaced superiorly and medially. Not available 04/18/2025 08:47:14 04/13/2025 [id number] 3 views of the left shoulder were reviewed these demonstrate a proximal humerus fracture involving the surgical neck reverse obliquity fashion greater tuberosity with proximal migration 2 views of the left humerus were reviewed again demonstrating a proximal humerus fracture involving the surgical neck and greater tuberosity Not available 04/13/2025 09:11:06 05/05/2025 [id number] AJR - ACCELERATE D Reverse Total Shoulder [...] (note: full PROM is not expected) Gradual taoism of AROM Control pain and inflammation Protect [...] resul t No observ ation record ed. [facility] Health Information Management [address] [place] [address], [address], 04/21/2025 04:55:23 04/25/20 25 04/19/2025 CT, shoul [...] patien t to us, William smith MD [phone] (Elect maria a lares Signed - 2024 09:09) INTERFACE [facility] ([facility]) [address] [facility] [address], [place], [address], 04/25/2025 09:12:13 Result Notes Documentation Provider Name [...] by: William Powers MD 04/25/2025 09:09 AM [facility] Thank you for referring your patient to us, William Powers MD [phone] (Electronically Signed - 04/25/2025 09:09) Not Available [facility] 04/25/2025 09:12:13 Problems Name Problem SNOMED Code Status Onset Date Resolution Date Notes Provider Name and Address Organization Details Recorded Time Pain of left shoulder joint 42341590321147 109 Active [address], [place], [address] , [place] [facility], P 5 06:41:19 Closed fracture of upper end of humerus 81352818 Active [address], [place], [address] , [place] [facility], P 5 08:56:58 Body mass index 40+ - severely obese 206166483 Active 2024 Jose Morris MD [address], [place], [address] , [place] [facility], P 5 08:46:39 Problem Notes None recorded. Procedures Surgical History Date Name Laterality Status Provider Name and Address Organization Details Recorded Time 04/20/20 25 REVERSE TOTAL SHOULDER ARTHROPLASTY (SURG) completed Neela Bazziunier [place] [facility], P 04/21/2025 09:24:53 Imaging Results None recorded. Procedure Notes None recorded. Medical Equipment None Reported. Allergies Allergen ID Allergen Name Allergen Category Reaction Reaction Severity Criticality Documentation Date Start Date Code Code System Note Provider Name and Address Organization Details Recorded Time 607736 azithromy luis enrique medicatio n Not available Not available Not available 04/17/20252024 05267 RxNorm Not Available bety - External Data Service - prod 12:43:14 608500 clarithro mycin medicatio n Not available Not available Not available 04/17/20252024 87867 RxNorm Not Available bety - External Data Service - prod 12:43:14 272709 lisinopri l medicatio n Not available Not available Not available 04/18/2025 52206 RxNorm Daly LaDouceur null, [place] - [facility], P 14:12:23 786954 amoxicill in medicatio n Not available Not available Not available 04/18/2025 723 RxNorm Daly LaDouceur null, [place] [facility], P 5 14:12:30 609552 egg extract food,medi cation Not available Not available Not available 04/18/2025 99270 15 RxNorm Daly LaDouceur null, [place] - [facility], P 14:12:39 136887 sulfameth oxazole / trimethop rim medicatio n diarrhea hives Not available Not available Not available 04/20/20252024 87774 RxNorm Not Available bety - External Data [...] Updated DateTime 04/11/2025 160.02 cm 49.6 kg/m2 743210.86 g Jose Morris MD [address], [place], [address], [place] [facility], P 04/11/2025 13:56:09 Social History None recorded. Functional Status None recorded. Mental Status None recorded. Family History Nothing Reported. Medical History No medical history recorded. Gynecological HistoryNo gynecological history recorded. Obstetrics History GPAL:G 0 P 0 0 0 0 Past Encounters Encounter ID Performer Location Encounter Start Date Encounter Closed Date Diagnosis/Indication Diagnosis SNOMED-CT Code Diagnosis ICD10 Code Diagnosis IMO Codes Diagnosis Note [id number] Jose Morris MD [address] [address] 04/11/2025 13:05:10 04/11/2025 13:40:17 Pain of left shoulder joint 1523016196 0521523 M25.512 516396 Closed fra cture of upper end of humerus 10530106 S42.292A 948680487 Body mass index 40+ - severely obese 889115148 E66.01 Z68.42 29936147 [id number] Dav Rutherford MD [facility] [address] [address] 04/13/2025 08:52:45 04/13/2025 09:44:52 Closed fracture of upper end of humerus 15417012 S42.292A 070133575 [id number] Dav Rutherford MD [address] [address] 05/05/2025 09:41:43 05/05/2025 10:31:35 Postoperative visit 534505870 Z48.89 76132825 status post Reverse Shoulder Arthroplas ty Health Concerns Section Related Observation LastModified by Organization Detai ls LastModified Time None Recorded Concern Status LastModified by Organization Details LastModified Time None Recorded Advance Directives Directive None Recorded Payers Insurance Date Sequence Insurance Name Policy Number Policy Iglesias Covered Member ID Iglesias Member ID Guarantor Name 05/16/[address] [place] [address] [id number] Marianne Romero [id number] Marianne Rmoero Notes Date Note Type Note Provider Name and Address Organization Details Recorded Time 04/11/2025 text/html 50-year-old khjqh-wrwe-abdwhlbm female here for an evaluation of acute left shoulder pain that started yesterday after a fall at home. She tripped and fell over a marietta litter box while getting out of bed. She noted immediate pain in her left shoulder. She was seen at [facility]. X-rays were performed and she was [...] of marijuana. MD [address], [place], [address], [place] [facility], P 04/18/2025 08:48:38 04/13/2025 text/html ROS as noted in the HPI 50-year-old vkenn-vasw-shaydmjt woman presenting with left shoulder injury sustained on 04/10/2025. She fell a few days ago initially went to [facility] where she was given a [...] Dav Rutherford MD [address], [place], [address], [place] [facility], P 04/13/2025 09:54:34 05/05/2025 text/html ROS as noted in the HPI Patient presents for their first postoperative visit. They are status post the following procedure 1) Left RSA for fracture (04/20/2025 at [facility]) Dav Rutherford MD [address], [place], [address], [place] [facility], P 05/05/2025 10:28:41 OBGyn Episode No OBEpisode recorded.
--- OUTSIDE RECORDS SUMMARY | 2025-05-30 19:11 | XMS_ITS | Continuity of Care Document ---
Author Organization [place] [facility] Jayda Guallpa [place] Address [address] [address] Care Team Providers Care Scrap Sorter Name Role Phone PORFIRIO VELAZCO Primary Care Provider [phone] PORFIRIO VELZACO Referring Provider Assessment Encounter Date Assessment Date [...] schedule and hand carry CD 2024 025 [id number] [facility] ([facility] , [address], [place], [address], 04/21/2025 09:18:30 Medication Orders None recorded. Patient TargetsNo targets recorded. Patient Instructions Encounter Date Encounter Id Patient Instructions Last Modified By Organization Details Last Modified Time 04/13/2025 [id number] views of the left shoulder were [...] resul t No observ ation record ed. [facility] [address] [place], [address], 04/21/2025 04:55:23 04/25/2004/19/2025 CT, shoul rita, w/o [...] patien t to us, William smith MD [id number] (Elect maria a lares Signed - 2024 09:09) INTERFACE [facility] ([facility]) [address] [facility] [address], [place], [address], 04/25/2025 09:12:13 Result Notes None recorded. Problems Name Problem SNOMED Code Status Onset Date Resolution Date Notes Provider Name and Address Organization Details Recorded Time Pain of left shoulder joint 54026563913048 109 Active 2024 Jose Morris MD [address], [place], [address] , [place] [facility] [place] 06:41:19 Closed fracture of upper end of humerus 12848925 Active 2024 Dav Rutherford MD [address], [place], [address] , [place] [facility] 5 08:56:58 Body mass index 40+ - severely obese 870766772 Active 2024 Jose Morris MD [address], [place], [address] , [place] [facility] 5 08:46:39 Problem Notes None recorded. Procedures Surgical History Date Name Laterality Status Provider Name and Address Organization Details Recorded Time 04/20/20 REVERSE TOTAL SHOULDER ARTHROPLASTY (SURG) completed Neela Bazziunier [facility] [place] 04/21/2025 09:24:53 Imaging Results None recorded. Procedure Notes None recorded. Medical Equipment None Reported. Allergies Allergen ID Allergen Name Allergen Category Reaction Reaction Severity Criticality Documentation Date Start Date Code Code System Note Provider Name and Address Organization Details Recorded Time 636319 azithromy luis enrique medicatio n Not available Not available Not available 04/17/20252024 14304 RxNorm Not Available bety - External Data Service - prod 12:43:14 840130 clarithro mycin medicatio n Not available Not available Not available 04/17/20252024 44440 RxNorm Not Available [place] [employer] External Data Service - prod 12:43:14 996539 lisinopri l medicatio n Not available Not available Not available 04/18/2025 45096 RxNorm Daly LaDouceur null, [place] [facility] [place] 5 14:12:23 113935 amoxicill in medicatio n Not available Not available Not available 04/18/2025 723 RxNorm Daly LaDouceur null, [place] [facility] [place] 5 14:12:30 214069 egg extract food,medi cation Not available Not available Not available 04/18/2025 68349 15 RxNorm Daly LaDouceur null, [place] [facility] 5 14:12:39 236695 sulfameth oxazole / trimethop rim medicatio n diarrhea hives Not available Not available Not available 04/20/20252024 18563 RxNorm Not Available [place] - External Data Service - prod 5 [...] ICD10 Code Diagnosis IMO Codes Diagnosis Note [id number] Jose Morris MD [address] [place] [address] 04/11/2025 13:05:10 04/11/2025 13:40:17 Pain of left shoulder joint [id number] 3486585 M25.512 244355 Closed fra cture of upper end of humerus 79183933 S42.292A 821839172 Body mass index 40+ - severely obese 986290484 E66.01 Z68.42 [id number] Dav Rutherford MD [facility] [address] [place] [address] 04/13/2025 08:52:45 04/13/2025 09:44:52 Closed fracture of upper end of humerus 35548494 S42.292A [id number] Health Concerns Section Related Observation LastModified by Organization Detai ls LastModified Time None Recorded Concern Status LastModified by Organization Details LastModified Time None Recorded Payers Encounter Date Sequence Insurance Name Policy Number Policy Iglesias Covered Member ID Iglesias Member ID Guarantor Name 04/13/[address] [place] [address] [id number] Marianne Romero [id number] Mariannepatricia Romero Notes Date Note Type Note Provider Name and Address Organization Details Recorded Time 04/13/2025 text/html ROS as noted in the HPI 50-year-old [id number] t woman presenting with left shoulder injury sustained on 04/10/2025. She fell a few days ago initially went to [facility] where she was given a sling ibuprofen [...] Dav Rutherford MD [address], [place], [address], [place] [facility] 04/13/2025 09:54:34 OBGyn Episode No OBEpisode recorded.
[2025-05-30 21:37] VITALS: BP 157/52; PULSE 73; RESP 16; TEMP 36.4; O2SAT 96
[2025-05-30] MEDS: Lidocaine HCl 2 % MPF 5 ML VIAL 10 ML INFILTRATI (22:31)
[2025-05-30] MEDS: oxyCODONE HCl Immed Release 5 MG TABLET PO (22:31)
[2025-05-30 23:28] VITALS: BP 138/78; PULSE 88; RESP 16; TEMP 36.6; O2SAT 96
== END 2025-05-30 23:31 | disposition home or self-care (01) ==
PROVIDERS: Physician Assistant; Emergency Provider Emergency Medicine; PCP Internal Medicine
DX: N76.4 Abscess of vulva (principal); Z87.891 Personal history of nicotine dependence; Z79.899 Other long term (current) drug therapy
CPT/HCPCS: 36415; 56405; 80048; 85025; 99284; J2003